=== PATIENT | female | born 1975 | race Caucasian/White ===

== ENCOUNTER → 2019-09-30 08:12 | Outpatient (BNVA) | payer MEDICAID, SELFPAY | PROVIDERS: Visit Provider Nurse Practitioner Psychiatric/Mental Health | DX: F33.2 Major depressive disorder, recurrent severe without psychotic features (principal); F40.01 Agoraphobia with panic disorder; F17.210 Nicotine dependence, cigarettes, uncomplicated | CPT/HCPCS: 99213 ==

== ENCOUNTER → 2019-10-07 14:17 | Outpatient (BNVA) | payer MEDICAID, SELFPAY | PROVIDERS: PCP Family Medicine; Visit Provider Specialist | DX: G43.711 Chronic migraine without aura, intractable, with status migrainosus (principal); M79.7 Fibromyalgia; F17.210 Nicotine dependence, cigarettes, uncomplicated | CPT/HCPCS: 64615; 99213; J0585 ==

== ENCOUNTER → 2019-12-23 09:07 | Outpatient (BNVA) | payer MEDICAID, SELFPAY | PROVIDERS: PCP Family Medicine; Visit Provider Nurse Practitioner Psychiatric/Mental Health | DX: F33.2 Major depressive disorder, recurrent severe without psychotic features (principal); F40.01 Agoraphobia with panic disorder; F17.210 Nicotine dependence, cigarettes, uncomplicated | CPT/HCPCS: 99213 ==

== ENCOUNTER → 2020-01-01 11:09 | Outpatient (BNVA) | payer MEDICAID, SELFPAY | PROVIDERS: PCP Family Medicine; Visit Provider Specialist | DX: G43.711 Chronic migraine without aura, intractable, with status migrainosus (principal); F33.2 Major depressive disorder, recurrent severe without psychotic features; F17.210 Nicotine dependence, cigarettes, uncomplicated | CPT/HCPCS: 64615; J0585 ==

== ENCOUNTER → 2020-03-24 07:30 | Outpatient (BNVA) | payer MEDICAID, SELFPAY | PROVIDERS: PCP Family Medicine; Visit Provider Nurse Practitioner Psychiatric/Mental Health | DX: F33.2 Major depressive disorder, recurrent severe without psychotic features (principal); F40.01 Agoraphobia with panic disorder | CPT/HCPCS: 99213 ==

== ENCOUNTER → 2020-04-01 14:27 | Outpatient (BNVA) | payer MEDICAID, SELFPAY | PROVIDERS: PCP Family Medicine; Visit Provider Specialist | DX: G43.711 Chronic migraine without aura, intractable, with status migrainosus (principal); F17.210 Nicotine dependence, cigarettes, uncomplicated | CPT/HCPCS: 64615; J0585 ==

== ENCOUNTER → 2020-04-14 12:25 | Outpatient (BNVA) | payer MEDICAID, SELFPAY | PROVIDERS: PCP Family Medicine; Visit Provider Specialist | DX: R20.0 Anesthesia of skin (principal); R20.2 Paresthesia of skin; M79.661 Pain in right lower leg; M79.662 Pain in left lower leg; F17.210 Nicotine dependence, cigarettes, uncomplicated | CPT/HCPCS: 95909 ==

== ENCOUNTER → 2020-06-22 07:25 | Outpatient (BNVA) | payer MEDICAID, SELFPAY | PROVIDERS: PCP Family Medicine; Visit Provider Nurse Practitioner Psychiatric/Mental Health | DX: F33.2 Major depressive disorder, recurrent severe without psychotic features (principal); F40.01 Agoraphobia with panic disorder; F17.210 Nicotine dependence, cigarettes, uncomplicated; Z03.89 Encounter for observation for other suspected diseases and conditions ruled out | CPT/HCPCS: 99214 ==

== ENCOUNTER → 2020-06-24 14:23 | Outpatient (BNVA) | payer MEDICAID, SELFPAY | PROVIDERS: PCP Family Medicine; Visit Provider Specialist | DX: G43.711 Chronic migraine without aura, intractable, with status migrainosus (principal); G62.9 Polyneuropathy, unspecified; M79.7 Fibromyalgia; F17.210 Nicotine dependence, cigarettes, uncomplicated | CPT/HCPCS: 64615; 99213; J0585 ==

== ENCOUNTER → 2020-07-28 08:11 | Outpatient (BNVA) | payer MEDICAID, SELFPAY | PROVIDERS: PCP Family Medicine; Visit Provider Nurse Practitioner Psychiatric/Mental Health | DX: F33.2 Major depressive disorder, recurrent severe without psychotic features (principal); F40.01 Agoraphobia with panic disorder; Z03.89 Encounter for observation for other suspected diseases and conditions ruled out; F17.210 Nicotine dependence, cigarettes, uncomplicated | CPT/HCPCS: 99214 ==

== ENCOUNTER → 2020-08-23 08:33 | Outpatient (BNVA) | payer MEDICAID, SELFPAY | PROVIDERS: PCP Family Medicine; Visit Provider Nurse Practitioner Psychiatric/Mental Health | DX: F33.2 Major depressive disorder, recurrent severe without psychotic features (principal); F40.01 Agoraphobia with panic disorder; Z03.89 Encounter for observation for other suspected diseases and conditions ruled out; F17.210 Nicotine dependence, cigarettes, uncomplicated | CPT/HCPCS: 99214 ==

== ENCOUNTER → 2020-09-16 11:50 | Outpatient (BNVA) | payer MEDICAID, SELFPAY | PROVIDERS: PCP Family Medicine; Visit Provider Specialist | DX: G43.711 Chronic migraine without aura, intractable, with status migrainosus (principal); G62.9 Polyneuropathy, unspecified; M79.7 Fibromyalgia; F17.210 Nicotine dependence, cigarettes, uncomplicated | CPT/HCPCS: 64615; J0585 ==

== ENCOUNTER → 2020-09-20 08:55 | Outpatient (BNVA) | payer MEDICAID, SELFPAY | PROVIDERS: PCP Family Medicine; Visit Provider Nurse Practitioner Psychiatric/Mental Health | DX: F33.2 Major depressive disorder, recurrent severe without psychotic features (principal); F40.01 Agoraphobia with panic disorder; Z03.89 Encounter for observation for other suspected diseases and conditions ruled out; F17.210 Nicotine dependence, cigarettes, uncomplicated | CPT/HCPCS: 99214 ==

== ENCOUNTER → 2020-10-25 08:13 | Outpatient (BNVA) | payer MEDICAID, SELFPAY | PROVIDERS: PCP Family Medicine; Visit Provider Nurse Practitioner Psychiatric/Mental Health | DX: F33.2 Major depressive disorder, recurrent severe without psychotic features (principal); F40.01 Agoraphobia with panic disorder; F17.210 Nicotine dependence, cigarettes, uncomplicated; Z03.89 Encounter for observation for other suspected diseases and conditions ruled out | CPT/HCPCS: 99214 ==

== ENCOUNTER → 2021-02-03 14:07 | Outpatient (BNVA) | payer MEDICAID, SELFPAY | PROVIDERS: PCP Family Medicine; Visit Provider Specialist | DX: G43.711 Chronic migraine without aura, intractable, with status migrainosus (principal); G62.9 Polyneuropathy, unspecified; M79.7 Fibromyalgia; F17.210 Nicotine dependence, cigarettes, uncomplicated | CPT/HCPCS: 64615; 99213; 99214; J0585 ==

== ENCOUNTER 2021-03-19 00:40 | Emergency (ER) | payer MEDICAID, SELFPAY ==
--- NOTE | 2021-03-19 00:43 | XRR_ITS ---
PROCEDURE INFORMATION: Exam: XR Chest Exam date and time: 03/19/2021 12:43 AM Age: 46 years old Clinical indication: Chest pressure; Prior surgery; Surgery type: Cervical fusion; Patient HX: Chest pain; Additional info: Cp TECHNIQUE: Imaging protocol: XR of the chest. Views: 1 view. COMPARISON: CT Chest/Abdomen/Pelvis w IV* 07/22/2017 8:11 PM FINDINGS: Lungs: Nodular opacity in the right upper lobe which may be secondary to neoplasm or infection. Pleural spaces: Unremarkable. No pleural effusion. No pneumothorax. Heart/Mediastinum: Unremarkable. No cardiomegaly. Bones/joints: Anterior cervical fixation hardware is in place. XR/XR chest 1V portable [id number] IMPRESSION: Nodular opacity in the right upper lobe which may be secondary to neoplasm or infection. Radiation Dose CTDIVOL = (mGy): DLP = (mGy-cm)
--- NOTE | 2021-03-19 00:43 | ECG_ITS ---
[facility] Test Date: 2021-03-19 Pat Name: Kristine Kramer Department: Room: Gender: Female Ecologist: : 1975 Requested By: Ewelina Mims Order Number: [id number] Jeffery MD: Ivan Alvarado M.D. Measurements Intervals [place] Rate: 86 P: 66 AK: 154 QRS: 67 QRSD: 83 T: 73 QT: 347 QTc: 417 Interpretive Statements SINUS RHYTHM NONSPECIFIC T-WAVE ABNORMALITY Compared to ECG 07/22/2017 17:12:08 No significant changes Electronically Signed On 03-19-2021 22:00:40 CREDIT CONTROL ADMINISTRATOR by Ivan Alvarado M.D. [id number] f
[2021-03-19 00:51] VITALS: BP 118/69; PULSE 90; RESP 16; TEMP 36.9; O2SAT 98; BMI 23.3
--- NOTE | 2021-03-19 01:05 | ED_ITS ---
HPI - Chest Pain General: Chief Complaint: Chest Pain Stated Complaint: Chest Pain Time Seen by Provider: 03/19/21 00:44 Source: patient Mode of arrival: ambulatory Limitations: no limitations History of Present Illness: HPI narrative: 46-year-old female states she has been having chest pain since 10 PM. States she has been under a lot of stress and has a lot of anxiety started feeling fluttering in her heart start him some sharp pain in her left chest. States that has been constant denies any shortness of breath states she also had some pain in her right lower back. [place] pain is sharp chest pain is much worse with palpation improved with rest. Denies any abdominal pain denies any vomiting or diarrhea Associated symptoms: Deny abdominal pain, dyspnea, fever(s), nausea or vomiting Review of Systems Const: Denies: fever(s), chills, body aches or change in appetite Eyes: Denies: blurry vision or eye discomfort ENMT: Denies: throat pain or dental pain Card: Reports: chest pain Resp: Denies: dyspnea GI: Denies: abdominal pain, nausea, vomiting or diarrhea : Denies: dysuria Musc: Denies: neck pain or back pain Skin/Breast: Denies: rash Neuro: Denies: headache(s) Psych: Denies: depression [place]/Lymph: Denies: easy bruising All/Imm: Denies: urticaria PFSH ED PFSH: Medical History (Updated 03/19/21 @ 02:33 by Ewelina Mims MD) Agoraphobia with panic attacks Fibromyalgia Major depressive disorder, recurrent 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 Nicotine dependence, cigarettes, uncomplicated Family History Other CAD (coronary artery disease) Cancer Diabetes Hypertension Denies family history of Stroke Social History Smoking and tobacco status: current every day smoker cigarettes Packs smoked per day: 0.5 Alcohol intake: never History of recent travel: No Physical Exam Const: COMMON NORMALS: no acute distress, patient oriented x3 and healthy appearing HENMT: COMMON NORMALS: normocephalic and atraumatic HEAD & SCALP: normocephalic and atraumatic Eye: COMMON NORMALS: Equal, round and reactive pupils present and EOMs intact bilaterally PUPIL: Yes Equal, round and reactive pupils present Neck/C-Spine: COMMON NORMALS: full ROM and supple Chest: COMMONS NORMALS: normal inspection of the chest OTHER: Point tender over left chest reproduces her pain Resp: COMMON NORMALS: normal respiratory effort, No retractions, No use of accessory muscles and clear to auscultation bilaterally AUSCULTATION: clear to auscultation bilaterally Cardio: COMMON NORMALS: regular rate, regular rhythm and No murmurs present (Cardio) RATE: regular rate RHYTHM: regular rhythm GI: COMMON NORMALS: Normal to inspection, nondistended, normoactive bowel sounds present, Soft to palpation, non-tender and no masses PALPATION: Yes Soft to palpation Extremity: COMMON NORMALS: normal to inspection and full ROM Neuro: COMMON NORMALS: patient oriented x3, moves all extremities and no focal motor deficits Psych: COMMON NORMALS: mental status grossly normal, Normal thought process present and cooperative THOUGHT PROCESS: Normal thought process present Skin: COMMON NORMALS: no rashes or lesions noted and no wounds GENERAL SKIN EXAM: no rashes or lesions noted Course Vital Signs: Vital signs: Vital Signs Temperature 98.4 F 03/19/21 00:51 Pulse Rate 71 03/19/21 03:31 Respiratory Rate 18 03/19/21 03:31 Blood Pressure 102/75 03/19/21 03:31 Pulse Oximetry 98 03/19/21 03:31 MDM - Chest Pain MDM Narrative: Medical decision making narrative: Patient presents here with chest pain she has no signs of acute coronary syndrome or pulmonary embolism did find a lung mass on CT and informed patient of these findings we will get her follow-up with pulmonology she is stable for discharge and is to return if worsening she understands agrees to plan. Lab Data: Labs: Lab Results 03/19/21 03/19/21 03/19/21 01:12 01:12 01:12 WBC 17.5 10^3/uL H 10 ^3/uL (4.0-10.0) RBC 5.18 10^6/uL 10^6 /uL (4.1-5.3) Hgb 13.9 g/dL g/dL (11.5-15.3) Hct 43.2 % % (37.0-47.0) MCV 83.4 fl fl (81-99) MCH 26.8 pg L pg (28.0-34.0) MCHC 32.2 g/dL g/dL (30.0-36.0) RDW 15.7 % H % (12.1-15.1) Plt Count 253 10^3/cmm 10^3 /cmm (130-400) MPV 12.2 fL H fL (7.4-10.4) Neut % (Auto) 70.8 % % Lymph % (Auto) 21.4 % % [place] % (Auto) 6.0 % % Eos % (Auto) 0.8 % % Baso % (Auto) 0.5 % % Neut # (Auto) 12.39 10^3/uL H 1 0^3/uL (1.8-7.7) Lymph # (Auto) 3.7 10^3/uL 10^3/ uL (0.8-4.8) [place] # (Auto) 1.1 10^3/uL H 10^ 3/uL (0.2-0.9) Eos # (Auto) 0.1 10^3/uL 10^3/ uL (0.0-0.8) Baso # (Auto) 0.1 10^3/uL 10^3/ uL (0.0-0.1) Nucleated RBC % (a uto) 0 % % Nucleated RBCs # 0.0 /100WBC /100W BC Sodium 138 mmol/L mmol/L (136-145) Potassium 3.7 mmol/L mmol/L (3.5-5.1) Chloride 109 mmol/L H mmol /L (98-107) Carbon Dioxide 15 mmol/L L mmol/ L (22-29) Anion Gap 17.7 (5-19) BUN 12 mg/dL mg/dL (6-20) Creatinine 0.6 mg/dL mg/dL (0.5-0.9) GFR Calculation 106.7 mL/min mL/m in (90-130) Glucose 103 mg/dL mg/dL (65-115) Calculated Osmolal ity 286 mOsm/kg mOsm/ kg (285-295) Calcium 8.4 mg/dL L mg/dL (8.5-10.5) Total Bilirubin 0.2 mg/dL mg/dL (0.15-1.2) AST 13 U/L U/L (0-32) ALT 15 U/L U/L (0-33) Alkaline Phosphata se 91 IU/L IU/L (35-105) Troponin T Baselin e 6 ng/L ng/L (0-10) Troponin T 120 Min [place] Delta Troponin T Total Protein 6.8 g/dL g/dL (6.6-8.7) Albumin 4.2 g/dL g/dL (3.5-5.2) Globulin 2.6 g/dL g/dL (1.3-4.6) Urine Color Urine Appearance Urine pH Ur Specific Gravit y Urine Protein Urine Glucose (UA) Urine Ketones Urine Blood Urine Nitrate Urine Bilirubin Urine Urobilinogen Ur Leukocyte Evita ase 03/19/21 03/19/21 03:15 03:36 WBC RBC Hgb Hct MCV MCH MCHC RDW Plt Count MPV Neut % (Auto) Lymph % (Auto) [place] % (Auto) Eos % (Auto) Baso % (Auto) Neut # (Auto) Lymph # (Auto) [place] # (Auto) Eos # (Auto) Baso # (Auto) Nucleated RBC % (a uto) Nucleated RBCs # Sodium Potassium Chloride Carbon Dioxide Anion Gap BUN Creatinine GFR Calculation Glucose Calculated Osmolal ity Calcium Total Bilirubin AST ALT Alkaline Phosphata se Troponin T Baselin e Troponin T 120 Min [place] 6.00 ng/L ng/L (0-10) Delta Troponin T 0 ABS# ABS# (0-10) Total Protein Albumin Globulin Urine Color Yellow (Yellow) Urine Appearance Clear (CLEAR) Urine pH 5 (5-7) Ur Specific Gravit y 1.010 (1.005-1.030) Urine Protein Neg (Negative) Urine Glucose (UA) Norm (Normal) Urine Ketones Negative (Negative) Urine Blood Neg (Negative) Urine Nitrate Negative (Negative) Urine Bilirubin Neg (Negative) Urine Urobilinogen Norm mg/dL mg/dL (Negative) Ur Leukocyte Evita ase Negative (Negative) Imaging Data^: CXR: Attestation: I personally reviewed and interpreted this imaging study as follows: My impression: [address] [address] XRay Report Signed Patient: Kristnie Kramer Unit #: [id number] : 1975 Age/Sex: 46 / F ADM Date: 1 05/19/20 Loc: ER Room/Bed: Attending Dr: Ordering Provider/Ordering MD: Ewelina Mims MD Date of Service: 03/19/21 Procedure(s): XR chest 1V portable [id number] Accession Number(s): [id number] Report Number: [id number] PROCEDURE INFORMATION: Exam: XR Chest Exam date and time: 03/19/2021 12:43 AM Age: 46 years old Clinical indication: Chest pressure; Prior surgery; Surgery type: Cervical fusion; Patient HX: Chest pain; Additional info: Cp TECHNIQUE: Imaging protocol: XR of the chest. Views: 1 view. COMPARISON: CT Chest/Abdomen/Pelvis w IV* 07/22/2017 8:11 PM FINDINGS: Lungs: Nodular opacity in the right upper lobe which may be secondary to neoplasm or infection. Pleural spaces: Unremarkable. No pleural effusion. No pneumothorax. Heart/Mediastinum: Unremarkable. No cardiomegaly. Bones/joints: Anterior cervical fixation hardware is in place. XR/XR chest 1V portable [id number] IMPRESSION: Nodular opacity in the right upper lobe which may be secondary to neoplasm or infection. Radiation Dose CTDIVOL = (mGy): DLP = (mGy-cm) Dictated By: Ashish Kaur Signed By: Ashish Kaur Signed Date/Time: 03/19/[address] Abd/Pel: Attestation: I personally reviewed and interpreted this imaging study as follows: Radiologist's impression: [address] [address] [address] Scan Report Signed Patient: Kristine Kramer Unit #: [id number] : 1975 Age/Sex: 46 / F ADM Date: 03/19/21 Loc: ER Room/Bed: Attending Dr: Ordering Provider/Ordering MD: Ewelina Mims MD Date of Service: 03/19/21 Procedure(s): CT angio chest PE protcl [id number] Accession Number(s): [id number] Report Number: [id number] PROCEDURE INFORMATION: Exam: CTA Chest With Contrast Exam date and time: 03/19/2021 1:53 AM Age: 46 years old Clinical indication: Shortness of breath; Chest pressure and radiating; Prior surgery; Surgery type: Cervical fusion. ; Patient HX: Chest pain with RT posterior radiation. SOB. Rul opacity seen on cxr. ; Additional info: Mass rul TECHNIQUE: Imaging protocol: Computed tomographic angiography of the chest with contrast. 3D rendering (Not supervised by radiologist): MIP and/or 3D reconstructed images were created by the technologist. Radiation optimization: All CT scans at this facility use at least one of these dose optimization techniques: automated exposure control; mA and/or kV adjustment per patient size (includes targeted exams where dose is matched to clinical indication); or iterative reconstruction. Contrast material: OMNI 350; Contrast volume: 57 ml; Contrast route: INTRAVENOUS (IV); COMPARISON: CT Chest/Abdomen/Pelvis w IV* 07/22/2017 8:11 PM RADIATION DOSE METRICS: Total DLP (mGy-cm): 517.38 FINDINGS: Pulmonary arteries: No pulmonary embolism. Aorta: Unremarkable. No aortic aneurysm. No aortic dissection. Lungs: Dependent atelectasis present in both lungs. Mildly spiculated 2.2 by 1.6 cm pulmonary nodule. Pleural spaces: Unremarkable. No pneumothorax. No pleural effusion. Heart: Unremarkable. No cardiomegaly. No pericardial effusion. Lymph nodes: Unremarkable. No enlarged lymph nodes. Diaphragm: Small hiatal hernia. Gallbladder and bile ducts: There is cholelithiasis without wall thickening or pericholecystic fluid. Bones/joints: Unremarkable. No acute fracture. Soft tissues: Unremarkable. Other findings: Mild emphysema. CT/CT angio chest PE protcl [id number] IMPRESSION: 1. No pulmonary embolism. 2. Mildly spiculated 2.2 by 1.6 cm pulmonary nodule. Highly suspicious nodule. Consider non-emergent PET/CT, or tissue sampling.(Reference: Bisi) 3. Small hiatal hernia. 4. Mild emphysema. 5. Cholelithiasis without cholecystitis. REFERENCES: Bisi Ferguson et al. Guidelines for Management of Incidental Pulmonary Nodules Detected on CT Images: From the Fleischner Society 2017. Radiology. 2017;284(1):228-243. Radiation Dose CTDIVOL = (mGy): DLP = 517.38 (mGy-cm) Dictated By: Ashish Kaur Signed By: Ashish Kaur Signed Date/Time: 03/19/21224 DD/ 0153 EKG Data^: EKG 1: Attestation: I personally reviewed and interpreted this EKG as follows: EKG interpretation date: 03/19/21 EKG interpretation time: 00:49 Interpretation: nsr hr [address] or t wave abnormalities qrs 83 qtc 391 Discharge Plan Discharge Patient Disposition: Home Clinical Impression: Lung mass Chest pain Qualifiers: Chest pain type: unspecified Qualified Code(s): R07.9 - Chest pain, unspecified Condition: Stable Prescriptions: New hydrocodone-acetaminophen 5-325 mg tablet 1 tab PO Q6H PRN (Reason: pain) Qty: 14 RF: 0 No Action ferrous sulfate [FeroSul] 325 mg (65 mg iron) tablet 325 mg PO BID RF: 0 topiramate 100 mg tablet See Rx Instructions .ROUTE .COMPLEX Qty: 30 RF: 0 alprazolam [Xanax] 1 mg tablet 1 mg PO TID PRN (Reason: anxiety) Qty: 90 RF: 3 amitriptyline 50 mg tablet 50 mg PO .morning Qty: 30 RF: 3 amitriptyline 75 mg tablet 75 mg PO .bedtime Qty: 30 RF: 3 modafinil [Provigil] 200 mg tablet 200 mg PO QAM Qty: 30 RF: 3 Discharge Orders: Discharge ED (Routine); Ordered 03/19/21 Ordered By: Ewelina Mims Referrals: HarishrAlexander MD [Physician] - 1-3 days Mango Yuen MD [Primary Care Provider] - Discharge Diet: Advance as tolerated Discharge Activity: Resume usual activity Patient Instructions: Chest Pain (ED), Opioid Safety Coding Level of Care Code ED Reclamation Engineer for Chg Fwd Exam Comprehensive
[2021-03-19 01:38] LABS: Basophils # 0.1 10^3/uL (0.0-0.1); Basophils % 0.5 %; Eosinophils # 0.1 10^3/uL (0.0-0.8); Eosinophils % 0.8 %; Hematocrit 43.2 % (37.0-47.0); Hemoglobin 13.9 g/dL (11.5-15.3); Lymphocytes # 3.7 10^3/uL (0.8-4.8); Lymphocytes % 21.4 %; Mean Corpuscular HGB Conc 32.2 g/dL (30.0-36.0); Mean Corpuscular Hemoglobin 26.8 pg (28.0-34.0); Mean Corpuscular Volume 83.4 fl (81-99); Mean Platelet Volume 12.2 fL (7.4-10.4); Monocytes # 1.1 10^3/uL (0.2-0.9); Neutrophils # 12.39 10^3/uL (1.8-7.7); Neutrophils % 70.8 %; Nucleated Red Blood Cells % 0 %; Platelet Count 253 10^3/cmm (130-400); Red Blood Count 5.18 10^6/uL (4.1-5.3); Red Cell Distribution Width 15.7 % (12.1-15.1); White Blood Count 17.5 10^3/uL (4.0-10.0)
[2021-03-19] MEDS: morphine 4 mg/mL SDV 1 mL IVP (01:51)
[2021-03-19] MEDS: ondansetron 2 mg/ML SDV 2 mL 4 MG IVP (01:51)
--- NOTE | 2021-03-19 01:53 | CTR_ITS ---
PROCEDURE INFORMATION: Exam: CTA Chest With Contrast Exam date and time: 03/19/2021 1:53 AM Age: 46 years old Clinical indication: Shortness of breath; Chest pressure and radiating; Prior surgery; Surgery type: Cervical fusion. ; Patient HX: Chest pain with RT posterior radiation. SOB. Rul opacity seen on cxr. ; Additional info: Mass rul TECHNIQUE: Imaging protocol: Computed tomographic angiography of the chest with contrast. 3D rendering (Not supervised by radiologist): MIP and/or 3D reconstructed images were created by the technologist. Radiation optimization: All CT scans at this facility use at least one of these dose optimization techniques: automated exposure control; mA and/or kV adjustment per patient size (includes targeted exams where dose is matched to clinical indication); or iterative reconstruction. Contrast material: OMNI 350; Contrast volume: 57 ml; Contrast route: INTRAVENOUS (IV); COMPARISON: CT Chest/Abdomen/Pelvis w IV* 07/22/2017 8:11 PM RADIATION DOSE METRICS: Total DLP (mGy-cm): 517.38 FINDINGS: Pulmonary arteries: No pulmonary embolism. Aorta: Unremarkable. No aortic aneurysm. No aortic dissection. Lungs: Dependent atelectasis present in both lungs. Mildly spiculated 2.2 by 1.6 cm pulmonary nodule. Pleural spaces: Unremarkable. No pneumothorax. No pleural effusion. Heart: Unremarkable. No cardiomegaly. No pericardial effusion. Lymph nodes: Unremarkable. No enlarged lymph nodes. Diaphragm: Small hiatal hernia. Gallbladder and bile ducts: There is cholelithiasis without wall thickening or pericholecystic fluid. Bones/joints: Unremarkable. No acute fracture. Soft tissues: Unremarkable. Other findings: Mild emphysema. CT/CT angio chest PE protcl [id number] IMPRESSION: 1. No pulmonary embolism. 2. Mildly spiculated 2.2 by 1.6 cm pulmonary nodule. Highly suspicious nodule. Consider non-emergent PET/CT, or tissue sampling.(Reference: Bisi) 3. Small hiatal hernia. 4. Mild emphysema. 5. Cholelithiasis without cholecystitis. REFERENCES: Bisi Ferguson et al. Guidelines for Management of Incidental Pulmonary Nodules Detected on CT Images: From the Fleischner Society 2017. Radiology. 2017;284(1):228-243. Radiation Dose CTDIVOL = (mGy): DLP = 517.38 (mGy-cm)
[2021-03-19 01:54] LABS: Troponin(5th) Baseline 6 ng/L (0-10)
[2021-03-19 01:56] LABS: Alanine Aminotransferase 15 U/L (0-33); Albumin Level 4.2 g/dL (3.5-5.2); Alkaline Phosphatase 91 IU/L (35-105); Anion Gap 17.7 (5-19); Aspartate Amino Transferase 13 U/L (0-32); Blood Urea Nitrogen 12 mg/dL (6-20); Calcium 8.4 mg/dL (8.5-10.5); Carbon Dioxide 15 mmol/L (22-29); Chloride 109 mmol/L (98-107); Globulin 2.6 g/dL (1.3-4.6); Glomerular Filtration Rate 106.7 mL/min (90-130); Glucose 103 mg/dL (65-115); Osmolality Calculated 286 mOsm/kg (285-295); Potassium 3.7 mmol/L (3.5-5.1); Sodium 138 mmol/L (136-145); Total Bilirubin 0.2 mg/dL (0.15-1.2); Total Protein 6.8 g/dL (6.6-8.7)
[2021-03-19] MEDS: iohexol 350 mg/mL 100 mL Btl IV (02:17)
[2021-03-19 03:26] LABS: Add Urine Microscopic? NO; Charge for UA Resulting for Rev
[2021-03-19] MEDS: sodium chloride 0.9% 1,000 ML 999 ML IV (03:27)
[2021-03-19 03:30] LABS: Bilirubin Urine Neg (Negative); Blood Urine Neg (Negative); Glucose Urine UA Norm (Normal); Ketones Urine Negative (Negative); Leukocyte Esterase Urine Negative (Negative); Nitrate Urine Negative (Negative); Protein Urine Neg (Negative); Urine Appearance Clear (CLEAR); Urine Color Yellow (Yellow); Urobilinogen Urine Norm (Negative); pH Urine 5 (5-7)
[2021-03-19 03:31] VITALS: BP 102/75; PULSE 71; RESP 18; O2SAT 98
[2021-03-19 04:12] LABS: Troponin 5 2HR Delta 0 ABS# (0-10)
[2021-03-19 04:34] VITALS: BP 127/78; PULSE 72; RESP 18; O2SAT 98
--- NOTE | 2021-03-21 13:34 | DCPLANNER ---
Addendum entered by Luci Riggins 05/21/21 11:16: Patient had a follow up appointment scheduled with [facility] - patient did attend appointment. Original Note: manager food had message to schedule a follow up appointment for patient with Pulmonology. manager food called [facility], spoke with Gretel, gave clinic patients information. manager food was told that patient has a follow up appointment scheduled for Monday, March 22, 2021 at 2:[address] Cha. manager food was told that clinic has given patient the appointment information.
== END 2021-03-19 04:36 | disposition home or self-care (01) ==
PROVIDERS: Emergency Provider Emergency Medicine; PCP Family Medicine
DX: R07.9 Chest pain, unspecified (principal); R91.8 Other nonspecific abnormal finding of lung field; F17.210 Nicotine dependence, cigarettes, uncomplicated
CPT/HCPCS: 71045; 71275; 80053; 81003; 84484; 85025; 93005; 96361; 96374; 96375; 99284; J2270; J2405; J7030; Q9967

== ENCOUNTER → 2021-05-04 12:51 | Outpatient (BNVA) | payer MEDICAID, SELFPAY | PROVIDERS: PCP Family Medicine; Visit Provider Internal Medicine Pulmonary Disease | DX: Z01.812 Encounter for preprocedural laboratory examination (principal) | CPT/HCPCS: 87635 ==

== ENCOUNTER 2021-05-10 09:30 | Outpatient (CLI) | payer MEDICAID, SELFPAY ==
--- NOTE | 2021-05-10 12:46 | PFTS_ITS ---
Date of Study:05/10/21 Date of Dictation: MECHANICS: Forced vital capacity (FVC) is normal. Forced expiratory volume in one second (FEV1) is normal. FEV1/FVC is normal. FLOW VOLUME LOOP: Normal. LUNG VOLUMES: Not measured DIFFUSING CAPACITY FOR CARBON MONOXIDE: Moderately reduced. INTERPRETATION: The postbronchodilator spirometry is normal. There is no significant postbronchodilator response. Gas exchange (DLCO) is disproportionately reduced. Correlate clinically. MTDD
== END 2021-05-10 09:31 | disposition home or self-care (01) ==
LOC: RT 09:31
PROVIDERS: PCP Family Medicine; Visit Provider Internal Medicine Pulmonary Disease
DX: R91.8 Other nonspecific abnormal finding of lung field (principal)
CPT/HCPCS: 94060; 94729; J7611

== ENCOUNTER → 2021-05-12 14:58 | Outpatient (BNVA) | payer MEDICAID, SELFPAY | PROVIDERS: PCP Family Medicine; Visit Provider Specialist | DX: G43.711 Chronic migraine without aura, intractable, with status migrainosus (principal) | CPT/HCPCS: 64615; 99214; J0585 ==

== ENCOUNTER → 2021-05-20 13:39 | Outpatient (BNVA) | payer MEDICAID, SELFPAY | PROVIDERS: PCP Family Medicine; Visit Provider Internal Medicine Pulmonary Disease | DX: Z01.812 Encounter for preprocedural laboratory examination (principal); Z20.822 Contact with and (suspected) exposure to COVID-19 | CPT/HCPCS: 87635 ==

== ENCOUNTER 2021-05-24 06:17 | Day surgery (SDC) | payer MEDICAID, SELFPAY ==
[2021-05-20 11:47] VITALS: BMI 25.8
[2021-05-24] VITALS (13 sets, daily range): BP systolic 97–142; BP diastolic 59–78; PULSE 76–90; RESP 16–20; TEMP 36.1; O2SAT 91–100
[2021-05-24 06:42] LABS: OR HCG Qualitative Urine Negative (Negative)
[2021-05-24] MEDS: sodium chloride 0.9% 1,000 ML 30 ML IV (06:46)
--- NOTE | 2021-05-24 06:54 | ANES.PREANE2 ---
Pre-Anesthetic Assessment Height/Weight: Height 1.68 m Weight 72.575 kg Temp Pulse Resp BP Pulse Ox 97 F L 77 18 102/74 100 05/24/21 06:38 05/24/21 06:38 05/24/21 06:38 05/24/21 06:38 05/24/21 06:38 Preop Diagnosis: lung mass Operation Date: 05/24/21 07:00 Proposed Procedures p Ebus [id number]/r91.8(Not Applicable) - Alexander Morales MD Was Beta Carin taken within 24 hours: N/A Was Clonidine taken within 24 hours: N/A Last intake: Intake Last Liquid Date 05/23/21 Last Liquid Time 19:30 Last Solid Date 05/23/21 Last Solid Time 19:00 Social Tobacco and No alcohol 0.5 pack(s) per day since age 14 Exam alert and oriented x 3 Airway Submandibular: within normal limits Cervical ROM: within normal limits Mallampati: Class IV Dentition: false History/ROS No significant history except as noted Pulmonary Chronic Obstructive Pulmonary Disease and Shortness of Breath CV/HEM None reported None reported Hepatic None reported GI None reported Metabolic None reported Musc/skel Fibromyalgia, Lower Back Pain and Weakness (legs) neuropathy Neuropsych Anxiety Anesthetic Plan ASA status: 3 Anesthesia: Anesthesia Evaluation and General Risk of > 500 ml blood loss (7ml/kg in children): No Medications/Allergies Home Medications Medication Instructions Recorded Confirmed Last Taken Type alprazolam 1 mg tablet (Xanax) 1 mg PO TID PRN #90 tab 03/15/21 05/24/21 05/23/21 Rx tiotropium bromide 18 mcg capsule 1 cap INHALATION DAILY #30 inh 03/29/21 05/24/21 05/24/21 05:30 Rx with inhalation device (Spiriva with HandiHaler) amitriptyline 50 mg tablet 50 mg PO BEDTIME 05/20/21 05/24/21 05/23/21 History topiramate 100 mg tablet 100 mg PO DAILY 05/20/21 05/24/21 05/23/21 History Allergies Allergy/AdvReac Type Severity Reaction Status Date / Time No Known Allergies Allergy Verified 05/12/21 15:56 Current Medications Generic Name Dose Route Start Last Admin Trade Name Freq PRN Reason Stop Dose Admin Sodium Chloride 1,000 mls @ 30 mls/hr 05/24/21 06:30 05/24/21 06:46 Sodium Chloride 0.9% IV 05/25/21 06:29 30 mls/hr .Q24H DEYANIRA Administration PFSH Anesthesia Medical History Agoraphobia with panic attacks Fibromyalgia Major depressive disorder, recurrent 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 Nicotine dependence, cigarettes, uncomplicated Family History Other CAD (coronary artery disease) Cancer Diabetes Hypertension Denies family history of Stroke Social History Alcohol intake: never Adopted: No Lives independently: Yes Household members: children Housing: House Marital status: Number of children: 5 Pets and animals: Yes Pets & animals: dog(s) History of recent travel: No Data Anesthesia Cardiac Studies: No Data to Display
--- NOTE | 2021-05-24 07:00 | W.PM.OPSUD ---
Surgery/Procedure H&P Update DATE OF PROCEDURE: May 24, 2021 Ms. Kristine Kramer is a 46-year-old female with past medical history of fibromyalgia, major depressive disorder, chronic smoker, referred from emergency room for mildly spiculated 2.2 x1.6 cm pulmonary nodule located in the posterior limb right upper lobe.She was seen initially in pulmonary clinic 03/22/2021. During that visit she told her at the age of 45 with [place]'s disease and her 25-year-old son Also has [place]'s And that she needs to take care of him.She was worried about limited help she has been taking care of her son but says that she will try to manage.She lost her son recently. Later she underwent PET CT scan on05/18/2021 which reported 2.4 x 2.2 cm posterior right upper lobe solid nodule with SUV 7.1 and 2.1 cm right paratracheal node has SUV 11.8 consistent with local metastatic disease. An adjacent subcarinal node is FDG positive as well.A 5 mm lateral left upper lobe subpleural anteromedial right lower lobe 6 mm nodule is too small to characterize. she complained of nonproductive cough but denied any hemoptysis or weight loss.? She reported feeling fatigue for last several days but attributed it to taking care of her son with [place]il[place]'s disease who requires personal attention and she being the only caregiver.? Reported starting smoking at the age of 14 and still continues to smoke at least half pack a day.? At some point she was given smoking 1 pack a day for several years.? Recent postbronchodilator spirometry is normal with no significant postbronchodilator response. TLC is disproportionately reduced..? She takes Xanax for anxiety as needed.Currently using Spiriva and says it helps to some extent. Today she is scheduled for EBUS guided fine-needle aspiration of 4R and station 7 PET positive lymph nodes DATE H&P PERFORMED: 03/22/21 CHANGES TO PREVIOUS DOCUMENTATION: Today's physical examination: General: alert, NAD HEENT: conj clear, EOMI, PERRL, mmm, Neck: supple, no meningismus Heme: no cervical LAP Pulmonary: CTAB, no wheezing, rhonchi, crackles Cardiovascular: rrr, nl s1s2, no mrg Abdomen: soft, nt, nd, no r/g, bs+ Extremities: pulses +, no edema, no c/c : no CVA tenderness Skin: intact, no rash MSK: no back or neck pain Neurologic: grossly intact PRIMARY INDICATION FOR PROCEDURE: Suspect Lung cancer in chronic smoker with PET positive lesions in right upper lobe and right paratracheal station 4R and subcarinal area PLANNED PROCEDURE: Operation Date: 05/24/21 07:00 Proposed Procedures p Ebus [id number]/r91.8(Not Applicable) - Alexander Barr DatarMD ADDITIONAL INFORMATION: PER ANESTHESIA - REFER TO ANESTHESIA NOTES Related Problem List Diagnoses (1) COPD (chronic obstructive pulmonary disease): Qualifiers: COPD type: emphysema Emphysema type: centrilobular Qualified Code(s): J43.2 - Centrilobular emphysema (2) Lung nodule, solitary: (3) Adenopathy, hilar:
[2021-05-24] MEDS: lidocaine 1% INJ 20 mL XX (07:30)
--- NOTE | 2021-05-24 08:40 | P.OP_ITS ---
Operative Report Date of procedure: May 24, 2021 Pre-op diagnosis: Preop Diagnosis lung mass Post-op diagnosis: Right lung upper lobe opacity and hilar lymphadenopathy suspicious for malignancy Procedure done: Procedure: Name of the procedure: Bronchoscopic inspection of airways followed by endobronchial ultrasound-guided fine-needle aspiration of right Parasternal 4R station Mass and control of bleeding Specimens removed/disposition: 1.? Bronchoalveolar lavage specimen from right upper lobe was sent for cytology, fungal cultures, Gram stain and microbiology culture. 2.? The transbronchial needle aspiration of the aforementioned lymph node station 4R were sent for histopathology. Surgeon: PUJA DEL TORO MD Brief History: Date of procedure: May 10, 2021 Ms. Kristine Kramer is a 46-year-old female with past medical history of fibromyalgia, major depressive disorder, chronic smoker, referred from emergency room for mildly spiculated 2.2 x1.6 cm pulmonary nodule located in the posterior limb right upper lobe.She was seen initially in pulmonary clinic 03/22/2021. During that visit she told her at the age of 45 with Maunabo's disease and her 25-year-old son Also has Ma[place]'s And that she needs to take care of him.She was worried about limited help she has been taking care of her son but says that she will try to manage.She lost her son recently. Later she underwent PET CT scan on05/18/2021 which reported 2.4 x 2.2 cm posterior right upper lobe solid nodule with SUV 7.1 and 2.1 cm right paratracheal node has SUV 11.8 consistent with local metastatic disease.? An adjacent subcarinal node is FDG positive as well.A 5 mm lateral left upper lobe subpleural anteromedial right lower lobe 6 mm nodule is too small to characterize. she complained of nonproductive cough but denied any hemoptysis or weight loss.? She reported feeling fatigue for last several days but attributed it to taking care of her son with Maunabo's disease who requires personal attention and she being the only caregiver.? Reported starting smoking at the age of 14 and s till continues to smoke at least half pack a day.? At some point she was given smoking 1 pack a day for several years.? Recent postbronchodilator spirometry is normal with no significant postbronchodilator response.? TLC is disproportionately reduced..? She takes Xanax for anxiety as needed.Currently using Spiriva and says it helps to some extent. Today she is scheduled for EBUS guided fine-needle aspiration of 4R and station 7 PET positive lymph nodes ? Procedure: Procedure: Name of the procedure: Bronchoscopic inspection of airways followed by endobronchial ultrasound-guided fine-needle aspiration of right Parasternal 4R station Mass and control of bleeding Indication: Suspected lung cancer Anesthesia: General anesthesia. Local anesthesia: The main eryn, right and left mainstem bronchi were anesthetized with 1% lidocaine, 2 mL each. Description of the procedure: The procedure was explained to the patient and the consent was obtained.? The patient was brought to the OR.? The patient underwent Endotracheal intubation placement for general anesthesia.? Following induction of general anesthesia, the bronchoscope was advanced through the Endotracheal tube.? The lower trachea appeared to be normal. the eryn was sharp.? The eryn, the right and left mainstem bronchi are anesthetized with 1% lidocaine. In a systematic manner bilateral bronchial tree was then examined.? The bronchoscope was advanced into the Right mainstem bronchus.? The bronchoscope was then introduced into the Right mainstem bronchus.? The Right upper lobe, Bronchus intermedius, right middle lobe and right lower lobe bronchi were examined up to the third subsegmental level and no abnormalities were identified. Then the bronchoscope was introduced into the left mainstem bronchus. The left upper lobe, left lower lobe were examined up to third subsegmental level and no abnormalities identified Bronchoalveolar lavage was performed from the right upper lobe.? 60 mL of saline was instilled, fluid return was 15 mL.? The fluid was clear.. The Bronchoscope was removed and endobronchial ultrasound was introduced through the ET tube.? Mediastinal and hilar lymphadenopathy At stations 4R and station 7 were identified with the ultrasound. TB NA was performed from station 4R . Samples: 1.? Bronchoalveolar lavage specimen from right upper lobe was sent for cytology, fungal cultures, Gram stain and microbiology culture. 2.? The transbronchial needle aspiration of the aforementioned lymph node station 4R were sent for histopathology. Complications: There was no immediate complications. Pre-op Diagnosis: lung mass Related Problem List Diagnoses (1) COPD (chronic obstructive pulmonary disease): (2) Adenopathy, hilar: (3) Lung nodule, solitary:
--- NOTE | 2021-05-24 12:59 | ANE.PACU2 ---
Inpatient post-anesthesia follow up: Airway intact: Yes Vital signs: Temperature 97 F Pulse Rate 80 Respiratory Rate 16 Blood Pressure 97/71 Pulse Oximetry 94 Oxygen Delivery Me thod Room Air Oxygen Flow Rate Fraction of Inspir ed Oxygen Hydration adequate: Yes Nausea and vomiting: Yes Pain level: 1 Mental status: Baseline
[2021-05-30 11:04] LABS: PD-L1 (Clone 22C3) by IHC BBPL See Report
== END 2021-05-24 10:36 | disposition home or self-care (01) ==
PROVIDERS: Anesthesiology; PCP Family Medicine; Visit Provider Internal Medicine Pulmonary Disease
PROC: BB4BZZZ Ultrasonography of Pleura (ICD-10-PCS; principal; 2021-05-24 07:00)
DX: C77.9 Secondary and unspecified malignant neoplasm of lymph node, unspecified (principal); R91.1 Solitary pulmonary nodule; M79.7 Fibromyalgia; F32.9 Major depressive disorder, single episode, unspecified; F17.210 Nicotine dependence, cigarettes, uncomplicated; J43.2 Centrilobular emphysema; Z82.49 Family history of ischemic heart disease and other diseases of the circulatory system; Z83.3 Family history of diabetes mellitus
CPT/HCPCS: 31624; 31652; 80500; 81025; 84703; 87070; 87102; 87205; 87206; 88112; 88305; 88342; J1100; J1200; J2250; J2405; J2704; J2710; J3010; J3490; J7030

== ENCOUNTER 2021-05-30 14:18 | Outpatient (CLI) | payer MEDICAID, SELFPAY ==
--- NOTE | 2021-05-31 16:22 | ONC CON_ITS ---
Dr. Schafer New Patient Note Patient: Kristine Kramer Unit #: [id number]: [id number] Dicatated By: Jaimee Schafer M.D.Date of Visit: May 30, 2021 Onc MED New Patient/Consult Referring Physician: Alexander Morales History of Present Illness: Ms. Kristine Kramer, is a 46-year-old female who presented to ER on March 19, 2021 with chest pain in the left chest, underwent CTA chest on March 19, 2021 which showed no embolism, but mildly spiculated 2.2 x 1.6 cm pulmonary nodule in the right upper lobe, CT PET was recommended which was done on May 14, 2021 and it showed 2.4 x 2.2 cm posterior right upper lobe solid nodule with SUV of 7.1 and a 2.1 cm right paratracheal 4R, lymph node with SUV of 11.8. And adjacent subcarinal lymph node is FDG positive as well. A 5 mm lateral left upper lobe subpleural anteromedial right lower lobe 6 mm nodule are too small to characterize. 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 Patient denies any hemoptysis or hematemesis, denies any bony pains, denies any jaundice, denies any dysphagia, but complaining of off and on headaches. Patient has longstanding history of smoking, still active. Denies alcohol use Past Medical History: Ms. Kramer's medical history consists of depression and fibromyalgia. Past Surgical History: Ms. Kramer's surgical/procedural history consists of neck surgery. Medications: ALPRAZolam 1 Tablet (of 1 mg) Oral at bedtime, Amitriptyline HCl 1 Tablet (of 50 mg) Oral at bedtime, Tiotropium [place]-Olodaterol 2 Inhalation (of 2.5-2.5 mcg/act) Aerosol, solution Inhalation daily, Topiramate 1 Tablet (of 100 mg) Oral daily Allergies: No Known Allergies. Social History: Ms. Kramer is . She is a daily smoker who has smoked 0.5 packs/day for 33 years. She has no history of drinking. Patient states working on quitting smoking, is down to 5 cigarettes per day now. 05/30/21. Family History: There is no documented family history. Review Of Symptoms: Review of Systems is not available for this patient. Vital Signs: Performed on May 30, 2021 15:47: 10, 2, 25.66, 1.81 sq.m, 66 in, 97 %, 80 /min, 16 /min, 109/74 mm(hg), 97.5 F (LOW), and 159.0 lbs (HIGH). Performance Status: 0 - Fully active, able to carry on all predisease activities without restrictions. (ECOG) Physical Examination: ENMT - No mouth sores, no thrush, no jaundice, Respiratory - Lungs are clear to auscultation, Cardiovascular - Regular rate and rhythm of heart, Abdomen - Soft, bowel sounds present, Extremities - No visible edema. Lab/Imaging: Most recent lab results are not available for this patient. Impression: Adenosquamous carcinoma with neuroendocrine differentiation per endobronchial ultrasound-guided biopsy from station 4R done on May 24, 2021, immunohistochemistry confirmed CK 5/6 and CK Loki with weak p63 differentiation indicating of squamous cell carcinoma component, CK7 and TTF-1 positivity, indicating adenocarcinoma component and synaptophysin and high Ki-67, consistent with neuroendocrine differentiation. CT PET scan done on April 13, 2022 showed 2.4 x 2.2 cm right upper lobe nodule with SUV of 7.1 and a 2.1 cm right paratracheal 4R lymph node with SUV of 11.8 and an adjacent subcarinal lymph node FDG positive. 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 She will return to clinic after MRI scan of the head for further discussion Signed By: Jaimee Schafer M.D. <<Signature on File>>
== END 2021-05-30 14:19 | disposition home or self-care (01) ==
LOC: ONCMED 14:26
PROVIDERS: PCP Family Medicine; Visit Provider Internal Medicine Hematology & Oncology
DX: C7A.1 Malignant poorly differentiated neuroendocrine tumors (principal); C34.11 Malignant neoplasm of upper lobe, right bronchus or lung; F17.210 Nicotine dependence, cigarettes, uncomplicated; R91.1 Solitary pulmonary nodule; F41.0 Panic disorder [episodic paroxysmal anxiety]; M79.7 Fibromyalgia; Z79.899 Other long term (current) drug therapy
CPT/HCPCS: 99205

== ENCOUNTER → 2021-06-07 14:58 | Outpatient (BNVA) | payer MEDICAID, SELFPAY | PROVIDERS: PCP Family Medicine; Referring Provider Internal Medicine Hematology & Oncology; Visit Provider Surgery | DX: Z20.822 Contact with and (suspected) exposure to COVID-19 (principal) | CPT/HCPCS: 87635 ==

== ENCOUNTER 2021-06-08 08:27 | Day surgery (SDC) | payer MEDICAID, SELFPAY ==
[2021-06-07 17:48] VITALS: BMI 23.8
[2021-06-08] VITALS (15 sets, daily range): BP systolic 98–118; BP diastolic 66–79; PULSE 70–81; RESP 16–18; TEMP 36.1–36.4; O2SAT 95–100
--- NOTE | 2021-06-08 | SCC_ITS ---
Procedure done: 1. Placement of PowerPort in the left subclavian vein 2. Fluoroscopic guidance and interpretation for placement of catheter 49.6 seconds of fluoroscopic guidance, for a cumulative dose of 9.10 mGy, was provided to Dr. Hinojosa by the radiology department. C-arm images of the chest were saved for the patient's permanent record. [facility]
[2021-06-08 08:52] LABS: OR HCG Qualitative Urine Negative (Negative)
--- NOTE | 2021-06-08 08:57 | W.PM.OPSUD ---
Surgery/Procedure H&P Update DATE OF PROCEDURE: June 08, 2021 DATE H&P PERFORMED: 03/22/21 H&P UPDATE INFORMATION: I have reviewed H&P completed within last 30 days, I have examined patient prior to procedure and No changes to prior documentation PREOP DIAGNOSIS: Right lung CA PLANNED PROCEDURE: Operation Date: 06/08/21 10:00 Proposed Procedures p portacath placement 45959/c34.90(Not Applicable) - Tashi Hinojosa MD
[2021-06-08] MEDS: sodium chloride 0.9% 1,000 ML 30 ML IV (09:26)
--- NOTE | 2021-06-08 10:21 | ANES.PREANE2 ---
Pre-Anesthetic Assessment Height/Weight: Height 1.68 m Weight 67.132 kg Temp Pulse Resp BP Pulse Ox 97.0 F L 81 16 104/77 99 06/08/21 08:46 06/08/21 08:46 06/08/21 08:46 06/08/21 08:46 06/08/21 08:46 Preop Diagnosis: Right lung CA Operation Date: 06/08/21 10:00 Proposed Procedures p portacath placement 10727/c34.90(Not Applicable) - Tashi Hinojosa MD Familial anesthetic complications: None Last intake: Intake Last Liquid Date 06/07/21 Last Liquid Time 23:30 Last Solid Date 06/07/21 Last Solid Time 14:30 Social Tobacco and No alcohol Exam alert, oriented x 3, clear to auscultation bilaterally and regular rate & rhythm Airway Submandibular: within normal limits Cervical ROM: within normal limits Mallampati: Class II Dentition: false Pulmonary Chronic Obstructive Pulmonary Disease Lung CA Neuropsych Anxiety and Depression Anesthetic Plan ASA status: 3 Anesthesia: MAC Medications/Allergies Home Medications Medication Instructions Recorded Confirmed Last Taken Type alprazolam 1 mg tablet (Xanax) 1 mg PO TID PRN #90 tab 03/15/21 06/08/21 06/07/21 20:00 Rx amitriptyline 50 mg tablet 50 mg PO BEDTIME 05/20/21 06/08/21 06/06/21 20:00 History topiramate 100 mg tablet See Rx Instructions .ROUTE 05/30/21 06/08/21 06/07/21 08:00 Rx .COMPLEX #30 tablet umeclidinium 62.5 mcg-vilanterol 1 inh INHALATION DAILY #60 ea 06/06/21 06/08/21 06/08/21 07:30 Rx 25 mcg/actuation powdr for inhalation (Anoro Ellipta) hydrocodone 5 mg-acetaminophen 325 1 tab PO Q6H PRN #20 tab 06/08/21 Unknown Rx mg tablet Allergies Allergy/AdvReac Type Severity Reaction Status Date / Time No Known Allergies Allergy Verified 06/07/21 17:46 Current Medications Generic Name Dose Route Start Last Admin Trade Name Freq PRN Reason Stop Dose Admin Sodium Chloride 1,000 mls @ 30 mls/hr 06/08/21 08:45 06/08/21 09:26 Sodium Chloride 0.9% IV 06/09/21 08:44 30 mls/hr .Q24H DEYANIRA Administration PFSH Anesthesia Medical History Agoraphobia with panic attacks COPD (chronic obstructive pulmonary disease) Fibromyalgia Major depressive disorder, 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
[2021-06-08] MEDS: lidocaine 1% INJ 20 mL INJECTION (10:41)
[2021-06-08] MEDS: heparin, porcine 1,000 unit/mL INJ 10 mL 10000 UNIT INJECTION (10:42)
--- NOTE | 2021-06-08 10:49 | SC_ITS ---
WS: [id number] INTRAOPERATIVE TECHNIQUE: 3 Spot fluoroscopic images for intraoperative purposes. FLUOROSCOPY TIME: 49.6 seconds CLINICAL INFORMATION: OR PICS COMPARISON: None. FINDINGS: LEFT central venous Port-A-Cath with tip in distal SVC. No visualized pneumothorax. Postoperative edwin nges lower cervical spine. SC/C-arm FL for CVA [id number] IMPRESSION: Images obtained for intraoperative purposes.
--- NOTE | 2021-06-08 10:56 | PM.OP ---
Operative Report Date of procedure: June 08, 2021 Pre-op diagnosis: Right lung CA Post-op diagnosis: same Procedure done: 1. Placement of PowerPort in the left subclavian vein 2. Fluoroscopic guidance and interpretation for placement of catheter Pathology: none sent Surgeon: Tashi Hinojosa Anesthesia: MAC Condition: stable Disposition: PACU Procedure: The patient was taken to the Operating Room and the chest and neck bilaterally were prepped and draped in a sterile manner after the antibiotic had been administered and shoulder rolls had been placed. A total of 10 mL of 1% lidocaine with 0.5% Marcaine was infiltrated under the clavicle on the left side at the site of the planned entry into the subclavian vein. An introducer needle was then used to access the subclavian vein under the clavicle and after withdrawing blood syringe was removed and a guidewire passed under fluoroscopy into the superior vena cava. The site of the planned port was then marked on the chest and a 15 blade was used to make a 3 cm skin incision this was extended into the subcutaneous tissue using electrocautery and a subcutaneous pocket over the pectoralis fascia was created 2-0 Vicryl suture was used to suture the port to the pectoral fascia in the pocket on 3 sides. The catheter, after having been flushed with hep saline, was attached to the tunneler and a tunnel created between the port site and the subclavian vein entry site. Under fluoroscopy the dilator sheath was passed over the guidewire into the proximal superior vena cava. The inner dilator was removed and the sheath left behind and~ the catheter was introduced through the peel-away sheath with the tip in the superior vena cava. The peel-away sheath was removed. The proximal end of the catheter was cut to the right size and was attached to the port. Using a Fitzgerald needle the port was accessed, it withdrew blood easily and flushed easily. A final 5cc of heparin was used to flush the PowerPort. The subcutaneous tissue was approximated using interrupted 3-0 Vicryl sutures and the skin at the introducer site and the port site was closed using subcuticular running 4-0 Monocryl sutures. Surgical glue was applied and the patient was stable throughout the procedure. Fluoroscopic guidance and interpretation was performed for introduction of the guidewire in the left subclavian vein, passage of dilator and placement of catheter tip in the distal superior vena cava.
[2021-06-08] MEDS: HYDROmorphone 1 mg/mL INJ 1 mL 0.5 MG IVP (11:19)
--- NOTE | 2021-06-08 12:29 | ANE.PACU2 ---
Inpatient post-anesthesia follow up: Airway intact: Yes Vital signs: Temperature 97.5 F Pulse Rate 76 Respiratory Rate 16 Blood Pressure 105/66 Pulse Oximetry 100 Oxygen Delivery Me thod Room Air Oxygen Flow Rate Fraction of Inspir ed Oxygen Hydration adequate: Yes Nausea and vomiting: No Pain level: 3 Mental status: Baseline
== END 2021-06-08 12:47 | disposition home or self-care (01) ==
PROVIDERS: Anesthesiology; PCP Family Medicine; Visit Provider Surgery
PROC: (CPT 36561; principal; 2021-06-08 10:00)
DX: C34.91 Malignant neoplasm of unspecified part of right bronchus or lung (principal); J44.9 Chronic obstructive pulmonary disease, unspecified; M79.7 Fibromyalgia; Z98.1 Arthrodesis status; Z82.49 Family history of ischemic heart disease and other diseases of the circulatory system; Z83.3 Family history of diabetes mellitus; Z80.9 Family history of malignant neoplasm, unspecified; F17.210 Nicotine dependence, cigarettes, uncomplicated
CPT/HCPCS: 36561; 76000; 77001; 84703; C1788; J0690; J1170; J1644; J2704; J3010; J3490; J7030

== ENCOUNTER 2021-06-27 12:43 | Outpatient (CLI) | payer MEDICAID, SELFPAY ==
--- NOTE | 2021-06-27 12:51 | MR_ITS ---
WS: [id number] MRI BRAIN WITH AND WITHOUT CONTRAST HISTORY: LUNG CANCER COMPARISON: None available. TECHNIQUE: Multiplanar imaging performed through the brain with MultiHance 15 ml's IV. No acute infarcts are seen. Amezcua-white matter differentiation is well preserved. Minimal atrophy and minimal chronic microvascular ischemic changes. No susceptibility artifacts or prior lacunar infarcts. Ventricles and extra-axial spaces are normal. Clivus and pituitary gland are normal. Visualized posterior fossa and brainstem are also normal. Postcontrast images are negative for masses or vascular malformations. Dural venous sinuses are normal. Paranasal sinuses: Well aerated with no significant disease. Mastoid air cells: Normal. Calvarium and scalp: Normal. MR/MR head wo/w con [id number] IMPRESSION: 1. No metastatic disease to the brain. 2. Minimal atrophy and minimal chronic microvascular ischemic disease.
[2021-06-27] MEDS: gadobenate dimeglumine 20 mL vial IV (13:59)
== END 2021-06-27 12:44 | disposition home or self-care (01) ==
LOC: RAD 12:49
PROVIDERS: PCP Family Medicine; Visit Provider Internal Medicine Hematology & Oncology
DX: C34.90 Malignant neoplasm of unspecified part of unspecified bronchus or lung (principal); I67.82 Cerebral ischemia; G31.9 Degenerative disease of nervous system, unspecified
CPT/HCPCS: 70553; 80053; 81000; 85025; 87086; 87400; 87635; 87880

== ENCOUNTER 2021-06-29 12:35 | Outpatient (CLI) | payer MEDICAID, SELFPAY ==
[2021-06-29 13:34] LABS: Basophils # 0.1 10^3/uL (0.0-0.1); Basophils % 0.6 %; Eosinophils # 0.1 10^3/uL (0.0-0.8); Eosinophils % 0.6 %; Hematocrit 43.1 % (37.0-47.0); Hemoglobin 13.8 g/dL (11.5-15.3); Lymphocytes # 2.5 10^3/uL (0.8-4.8); Lymphocytes % 28.3 %; Mean Corpuscular Hemoglobin 26.3 pg (28.0-34.0); Mean Corpuscular Volume 82.3 fl (81-99); Mean Platelet Volume 11.8 fL (7.4-10.4); Monocytes # 0.4 10^3/uL (0.2-0.9); Monocytes % 4.6 %; Neutrophils # 5.84 10^3/uL (1.8-7.7); Neutrophils % 65.5 %; Nucleated Red Blood Cells % 0 %; Platelet Count 296 10^3/cmm (130-400); Red Blood Count 5.24 10^6/uL (4.1-5.3); Red Cell Distribution Width 15.9 % (12.1-15.1); White Blood Count 8.9 10^3/uL (4.0-10.0)
[2021-06-29 14:15] LABS: Alanine Aminotransferase 14 U/L (0-33); Albumin Level 4.5 g/dL (3.5-5.2); Alkaline Phosphatase 122 IU/L (35-105); Anion Gap 16.7 (5-19); Aspartate Amino Transferase 12 U/L (0-32); Blood Urea Nitrogen 5 mg/dL (6-20); Calcium 9.5 mg/dL (8.5-10.5); Carbon Dioxide 22 mmol/L (22-29); Chloride 105 mmol/L (98-107); Glomerular Filtration Rate 89.3 mL/min (90-130); Glucose 126 mg/dL (65-115); Osmolality Calculated 289 mOsm/kg (285-295); Potassium 3.7 mmol/L (3.5-5.1); Sodium 140 mmol/L (136-145); Total Bilirubin 0.3 mg/dL (0.15-1.2); Total Protein 7.5 g/dL (6.6-8.7)
--- NOTE | 2021-06-29 16:47 | ONC FU_ITS ---
Dr. Schafer follow up note Patient: Kristine Kramer Unit #: [id number]: [id number] Dicatated By: Jaimee Schafer M.D.Date of Visit:Jun 29, 2021 Onc Med Follow-up/Prog Note History of Present Illness: Ms. Kristine Kramer, is a 46-year-old female who presented to ER on March 19, 2021 with chest pain in the left chest, underwent CTA chest on March 19, 2021 which showed no embolism, but mildly spiculated 2.2 x 1.6 cm pulmonary nodule in the right upper lobe, CT PET was recommended which was done on May 14, 2021 and it showed 2.4 x 2.2 cm posterior right upper lobe solid nodule with SUV of 7.1 and a 2.1 cm right paratracheal 4R, lymph node with SUV of 11.8. And adjacent subcarinal lymph node is FDG positive as well. A 5 mm lateral left upper lobe subpleural anteromedial right lower lobe 6 mm nodule are too small to characterize. 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 Staging MRI scan of the brain done on June 27, 2021 showed no metastatic disease to the brain. Minimally atrophy and minimal chronic microvascular ischemic disease Patient denies any hemoptysis or hematemesis, denies any bony pains, denies any jaundice, denies any dysphagia, but complaining of off and on headaches. Patient has longstanding history of smoking, still active. Denies alcohol use Came for follow-up, denies any specific complaint except generalized weakness and fatigue but no nausea or vomiting no diarrhea constipation, no melena hematochezia no hemoptysis metaphysis, no headaches no blurred vision no double vision, no chest pain, no new bony pains, no jaundice. Patient takes Xanax 1 mg at night. Medications: ALPRAZolam 1 Tablet (of 1 mg) Oral at bedtime, Amitriptyline HCl 1 Tablet (of 50 mg) Oral at bedtime, Tiotropium [place]-Olodaterol 2 Inhalation (of 2.5-2.5 mcg/act) Aerosol, solution Inhalation daily, Topiramate 1 Tablet (of 100 mg) Oral daily Allergies: No Known Allergies. Review of Systems: Review of Systems is not available for this patient. Vital Signs: Performed on Jun 29, 2021 15:27 Height - 66.00 in Weight - 159.6 lbs (HIGH) BSA - 1.82 sq.m BMI - 25.76 Temperature - 97.3 F (LOW) Pulse - 92 /min Respiration - 20 /min BP - 98/64 mm(hg) O2 Sat - 98 % Pain - 0 Fatigue - 8 Performance Status: 0 - Fully active, able to carry on all predisease activities without restrictions. (ECOG) Physical Examination: ENMT - No mouth sores, no thrush, no jaundice, Respiratory - Lungs are clear to auscultation, Cardiovascular - Regular rate and rhythm of heart, Abdomen - Soft, bowel sounds present, Extremities - No visible edema. Lab/Imaging: Most recent lab results are not available for this patient. Impression: Adenosquamous carcinoma with neuroendocrine differentiation per endobronchial ultrasound-guided biopsy from station 4R done on May 24, 2021, immunohistochemistry confirmed CK 5/6 and CK Loki with weak p63 differentiation indicating of squamous cell carcinoma component, CK7 and TTF-1 positivity, indicating adenocarcinoma component and synaptophysin and high Ki-67, consistent with neuroendocrine differentiation. CT PET scan done on April 13, 2022 showed 2.4 x 2.2 cm right upper lobe nodule with SUV of 7.1 and a 2.1 cm right paratracheal 4R lymph node with SUV of 11.8 and an adjacent subcarinal lymph node FDG positive. MRI head done on June 27, 2021 showed no metastatic disease to the brain Clinical stage IIIa Chronic smoking Panic attacks Depression Fibromyalgia Plan: Discussed with patient regarding her labs white blood count 8.9 hemoglobin 13.8 hematocrit 43.1 platelets 296,000 CMP within normal limits except alk phos 122 MRI scan of the brain done for staging purposes shows no evidence of metastatic disease Clinically, patient doing well with no new signs symptom suggestive of disease progression, now being considered for combined chemoradiation with weekly carboplatin/Taxol, patient already has Port-A-Cath placement and she will see Dr. Ohara, radiation oncology in the morning for the planning and simulation. And, once ready for radiation therapy, will start weekly carboplatin AUC 2 and Taxol 50 mg per metered squared concurrent with radiation therapy. We will see her back 1 week after chemoradiation is initiated with CBC CMP Signed By: Jaimee Shcafer M.D. <<Signature on File>>
== END 2021-06-29 12:36 | disposition home or self-care (01) ==
LOC: ONCMED 12:36
PROVIDERS: PCP Family Medicine; Visit Provider Internal Medicine Hematology & Oncology
DX: C34.11 Malignant neoplasm of upper lobe, right bronchus or lung (principal); F17.210 Nicotine dependence, cigarettes, uncomplicated; F41.0 Panic disorder [episodic paroxysmal anxiety]; F32.A Depression, unspecified; M79.7 Fibromyalgia; Z79.899 Other long term (current) drug therapy
CPT/HCPCS: 36415; 80053; 85025; 99214

== ENCOUNTER 2021-06-30 13:14 | Outpatient (CLI) | payer MEDICAID, SELFPAY ==
--- NOTE | 2021-06-30 13:21 | N.ONRAD NP_ITS ---
Radiation Oncology Consultation Patient Name: Kristine Kramer Date of : 1975 Date of Service: 06/30/2021 Attending Physician: Sunday Ohara M.D. Kristine Kramer was seen in consultation this afternoon at the request of Khushi Schafer M.D. for consideration of thoracic radiotherapy in the management of a recently diagnosed non-small cell lung cancer. She was evaluated at the [facility]'s Emergency Department in February 2021 for chest pain. A CT angiogram reported a 2.2 cm x 1.6 cm right upper-lobe pulmonary nodule. A PET scan ordered on May 14, 2021 confirmed a 2.4 cm x 2.2 cm posterior right upper lobe nodule (SUV 7.1). Also described were a right paratracheal lymph node measuring 2.1 cm (SUV 11.8), and an FDG avid subcarinal lymph node. A 5 millimeter left lateral upper-lobe subpleural nodule and a 6 mm medial right lower-lobe nodule were too small to characterize. A bronchoscopy with EBUS performed on May 24, 2021 diagnosed a poorly differentiated, non-small cell carcinoma that demonstrated staining for CK5/6, CK Loki, and TTF-1 consistent with an adenosquamous component and synaptophysin positivity suggesting neuroendocrine differentiation. Pulmonary function testing demonstrated an FEV1 2.4L (79% of predicted) and a DLCO of 11.2 mL/min/mmHg (41% of predicted). An MRI of the head obtained on 2021 did not identify cerebral metastases. The patient was evaluated for definitive thoracic radiotherapy. I discussed with Ms. Kramer the AJCC clinical stage IIIA (T1cN2) lung cancer corresponding to her disease. I also reviewed the National Comprehensive Cancer Network Guidelines recommending concurrent chemoradiotherapy for the management of locally advanced lung cancer and the classic study, RTOG 9410, comparing sequential versus concurrent chemoradiotherapy that demonstrated an overall survival advantage for the concurrent chemoradiotherapy regimen and established the standard of care. I would endorse a six week course of thoracic radiotherapy. A computed tomographic radiotherapy planning scan with contrast in the treatment position will be acquired and co-registered to the patient's staging PET CT scan to identify the gross tumor volume. The potential toxicities of thoracic radiotherapy were reviewed. The patient has verbalized understanding would like to proceed as recommended. The patient???s treatment plan was discussed with Khushi Schafer M.D. Signed by: Dr. Sunday Ohara 06/30/2021 1:21:07 PM
== END 2021-06-30 13:15 | disposition home or self-care (01) ==
LOC: ONCMED 13:15
PROVIDERS: PCP Family Medicine; Visit Provider Radiology Radiation Oncology
DX: C34.11 Malignant neoplasm of upper lobe, right bronchus or lung (principal)
CPT/HCPCS: 99205

== ENCOUNTER 2021-07-28 06:48 | Outpatient (RCR) | payer MEDICAID, SELFPAY ==
--- NOTE | 2021-07-06 | CT_ITS ---
Radiation Therapy Planning CT images; total exam DLP: 488.96 mGy-cm MTDD
[2021-07-11 08:29] LABS: Basophils # 0.1 10^3/uL (0.0-0.1); Basophils % 0.5 %; Eosinophils # 0.1 10^3/uL (0.0-0.8); Eosinophils % 0.8 %; Hematocrit 44.3 % (37.0-47.0); Lymphocytes # 2.1 10^3/uL (0.8-4.8); Lymphocytes % 15.6 %; Mean Corpuscular HGB Conc 31.6 g/dL (30.0-36.0); Mean Corpuscular Hemoglobin 25.9 pg (28.0-34.0); Mean Platelet Volume 11.2 fL (7.4-10.4); Monocytes # 0.8 10^3/uL (0.2-0.9); Monocytes % 5.9 %; Neutrophils # 10.46 10^3/uL (1.8-7.7); Neutrophils % 76.8 %; Nucleated Red Blood Cells % 0 %; Platelet Count 340 10^3/cmm (130-400); Red Cell Distribution Width 15.8 % (12.1-15.1); White Blood Count 13.6 10^3/uL (4.0-10.0)
[2021-07-11 08:57] LABS: Alanine Aminotransferase 13 U/L (0-33); Albumin Level 4.1 g/dL (3.5-5.2); Alkaline Phosphatase 123 IU/L (35-105); Blood Urea Nitrogen 3 mg/dL (6-20); Calcium 8.7 mg/dL (8.5-10.5); Carbon Dioxide 13 mmol/L (22-29); Chloride 103 mmol/L (98-107); Globulin 3.2 g/dL (1.3-4.6); Glomerular Filtration Rate 106.7 mL/min (90-130); Glucose 107 mg/dL (65-115); Osmolality Calculated 281 mOsm/kg (285-295); Sodium 137 mmol/L (136-145); Total Bilirubin 0.2 mg/dL (0.15-1.2); Total Protein 7.3 g/dL (6.6-8.7)
[2021-07-11 08:59] LABS: Aspartate Amino Transferase 14 U/L (0-32)
[2021-07-11] MEDS: palonosetron 0.25 mg/5 mL SDV IV (09:40)
[2021-07-11] MEDS: sodium chloride 0.9% 250 ML 75 ML IV (09:40)
[2021-07-11] MEDS: famotidine 20 mg/2 mL INJ IVP (09:41)
[2021-07-11] MEDS: diphenhydrAMINE 50 mg/mL SDV 1mL 25 MG IV (09:43)
[2021-07-11] MEDS: dexamethasone 20 MG in sodium chloride 0.9% 50 ML 187 MG IV (09:45)
--- NOTE | 2021-07-11 09:50 | ONC FU_ITS ---
Vera Mishra Progress Note Patient: Kristine Kramer Unit #: [id number]: 1975 Dicatated By: Vera Mishra N.P.Date of Visit:Jul 11, 2021 Onc MED Follow-up/Prog Note Chief Complaint: lung cancer History of Present Illness: Ms. Kristine Kramer, is a 46-year-old female who presented to ER on March 19, 2021 with chest pain in the left chest, underwent CTA chest on March 19, 2021 which showed no embolism, but mildly spiculated 2.2 x 1.6 cm pulmonary nodule in the right upper lobe, CT PET was recommended which was done on May 14, 2021 and it showed 2.4 x 2.2 cm posterior right upper lobe solid nodule with SUV of 7.1 and a 2.1 cm right paratracheal 4R, lymph node with SUV of 11.8. And adjacent subcarinal lymph node is FDG positive as well. A 5 mm lateral left upper lobe subpleural anteromedial right lower lobe 6 mm nodule are too small to characterize. 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 Staging MRI scan of the brain done on June 27, 2021 showed no metastatic disease to the brain. Minimally atrophy and minimal chronic microvascular ischemic disease Patient denies any hemoptysis or hematemesis, denies any bony pains, denies any jaundice, denies any dysphagia, but complaining of off and on headaches. Patient has longstanding history of smoking, still active. Denies alcohol use Patient presents today for follow-up and education for carboplatin and paclitaxel treatment that is scheduled to start today concurrent with radiation therapy. She states that she has fatigue that is worse some days than others. Her appetite has been good. She denies fever, chills, night sweats. She is complaining of sinus drainage and congestion with clear nasal drainage. She has shortness of breath and wheezing at times related to her COPD. She has a cough that is chronic in nature but is been worse since she has had her upper respiratory symptoms. She denies chest pain. She denies any GI problems or problems. She has a history of neuropathy and fibromyalgia. The the neuropathy is in the bilateral feet. She presently has a headache today that like is sinus related no dizziness. She currently takes Xanax and amitriptyline for anxiety and depression which controls her symptoms well. Review Of Symptoms: See above Past Medical History: Depression Fibromyalgia Past Surgical History: Neck surgery Allergies: No Known Allergies. Medications: ALPRAZolam 1 Tablet (of 1 mg) Oral at bedtime Amitriptyline HCl 1 Tablet (of 50 mg) Oral at bedtime Tiotropium [place]-Olodaterol 2 Inhalation (of 2.5-2.5 mcg/act) Aerosol, solution Inhalation daily Topiramate 1 Tablet (of 100 mg) Oral daily Family History: There is no documented family history. Social History: Ms. Kramer is . She is a daily smoker who has smoked 0.5 packs/day for 33 years. She has no history of drinking. Patient states working on quitting smoking, is down to 5 cigarettes per day now. 05/30/21. Physical Examination: Performed on Jul 11, 2021 08:32: Height - 66.00 in, Weight - 161.2 lbs (HIGH), BSA - 1.82 sq.m, BMI - 26.02, Temperature - 97.7 F (LOW), Pulse - 92 /min, Respiration - 18 /min, BP - 116/74 mm(hg), O2 Sat - 96 %, Pain - 6, and Fatigue - 9. Performance Status: 0 - Fully active, able to carry on all predisease activities without restrictions. (ECOG) Constitutional Alert, cooperative, oriented. Mood and affect appropriate. Appears close to chronological age. Well nourished. Well developed. Head Normocephalic; no scars. ENMT bilateral sinus tenderness; nasal congestion; clear nasal drainage Respiratory Lungs are clear to auscultation without rhonchi or wheezing. Cardiovascular Regular rate and rhythm of heart without murmurs, gallops or rubs. Abdomen Non-tender, non-distended, no masses, ascites or hepatosplenomegaly. Good bowel sounds. No guarding or rebound tenderness. Extremities No visible deformities, no cyanosis, clubbing or edema. Pulses 3+ and equal bilaterally. Musculoskeletal No tenderness or swelling, normal range of motion without obvious weakness. Psychiatric Alert and oriented times three. Coherent speech. Verbalizes understanding of our discussions today. Laboratory: Test performed on Jul 11, 2021 08:15 Sodium 137 mmol/L Potassium 4.0 mmol/L Chloride 103 mmol/L CO2 13 mmol/L Anion Gap 25.0 BUN 3 mg/dL Creatinine 0.6 mg/dL Cr Clearance (Est) 132.36 mL/min eGFR 106.7 mL/min Glucose 107 mg/dL Osmolality - Calculated 281 mOsm/kg Calcium 8.7 mg/dL Protein, Total 7.3 g/dL Albumin 4.1 g/dL Globulin 3.2 g/dL Bilirubin, Total 0.2 mg/dL ALT (SGPT) 13 U/L AST (SGOT) 14 U/L Alkaline Phosphatase 123 IU/L WBC 13.6 10 3/uL RBC 5.40 10 6/uL HGB 14.0 g/dL HCT 44.3 % MCV 82.0 fl MCH 25.9 pg MCHC 31.6 g/dL RDW 15.8 % Platelet Count 340 10 3/cmm MPV 11.2 fL Neutrophils 10.46 10 3/uL Lymphocytes 2.1 10 3/uL Monocytes 0.8 10 3/uL Eosinophils 0.1 10 3/uL Basophils 0.1 10 3/uL Neutrophil % 76.8 % Lymphocyte % 15.6 % Monocyte % 5.9 % Eosinophil % 0.8 % Basophils % 0.5 % NRBC % 0 % Impression: Adenosquamous carcinoma with neuroendocrine differentiation per endobronchial ultrasound-guided biopsy from station 4R done on May 24, 2021, immunohistochemistry confirmed CK 5/6 and CK Loki with weak p63 differentiation indicating of squamous cell carcinoma component, CK7 and TTF-1 positivity, indicating adenocarcinoma component and synaptophysin and high Ki-67, consistent with neuroendocrine differentiation. CT PET scan done on April 13, 2022 showed 2.4 x 2.2 cm right upper lobe nodule with SUV of 7.1 and a 2.1 cm right paratracheal 4R lymph node with SUV of 11.8 and an adjacent subcarinal lymph node FDG positive. MRI head done on June 27, 2021 showed no metastatic disease to the brain Clinical stage IIIa Chronic smoking Panic attacks Depression Fibromyalgia Plan: Labs were reviewed with patient with WBC 13.6 hemoglobin 14.0, hematocrit 44.3, platelets 340,000, neutrophil count 10.16. Her CMP is stable with elevated alk phos at 123. MRI scan of the brain done for staging purposes shows no evidence of metastatic disease. Education provided for carboplatin and paclitaxel along with handouts. Side effects were discussed including nausea vomiting, diarrhea, and cytopenias. Because patient has symptoms of a sinus infection we will start her on Levaquin 500 mg p.o. daily x7 days. She will start treatment today with carboplatin and paclitaxel radiation therapy will also begin today. She will return to the clinic in 1 week with a CBC and CMP. Signed By: Vera Mishra N.P. <<Signature on File>>
--- NOTE | 2021-07-12 15:04 | ONCRAD TMN_ITS ---
Radiation Oncology Weekly Treatment Management Patient: Williams Jenkins MR#: [id number] : 1975> Attending Physician: Dr. Delfino Cotter Date of Service: 07/12/2021 Referring Physician(s) : Jaimee Schafer Diagnosis: C34.11 - Malignant neoplasm of upper lobe, right bronchus or lung, Diagnosed 05/24/2021 (Active) Stage IIIA, T1c, N2, M0 Radiotherapy to date: Course: Lung 2021, Treatment Site: Lung Ca ??? RUL, Ref. ID: [id number], Energy: 6X, Dose/Fx (cGy): 200, #Fx: 30, Dose Correction (cGy): 0, Total Dose (cGy): 400, Start Date: 07/11/2021, Elapsed Days: 1 Reason for visit: The patient is being seen today as part of their regularly scheduled weekly on treatment visits to assess for acute toxicities from radiotherapy. Review of Systems: She had her first session of chemotherapy yesterday and has just received her second radiation treatment. She is experiencing moderate fatigue. Appetite is decreased. No nausea. She has a mild sore throat. Her main complaint is a cough productive of whitish phlegm. She feels that there is more to clear from her airway then comes up. She is afebrile. She has been prescribed an antibiotic which she will potato picker later this afternoon. Vital Signs: Performed on 07/12/2021 1:52 PM BMI - 26.277 kg/m2 (high), Height - 66 in, Weight - 162.8 lbs, Temperature - 96.9 f, Pulse - 87 /min, Respiration - 20 /min, O2 Sat - 98 %, Pain - 5, Fatigue - 0 and BP - 118/ 78 mm(hg). Physical Exam: Alert, oriented, no acute distress. Lungs are clear. Imaging: Radiation therapy imaging related to accurate target localization (i.e. KV, MV and CBCT) was reviewed. Appropriate changes, if any, were made to ensure treatment accuracy. Plan: Continue radiation per plan. She was told to get plain Mucinex or plain Robitussin when she goes to the drugstore today. She was in encouraged to have a good fluid intake. Signed by: Dr. Delfino Cotter 07/12/2021 3:03:19 PM
[2021-07-15 12:33] LABS: Basophils % 0.2 %; Eosinophils % 0.1 %; Hematocrit 45.2 % (37.0-47.0); Hemoglobin 14.6 g/dL (11.5-15.3); Lymphocytes # 1.2 10^3/uL (0.8-4.8); Lymphocytes % 7.1 %; Mean Corpuscular HGB Conc 32.3 g/dL (30.0-36.0); Mean Corpuscular Hemoglobin 26.3 pg (28.0-34.0); Mean Corpuscular Volume 81.4 fl (81-99); Mean Platelet Volume 10.9 fL (7.4-10.4); Monocytes # 0.6 10^3/uL (0.2-0.9); Monocytes % 3.8 %; Neutrophils # 14.48 10^3/uL (1.8-7.7); Neutrophils % 88.1 %; Nucleated Red Blood Cells % 0 %; Platelet Count 344 10^3/cmm (130-400); Red Blood Count 5.55 10^6/uL (4.1-5.3); Red Cell Distribution Width 15.7 % (12.1-15.1); White Blood Count 16.4 10^3/uL (4.0-10.0)
[2021-07-15 12:49] LABS: Alanine Aminotransferase 8 U/L (0-33); Albumin Level 4.4 g/dL (3.5-5.2); Alkaline Phosphatase 111 IU/L (35-105); Aspartate Amino Transferase 7 U/L (0-32); Blood Urea Nitrogen 8 mg/dL (6-20); Carbon Dioxide 18 mmol/L (22-29); Chloride 100 mmol/L (98-107); Globulin 3.5 g/dL (1.3-4.6); Glomerular Filtration Rate 89.3 mL/min (90-130); Glucose 106 mg/dL (65-115); Osmolality Calculated 273 mOsm/kg (285-295); Sodium 132 mmol/L (136-145); Total Bilirubin 0.9 mg/dL (0.15-1.2); Total Protein 7.9 g/dL (6.6-8.7)
[2021-07-18] MEDS: palonosetron 0.25 mg/5 mL SDV IV (09:30)
[2021-07-18] MEDS: sodium chloride 0.9% 250 ML 75 ML IV (09:30)
[2021-07-18] MEDS: famotidine 20 mg/2 mL INJ IVP (09:31)
[2021-07-18] MEDS: diphenhydrAMINE 50 mg/mL SDV 1mL 25 MG IV (09:33)
[2021-07-18] MEDS: dexamethasone 20 MG in sodium chloride 0.9% 50 ML 187 MG IV (09:35)
--- NOTE | 2021-07-19 13:56 | ONCRAD TMN_ITS ---
Radiation Oncology Treatment Management Note Patient Name: Kristine Kramer Date of : 1975 Date of Service: 07/19/2021 Attending Physician: Sunday Ohara M.D. Kristine Kramer is a 46 year-old white female diagnosed with a recently diagnosed clinical stage IIIA (T1cN2) non-small cell lung cancer. She was evaluated at the [facility]'s Emergency Department in February 2021 for chest pain. A CT angiogram reported a 2.2 cm x 1.6 cm right upper-lobe pulmonary nodule. A PET scan ordered on May 14, 2021 confirmed a 2.4 cm x 2.2 cm posterior right upper lobe nodule (SUV 7.1). Also described were a right paratracheal lymph node measuring 2.1 cm (SUV 11.8), and an FDG avid subcarinal lymph node. A 5 millimeter left lateral upper-lobe subpleural nodule and a 6 mm medial right lower-lobe nodule were too small to characterize. A bronchoscopy with EBUS performed on May 24, 2021 diagnosed a poorly differentiated, non-small cell carcinoma that demonstrated staining for CK5/6, CK Loki, and TTF-1 consistent with an adenosquamous component and synaptophysin positivity suggesting neuroendocrine differentiation. Pulmonary function testing demonstrated an FEV1 2.4L (79% of predicted) and a DLCO of 1.2 mL/min/mmHg (41% of predicted). An MRI of the head obtained on July 17, 2021 did not identify cerebral metastases. The patient has received 14 Gy of a prescribed 60 Amezcua delivered with an intensity modulated radiotherapy plan utilizing a step and shoot treatment technique. She has been prescribed carboplatin (AUC 2) and paclitaxel (50 mg/m???) weekly during therapy. Upon review of systems, she denied pulmonary symptoms. On physical examination, the patient weighed 158 lbs. Her temperature was 96.8 ???F and the blood pressure was 99/66 mmHg. The pulse was 84 bpm and her respiratory rate was 18. The oxygen saturation while breathing room air was 98%. There was no erythema within the treatment hardy. Auscultation of the posterior lung hardy identified clear breath sounds. Continue thoracic radiotherapy as prescribed. Signed by: Dr. Sunday Ohara 07/19/2021 1:55:23 PM
--- NOTE | 2021-07-22 07:55 | ONC FU_ITS ---
Vera Mishra Progress Note Patient: Kristine Kramer Unit #: [id number]: 1975 Dicatated By: Vera Mishra N.P.Date of Visit:Jul 18, 2021 Onc MED Follow-up/Prog Note Chief Complaint: lung cancer History of Present Illness: Ms. Kristine Kramer, is a 46-year-old female who presented to ER on March 19, 2021 with chest pain in the left chest, underwent CTA chest on March 19, 2021 which showed no embolism, but mildly spiculated 2.2 x 1.6 cm pulmonary nodule in the right upper lobe, CT PET was recommended which was done on May 14, 2021 and it showed 2.4 x 2.2 cm posterior right upper lobe solid nodule with SUV of 7.1 and a 2.1 cm right paratracheal 4R, lymph node with SUV of 11.8. And adjacent subcarinal lymph node is FDG positive as well. A 5 mm lateral left upper lobe subpleural anteromedial right lower lobe 6 mm nodule are too small to characterize. 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 Staging MRI scan of the brain done on June 27, 2021 showed no metastatic disease to the brain. Minimally atrophy and minimal chronic microvascular ischemic disease Patient denies any hemoptysis or hematemesis, denies any bony pains, denies any jaundice, denies any dysphagia, but complaining of off and on headaches. Patient has longstanding history of smoking, still active. Denies alcohol use Patient presents today for follow-up since starting carboplatin and paclitaxel. She denies weakness or fatigue. No fever, chills, night sweats. She does have an earache on the left side with drainage. She has a cough that is chronic. No chest pain. No nausea or vomiting. No diarrhea or constipation. No urinary symptoms. She has neuropathic pain that is chronic in nature in her bilateral lower extremities. No dizziness. She has chronic migraines which she takes medication for. She has problems with anxiety and depression which is controlled with amitriptyline and Xanax. She also has a history of insomnia that she takes Xanax 1 mg in the evening for. Review Of Symptoms: See above. Past Medical History: Depression Fibromyalgia Past Surgical History: Neck surgery Allergies: No Known Allergies. Medications: ALPRAZolam 1 Tablet (of 1 mg) Oral at bedtime Amitriptyline HCl 1 Tablet (of 50 mg) Oral at bedtime levoFLOXacin 1 Tablet (of 500 mg) Oral daily for 7 days Tiotropium [place]-Olodaterol 2 Inhalation (of 2.5-2.5 mcg/act) Aerosol, solution Inhalation daily Topiramate 1 Tablet (of 100 mg) Oral daily Family History: There is no documented family history. Social History: Ms. Kramer is . Ms. Kramer no longer smokes but had smoked 0.5 packs/day for 33 years. She has no history of drinking. Patient states working on quitting smoking, is down to 5 cigarettes per day now. 05/30/21. Physical Examination: Performed on Jul 18, 2021 08:43: Height - 66.00 in, Weight - 155.4 lbs (LOW), BSA - 1.80 sq.m, BMI - 25.08, Temperature - 97.1 F (LOW), Pulse - 88 /min, Respiration - 18 /min, BP - 104/68 mm(hg), O2 Sat - 97 %, Pain - 0, and Fatigue - 0. Performance Status: 0 - Fully active, able to carry on all predisease activities without restrictions. (ECOG) Constitutional Alert, cooperative, oriented. Mood and affect appropriate. Appears close to chronological age. Well nourished. Well developed. Head Normocephalic; no scars. ENMT Left ear with drainage. Unable to visualize TM due to debris and drainage Respiratory Lungs are clear to auscultation without rhonchi or wheezing. Cardiovascular Regular rate and rhythm of heart without murmurs, gallops or rubs. Abdomen Non-tender, non-distended, no masses, ascites or hepatosplenomegaly. Good bowel sounds. No guarding or rebound tenderness. Extremities No edema Musculoskeletal No tenderness or swelling, normal range of motion without obvious weakness. Psychiatric Alert and oriented times three. Coherent speech. Verbalizes understanding of our discussions today. Laboratory: Test performed on Jul 18, 2021 09:08 Creatinine 0.7 mg/dL Cr Clearance (Est) 113.45 mL/min Test performed on Jul 11, 2021 08:15 Sodium 137 mmol/L Potassium 4.0 mmol/L Chloride 103 mmol/L CO2 13 mmol/L Anion Gap 25.0 BUN 3 mg/dL eGFR 106.7 mL/min Glucose 107 mg/dL Osmolality - Calculated 281 mOsm/kg Calcium 8.7 mg/dL Protein, Total 7.3 g/dL Albumin 4.1 g/dL Globulin 3.2 g/dL Bilirubin, Total 0.2 mg/dL ALT (SGPT) 13 U/L AST (SGOT) 14 U/L Alkaline Phosphatase 123 IU/L WBC 13.6 10 3/uL RBC 5.40 10 6/uL HGB 14.0 g/dL HCT 44.3 % MCV 82.0 fl MCH 25.9 pg MCHC 31.6 g/dL RDW 15.8 % Platelet Count 340 10 3/cmm MPV 11.2 fL Neutrophils 10.46 10 3/uL Lymphocytes 2.1 10 3/uL Monocytes 0.8 10 3/uL Eosinophils 0.1 10 3/uL Basophils 0.1 10 3/uL Neutrophil % 76.8 % Lymphocyte % 15.6 % Monocyte % 5.9 % Eosinophil % 0.8 % Basophils % 0.5 % NRBC % 0 % Impression: Adenosquamous carcinoma with neuroendocrine differentiation per endobronchial ultrasound-guided biopsy from station 4R done on May 24, 2021, immunohistochemistry confirmed CK 5/6 and CK Loki with weak p63 differentiation indicating of squamous cell carcinoma component, CK7 and TTF-1 positivity, indicating adenocarcinoma component and synaptophysin and high Ki-67, consistent with neuroendocrine differentiation. CT PET scan done on April 13, 2022 showed 2.4 x 2.2 cm right upper lobe nodule with SUV of 7.1 and a 2.1 cm right paratracheal 4R lymph node with SUV of 11.8 and an adjacent subcarinal lymph node FDG positive. MRI head done on June 27, 2021 showed no metastatic disease to the brain Clinical stage IIIa Chronic smoking Panic attacks Depression Fibromyalgia Plan: MRI scan of the brain done for staging purposes shows no evidence of metastatic disease. Labs were reviewed with patient WBC 16.4 hemoglobin 14.6 hematocrit 45.2 and platelets 344,000. Her neutrophil count is 14.4 at. Her sodium is slightly low at 132 and her alkaline phosphatase is mildly elevated at 111. Patient seems to be tolerating carboplatin and paclitaxel concurrently with radiation therapy. She will receive her next treatment of carboplatin and paclitaxel today. She is having some anxiety about treatment attempted to renew her Xanax which she normally takes 0.5 mg in the a.m. and noon and 1 mg p.o. at at bedtime for anxiety and insomnia but her insurance will not allow this medication without her being on an SSRI. Patient declined SSRI at this time. Augmentin prescribed for left inner ear infection. If there is not improvement after this antibiotic will consider referring her to ENT. Patient to follow-up in 1 week with CBC and CMP. Signed By: Vera Mishra NDiane. <<Signature on File>>
[2021-07-25 08:36] LABS: Basophils % 0.5 %; Eosinophils % 0.5 %; Hematocrit 40.3 % (37.0-47.0); Hemoglobin 12.7 g/dL (11.5-15.3); Lymphocytes # 0.7 10^3/uL (0.8-4.8); Lymphocytes % 8.5 %; Mean Corpuscular HGB Conc 31.5 g/dL (30.0-36.0); Mean Corpuscular Hemoglobin 25.5 pg (28.0-34.0); Mean Corpuscular Volume 80.9 fl (81-99); Mean Platelet Volume 10.6 fL (7.4-10.4); Monocytes # 0.6 10^3/uL (0.2-0.9); Monocytes % 7.2 %; Neutrophils # 6.41 10^3/uL (1.8-7.7); Neutrophils % 82.8 %; Nucleated Red Blood Cells % 0 %; Platelet Count 285 10^3/cmm (130-400); Red Blood Count 4.98 10^6/uL (4.1-5.3); Red Cell Distribution Width 15.8 % (12.1-15.1); White Blood Count 7.8 10^3/uL (4.0-10.0)
[2021-07-25 08:45] LABS: Alanine Aminotransferase 9 U/L (0-33); Alkaline Phosphatase 91 IU/L (35-105); Anion Gap 15.3 (5-19); Aspartate Amino Transferase 10 U/L (0-32); Blood Urea Nitrogen 7 mg/dL (6-20); Calcium 9.5 mg/dL (8.5-10.5); Carbon Dioxide 22 mmol/L (22-29); Chloride 103 mmol/L (98-107); Globulin 2.9 g/dL (1.3-4.6); Glomerular Filtration Rate 131.7 mL/min (90-130); Glucose 93 mg/dL (65-115); Osmolality Calculated 280 mOsm/kg (285-295); Potassium 4.3 mmol/L (3.5-5.1); Sodium 136 mmol/L (136-145); Total Bilirubin 0.2 mg/dL (0.15-1.2); Total Protein 6.9 g/dL (6.6-8.7)
[2021-07-25] MEDS: sodium chloride 0.9% 250 ML 75 ML IV (09:53)
[2021-07-25] MEDS: palonosetron 0.25 mg/5 mL SDV IV (09:53)
[2021-07-25] MEDS: famotidine 20 mg/2 mL INJ IVP (09:56)
[2021-07-25] MEDS: diphenhydrAMINE 50 mg/mL SDV 1mL 25 MG IV (10:01)
[2021-07-25] MEDS: dexamethasone 20 MG in sodium chloride 0.9% 50 ML 187 MG IV (10:06)
--- NOTE | 2021-07-26 13:55 | ONCRAD TMN_ITS ---
Radiation Oncology Treatment Management Note Patient Name: Kristine Kramer Date of : 1975 Date of Service: 07/26/2021 Attending Physician: Sunday Ohara M.D. Kristine Kramer is a 46 year-old white female diagnosed with a recently diagnosed clinical stage IIIA (T1cN2) non-small cell lung cancer. She was evaluated at the [facility]'s Emergency Department in February [address] for chest [address] A CT angiogram reported a 2.2 cm x 1.6 cm right upper-lobe pulmonary nodule. A PET scan ordered on May 14, 2021 confirmed a 2.4 cm x 2.2 cm posterior right upper lobe nodule (SUV 7.1). Also described were a right paratracheal lymph node measuring 2.1 cm (SUV 11.8), and an FDG avid subcarinal lymph node. A 5 millimeter left lateral upper-lobe subpleural nodule and a 6 mm medial right lower-lobe nodule were too small to characterize. A bronchoscopy with EBUS performed on May 24, 2021 diagnosed a poorly differentiated, non-small cell carcinoma that demonstrated staining for CK5/6, CK Loki, and TTF-1 consistent with an adenosquamous component and synaptophysin positivity suggesting neuroendocrine differentiation. Pulmonary function testing demonstrated an FEV1 2.4L (79% of predicted) and a DLCO of 1.2 mL/min/mmHg (41% of predicted). An MRI of the head obtained on July 17, 2021 did not identify cerebral metastases. The patient has received 24 Gy of a prescribed 60 Amezcua delivered with an intensity modulated radiotherapy plan utilizing a step and shoot treatment technique. She has been prescribed carboplatin (AUC 2) and paclitaxel (50 mg/m???) weekly during therapy. Upon review of systems, she denied pulmonary symptoms. She has been prescribed Diflucan for esophagitis, but still has odynophagia. On physical examination, the patient weighed 161 lbs. Her temperature was 96.6 ???F and the blood pressure was 109/74 mmHg. The pulse was 76 bpm and her respiratory rate was 16. The oxygen saturation while breathing room air was 100%. There was no erythema within the treatment hardy. Auscultation of the posterior lung hardy were clear. Continue thoracic radiotherapy as planned. I will prescribe oxycodone elixir for odynophagia and recommended generic MiraLAX for constipation. Signed by: Dr. uSnday Ohara 07/26/2021 1:54:17 PM
--- NOTE | 2021-08-02 18:19 | ONC FU_ITS ---
Vera Mishra Progress Note Patient: Kristine Kramer Unit #: [id number]: 1975 Dicatated By: Vera Mishra N.P.Date of Visit:Jul 25, 2021 Onc MED Follow-up/Prog Note Chief Complaint: lung cancer History of Present Illness: Ms. Kristine Kramer, is a 46-year-old female who presented to ER on March 19, 2021 with chest pain in the left chest, underwent CTA chest on March 19, 2021 which showed no embolism, but mildly spiculated 2.2 x 1.6 cm pulmonary nodule in the right upper lobe, CT PET was recommended which was done on May 14, 2021 and it showed 2.4 x 2.2 cm posterior right upper lobe solid nodule with SUV of 7.1 and a 2.1 cm right paratracheal 4R, lymph node with SUV of 11.8. And adjacent subcarinal lymph node is FDG positive as well. A 5 mm lateral left upper lobe subpleural anteromedial right lower lobe 6 mm nodule are too small to characterize. 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 Staging MRI scan of the brain done on June 27, 2021 showed no metastatic disease to the brain. Minimally atrophy and minimal chronic microvascular ischemic disease Patient denies any hemoptysis or hematemesis, denies any bony pains, denies any jaundice, denies any dysphagia, but complaining of off and on headaches. Patient has longstanding history of smoking, still active. Denies alcohol use Patient presents today for follow-up. She is complaining of constant fatigue but is still able to perform activities of daily living. Her appetite has been fair although she has had mouth sores located in the back of her throat. She denies fever, chills, night sweats. She denies shortness of breath or cough. She has pain to her chest wall where she is receiving radiation therapy. She denies any GI or problems. No joint or muscle pain. No headaches or dizziness. Review Of Symptoms: see above. Past Medical History: Depression Fibromyalgia Past Surgical History: Neck surgery Allergies: No Known Allergies. Medications: ALPRAZolam 1 Tablet (of 1 mg) Oral at bedtime Amitriptyline HCl 1 Tablet (of 50 mg) Oral at bedtime Tiotropium [place]-Olodaterol 2 Inhalation (of 2.5-2.5 mcg/act) Aerosol, solution Inhalation daily Topiramate 1 Tablet (of 100 mg) Oral daily Family History: There is no documented family history. Social History: Ms. Kramer is . She is a daily smoker who has smoked 0.5 packs/day for 33 years. She has no history of drinking. Patient states working on quitting smoking, is down to 5 cigarettes per day now. 05/30/21. Physical Examination: Performed on Jul 25, 2021 09:16: Height - 66.00 in, Weight - 159.6 lbs (HIGH), BSA - 1.82 sq.m, BMI - 25.76, Temperature - 97.4 F (LOW), Pulse - 93 /min, Respiration - 18 /min, BP - 94/67 mm(hg), O2 Sat - 97 %, Pain - 5, and Fatigue - 9. Performance Status: 0 - Fully active, able to carry on all predisease activities without restrictions. (ECOG) ENMT Sinuses are nontender. Ulceration to back of throat. Tongue normal. Constitutional Alert, cooperative, oriented. Mood and affect appropriate. Appears close to chronological age. Well nourished. Well developed. Respiratory Lungs are clear to auscultation without rhonchi or wheezing. Cardiovascular Regular rate and rhythm of heart without murmurs, gallops or rubs. Chest Chest is symmetric without chest wall deformities. Tenderness without erythema Abdomen Non-tender, non-distended, no masses, ascites or hepatosplenomegaly. Good bowel sounds. No guarding or rebound tenderness. Extremities No visible deformities, no cyanosis, clubbing or edema. Pulses 3+ and equal bilaterally. Musculoskeletal No tenderness or swelling, normal range of motion without obvious weakness. Psychiatric Alert and oriented times three. Coherent speech. Verbalizes understanding of our discussions today. Laboratory: Test performed on Aug 01, 2021 11:15 Creatinine 0.5 mg/dL Cr Clearance (Est) 158.83 mL/min Test performed on Jul 25, 2021 08:20 Sodium 136 mmol/L Potassium 4.3 mmol/L Chloride 103 mmol/L CO2 22 mmol/L Anion Gap 15.3 BUN 7 mg/dL eGFR 131.7 mL/min Glucose 93 mg/dL Osmolality - Calculated 280 mOsm/kg Calcium 9.5 mg/dL Protein, Total 6.9 g/dL Albumin 4.0 g/dL Globulin 2.9 g/dL Bilirubin, Total 0.2 mg/dL ALT (SGPT) 9 U/L AST (SGOT) 10 U/L Alkaline Phosphatase 91 IU/L WBC 7.8 10 3/uL RBC 4.98 10 6/uL HGB 12.7 g/dL HCT 40.3 % MCV 80.9 fl MCH 25.5 pg MCHC 31.5 g/dL RDW 15.8 % Platelet Count 285 10 3/cmm MPV 10.6 fL Neutrophils 6.41 10 3/uL Lymphocytes 0.7 10 3/uL Monocytes 0.6 10 3/uL Eosinophils 0.0 10 3/uL Basophils 0.0 10 3/uL Neutrophil % 82.8 % Lymphocyte % 8.5 % Monocyte % 7.2 % Eosinophil % 0.5 % Basophils % 0.5 % NRBC % 0 % Impression: Adenosquamous carcinoma with neuroendocrine differentiation per endobronchial ultrasound-guided biopsy from station 4R done on May 24, 2021, immunohistochemistry confirmed CK 5/6 and CK Loki with weak p63 differentiation indicating of squamous cell carcinoma component, CK7 and TTF-1 positivity, indicating adenocarcinoma component and synaptophysin and high Ki-67, consistent with neuroendocrine differentiation. CT PET scan done on April 13, 2022 showed 2.4 x 2.2 cm right upper lobe nodule with SUV of 7.1 and a 2.1 cm right paratracheal 4R lymph node with SUV of 11.8 and an adjacent subcarinal lymph node FDG positive. MRI head done on June 27, 2021 showed no metastatic disease to the brain Clinical stage IIIa Chronic smoking Panic attacks Depression Fibromyalgia Plan: MRI scan of the brain done for staging purposes shows no evidence of metastatic disease. Labs were reviewed with patient with WBC 7.8, hemoglobin 12.7, hematocrit 40.3, and platelet count 285,000. Her CMP is within normal limits. Patient seems to be tolerating carboplatin and paclitaxel concurrently with radiation therapy. She is experiencing some esophagitis and a mouth ulcer noted in the back of the throat. Diflucan 100 mg p.o. daily x7 days has been ordered radiation oncologist also notified. She will receive her next treatment of carboplatin and paclitaxel today. Patient to follow-up in 1 week with CBC and CMP. Signed By: Vera Mishra N.P. <<Signature on File>>
== END 2021-07-28 23:59 | disposition home or self-care (01) ==
LOC: ONCMED 06:48
PROVIDERS: Nurse Practitioner Family; Absent Provider Radiology Radiation Oncology; PCP Family Medicine; Visit Provider Radiology Radiation Oncology
DX: Z51.0 Encounter for antineoplastic radiation therapy (principal); Z51.11 Encounter for antineoplastic chemotherapy; C34.11 Malignant neoplasm of upper lobe, right bronchus or lung; F17.210 Nicotine dependence, cigarettes, uncomplicated; F41.0 Panic disorder [episodic paroxysmal anxiety]; F32.A Depression, unspecified; M79.7 Fibromyalgia; Z79.899 Other long term (current) drug therapy
CPT/HCPCS: 36591; 77300; 77301; 77334; 77336; 77338; 77386; 77470; 80053; 85025; 96367; 96375; 96413; 96417; 99215; J1100; J1200; J2469; J3490; J7030; J7040; J7050; J9045; J9267; Q9967

== ENCOUNTER 2021-08-26 06:38 | Outpatient (RCR) | payer MEDICAID, SELFPAY ==
[2021-08-01 08:27] LABS: Basophils % 0.6 %; Eosinophils % 0.6 %; Hematocrit 39.2 % (37.0-47.0); Hemoglobin 12.8 g/dL (11.5-15.3); Lymphocytes # 0.5 10^3/uL (0.8-4.8); Lymphocytes % 6.9 %; Mean Corpuscular HGB Conc 32.7 g/dL (30.0-36.0); Mean Corpuscular Hemoglobin 26.6 pg (28.0-34.0); Mean Corpuscular Volume 81.3 fl (81-99); Mean Platelet Volume 10.5 fL (7.4-10.4); Monocytes # 0.5 10^3/uL (0.2-0.9); Monocytes % 6.6 %; Neutrophils # 5.86 10^3/uL (1.8-7.7); Neutrophils % 84.6 %; Nucleated Red Blood Cells % 0 %; Platelet Count 247 10^3/cmm (130-400); Red Blood Count 4.82 10^6/uL (4.1-5.3); Red Cell Distribution Width 16.3 % (12.1-15.1); White Blood Count 6.9 10^3/uL (4.0-10.0)
[2021-08-01 08:41] LABS: Alanine Aminotransferase 11 U/L (0-33); Albumin Level 4.1 g/dL (3.5-5.2); Alkaline Phosphatase 93 IU/L (35-105); Anion Gap 17.1 (5-19); Aspartate Amino Transferase 13 U/L (0-32); Blood Urea Nitrogen 8 mg/dL (6-20); Calcium 9.8 mg/dL (8.5-10.5); Carbon Dioxide 20 mmol/L (22-29); Chloride 101 mmol/L (98-107); Globulin 3.1 g/dL (1.3-4.6); Glomerular Filtration Rate 131.7 mL/min (90-130); Glucose 98 mg/dL (65-115); Osmolality Calculated 276 mOsm/kg (285-295); Potassium 4.1 mmol/L (3.5-5.1); Sodium 134 mmol/L (136-145); Total Bilirubin 0.2 mg/dL (0.15-1.2); Total Protein 7.2 g/dL (6.6-8.7)
[2021-08-01] MEDS: famotidine 20 mg/2 mL INJ IVP (11:52)
[2021-08-01] MEDS: diphenhydrAMINE 50 mg/mL SDV 1mL 25 MG IV (11:55)
[2021-08-01] MEDS: dexamethasone 20 MG in sodium chloride 0.9% 50 ML 187 MG IV (12:05)
[2021-08-01] MEDS: sodium chloride 0.9% 250 ML 75 ML IV (12:05)
[2021-08-01] MEDS: palonosetron 0.25 mg/5 mL SDV IV (12:05)
--- NOTE | 2021-08-02 13:59 | ONCRAD TMN_ITS ---
Radiation Oncology Treatment Management Note Patient Name: Kristine Kramer Date of : 1975 Date of Service: 08/02/2021 Attending Physician: Sunday Ohara M.D. Kristine Kramer is a 46 year-old white female diagnosed with a recently diagnosed clinical stage IIIA (T1cN2) non-small cell lung cancer. She was evaluated at the [facility]'s Emergency Department in February 2021 for chest pain. A CT angiogram reported a 2.2 cm x 1.6 cm right upper-lobe pulmonary nodule. A PET scan ordered on May 14, 2021 confirmed a 2.4 cm x 2.2 cm posterior right upper lobe nodule (SUV 7.1). Also described were a right paratracheal lymph node measuring 2.1 cm (SUV 11.8), and an FDG avid subcarinal lymph node. A 5 millimeter left lateral upper-lobe subpleural nodule and a 6 mm medial right lower-lobe nodule were too small to characterize. A bronchoscopy with EBUS performed on May 24, 2021 diagnosed a poorly differentiated, non-small cell carcinoma that demonstrated staining for CK5/6, CK Loki, and TTF-1 consistent with an adenosquamous component and synaptophysin positivity suggesting neuroendocrine differentiation. Pulmonary function testing demonstrated an FEV1 2.4L (79% of predicted) and a DLCO of 1.2 mL/min/mmHg (41% of predicted). An MRI of the head obtained on July 17, 2021 did not identify cerebral metastases. The patient has received 34 Gy of a prescribed 60 Amezcua delivered with an intensity modulated radiotherapy plan utilizing a step and shoot treatment technique. She has been prescribed carboplatin (AUC 2) and paclitaxel (50 mg/m???) weekly during therapy. Upon review of systems, she denied pulmonary symptoms, but described mouth sores. On physical examination, the patient weighed 161 lbs. Her temperature was 97.1 ???F and the blood pressure was 120/77 mmHg. The pulse was 90 bpm and her respiratory rate was 20. The oxygen saturation while breathing room air was 96%. Isolated vesicles were present on the maxillary and mandibular ridges. There was no erythema within the treatment hardy. Bronchovesicular breath sounds were auscultated. Continue thoracic radiotherapy as prescribed. I will prescribe viscous lidocaine 4% for mucositis. Signed by: Dr. Sunday Ohara 08/02/2021 1:58:43 PM
--- NOTE | 2021-08-05 09:09 | ONC FU_ITS ---
Dr. Schafer follow up note Patient: Kristine Kramer Unit #: [id number]: 1975 Dicatated By: Jaimee Schafer M.D.Date of Visit:Aug 01, 2021 Onc Med Follow-up/Prog Note History of Present Illness: Ms. Kristine Kramer, is a 46-year-old female who presented to ER on March 19, 2021 with chest pain in the left chest, underwent CTA chest on March 19, 2021 which showed no embolism, but mildly spiculated 2.2 x 1.6 cm pulmonary nodule in the right upper lobe, CT PET was recommended which was done on May 14, 2021 and it showed 2.4 x 2.2 cm posterior right upper lobe solid nodule with SUV of 7.1 and a 2.1 cm right paratracheal 4R, lymph node with SUV of 11.8. And adjacent subcarinal lymph node is FDG positive as well. A 5 mm lateral left upper lobe subpleural anteromedial right lower lobe 6 mm nodule are too small to characterize. 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 Staging MRI scan of the brain done on June 27, 2021 showed no metastatic disease to the brain. Minimally atrophy and minimal chronic microvascular ischemic disease Patient denies any hemoptysis or hematemesis, denies any bony pains, denies any jaundice, denies any dysphagia, but complaining of off and on headaches. Patient has longstanding history of smoking, still active. Denies alcohol use Started on combined chemoradiation with weekly carboplatin/Taxol on July 11, 2021 Came for follow-up, denies any specific complaint except mild discomfort in the substernal area especially when she swallows food, as per patient Dr. Ohara, radiation oncology give her pain medication which is helping her somewhat otherwise no fever chills, no nausea or vomiting, no diarrhea or constipation, tolerating combined chemoradiation with weekly carboplatin/Taxol well Medications: ALPRAZolam 1 Tablet (of 1 mg) Oral at bedtime, Amitriptyline HCl 1 Tablet (of 50 mg) Oral at bedtime, Tiotropium [place]-Olodaterol 2 Inhalation (of 2.5-2.5 mcg/act) Aerosol, solution Inhalation daily, Topiramate 1 Tablet (of 100 mg) Oral daily Allergies: No Known Allergies. Review of Systems: Review of Systems is not available for this patient. Vital Signs: Performed on Aug 01, 2021 10:52 Height - 66.00 in Weight - 157.4 lbs (LOW) BSA - 1.81 sq.m BMI - 25.41 Temperature - 97.7 F (LOW) Pulse - 91 /min Respiration - 17 /min BP - 94/67 mm(hg) O2 Sat - 97 % Pain - 0 Fatigue - 3 Performance Status: 0 - Fully active, able to carry on all predisease activities without restrictions. (ECOG) Physical Examination: ENMT - No mouth sores, no thrush, no jaundice, Respiratory - Lungs are clear to auscultation, Cardiovascular - Regular rate and rhythm of heart, Abdomen - Soft, bowel sounds present, Extremities - No visible edema. Lab/Imaging: Test performed on Aug 01, 2021 11:15 Creatinine 0.5 mg/dL Cr Clearance (Est) 158.83 mL/min Test performed on Jul 25, 2021 08:20 Sodium 136 mmol/L Potassium 4.3 mmol/L Chloride 103 mmol/L CO2 22 mmol/L Anion Gap 15.3 BUN 7 mg/dL eGFR 131.7 mL/min Glucose 93 mg/dL Osmolality - Calculated 280 mOsm/kg Calcium 9.5 mg/dL Protein, Total 6.9 g/dL Albumin 4.0 g/dL Globulin 2.9 g/dL Bilirubin, Total 0.2 mg/dL ALT (SGPT) 9 U/L AST (SGOT) 10 U/L Alkaline Phosphatase 91 IU/L WBC 7.8 10 3/uL RBC 4.98 10 6/uL HGB 12.7 g/dL HCT 40.3 % MCV 80.9 fl MCH 25.5 pg MCHC 31.5 g/dL RDW 15.8 % Platelet Count 285 10 3/cmm MPV 10.6 fL Neutrophils 6.41 10 3/uL Lymphocytes 0.7 10 3/uL Monocytes 0.6 10 3/uL Eosinophils 0.0 10 3/uL Basophils 0.0 10 3/uL Neutrophil % 82.8 % Lymphocyte % 8.5 % Monocyte % 7.2 % Eosinophil % 0.5 % Basophils % 0.5 % NRBC % 0 % Impression: Adenosquamous carcinoma with neuroendocrine differentiation per endobronchial ultrasound-guided biopsy from station 4R done on May 24, 2021, immunohistochemistry confirmed CK 5/6 and CK Loki with weak p63 differentiation indicating of squamous cell carcinoma component, CK7 and TTF-1 positivity, indicating adenocarcinoma component and synaptophysin and high Ki-67, consistent with neuroendocrine differentiation. CT PET scan done on April 13, 2022 showed 2.4 x 2.2 cm right upper lobe nodule with SUV of 7.1 and a 2.1 cm right paratracheal 4R lymph node with SUV of 11.8 and an adjacent subcarinal lymph node FDG positive. MRI head done on June 27, 2021 showed no metastatic disease to the brain Clinical stage IIIa Started on combined chemoradiation with weekly carboplatin/Taxol on July 11, 2021 Chronic smoking Panic attacks Depression Fibromyalgia Plan: Discussed with patient regarding her labs white blood count 6.9 hemoglobin 12.8 hematocrit 39.2 platelets 247,000 CMP within normal limits except sodium 134 Clinically, patient doing well with no new signs symptom except painful swallowing probably due to radiation-induced esophagitis, patient is taking narcotics, which is helping her otherwise tolerating combined chemoradiation with weekly carboplatin/Taxol reasonably well, will proceed with next weekly dose of carboplatin/Taxol today and then she will return to clinic in 1 week with CBC CMP, if reasonable, will consider weekly carboplatin/Taxol. Patient was advised to maintain hydration Signed By: Jaimee Schafer M.D. <<Signature on File>>
[2021-08-08 08:48] LABS: Basophils % 0.7 %; Eosinophils % 0.7 %; Lymphocytes # 0.1 10^3/uL (0.8-4.8); Lymphocytes % 2.5 %; Mean Corpuscular HGB Conc 32.5 g/dL (30.0-36.0); Mean Corpuscular Hemoglobin 26.2 pg (28.0-34.0); Mean Corpuscular Volume 80.6 fl (81-99); Monocytes # 0.4 10^3/uL (0.2-0.9); Monocytes % 8.5 %; Neutrophils # 3.77 10^3/uL (1.8-7.7); Neutrophils % 86.9 %; Nucleated Red Blood Cells % 0 %; Platelet Count 130 10^3/cmm (130-400); Red Blood Count 4.96 10^6/uL (4.1-5.3); White Blood Count 4.3 10^3/uL (4.0-10.0)
[2021-08-08 09:03] LABS: Alanine Aminotransferase 18 U/L (0-33); Albumin Level 4.1 g/dL (3.5-5.2); Alkaline Phosphatase 98 IU/L (35-105); Anion Gap 16.8 (5-19); Aspartate Amino Transferase 18 U/L (0-32); Blood Urea Nitrogen 10 mg/dL (6-20); Calcium 9.3 mg/dL (8.5-10.5); Carbon Dioxide 17 mmol/L (22-29); Chloride 105 mmol/L (98-107); Globulin 2.6 g/dL (1.3-4.6); Glomerular Filtration Rate 106.7 mL/min (90-130); Glucose 98 mg/dL (65-115); Osmolality Calculated 279 mOsm/kg (285-295); Potassium 3.8 mmol/L (3.5-5.1); Sodium 135 mmol/L (136-145); Total Bilirubin 0.3 mg/dL (0.15-1.2); Total Protein 6.7 g/dL (6.6-8.7)
--- NOTE | 2021-08-08 10:15 | XRR_ITS ---
PROCEDURE INFORMATION: Exam: XR Chest Exam date and time: 08/08/2021 10:29 AM Age: 46 years old Clinical indication: Cough and fever; Prior surgery; Surgery type: Port; Patient HX: C/O cough, fever, and general not feeling well. HX of lung cancer TECHNIQUE: Imaging protocol: XR of the chest. Views: 2 views. COMPARISON: 1. CR XR chest 1V portable [id number] 03/19/2021 1:00 AM 2. Chest CTA examination 03/19/2021 FINDINGS: Tubes, catheters and devices: Left central line extending into the SVC Lungs: Circumscribed parenchymal nodule is seen in the right lung apex. This finding measures 23 mm x 21 mm (prior 22 mm x 16 mm). This finding correlates with a primary or secondary lung tumor histologic sampling or PET-CT examination should be performed.The lungs are otherwise clear. No consolidation. Pleural spaces: Unremarkable. No pleural effusion. No pneumothorax. Heart/Mediastinum: Unremarkable. No cardiomegaly. Bones/joints: Postsurgical hardware is seen in the cervical spine. XR/XR chest 2V* [id number] IMPRESSION: 1. Right apical mass, increased size, primary or secondary tumor. 2. Left side central line in the SVC. 3. Metallic surgical hardware cervical spine
[2021-08-08 11:53] LABS: Adenovirus Not Detected (NOT DETECT); Chlamydia Pneumoniae Not Detected (NOT DETECT); Coronavirus 229E,HKU1,NL63,OC4 Not Detected (NOT DETECT); Human Metapneumovirus Not Detected (NOT DETECT); Human Rhinovirus/Enterovirus Not Detected (NOT DETECT); Influenza A Detected (NOT DETECT); Influenza A H1 Not Detected (NOT DETECT); Influenza A H1-2009 Not Detected (NOT DETECT); Influenza A H3 Detected (NOT DETECT); Influenza B Not Detected (NOT DETECT); Mycoplasma Pneumoniae Not Detected (NOT DETECT); Parainfluenza Virus Type 1 Not Detected (NOT DETECT); Parainfluenza Virus Type 2 Not Detected (NOT DETECT); Parainfluenza Virus Type 3 Not Detected (NOT DETECT); Parainfluenza Virus Type 4 Not Detected (NOT DETECT); Respiratory Syncytial Virus A Not Detected (NOT DETECT); Respiratory Syncytial Virus B Not Detected (NOT DETECT); SARS-COV-2 Not Detected (NOT DETECT)
[2021-08-08 13:19] LABS: Influenza A Detected (NOT DETECT); Influenza A H1 Not Detected (NOT DETECT); Influenza A H1-2009 Not Detected (NOT DETECT); Influenza A H3 Detected (NOT DETECT); Influenza B Not Detected (NOT DETECT); Results from Genmark
--- NOTE | 2021-08-08 16:01 | ONC FU_ITS ---
Vera Mishra Progress Note Patient: Kristine Kramer Unit #: [id number]: 1975 Dicatated By: Vera Mishra N.P.Date of Visit:Aug 08, 2021 Onc MED Follow-up/Prog Note Chief Complaint: lung cancer History of Present Illness: Ms. Kristine Kramer, is a 46-year-old female who presented to ER on March 19, 2021 with chest pain in the left chest, underwent CTA chest on March 19, 2021 which showed no embolism, but mildly spiculated 2.2 x 1.6 cm pulmonary nodule in the right upper lobe, CT PET was recommended which was done on May 14, 2021 and it showed 2.4 x 2.2 cm posterior right upper lobe solid nodule with SUV of 7.1 and a 2.1 cm right paratracheal 4R, lymph node with SUV of 11.8. And adjacent subcarinal lymph node is FDG positive as well. A 5 mm lateral left upper lobe subpleural anteromedial right lower lobe 6 mm nodule are too small to characterize. 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 Staging MRI scan of the brain done on June 27, 2021 showed no metastatic disease to the brain. Minimally atrophy and minimal chronic microvascular ischemic disease Patient denies any hemoptysis or hematemesis, denies any bony pains, denies any jaundice, denies any dysphagia, but complaining of off and on headaches. Patient has longstanding history of smoking, still active. Denies alcohol use Started on combined chemoradiation with weekly carboplatin/Taxol on July 11, 2021 Patient presents today for follow-up. She is he feels terrible today and that she has had fever for 3 days. Her appetite is fair. She is experiencing fever and chills. No night sweats. She states she had a nosebleed over the weekend. She feels short of breath and has had a cough for the past couple of days. She states it hurts to take a deep breath. She denies any GI problems or problems. No joint or bone pain. Chest is very sore from radiation therapy and also from the coughing from being sick. She denies a headache or dizziness. Review Of Symptoms: See above. Past Medical History: Depression Fibromyalgia Past Surgical History: Neck surgery Allergies: No Known Allergies. Medications: ALPRAZolam 1 Tablet (of 1 mg) Oral at bedtime Amitriptyline HCl 1 Tablet (of 50 mg) Oral at bedtime Tiotropium [place]-Olodaterol 2 Inhalation (of 2.5-2.5 mcg/act) Aerosol, solution Inhalation daily Topiramate 1 Tablet (of 100 mg) Oral daily Family History: There is no documented family history. Social History: Ms. Kramer is . She is a daily smoker who has smoked 0.5 packs/day for 33 years. She has no history of drinking. Patient states working on quitting smoking, is down to 5 cigarettes per day now. 05/30/21. Physical Examination: Performed on Aug 08, 2021 09:42: Height - 66.00 in, Weight - 160.2 lbs (LOW), BSA - 1.82 sq.m, BMI - 25.86, Temperature - 99.2 F (HIGH), Pulse - 104 /min (HIGH), Respiration - 16 /min, BP - 92/56 mm(hg), O2 Sat - 98 %, Pain - 8, and Fatigue - 10. Performance Status: 1 - No physically strenuous activity, but ambulatory and able to carry out light or sedentary work (e.g. office work, light house work). (ECOG) Constitutional Alert, cooperative, oriented. Mood and affect appropriate. Appears close to chronological age. Ill appearance Head Normocephalic; no scars. Respiratory Lungs are clear to auscultation without rhonchi or wheezing. Cardiovascular Regular rate and rhythm of heart without murmurs, gallops or rubs. Abdomen Non-tender, non-distended, no masses, ascites or hepatosplenomegaly. Good bowel sounds. No guarding or rebound tenderness. Extremities No visible deformities, no cyanosis, clubbing or edema. Pulses 3+ and equal bilaterally. Musculoskeletal No tenderness or swelling, normal range of motion without obvious weakness. Psychiatric Alert and oriented times three. Coherent speech. Verbalizes understanding of our discussions today. Laboratory: Test performed on Aug 08, 2021 08:29 Sodium 135 mmol/L Potassium 3.8 mmol/L Chloride 105 mmol/L CO2 17 mmol/L Anion Gap 16.8 BUN 10 mg/dL Creatinine 0.6 mg/dL Cr Clearance (Est) 132.3600 mL/min eGFR 106.7 mL/min Glucose 98 mg/dL Osmolality - Calculated 279 mOsm/kg Calcium 9.3 mg/dL Protein, Total 6.7 g/dL Albumin 4.1 g/dL Globulin 2.6 g/dL Bilirubin, Total 0.3 mg/dL ALT (SGPT) 18 U/L AST (SGOT) 18 U/L Alkaline Phosphatase 98 IU/L WBC 4.3 10 3/uL RBC 4.96 10 6/uL HGB 13.0 g/dL HCT 40.0 % MCV 80.6 fl MCH 26.2 pg MCHC 32.5 g/dL RDW 17.0 % Platelet Count 130 10 3/cmm MPV 11.0 fL Neutrophils 3.77 10 3/uL Lymphocytes 0.1 10 3/uL Monocytes 0.4 10 3/uL Eosinophils 0.0 10 3/uL Basophils 0.0 10 3/uL Neutrophil % 86.9 % Lymphocyte % 2.5 % Monocyte % 8.5 % Eosinophil % 0.7 % Basophils % 0.7 % NRBC % 0 % Impression: Adenosquamous carcinoma with neuroendocrine differentiation per endobronchial ultrasound-guided biopsy from station 4R done on May 24, 2021, immunohistochemistry confirmed CK 5/6 and CK Loki with weak p63 differentiation indicating of squamous cell carcinoma component, CK7 and TTF-1 positivity, indicating adenocarcinoma component and synaptophysin and high Ki-67, consistent with neuroendocrine differentiation. CT PET scan done on April 13, 2022 showed 2.4 x 2.2 cm right upper lobe nodule with SUV of 7.1 and a 2.1 cm right paratracheal 4R lymph node with SUV of 11.8 and an adjacent subcarinal lymph node FDG positive. MRI head done on June 27, 2021 showed no metastatic disease to the brain Clinical stage IIIa Started on combined chemoradiation with weekly carboplatin/Taxol on July 11, 2021 Chronic smoking Panic attacks Depression Fibromyalgia Plan: Labs were reviewed with patient with WBC at 4.3, hemoglobin 13.0, hematocrit 40.0, and platelet count 130,000. Her sodium is low at 135 but otherwise her CMP is within normal limits. Due to patient having fever and cough and congestion her treatment with carboplatin and paclitaxel will be held. We will obtain a chest x-ray and swab for Covid and influenza. She will be started on Levaquin 500 mg p.o. daily x7 days and prednisone 10 mg p.o. daily x5 days. She will return to the clinic in 1 week with CBC and CMP. Addendum: Results from Covid swab are negative. Influenza A was positive. Patient was notified. Signed By: Vera Mishra N.P. <<Signature on File>>
--- NOTE | 2021-08-10 14:22 | ONCRAD TMN_ITS ---
Radiation Oncology Treatment Management Note Patient Name: Kristine Kramer Date of : 1975 Date of Service: 08/10/2021 Attending Physician: Sunday Ohara M.D. Kristine Kramer is a 46 year-old white female diagnosed with a recently diagnosed clinical stage IIIA (T1cN2) non-small cell lung cancer. She was evaluated at the [facility]'s Emergency Department in February [address] for chest [address] A CT angiogram reported a 2.2 cm x 1.6 cm right upper-lobe pulmonary nodule. A PET scan ordered on May 14, 2021 confirmed a 2.4 cm x 2.2 cm posterior right upper lobe nodule (SUV 7.1). Also described were a right paratracheal lymph node measuring 2.1 cm (SUV 11.8), and an FDG avid subcarinal lymph node. A 5 millimeter left lateral upper-lobe subpleural nodule and a 6 mm medial right lower-lobe nodule were too small to characterize. A bronchoscopy with EBUS performed on May 24, 2021 diagnosed a poorly differentiated, non-small cell carcinoma that demonstrated staining for CK5/6, CK Loki, and TTF-1 consistent with an adenosquamous component and synaptophysin positivity suggesting neuroendocrine differentiation. Pulmonary function testing demonstrated an FEV1 2.4L (79% of predicted) and a DLCO of 1.2 mL/min/mmHg (41% of predicted). An MRI of the head obtained on July 17, 2021 did not identify cerebral metastases. The patient has received 40 Gy of a prescribed 60 Amezcua delivered with an intensity modulated radiotherapy plan utilizing a step and shoot treatment technique. She has been prescribed carboplatin (AUC 2) and paclitaxel (50 mg/m???) weekly during therapy. Upon review of systems, she denied pulmonary symptoms. On physical examination, the patient weighed 155 lbs. Her temperature was 97 ???F and the blood pressure was 110/76 mmHg. The pulse was 97 bpm and her respiratory rate was 18. The oxygen saturation while breathing room air was 98%. There was no erythema within the treatment hardy. Continue thoracic radiotherapy as planned. Signed by: Sunday Ohara 08/10/2021 2:21:49 PM
[2021-08-15 08:44] LABS: Basophils % 0.2 %; Eosinophils % 0.5 %; Hematocrit 38.3 % (37.0-47.0); Hemoglobin 12.3 g/dL (11.5-15.3); Lymphocytes # 0.6 10^3/uL (0.8-4.8); Lymphocytes % 9.3 %; Mean Corpuscular HGB Conc 32.1 g/dL (30.0-36.0); Mean Corpuscular Hemoglobin 26.8 pg (28.0-34.0); Mean Corpuscular Volume 83.4 fl (81-99); Mean Platelet Volume 10.9 fL (7.4-10.4); Monocytes # 0.5 10^3/uL (0.2-0.9); Neutrophils # 4.76 10^3/uL (1.8-7.7); Neutrophils % 80.5 %; Nucleated Red Blood Cells % 0 %; Platelet Count 144 10^3/cmm (130-400); Red Blood Count 4.59 10^6/uL (4.1-5.3); Red Cell Distribution Width 17.7 % (12.1-15.1); White Blood Count 5.9 10^3/uL (4.0-10.0)
[2021-08-15 09:04] LABS: Alanine Aminotransferase 9 U/L (0-33); Albumin Level 3.8 g/dL (3.5-5.2); Alkaline Phosphatase 89 IU/L (35-105); Anion Gap 13.7 (5-19); Aspartate Amino Transferase 9 U/L (0-32); Blood Urea Nitrogen 8 mg/dL (6-20); Calcium 9.3 mg/dL (8.5-10.5); Carbon Dioxide 22 mmol/L (22-29); Chloride 106 mmol/L (98-107); Globulin 3.2 g/dL (1.3-4.6); Glomerular Filtration Rate 131.7 mL/min (90-130); Glucose 95 mg/dL (65-115); Osmolality Calculated 284 mOsm/kg (285-295); Potassium 3.7 mmol/L (3.5-5.1); Sodium 138 mmol/L (136-145); Total Bilirubin 0.3 mg/dL (0.15-1.2)
[2021-08-15] MEDS: sodium chloride 0.9% 250 ML 75 ML IV (10:18)
[2021-08-15] MEDS: famotidine 20 mg/2 mL INJ IVP (10:20)
[2021-08-15] MEDS: diphenhydrAMINE 50 mg/mL SDV 1mL 25 MG IV (10:24)
[2021-08-15] MEDS: palonosetron 0.25 mg/5 mL SDV IV (10:27)
[2021-08-15] MEDS: dexamethasone 20 MG in sodium chloride 0.9% 50 ML 187 MG IV (10:27)
--- NOTE | 2021-08-15 18:26 | ONC FU_ITS ---
Dr. Schafer follow up note Patient: Kristine Kramer Unit #: [id number]: 1975 Dicatated By: Jaimee Schafer M.D.Date of Visit:Aug 15, 2021 Onc Med Follow-up/Prog Note History of Present Illness: Ms. Kristine Kramer, is a 46-year-old female who presented to ER on March 19, 2021 with chest pain in the left chest, underwent CTA chest on March 19, 2021 which showed no embolism, but mildly spiculated 2.2 x 1.6 cm pulmonary nodule in the right upper lobe, CT PET was recommended which was done on May 14, 2021 and it showed 2.4 x 2.2 cm posterior right upper lobe solid nodule with SUV of 7.1 and a 2.1 cm right paratracheal 4R, lymph node with SUV of 11.8. And adjacent subcarinal lymph node is FDG positive as well. A 5 mm lateral left upper lobe subpleural anteromedial right lower lobe 6 mm nodule are too small to characterize. 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 Staging MRI scan of the brain done on June 27, 2021 showed no metastatic disease to the brain. Minimally atrophy and minimal chronic microvascular ischemic disease Patient denies any hemoptysis or hematemesis, denies any bony pains, denies any jaundice, denies any dysphagia, but complaining of off and on headaches. Patient has longstanding history of smoking, still active. Denies alcohol use Started on combined chemoradiation with weekly carboplatin/Taxol on July 11, 2021 Came for follow-up, denies any specific complaints except cough which is a chronic as patient continues to smoke, no fever chills, no nausea or vomiting, no diarrhea constipation, no hemoptysis or hematemesis, no jaundice, no new bony pains, patient skipped her weekly carboplatin/Taxol due to bronchitis due to viral infection/probably superimposed bacterial infection moreover she got concerned with chest x-ray report which showed possibility of disease progression but when patient discussed with Dr. Ohara, radiation oncology, who in showed her that there is improvement in her disease status while on combined chemoradiation, patient decided to resume treatment. She is here to take her next scheduled dose of weekly carboplatin/Taxol concurrent with radiation therapy. Medications: ALPRAZolam 1 Tablet (of 1 mg) Oral at bedtime, Amitriptyline HCl 1 Tablet (of 50 mg) Oral at bedtime, Tiotropium [place]-Olodaterol 2 Inhalation (of 2.5-2.5 mcg/act) Aerosol, solution Inhalation daily, Topiramate 1 Tablet (of 100 mg) Oral daily Allergies: No Known Allergies. Review of Systems: Review of Systems is not available for this patient. Vital Signs: Performed on Aug 15, 2021 09:44 Height - 66.00 in Weight - 157.0 lbs (HIGH) BSA - 1.80 sq.m BMI - 25.34 Temperature - 97.0 F (LOW) Pulse - 88 /min Respiration - 18 /min BP - 95/65 mm(hg) O2 Sat - 97 % Pain - 0 Fatigue - 5 Performance Status: 0 - Fully active, able to carry on all predisease activities without restrictions. (ECOG) Physical Examination: ENMT - No mouth sores, no thrush, no jaundice, Respiratory - Lungs are clear to auscultation, Cardiovascular - Regular rate and rhythm of heart, Abdomen - Soft, bowel sounds present, Extremities - No visible edema. Lab/Imaging: Test performed on Aug 15, 2021 09:37 Creatinine 0.5 mg/dL Cr Clearance (Est) 158.83 mL/min Test performed on Aug 08, 2021 08:29 Sodium 135 mmol/L Potassium 3.8 mmol/L Chloride 105 mmol/L CO2 17 mmol/L Anion Gap 16.8 BUN 10 mg/dL eGFR 106.7 mL/min Glucose 98 mg/dL Osmolality - Calculated 279 mOsm/kg Calcium 9.3 mg/dL Protein, Total 6.7 g/dL Albumin 4.1 g/dL Globulin 2.6 g/dL Bilirubin, Total 0.3 mg/dL ALT (SGPT) 18 U/L AST (SGOT) 18 U/L Alkaline Phosphatase 98 IU/L WBC 4.3 10 3/uL RBC 4.96 10 6/uL HGB 13.0 g/dL HCT 40.0 % MCV 80.6 fl MCH 26.2 pg MCHC 32.5 g/dL RDW 17.0 % Platelet Count 130 10 3/cmm MPV 11.0 fL Neutrophils 3.77 10 3/uL Lymphocytes 0.1 10 3/uL Monocytes 0.4 10 3/uL Eosinophils 0.0 10 3/uL Basophils 0.0 10 3/uL Neutrophil % 86.9 % Lymphocyte % 2.5 % Monocyte % 8.5 % Eosinophil % 0.7 % Basophils % 0.7 % NRBC % 0 % Impression: Adenosquamous carcinoma with neuroendocrine differentiation per endobronchial ultrasound-guided biopsy from station 4R done on May 24, 2021, immunohistochemistry confirmed CK 5/6 and CK Loki with weak p63 differentiation indicating of squamous cell carcinoma component, CK7 and TTF-1 positivity, indicating adenocarcinoma component and synaptophysin and high Ki-67, consistent with neuroendocrine differentiation. CT PET scan done on April 13, 2022 showed 2.4 x 2.2 cm right upper lobe nodule with SUV of 7.1 and a 2.1 cm right paratracheal 4R lymph node with SUV of 11.8 and an adjacent subcarinal lymph node FDG positive. MRI head done on June 27, 2021 showed no metastatic disease to the brain Clinical stage IIIa Started on combined chemoradiation with weekly carboplatin/Taxol on July 11, 2021 Chronic smoking Panic attacks Depression Fibromyalgia Plan: Discussed with patient regarding her labs white blood count 5.9 hemoglobin 12.3 hematocrit 38.3 platelets 144,000 CMP within normal limits Clinically, patient doing well with no new signs symptom suggestive of disease progression, will proceed with her next weekly dose of carboplatin/Taxol today and then she will return to clinic in a week with CBC CMP, if reasonable for next weekly dose of chemo with carboplatin/Taxol concurrent with radiation therapy. Patient was advised to quit smoking and was offered any assistance she may need, she was also advised to consider saline gargles and steam inhalation. Signed By: Jaimee Schafer M.D. <<Signature on File>>
--- NOTE | 2021-08-16 14:09 | ONCRAD TMN_ITS ---
Radiation Oncology Treatment Management Note Patient Name: Kristine Kramer Date of : 1975 Date of Service: 08/16/2021 Attending Physician: Sunday Ohara M.D. Kristine Kramer is a 46 year-old white female diagnosed with a recently diagnosed clinical stage IIIA (T1cN2) non-small cell lung cancer. She was evaluated at the [facility]'s Emergency Department in February [address] for chest [address]. A CT angiogram reported a 2.2 cm x 1.6 cm right upper-lobe pulmonary nodule. A PET scan ordered on May 14, 2021 confirmed a 2.4 cm x 2.2 cm posterior right upper lobe nodule (SUV 7.1). Also described were a right paratracheal lymph node measuring 2.1 cm (SUV 11.8), and an FDG avid subcarinal lymph node. A 5 millimeter left lateral upper-lobe subpleural nodule and a 6 mm medial right lower-lobe nodule were too small to characterize. A bronchoscopy with EBUS performed on May 24, 2021 diagnosed a poorly differentiated, non-small cell carcinoma that demonstrated staining for CK5/6, CK Loki, and TTF-1 consistent with an adenosquamous component and synaptophysin positivity suggesting neuroendocrine differentiation. Pulmonary function testing demonstrated an FEV1 2.4L (79% of predicted) and a DLCO of 1.2 mL/min/mmHg (41% of predicted). An MRI of the head obtained on July 17, 2021 did not identify cerebral metastases. The patient has received 44 Gy of a prescribed 60 Ame[place]ua delivered with an intensity modulated radiotherapy plan utilizing a step and shoot treatment technique. She has been prescribed carboplatin (AUC 2) and paclitaxel (50 mg/m???) weekly during therapy. Upon review of systems, she denied pulmonary symptoms. On physical examination, the patient weighed 157 lbs. Her temperature was 97.5 ???F and the blood pressure was 98/64 mmHg. The pulse was 80 bpm and her respiratory rate was 16. The oxygen saturation while breathing room air was 100%. There was no erythema within the treatment hardy. Continue thoracic radiotherapy as prescribed. Signed by: Sunday Ohara 08/16/2021 2:06:58 PM
[2021-08-22 08:28] LABS: Basophils % 0.5 %; Eosinophils # 0.1 10^3/uL (0.0-0.8); Eosinophils % 1.4 %; Hemoglobin 12.1 g/dL (11.5-15.3); Lymphocytes # 0.3 10^3/uL (0.8-4.8); Lymphocytes % 4.2 %; Mean Corpuscular HGB Conc 32.7 g/dL (30.0-36.0); Mean Corpuscular Hemoglobin 27.1 pg (28.0-34.0); Mean Platelet Volume 11.1 fL (7.4-10.4); Monocytes # 0.3 10^3/uL (0.2-0.9); Monocytes % 4.5 %; Neutrophils # 5.87 10^3/uL (1.8-7.7); Neutrophils % 88.6 %; Nucleated Red Blood Cells % 0 %; Platelet Count 207 10^3/cmm (130-400); Red Blood Count 4.46 10^6/uL (4.1-5.3); Red Cell Distribution Width 17.4 % (12.1-15.1); White Blood Count 6.6 10^3/uL (4.0-10.0)
[2021-08-22 08:54] LABS: Alanine Aminotransferase 10 U/L (0-33); Albumin Level 3.9 g/dL (3.5-5.2); Alkaline Phosphatase 85 IU/L (35-105); Aspartate Amino Transferase 12 U/L (0-32); Blood Urea Nitrogen 8 mg/dL (6-20); Calcium 8.8 mg/dL (8.5-10.5); Carbon Dioxide 18 mmol/L (22-29); Chloride 104 mmol/L (98-107); Globulin 3.1 g/dL (1.3-4.6); Glomerular Filtration Rate 106.7 mL/min (90-130); Glucose 84 mg/dL (65-115); Osmolality Calculated 284 mOsm/kg (285-295); Sodium 138 mmol/L (136-145); Total Bilirubin 0.2 mg/dL (0.15-1.2)
[2021-08-22 08:58] LABS: Anion Gap 20.1 (5-19); Potassium 4.1 mmol/L (3.5-5.1)
[2021-08-22] MEDS: sodium chloride 0.9% 250 ML 75 ML IV (11:10)
[2021-08-22] MEDS: famotidine 20 mg/2 mL INJ IVP (11:10)
[2021-08-22] MEDS: diphenhydrAMINE 50 mg/mL SDV 1mL 25 MG IV (11:12)
[2021-08-22] MEDS: dexamethasone 20 MG in sodium chloride 0.9% 50 ML 187 MG IV (11:16)
[2021-08-22] MEDS: palonosetron 0.25 mg/5 mL SDV IV (11:16)
--- NOTE | 2021-08-23 14:00 | ONCRAD TMN_ITS ---
Radiation Oncology Treatment Management Note Patient Name: Kristine Kramer Date of : 1975 Date of Service: 08/23/2021 Attending Physician: Sunday Ohara M.D. Kristine Kramer is a 46 year-old white female diagnosed with a recently diagnosed clinical stage IIIA (T1cN2) non-small cell lung cancer. She was evaluated at the [facility]'s Emergency Department in February 2021 for chest [address]. A CT angiogram reported a 2.2 cm x 1.6 cm right upper-lobe pulmonary nodule. A PET scan ordered on May 14, 2021 confirmed a 2.4 cm x 2.2 cm posterior right upper lobe nodule (SUV 7.1). Also described were a right paratracheal lymph node measuring 2.1 cm (SUV 11.8), and an FDG avid subcarinal lymph node. A 5 millimeter left lateral upper-lobe subpleural nodule and a 6 mm medial right lower-lobe nodule were too small to characterize. A bronchoscopy with EBUS performed on May 24, 2021 diagnosed a poorly differentiated, non-small cell carcinoma that demonstrated staining for CK5/6, CK Loki, and TTF-1 consistent with an adenosquamous component and synaptophysin positivity suggesting neuroendocrine differentiation. Pulmonary function testing demonstrated an FEV1 2.4L (79% of predicted) and a DLCO of 1.2 mL/min/mmHg (41% of predicted). An MRI of the head obtained on July 17, 2021 did not identify cerebral metastases. The patient has received 54 Gy of a prescribed 60 Amezcua delivered with an intensity modulated radiotherapy plan utilizing a step and shoot treatment technique. She has been prescribed carboplatin (AUC 2) and paclitaxel (50 mg/m???) weekly during therapy. Upon review of systems, she denied pulmonary symptoms. On physical examination, the patient weighed 158 lbs. Her temperature was 97.7 ???F and the blood pressure was 108/68 mmHg. The pulse was 82 bpm and her respiratory rate was 18. The oxygen saturation while breathing room air was 100%. There was no erythema within the treatment hardy. Continue thoracic radiotherapy as planned. Signed by: Sunday Ohara 08/23/2021 1:58:42 PM
--- NOTE | 2021-08-24 10:39 | ONC FU_ITS ---
Dr. Schafer follow up note Patient: Kristine Kramer Unit #: [id number]: 1975 Dicatated By: Jaimee Schafer M.D.Date of Visit:Aug 22, 2021 Onc Med Follow-up/Prog Note History of Present Illness: Ms. Kristine Kramer, is a 46-year-old female who presented to ER on March 19, 2021 with chest pain in the left chest, underwent CTA chest on March 19, 2021 which showed no embolism, but mildly spiculated 2.2 x 1.6 cm pulmonary nodule in the right upper lobe, CT PET was recommended which was done on May 14, 2021 and it showed 2.4 x 2.2 cm posterior right upper lobe solid nodule with SUV of 7.1 and a 2.1 cm right paratracheal 4R, lymph node with SUV of 11.8. And adjacent subcarinal lymph node is FDG positive as well. A 5 mm lateral left upper lobe subpleural anteromedial right lower lobe 6 mm nodule are too small to characterize. 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 Staging MRI scan of the brain done on June 27, 2021 showed no metastatic disease to the brain. Minimally atrophy and minimal chronic microvascular ischemic disease Patient denies any hemoptysis or hematemesis, denies any bony pains, denies any jaundice, denies any dysphagia, but complaining of off and on headaches. Patient has longstanding history of smoking, still active. Denies alcohol use Started on combined chemoradiation with weekly carboplatin/Taxol on July 11, 2021 Came for follow-up, denies any specific complaints, no fever chills, no nausea or vomiting, no diarrhea or constipation, no melena or hematochezia, no hemoptysis hematemesis, no peripheral numbness, tolerating combined chemoradiation with carboplatin/Taxol well Medications: ALPRAZolam 1 Tablet (of 1 mg) Oral at bedtime, Amitriptyline HCl 1 Tablet (of 50 mg) Oral at bedtime, Tiotropium [place]-Olodaterol 2 Inhalation (of 2.5-2.5 mcg/act) Aerosol, solution Inhalation daily, Topiramate 1 Tablet (of 100 mg) Oral daily Allergies: No Known Allergies. Review of Systems: Review of Systems is not available for this patient. Vital Signs: Performed on Aug 22, 2021 11:05 Height - 66 in Weight - 157.6 lbs (HIGH) BSA - 1.81 sq.m BMI - 25.44 Temperature - 96.6 F (LOW) Pulse - 92 /min Respiration - 18 /min BP - 95/65 mm(hg) O2 Sat - 99 % Pain - 0 Fatigue - 6 Performance Status: 0 - Fully active, able to carry on all predisease activities without restrictions. (ECOG) Physical Examination: ENMT - No mouth sores, no thrush, no jaundice, Respiratory - Lungs are clear to auscultation, Cardiovascular - Regular rate and rhythm of heart, Abdomen - Soft, bowel sounds present, Extremities - No visible edema or rash. Lab/Imaging: Test performed on Aug 22, 2021 09:32 Creatinine 0.6 mg/dL Cr Clearance (Est) 132.36 mL/min Test performed on Aug 08, 2021 08:29 Sodium 135 mmol/L Potassium 3.8 mmol/L Chloride 105 mmol/L CO2 17 mmol/L Anion Gap 16.8 BUN 10 mg/dL eGFR 106.7 mL/min Glucose 98 mg/dL Osmolality - Calculated 279 mOsm/kg Calcium 9.3 mg/dL Protein, Total 6.7 g/dL Albumin 4.1 g/dL Globulin 2.6 g/dL Bilirubin, Total 0.3 mg/dL ALT (SGPT) 18 U/L AST (SGOT) 18 U/L Alkaline Phosphatase 98 IU/L WBC 4.3 10 3/uL RBC 4.96 10 6/uL HGB 13.0 g/dL HCT 40.0 % MCV 80.6 fl MCH 26.2 pg MCHC 32.5 g/dL RDW 17.0 % Platelet Count 130 10 3/cmm MPV 11.0 fL Neutrophils 3.77 10 3/uL Lymphocytes 0.1 10 3/uL Monocytes 0.4 10 3/uL Eosinophils 0.0 10 3/uL Basophils 0.0 10 3/uL Neutrophil % 86.9 % Lymphocyte % 2.5 % Monocyte % 8.5 % Eosinophil % 0.7 % Basophils % 0.7 % NRBC % 0 % Impression: Adenosquamous carcinoma with neuroendocrine differentiation per endobronchial ultrasound-guided biopsy from station 4R done on May 24, 2021, immunohistochemistry confirmed CK 5/6 and CK Loki with weak p63 differentiation indicating of squamous cell carcinoma component, CK7 and TTF-1 positivity, indicating adenocarcinoma component and synaptophysin and high Ki-67, consistent with neuroendocrine differentiation. CT PET scan done on April 13, 2022 showed 2.4 x 2.2 cm right upper lobe nodule with SUV of 7.1 and a 2.1 cm right paratracheal 4R lymph node with SUV of 11.8 and an adjacent subcarinal lymph node FDG positive. MRI head done on June 27, 2021 showed no metastatic disease to the brain Clinical stage IIIa Started on combined chemoradiation with weekly carboplatin/Taxol on July 11, 2021 Chronic smoking Panic attacks Depression Fibromyalgia Plan: Discussed with patient regarding her labs white blood count 6.6 hemoglobin 12.1 hematocrit 37 platelets 207,000 CMP within normal limits Clinically, patient doing well with no new signs symptom suggestive of disease progression, tolerating combined chemoradiation with weekly carboplatin/Taxol well, will proceed with next and final dose of weekly carboplatin/Taxol today as patient will complete her recommended radiation therapy this week and then she will return to clinic in 3 weeks with CBC CMP, at that time we will order CT scan of chest, and also discussed about consolidation full dose chemotherapy with carboplatin/Taxol followed by year-long immunotherapy with durvalumab or role of Maintenance durvalumab alone. Signed By: Jaimee Schafer M.D. <<Signature on File>>
--- NOTE | 2021-08-26 11:25 | N.ONRD TS_ITS ---
Radiation OncologyTreatment Summary Patient Name: Kristine Kramer Date of : 1975 Date of Service: 08/26/2021 Attending Physician: Sunday Ohara M.D. Kristine Kramer has completed definitive thoracic radiotherapy for the management of a clinical stage IIIA (T1cN2) non-small cell lung cancer. She was evaluated at the [facility]'s Emergency Department in February 2021 for chest pain. A CT angiogram reported a 2.2 cm x 1.6 cm right upper-lobe pulmonary nodule. A PET scan ordered on May 14, 2021 confirmed a 2.4 cm x 2.2 cm posterior right upper lobe nodule (SUV 7.1). Also described were a right paratracheal lymph node measuring 2.1 cm (SUV 11.8), and an FDG avid subcarinal lymph node. A 5 millimeter left lateral upper-lobe subpleural nodule and a 6 mm medial right lower-lobe nodule were too small to characterize. A bronchoscopy with EBUS performed on May 24, 2021 diagnosed a poorly differentiated, non-small cell carcinoma that demonstrated staining for CK5/6, CK Loki, and TTF-1 consistent with an adenosquamous component and synaptophysin positivity suggesting neuroendocrine differentiation. Pulmonary function testing demonstrated an FEV1 2.4L (79% of predicted) and a DLCO of 1.2 mL/min/mmHg (41% of predicted). An MRI of the head obtained on July 17, 2021 did not identify cerebral metastases. Thoracic radiation therapy was delivered between the dates of July 11, 2021 through August 26, 2021. A prescribed dose of 60 Gy was delivered in 30 fractions encompassing 47 elapsed days. The right upper-lobe mass and mediastinal lymphadenopathy were treated utilizing an intensity modulated radiotherapy plan with a step and shoot treatment technique. The plan required seven gantry angles (15???, 50???, 200???, 235???, 270???, 305???, and 340???) replicating an arc. The collimator rotation was 0???. The field sizes spanned between 9.8 cm x 13.8 cm to 15.1 cm x 13.5 cm. The SSDs measured a minimum of 81.9 cm to a maximum of 89.3 cm. The ports delivered 128 MU, 123 MU, 139 MU, 98 MU, 147 MU, 167 MU, and 139 MU corresponding to the gantry angles described. All treatments were performed with the [employer] linear accelerator and an isocentric technique. The dose was calculated by Anisotropic Analytic Algorithm. A photon energy of 6 MV was prescribed with the plan normalized to deliver 100% of the prescription dose to 95% of the planning target volume. She was prescribed Carboplatin (AUC 2) and Paclitaxel (50 mg/m???) weekly during radiotherapy under the supervision of Jaimee Schafer M.D (July 11, 2021 through August 22, 2021). Signed by: Sunday Ohara 08/26/2021 11:24:21 AM
== END 2021-08-27 23:59 | disposition home or self-care (01) ==
LOC: ONCMED 06:38
PROVIDERS: Nurse Practitioner Family; Absent Provider Internal Medicine Hematology & Oncology; PCP Family Medicine; Visit Provider Radiology Radiation Oncology
DX: Z51.0 Encounter for antineoplastic radiation therapy (principal); Z51.11 Encounter for antineoplastic chemotherapy; C7A.090 Malignant carcinoid tumor of the bronchus and lung; C7B.01 Secondary carcinoid tumors of distant lymph nodes; F17.210 Nicotine dependence, cigarettes, uncomplicated; Z79.899 Other long term (current) drug therapy
CPT/HCPCS: 36591; 71046; 77014; 77336; 77386; 77427; 80053; 85025; 87631; 87635; 96367; 96368; 96375; 96413; 96417; 99214; 99215; J1100; J1200; J2469; J3490; J7030; J7040; J7050; J9045; J9267

== ENCOUNTER 2021-09-02 18:04 | Emergency (ER) | payer MEDICAID, SELFPAY ==
[2021-09-02 18:34] VITALS: BP 145/80; PULSE 110; RESP 20; TEMP 37.2; O2SAT 98; BMI 24.8
--- NOTE | 2021-09-02 19:12 | XRR_ITS ---
PROCEDURE INFORMATION: Exam: XR Chest Exam date and time: 09/02/2021 7:39 PM Age: 46 years old Clinical indication: Dyspnea; Additional info: SOB, hemoptysis TECHNIQUE: Imaging protocol: XR of the chest. Views: 1 view. COMPARISON: CR XR chest 2V* [id number] 08/08/2021 10:29 AM FINDINGS: Tubes, catheters and devices: A left subclavian venous access port ends in the mid superior vena cava. Lungs: The lungs are clear. Pleural spaces: Unremarkable. No pleural effusion. No pneumothorax. Heart/Mediastinum: Unremarkable. No cardiomegaly. Bones/joints: Chronic cervical metallic fusion. Other findings: Persisting 2 cm right apical noncalcified mass. This was confirmed on a prior chest CT. XR/XR chest 1V portable [id number] IMPRESSION: 1. No acute findings. 2. Chronic right upper lobe soft tissue mass
--- NOTE | 2021-09-02 19:14 | ECG_ITS ---
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 Measurements Intervals [place] Rate: 103 P: 44 MO: 137 QRS: 53 QRSD: 76 T: 62 QT: 331 QTc: 435 Interpretive Statements SINUS TACHYCARDIA POSSIBLE LEFT ATRIAL ENLARGEMENT [-0.1mV P-WAVE IN V1/V2] LOW QRS VOLTAGE IN PRECORDIAL LEADS [QRS DEFLECTION < 1.0 mV IN CHEST LEADS] ABNORMAL RHYTHM ECG Compared to ECG 03/19/2021 00:49:00 Low QRS voltage now present Sinus rhythm no longer present T-wave abnormality no longer present Electronically Signed On 09-02-2021 20:22:46 CDT by Ivan Alvarado M.D. [id number]
[2021-09-02 19:53] VITALS: BP 94/63; PULSE 105; RESP 19; O2SAT 99
[2021-09-02 20:10] LABS: Basophils % 0.3 %; Eosinophils % 0.5 %; Hematocrit 37.5 % (37.0-47.0); Hemoglobin 12.1 g/dL (11.5-15.3); Lymphocytes # 0.4 10^3/uL (0.8-4.8); Lymphocytes % 7.5 %; Mean Corpuscular HGB Conc 32.3 g/dL (30.0-36.0); Mean Corpuscular Hemoglobin 27.6 pg (28.0-34.0); Mean Corpuscular Volume 85.6 fl (81-99); Mean Platelet Volume 10.3 fL (7.4-10.4); Monocytes # 0.7 10^3/uL (0.2-0.9); Monocytes % 12.9 %; Neutrophils # 4.48 10^3/uL (1.8-7.7); Neutrophils % 78.3 %; Nucleated Red Blood Cells % 0 %; Platelet Count 297 10^3/cmm (130-400); Red Blood Count 4.38 10^6/uL (4.1-5.3); Red Cell Distribution Width 19.7 % (12.1-15.1); White Blood Count 5.7 10^3/uL (4.0-10.0)
[2021-09-02 20:12] VITALS: BP 97/66; PULSE 100; RESP 18; O2SAT 97
[2021-09-02] MEDS: sodium chloride 0.9% 1,000 ML 999 ML IV (20:18)
[2021-09-02 20:36] LABS: INR 0.84 (0.8-1.2)
[2021-09-02 20:37] LABS: Partial Thromboplastin Time 27.9 SECONDS (23.9-36.7)
[2021-09-02 20:48] LABS: Add Urine Microscopic? YES; Bilirubin Urine Neg (Negative); Blood Urine Neg (Negative); Glucose Urine UA Norm (Normal); Ketones Urine Negative (Negative); Leukocyte Esterase Urine Negative (Negative); Nitrate Urine Negative (Negative); Protein Urine Neg (Negative); Specific Gravity, Urine 1.015 (1.005-1.030); Sulfosalicylic Acid Urine Negative (Negative); Urine Color Yellow (Yellow); Urobilinogen Urine Norm (Negative); pH Urine 8 (5-7)
[2021-09-02 20:49] LABS: Amorphous Sediment Urine 4+ /hpf; Bacteria Urine TRACE /hpf
[2021-09-02 20:50] LABS: Add Urine Culture? No
[2021-09-02 20:51] LABS: NT Pro B Type Natriuretic Pept 74 pg/mL (0-125)
[2021-09-02 21:02] LABS: Alanine Aminotransferase 16 U/L (0-33); Albumin Level 3.8 g/dL (3.5-5.2); Alkaline Phosphatase 84 IU/L (35-105); Anion Gap 20.4 (5-19); Aspartate Amino Transferase 11 U/L (0-32); Blood Urea Nitrogen 8 mg/dL (6-20); C Reactive Protein 6.6 mg/L (0.0-4.9); Calcium 9.9 mg/dL (8.5-10.5); Carbon Dioxide 18 mmol/L (22-29); Chloride 103 mmol/L (98-107); Globulin 3.1 g/dL (1.3-4.6); Glomerular Filtration Rate 106.7 mL/min (90-130); Glucose 93 mg/dL (65-115); Osmolality Calculated 284 mOsm/kg (285-295); Potassium 3.4 mmol/L (3.5-5.1); Sodium 138 mmol/L (136-145); Total Bilirubin 0.2 mg/dL (0.15-1.2); Total Protein 6.9 g/dL (6.6-8.7)
[2021-09-02 21:03] VITALS: BP 105/72; PULSE 100; RESP 17; O2SAT 99
--- NOTE | 2021-09-02 21:52 | CTR_ITS ---
PROCEDURE INFORMATION: Exam: CTA Chest With Contrast Exam date and time: 09/02/2021 10:11 PM Age: 46 years old Clinical indication: Cough and shortness of breath; Cough with hemorrhage; Prior surgery; Surgery date: 1-6 months; Surgery type: Port; Patient HX: Stage iii lung CA C/O coughing up blood, SOB and tachy; Additional info: Lung cancer, hemoptysis, tachycardia, dyspnea TECHNIQUE: Imaging protocol: Computed tomographic angiography of the chest with contrast. 3D rendering (Not supervised by radiologist): MIP and/or 3D reconstructed images were created by the technologist. Radiation optimization: All CT scans at this facility use at least one of these dose optimization techniques: automated exposure control; mA and/or kV adjustment per patient size (includes targeted exams where dose is matched to clinical indication); or iterative reconstruction. Contrast material: OMNI 350; Contrast volume: 51 ml; Contrast route: INTRAVENOUS (IV); COMPARISON: CT angio chest PE protcl [id number] 03/19/2021 2:07 AM RADIATION DOSE METRICS: Total DLP (mGy-cm): 475.29 FINDINGS: Pulmonary arteries: No filling defects in the pulmonary arteries to suggest pulmonary embolism. Aorta: No evidence for aortic aneurysm or aortic dissection. Trachea: Tracheobronchial structures are patent. Lungs: Dependent atelectasis in the lungs bilaterally. Mild paraseptal emphysematous changes in the left upper lobe. Stable irregular nodule in the left upper lobe with an average measurement of 5 mm (series 3, image 15). No focal consolidation. No pulmonary edema. Pleural spaces: Noncalcified, spiculated nodule in the posterior right upper lobe abutting the pleural surface has decreased in size and now measures 1.8 x 1.7 x 2.1 cm, previously measured 2.2 x 1.7 x 2.2 cm (series 602, image 50 and series 3, image 11). Heart: Interval development of a small pericardial effusion. Esophagus: The esophagus is unremarkable. Mediastinal space: No mediastinal hematoma. No pneumomediastinum. Lymph nodes: Precarinal lymph node now measures 1.9 cm in short axis, previously measured 1.4 cm in short axis (series 2, image 150). Liver: The visualized liver is unremarkable. Spleen: The visualized spleen is unremarkable. Adrenal glands: The visualized right and left adrenal glands are unremarkable. Bones/joints: Mild degenerative changes in the visualized spine. Patient has had a previous fusion in the visualized lower cervical spine. No lytic or sclerotic bony lesions. Soft tissues: No acute abnormality in the extrathoracic soft tissues. CT/CT angio chest PE protcl [id number] IMPRESSION: 1. Interval development of a small pericardial effusion. 2. No evidence for pulmonary embolism. 3. Noncalcified, spiculated nodule in the posterior right upper lobe abutting the pleural surface has decreased in size. 4. Dependent atelectasis in the lungs bilaterally. 5. Stable irregular nodule in the left upper lobe with an average measurement of 5 mm. Fleischner Society follow up recommendations for incidental nodules are not indicated. Follow up per the patient's medical condition. 6. Enlarging precarinal lymph node concerning for a worsening metastatic focus. 7. Incidental/nonacute findings are listed in the report.
[2021-09-02] MEDS: iohexol 350 mg/mL 100 mL Btl IV (22:13)
[2021-09-02 22:40] VITALS: BP 109/60; PULSE 97; RESP 19; O2SAT 98
[2021-09-02 23:20] VITALS: PULSE 89; RESP 18; O2SAT 97
[2021-09-02] MEDS: ipratropium-albuterol 3 mL Neb INHALATION (23:20)
[2021-09-03 00:16] VITALS: BP 100/55; PULSE 93; RESP 17; O2SAT 99
[2021-09-03 00:48] VITALS: BP 107/65; PULSE 97; RESP 17; O2SAT 98
--- NOTE | 2021-09-03 15:26 | ED_ITS ---
HPI - General Adult General: Chief complaint: General Medical Stated complaint: coughing up blood from chemo Time Seen by Provider: 09/02/21 18:49 Source: patient History of Present Illness: 46 year old lady with a history of adenosquamous cell carcinoma of the lung. She presents with several weeks of cough. She has had worsening shortness of breath, particularly with laying on her right side. She denies any fever. Today, she started to produce some frothy blood tinged sputum. No clots. This concerned her and her family, so she came to the emergency room. She denies fever. She has been on amoxicillin for several days now. She has had steroids for several weeks on and off. She just finished chemo radiation therapy for her cancer. Onset (ago): week(s) Radiation: non-radiation Relieving factors: none Exacerbating factors: none Associated symptoms: Reports cough, decreased appetite, dyspnea, nausea and s hort of breath; Deny chest pain, confusion, diaphoresis, fevers/chills, headache(s), rash, syncope, vomiting or weakness Review of Systems Const: Denies: fever(s), chills or diaphoresis Eyes: Denies: change in vision ENMT: Denies: throat pain Card: Denies: chest pain or syncope Resp: Reports: dyspnea, productive cough, change in phlegm color and chest congestion GI: Reports: nausea; Denies: vomiting, hematemesis or melena Musc: Denies: back pain Skin/Breast: Denies: rash Neuro: Denies: headache(s) or confusion PFS ED PFSH: Medical History Agoraphobia with panic attacks COPD (chronic obstructive pulmonary disease) Fibromyalgia Major depressive disorder, recurrent 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 Surgical History H/O spinal fusion H/O tubal ligation S/P bronchoscopy Family History Other CAD (coronary artery disease) Cancer Diabetes Hypertension Denies family history of Stroke Social History Smoking and tobacco status: current every day smoker cigarettes Packs smoked per day: 0.5 Alcohol intake: never Adopted: No Lives independently: Yes Household members: children Housing: House Marital status: Number of children: 5 Pets and animals: Yes Pets & animals: dog(s) History of recent travel: No Physical Exam Const: GENERAL APPEARANCE: cooperative and frail appearing (mildly) KELBY ENTATION/CONSCIOUSNESS: Yes awake, Yes oriented to person, Yes oriented to place and Yes oriented to time HENMT: COMMON NORMALS: normocephalic, atraumatic and Normal external nose present HEAD & SCALP: normocephalic and atraumatic FACE & SINUS: normal facial exam NOSE: Normal external nose present Eye: COMMON NORMALS: Equal, round and reactive pupils present and EOMs intact bilaterally PUPIL: Yes Equal, round and reactive pupils present Chest: CHEST: Yes Symmetrical chest wall rise Resp: EFFORT & INSPECTION: Yes able to speak in complete sentences and Yes ta chypneic AUSCULTATION: wheezes Cardio: COMMON NORMALS: regular rhythm and Peripheral pulses 2+ throughout RATE: tachycardic RHYTHM: regular rhythm PERIPHERAL PULSES: Peripheral pulses 2+ throughout GI: COMMON NORMALS: Normal to inspection, nondistended, normoactive bowel sounds present, Soft to palpation and non-tender PALPATION: Yes Soft to palpation Extremity: COMMON NORMALS: no pedal edema Neuro: SENSORIUM/ORIENTATION: Yes oriented to person, Yes oriented to place and Yes oriented to time Course Vital Signs: Vital signs: Vital Signs Temperature 98.9 F 09/02/21 18:34 Pulse Rate 97 09/03/21 00:48 Respiratory Rate 17 09/03/21 00:48 Blood Pressure 107/65 09/03/21 00:48 Pulse Oximetry 98 09/03/21 00:48 [facility] - General Adult Medical Decision Making No fever, no Leukocytosis. Sputum is blood tinged, but no clots. She is not in distress. Chest X ray shows a stable appearing mass. She is [place], and mildly hypoxic with some tachypnoea. She has a history of cancer. Because of this, CTA is performed, and is negative for PE, infiltrate, etc. She declined treatment with steroid or changing her antibiotic today. We will place her on an albuterol inhaler for the wheezing, which she does not have currently. She has follow up established with her central aisle cashier. Lab Data : 09/02/21 19:58 09/02/21 19:58 Radiology Impressions Chest X-Ray 09/02/21 19:12 IMPRESSION: 1. No acute findings. 2. Chronic right upper lobe soft tissue mass Chest CTA 09/02/21 21:52 IMPRESSION: 1. Interval development of a small pericardial effusion. 2. No evidence for pulmonary embolism. 3. Noncalcified, spiculated nodule in the posterior right upper lobe abutting the pleural surface has decreased in size. 4. Dependent atelectasis in the lungs bilaterally. 5. Stable irregular nodule in the left upper lobe with an average measurement of 5 mm. Fleischner Society follow up recommendations for incidental nodules are not indicated. Follow up per the patient's medical condition. 6. Enlarging precarinal lymph node concerning for a worsening metastatic focus. 7. Incidental/nonacute findings are listed in the report. Laboratory Results WBC 5.7 10^3/uL (4.0-10.0) 09/02/21 19:58 RBC 4.38 10^6/uL (4.1-5.3) 09/02/21 19:58 Hgb 12.1 g/dL (11.5-15.3) 09/02/21 19:58 Hct 37.5 % (37.0-47.0) 09/02/21 19:58 MCV 85.6 fl (81-99) 09/02/21 19:58 MCH 27.6 pg (28.0-34.0) L 09/02/21 19:58 MCHC 32.3 g/dL (30.0-36.0) 09/02/21 19:58 RDW 19.7 % (12.1-15.1) H 09/02/21 19:58 Plt Count 297 10^3/cmm (130-400) 09/02/21 19:58 MPV 10.3 fL (7.4-10.4) 09/02/21 19:58 Neut % (Auto) 78.3 % 09/02/21 19:58 Lymph % (Auto) 7.5 % 09/02/21 19:58 [place] % (Auto) 12.9 % 09/02/21 19:58 Eos % (Auto) 0.5 % 09/02/21 19:58 Baso % (Auto) 0.3 % 09/02/21 19:58 Neut # (Auto) 4.48 10^3/uL (1.8-7.7) 09/02/21 19:58 Lymph # (Auto) 0.4 10^3/uL (0.8-4.8) L 09/02/21 19:58 [place] # (Auto) 0.7 10^3/uL (0.2-0.9) 09/02/21 19:58 Eos # (Auto) 0.0 10^3/uL (0.0-0.8) 09/02/21 19:58 Baso # (Auto) 0.0 10^3/uL (0.0-0.1) 09/02/21 19:58 Nucleated RBC % (auto) 0 % 09/02/21 19:58 Nucleated RBCs # 0.0 /100WBC 09/02/21 19:58 PT 11.80 SECONDS (12.1-14.9) L 09/02/21 19:58 INR 0.84 (0.8-1.2) 09/02/21 19:58 APTT 27.9 SECONDS (23.9-36.7) 09/02/21 19:58 Sodium 138 mmol/L (136-145) 09/02/21 19:58 Potassium 3.4 mmol/L (3.5-5.1) L 09/02/21 19:58 Chloride 103 mmol/L (98-107) 09/02/21 19:58 Carbon Dioxide 18 mmol/L (22-29) L 09/02/21 19:58 Anion Gap 20.4 (5-19) H 09/02/21 19:58 BUN 8 mg/dL (6-20) 09/02/21 19:58 Creatinine 0.6 mg/dL (0.5-0.9) 09/02/21 19:58 GFR Calculation 106.7 mL/min (90-130) 09/02/21 19:58 Glucose 93 mg/dL (65-115) 09/02/21 19:58 Calculated Osmolality 284 mOsm/kg (285-295) L 09/02/21 19:58 Calcium 9.9 mg/dL (8.5-10.5) 09/02/21 19:58 Total Bilirubin 0.2 mg/dL (0.15-1.2) 09/02/21 19:58 AST 11 U/L (0-32) 09/02/21 19:58 ALT 16 U/L (0-33) 09/02/21 19:58 Alkaline Phosphatase 84 IU/L (35-105) 09/02/21 19:58 C-Reactive Protein 6.6 mg/L (0.0-4.9) H 09/02/21 19:58 NT-Pro-B Natriuret Pep 74 pg/mL (0-125) 09/02/21 19:58 Total Protein 6.9 g/dL (6.6-8.7) 09/02/21 19:58 Albumin 3.8 g/dL (3.5-5.2) 09/02/21 19:58 Globulin 3.1 g/dL (1.3-4.6) 09/02/21 19:58 Procalcitonin 0.40 ng/mL (0-0.5) 09/02/21 19:58 Urine Color Yellow (Yellow) 09/02/21 20:09 Urine Appearance Sl cloudy (CLEAR) A 09/02/21 20:09 Urine pH 8 (5-7) H 09/02/21 20:09 Ur Specific [place] 1.015 (1.005-1.030) 09/02/21 20:09 Urine Protein Neg (Negative) 09/02/21 20:09 Urine Glucose (UA) Norm (Normal) 09/02/21 20:09 Urine Ketones Negative (Negative) 09/02/21 20:09 Urine Blood Neg (Negative) 09/02/21 20:09 Urine Nitrate Negative (Negative) 09/02/21 20:09 Urine Bilirubin Neg (Negative) 09/02/21 20:09 Prot Sulfosalicylic Acd Negative (Negative) 09/02/21 20:09 Urine Urobilinogen Norm mg/dL (Negative) 09/02/21 20:09 Ur Leukocyte Esterase Negative (Negative) 09/02/21 20:09 Urine RBC None /hpf (0-2) 09/02/21 20:09 Urine WBC None /hpf (0-5) 09/02/21 20:09 Ur Squamous Epith Cells 5-10 /hpf (0-5) H 09/02/21 20:09 Amorphous Sediment 4+ /hpf 09/02/21 20:09 Urine Bacteria Trace /hpf (NONE) 09/02/21 20:09 Discharge Plan Discharge Patient Disposition: Home Clinical Impression: COPD (chronic obstructive pulmonary disease) Condition: Stable Prescriptions: New albuterol sulfate 90 mcg/actuation HFA aerosol inhaler 2 inh INHALATION Q4H PRN (Reason: shortness of breath or wheezing) Qty: 6.7 1RF No Action Anoro Ellipta 62.5-25 mcg/actuation blister with device 1 inh inhalation DAILY Qty: 60 5RF topiramate 100 mg tablet See Rx Instructions .ROUTE .COMPLEX Qty: 30 0RF Dose Instruction: TAKE 1 TABLET BY MOUTH DAILY Rx Instructions: TAKE 1 TABLET BY MOUTH DAILY alprazolam [Xanax] 1 mg tablet 1 mg PO TID PRN (Reason: anxiety) Qty: 90 3RF Rx Instructions: Take one tablet three times per day as needed for anxiety amitriptyline 50 mg tablet 50 mg PO BEDTIME 0RF Zofran 4 mg tablet 4 mg PO Q6H PRN (Reason: nausea and vomiting) Qty: 20 0RF Colace 100 mg capsule 100 mg PO BID Qty: 30 0RF Discharge Orders: Discharge ED (Routine); Ordered 09/03/21 Ordered By: Deonte Parkinson Referrals: Mango Yuen MD [Primary Care Provider] - 1-3 days Patient Instructions: COPD (Chronic Obstructive Pulmonary Disease) (ED) Activity Restrictions/Additional Instructions: Return for fever greater than 100, return for worsening shortness of breath despite treatment, coughing up blood clots, mental status changes, syncope or passing out, chest pain, any other concerning symptoms. Use your inhaler every 4 hours while awake for the next 48 hours, then as needed Coding Level of Care Code ED Fire Fighters Dispatcher for James Bruno
== END 2021-09-03 00:52 | disposition home or self-care (01) ==
PROVIDERS: Emergency Provider Emergency Medicine; PCP Family Medicine
DX: J44.9 Chronic obstructive pulmonary disease, unspecified (principal); R91.8 Other nonspecific abnormal finding of lung field; F17.210 Nicotine dependence, cigarettes, uncomplicated; C34.11 Malignant neoplasm of upper lobe, right bronchus or lung
CPT/HCPCS: 71045; 71275; 80053; 81001; 83880; 84145; 85025; 85610; 85730; 86140; 87040; 93005; 94640; 96361; 96374; 99285; J2930; J7030; Q9967

== ENCOUNTER → 2021-09-08 09:59 | Outpatient (BNVA) | payer MEDICAID, SELFPAY | PROVIDERS: PCP Family Medicine; Visit Provider Internal Medicine Pulmonary Disease | DX: C34.11 Malignant neoplasm of upper lobe, right bronchus or lung (principal); R91.1 Solitary pulmonary nodule; C34.91 Malignant neoplasm of unspecified part of right bronchus or lung; F17.210 Nicotine dependence, cigarettes, uncomplicated; J22 Unspecified acute lower respiratory infection; J44.9 Chronic obstructive pulmonary disease, unspecified | CPT/HCPCS: 99214 ==

== ENCOUNTER 2021-09-23 07:54 | Oncology outpatient (recurring) (ONCR) | payer MEDICAID, SELFPAY ==
--- NOTE | 2021-09-23 09:45 | ONCRAD EPV_ITS ---
Radiation Oncology Established Patient Visit Patient: Kristine Kramer [id number] : 1975> Age: 46> Sex: Female> Dictated by: Dr. Delfino Cotter Date of Service: 09/23/2021 Referring Physician(s) : Jaimee Schafer Diagnosis: C34.11 - Malignant neoplasm of upper lobe, right bronchus or lung, Diagnosed 05/24/2021 (Active) Stage IIIA, T1c, N2, M0 lung cancer Ms. Kristine Kramer, is a 46-year-old female who presented to ER on March 19, 2021 with chest pain in the left chest, underwent CTA chest on March 19, 2021 which showed no embolism, but mildly spiculated 2.2 x 1.6 cm pulmonary nodule in the right upper lobe, CT PET was recommended which was done on May 14, 2021 and it showed 2.4 x 2.2 cm posterior right upper lobe solid nodule with SUV of 7.1 and a 2.1 cm right paratracheal 4R, lymph node with SUV of 11.8. And adjacent subcarinal lymph node is FDG positive as well. A 5 mm lateral left upper lobe subpleural anteromedial right lower lobe 6 mm nodule are too small to characterize. 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 Staging MRI scan of the brain done on June 27, 2021 showed no metastatic disease to the brain. Minimally atrophy and minimal chronic microvascular ischemic disease Patient denies any hemoptysis or hematemesis, denies any bony pains, denies any jaundice, denies any dysphagia, but complaining of off and on headaches. Patient has longstanding history of smoking, still active. Denies alcohol use Started on combined chemoradiation with weekly carboplatin/Taxol on July 11, 2021 Came for follow-up, denies any specific complaints, no fever chills, no nausea or vomiting, no diarrhea or constipation, no melena or hematochezia, no hemoptysis hematemesis, no peripheral numbness, tolerating combined chemoradiation with carboplatin/Taxol well Radiotherapy to Date: Course: Lung 2021, Treatment Site: Lung Ca ??? RUL, Ref. ID: [id number], Energy: 6X, Dose/Fx (cGy): 200, #Fx: , Dose Correction (cGy): 0, Total Dose (cGy): 6,000, Start Date: 07/11/2021, End Date: 08/26/2021, Elapsed Days: 46 Current History: Ms Kramer returns for follow-up. She completed concomitant chemotherapy and radiation on 08/26/2021. She received 6000 cGy in 30 fractions to the thorax between 07/11 and 08/26/2021. She received weekly carboplatin and Taxol from 07/11/2021 through 08/22/2021. She tolerated the treatment well. Since completing treatment, she has had 1 evaluation at the [facility] emergency department. She went in on 09/02/2021 at the urging of her family because of an episode of hemoptysis. She was evaluated and no specific etiology of the hemoptysis was found. Her evaluation included a CT angiogram of the chest. That study showed that the right upper lobe primary cancer had reduced in size from 2.2 x 1.7 x 2.2 cm to 1.8 x 1.7 x 2.1 cm. However, a precarinal node had enlarged slightly from 1.4 cm to 1.9 cm. She was placed on a nebulizer and a breakthrough inhaler. She was noted to have a pericardial effusion that was small, but I do believe she is now scheduled for an echocardiogram. She comes in today for routine follow-up. She is not having any hemoptysis currently. She has no problems with breathing. She is using the nebulizer about every 4 hours. She actually has not picked up the breakthrough inhaler yet, but does plan to get it today. The patient enumerated multiple social issues related to living with her oldest daughter, bickering between this daughter and another daughter (both are ), difficulties with transportation, and a son who lives in [place], who is also having various life difficulties. Current Medications: ALPRAZolam, aLPRAZolam, aLPRAZolam ER, amitriptyline HCl, amoxicillin-Pot Clavulanate, cARBOplatin, dexamethasone Sodium Phosphate, diphenhydrAMINE HCl, esomeprazole Magnesium, famotidine in NaCl, levoFLOXacin, lidocaine HCl, ondansetron HCl, oxyCODONE HCl, pACLitaxel, palonosetron HCl, predniSONE, prochlorperazine Maleate, tiotropium Butler-Olodaterol, topiramate. Allergies: No Known Allergies Current Complaints / Review of Systems: . Vital Signs: Performed on 09/23/2021 8:10 AM BMI - 25.47 kg/m2 (high), Height - 66 in, Weight - 157.8 lbs, Temperature - 96.7 f, Pulse - 88 /min, Respiration - 18 /min, O2 Sat - 100 %, Pain - 5, Fatigue - 7 and BP - 95/ 72 mm(hg). Physical Exam: General: Alert and oriented x 3. No acute distress. Mild emotional distress. HEENT: Normocephalic, atraumatic. NECK: Supple without supraclavicular or jugular lymphadenopathy. LUNGS: Clear to auscultation bilaterally without rales, rhonchi or wheeze. HEART: Regular rate and rhythm, normal S1 and S2 without murmur, gallop or rub. MUSCULOSKELETAL: No localized severe tenderness or percussion pain over the axial skeleton, scapulae or pelvis. She has mild generalized musculoskeletal tenderness that is consistent with fibromyalgia. ABDOMEN: Soft, nontender, nondistended without masses or organomegaly. Bowell sounds are present. EXTREMITIES: No peripheral edema is identified. Limited motor and sensory examination are grossly intact and symmetric bilaterally. NEUROLOGIC: Cranial nerves II ???XII are grossly intact. Numbness fingers/toes from chemo,, strength 5/5 in all extremities, normal gait, no ataxia. Performance Status: ECOG 2 Lab: None pending. Test performed on 08/08/2021 8:29 AM MCV - 80.6 fl (low), MCH - 26.2 pg (low), RDW - 17.0 % (high), MPV - 11.0 fl (high), Lymphocytes - 0.1 10 3/ul (low), Sodium - 135 mmol/l (low), CO2 - 17 mmol/l (low) and Osmolality - Calculated - 279 mosm/kg (low). Pathology: Primary, c34.11 - malignant neoplasm of upper lobe, right bronchus or lung, Diagnosed 05/24/2021 (active) stage iiia, t1c, n2, m0. Imaging: See HPI Impression: Non-small cell lung cancer treated with concomitant chemotherapy and radiation, completing treatment about 1 month ago. Physical side effects from treatment have cleared. We discussed the episode of hemoptysis that led to the emergency room visit. She is aware that that could have occurred from bronchial irritation produced by treatment. She has not had any recent hemoptysis. Her breathing is improved on the nebulizer. I did encourage her to go ahead and get the breakthrough inhaler that was recently prescribed. Due to her social situation, she may need assistance from social problems specialist and the psychiatry/psychology department. I reviewed with her that her imaging showed improvement of the primary cancer, stability of the nodule in the left upper lobe, and mixed results in the mediastinum with a precarinal node slightly enlarged. She is seeing Dr. Schafer on 09/26/2021. According to his last note during treatment he plans a CBC, CMP, CT chest, consolidation full dose chemo with carboplatin and Taxol and then 1 year of immunotherapy. She is aware that in view of her recent CT in the emergency room that the date of the CT of the chest may be altered. I will leave that to Dr. Schafer's judgment. Return to Dr. Ohara on an as-needed basis. Signed by: 09/23/2021 9:43:41 AM <<Signature on File>> Time spent with patient: CPT Code: CPT Code:
== END 2021-09-27 23:59 | disposition home or self-care (01) ==
PROVIDERS: PCP Family Medicine; Visit Provider Specialist
DX: C34.11 Malignant neoplasm of upper lobe, right bronchus or lung (principal); C77.8 Secondary and unspecified malignant neoplasm of lymph nodes of multiple regions; C78.02 Secondary malignant neoplasm of left lung; R04.2 Hemoptysis; I31.3 Pericardial effusion (noninflammatory); Z79.899 Other long term (current) drug therapy; Z92.21 Personal history of antineoplastic chemotherapy; Z92.3 Personal history of irradiation
CPT/HCPCS: 99215

== ENCOUNTER → 2021-10-13 10:39 | Outpatient (BNVA) | payer MEDICAID, SELFPAY | PROVIDERS: Visit Provider Internal Medicine Pulmonary Disease | DX: R91.1 Solitary pulmonary nodule (principal); J44.9 Chronic obstructive pulmonary disease, unspecified; C34.11 Malignant neoplasm of upper lobe, right bronchus or lung; C34.91 Malignant neoplasm of unspecified part of right bronchus or lung; J22 Unspecified acute lower respiratory infection; F17.200 Nicotine dependence, unspecified, uncomplicated | CPT/HCPCS: 99214 ==

== ENCOUNTER 2021-10-18 15:06 | Emergency (ER) | payer MEDICAID, SELFPAY ==
[2021-10-18 16:43] VITALS: BP 129/71; PULSE 109; RESP 16; TEMP 36.3; O2SAT 96; BMI 24.5
--- NOTE | 2021-10-18 17:37 | XRR_ITS ---
PROCEDURE INFORMATION: Exam: XR Cervical Spine Exam date and time: 10/18/2021 5:46 PM Age: 46 years old Clinical indication: Neck pain; Prior surgery; Surgery date: 6+ months; Surgery type: Cervical TECHNIQUE: Imaging protocol: Radiologic exam of the cervical spine. Views: 2 or 3 views. COMPARISON: CR (CHEST, ) 09/02/2021 7:39 PM FINDINGS: Bones/joints:Lower cervical spine surgical hardware in place. Soft tissues: Unremarkable. XR/XR cervical spine 3V* [id number] IMPRESSION: Lower cervical spine surgical hardware in place.
--- NOTE | 2021-10-18 19:18 | W.ED.NECK ---
HPI - Neck Pain/Injury General: Chief Complaint: Neck Pain/Injury Stated Complaint: Back pain, Neck pain Time Seen by Provider: 10/18/21 19:16 History of Present Illness: 46-year-old female comes in today with left side neck pain radiating into her left shoulder. Patient has difficulty with range of motion of the neck due to exacerbation of pain. Patient has a history of fusion of the cervical spine. Patient also has medical history for malignant lung cancer. Patient appears nontoxic. Patient appears in moderate pain. 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 Surgical History H/O spinal fusion H/O tubal ligation S/P bronchoscopy Family History Father Parkinsonism Cancer Skin cancer and stomach cancer Brother Parkinsonism Mother Hyperlipidemia CAD (coronary artery disease) Psychiatric illness Other Diabetes Hypertension Denies family history of Clotting disorder Dementia Chronic kidney disease (CKD) Suicide Anesthesia complication Bleeding disorder Lung disease Stroke Social History Smoking and tobacco status: current some day smoker (1/2 pack x 33 yr) cigars Alcohol intake: never Adopted: No Lives independently: Yes Household members: children Housing: House Marital status: Number of children: 5 Pets and animals: Yes Pets & animals: dog(s) History of recent travel: No Female Reproductive History: Date of last menstrual period: 10/18/20 Physical Exam Const: COMMON NORMALS: alert HENMT: COMMON NORMALS: normocephalic HEAD & SCALP: normocephalic Neck/C-Spine: CERVICAL SPINE: Yes pain with cervical ROM, No Cervical spine tenderness, Yes Paracervical muscle tenderness left, Yes Paracervical spasm left and Yes Trapezius muscle tenderness left Resp: COMMON NORMALS: normal respiratory effort and clear to auscultation bilaterally AUSCULTATION: clear to auscultation bilaterally Cardio: COMMON NORMALS: regular rate RATE: regular rate Extremity: COMMON NORMALS: full ROM Neuro: SENSORIUM/ORIENTATION: Yes alert Skin: COMMON NORMALS: no rashes or lesions noted GENERAL SKIN EXAM: no rashes or lesions noted Course Vital Signs: Vital signs: Vital Signs Temperature 97.3 F L 10/18/21 16:43 Pulse Rate 109 H 10/18/21 16:43 Respiratory Rate 16 10/18/21 16:43 Blood Pressure 129/71 10/18/21 16:43 Pulse Oximetry 96 10/18/21 16:43 MDM - Neck Pain/Injury Medical Decision Making Patient comes in with complaints of left-sided neck pain and discomfort. On exam patient has muscle tenderness and tightness to the left paracervical muscles and trapezius. Patient has decreased range of motion due to muscle tightness and pain. Respirations are even lungs are clear to auscultation. Vital signs are normal except for some mild increase in pulse at 109. Differential diagnosis includes but not limited to cervical neck strain, intervertebral disc disease, facet arthropathy, and metastatic disease. X-ray of the cervical spine did not note any abnormalities to suggest metastasis, fracture, or infection. Hardware for cervical fusion where it is intact. Patient was given a injection of ketorolac and dexamethasone with 1 hydrocodone tablet. Patient will be continued on diclofenac and hydrocodone. Patient was recommended to follow-up with primary care for further instruction return to the ER for new concerns or worsening symptoms. Lab Data Radiology Impressions Cervical Spine X-Ray 10/18/21 17:37 IMPRESSION: Lower cervical spine surgical hardware in place. Discharge Plan Discharge Patient Disposition: Home Clinical Impression: Strain of neck muscle Qualifiers: Encounter type: initial encounter Qualified Code(s): S16.1XXA - Strain of muscle, fascia and tendon at neck level, initial encounter Condition: Stable Prescriptions: New hydrocodone-acetaminophen 5-325 mg tablet 1 tab PO Q6H PRN (Reason: pain (scale score 7-10)) Qty: 14 0RF diclofenac sodium 75 mg tablet,delayed release (DR/EC) 75 mg PO BID Qty: 20 0RF No Action ipratropium-albuterol 0.5 mg-3 mg(2.5 mg base)/3 mL solution for nebulization 3 ml inhalation Q4H PRN (Reason: wheezing) Qty: 90 3RF albuterol sulfate 90 mcg/actuation HFA aerosol inhaler 2 inh INHALATION Q4H PRN (Reason: shortness of breath or wheezing) Qty: 6.7 3RF Breztri Aerosphere 160-9-4.8 mcg/actuation HFA aerosol inhaler 2 inh inhalation BID Qty: 10.7 3RF azithromycin [Zithromax TRI-ROSSANA] 500 mg tablet 500 mg PO DAILY 3 Days Qty: 3 0RF alprazolam [Xanax] 1 mg tablet 1 mg PO TID PRN (Reason: anxiety) Qty: 90 3RF Rx Instructions: Take one tablet three times per day as needed for anxiety topiramate 100 mg tablet See Rx Instructions .ROUTE .COMPLEX Qty: 30 0RF Dose Instruction: TAKE 1 TABLET BY MOUTH DAILY Rx Instructions: TAKE 1 TABLET BY MOUTH DAILY Spiriva with HandiHaler 18 mcg capsule, w/inhalation device 1 cap inhalation DAILY Qty: 30 3RF Rx Instructions: puncture 1 cap using device; one dose = 2 inhalations amitriptyline 50 mg tablet 50 mg PO BEDTIME 0RF Discharge Orders: Discharge ED (Routine); Ordered 10/18/21 Ordered By: Marcial Hassan Discharge Diet: Usual diet Discharge Activity: Increase activity as tolerated Patient Instructions: Neck Pain (ED), Opioid Safety Activity Restrictions/Additional Instructions: Home and rest. Use ice or heat to the area for pain relief. Drink plenty of water with medication. Follow-up with primary care for further instructions. Return to ER for new concerns. Coding Level of Care Code ED Quality Assurance Supervisor Final for James Bruno
[2021-10-18] MEDS: dexamethasone 10 mg/mL INJ IM (19:53)
[2021-10-18] MEDS: HYDROcodone-acetaminophen 10-325 mg Tablet 1 TAB PO (19:53)
[2021-10-18] MEDS: ketorolac 30 mg/mL INJ IM (19:53)
[2021-10-18 19:54] VITALS: BP 119/70; PULSE 94; RESP 16; TEMP 36.4; O2SAT 96
== END 2021-10-18 19:55 | disposition home or self-care (01) ==
PROVIDERS: Emergency Provider Nurse Practitioner Family
DX: S16.1XXA Strain of muscle, fascia and tendon at neck level, initial encounter (principal); J44.9 Chronic obstructive pulmonary disease, unspecified; F17.210 Nicotine dependence, cigarettes, uncomplicated; X58.XXXA Exposure to other specified factors, initial encounter
CPT/HCPCS: 72040; 96372; 99284; J1100; J1885

== ENCOUNTER 2021-10-20 12:00 | Oncology outpatient (recurring) (ONCR) | payer MEDICAID, SELFPAY ==
[2021-09-30] MEDS: alteplase 1 mg/mL SDV 2 mL 2 MG INTRACATH (08:47)
[2021-09-30 09:09] LABS: Basophils % 0.5 %; Eosinophils # 0.1 10^3/uL (0.0-0.8); Eosinophils % 1.1 %; Hematocrit 40.1 % (37.0-47.0); Hemoglobin 13.2 g/dL (11.5-15.3); Lymphocytes # 0.3 10^3/uL (0.8-4.8); Lymphocytes % 3.9 %; Mean Corpuscular HGB Conc 32.9 g/dL (30.0-36.0); Mean Corpuscular Hemoglobin 28.4 pg (28.0-34.0); Mean Corpuscular Volume 86.4 fl (81-99); Mean Platelet Volume 10.7 fL (7.4-10.4); Monocytes # 0.5 10^3/uL (0.2-0.9); Monocytes % 5.8 %; Neutrophils % 88.2 %; Nucleated Red Blood Cells % 0 %; Platelet Count 311 10^3/cmm (130-400); Red Blood Count 4.64 10^6/uL (4.1-5.3); Red Cell Distribution Width 19.5 % (12.1-15.1); White Blood Count 8.2 10^3/uL (4.0-10.0)
[2021-09-30 09:21] LABS: Alanine Aminotransferase 9 U/L (0-33); Albumin Level 4.3 g/dL (3.5-5.2); Alkaline Phosphatase 100 IU/L (35-105); Aspartate Amino Transferase 12 U/L (0-32); Blood Urea Nitrogen 6 mg/dL (6-20); Calcium 9.6 mg/dL (8.5-10.5); Carbon Dioxide 21 mmol/L (22-29); Chloride 104 mmol/L (98-107); Globulin 3.3 g/dL (1.3-4.6); Glomerular Filtration Rate 106.7 mL/min (90-130); Glucose 93 mg/dL (65-115); Osmolality Calculated 287 mOsm/kg (285-295); Sodium 140 mmol/L (136-145); Total Bilirubin 0.4 mg/dL (0.15-1.2); Total Protein 7.6 g/dL (6.6-8.7)
[2021-10-13] MEDS: alteplase 1 mg/mL SDV 2 mL 2 MG INTRACATH (08:28)
[2021-10-13 08:30] VITALS: BMI 24.5
[2021-10-13 08:45] LABS: Basophils % 0.3 %; Eosinophils # 0.1 10^3/uL (0.0-0.8); Eosinophils % 1.2 %; Hematocrit 39.6 % (37.0-47.0); Hemoglobin 13.3 g/dL (11.5-15.3); Lymphocytes # 0.4 10^3/uL (0.8-4.8); Lymphocytes % 5.2 %; Mean Corpuscular HGB Conc 33.6 g/dL (30.0-36.0); Mean Corpuscular Hemoglobin 28.9 pg (28.0-34.0); Mean Corpuscular Volume 85.9 fl (81-99); Mean Platelet Volume 10.6 fL (7.4-10.4); Monocytes # 0.5 10^3/uL (0.2-0.9); Neutrophils % 85.9 %; Nucleated Red Blood Cells % 0 %; Platelet Count 304 10^3/cmm (130-400); Red Blood Count 4.61 10^6/uL (4.1-5.3); Red Cell Distribution Width 17.7 % (12.1-15.1); White Blood Count 7.3 10^3/uL (4.0-10.0)
[2021-10-13 09:02] LABS: Alanine Aminotransferase 9 U/L (0-33); Albumin Level 4.2 g/dL (3.5-5.2); Alkaline Phosphatase 95 IU/L (35-105); Anion Gap 15.8 (5-19); Aspartate Amino Transferase 10 U/L (0-32); Blood Urea Nitrogen 10 mg/dL (6-20); Calcium 9.7 mg/dL (8.5-10.5); Carbon Dioxide 22 mmol/L (22-29); Chloride 104 mmol/L (98-107); Glomerular Filtration Rate 131.7 mL/min (90-130); Glucose 127 mg/dL (65-115); Osmolality Calculated 287 mOsm/kg (285-295); Potassium 3.8 mmol/L (3.5-5.1); Sodium 138 mmol/L (136-145); Total Bilirubin 0.3 mg/dL (0.15-1.2); Total Protein 7.2 g/dL (6.6-8.7)
[2021-10-20 12:46] VITALS: BMI 24.7
[2021-10-20] MEDS: sodium chloride 0.9% 250 ML 75 ML IV (12:57)
[2021-10-20 14:52] VITALS: BP 97/66; PULSE 80; RESP 18; TEMP 36.4; O2SAT 97
== END 2021-10-27 23:59 | disposition home or self-care (01) ==
PROVIDERS: Nurse Practitioner Family; PCP Family Medicine; Visit Provider Internal Medicine Hematology & Oncology
DX: Z51.12 Encounter for antineoplastic immunotherapy (principal); C34.91 Malignant neoplasm of unspecified part of right bronchus or lung
CPT/HCPCS: 36591; 36593; 80053; 85025; 96413; 99214; 99215; J2997; J7050; J9173

== ENCOUNTER 2021-11-17 08:00 | Oncology outpatient (recurring) (ONCR) | payer MEDICAID, SELFPAY ==
[2021-11-03 08:37] LABS: Basophils % 0.4 %; Eosinophils # 0.2 10^3/uL (0.0-0.8); Eosinophils % 2.1 %; Hematocrit 37.8 % (37.0-47.0); Hemoglobin 12.3 g/dL (11.5-15.3); Lymphocytes # 0.7 10^3/uL (0.8-4.8); Lymphocytes % 7.9 %; Mean Corpuscular HGB Conc 32.5 g/dL (30.0-36.0); Mean Corpuscular Hemoglobin 28.9 pg (28.0-34.0); Mean Corpuscular Volume 88.7 fl (81-99); Monocytes # 0.7 10^3/uL (0.2-0.9); Neutrophils # 7.46 10^3/uL (1.8-7.7); Neutrophils % 81.3 %; Nucleated Red Blood Cells % 0 %; Platelet Count 299 10^3/cmm (130-400); Red Blood Count 4.26 10^6/uL (4.1-5.3); Red Cell Distribution Width 15.3 % (12.1-15.1); White Blood Count 9.2 10^3/uL (4.0-10.0)
[2021-11-03 09:04] LABS: Alanine Aminotransferase < 5 U/L (0-33); Albumin Level 3.8 g/dL (3.5-5.2); Alkaline Phosphatase 100 IU/L (35-105); Anion Gap 18.1 (5-19); Aspartate Amino Transferase 15 U/L (0-32); Blood Urea Nitrogen 7 mg/dL (6-20); Calcium 9.1 mg/dL (8.5-10.5); Carbon Dioxide 20 mmol/L (22-29); Chloride 107 mmol/L (98-107); Glomerular Filtration Rate 131.7 mL/min (90-130); Glucose 117 mg/dL (65-115); Osmolality Calculated 291 mOsm/kg (285-295); Potassium 4.1 mmol/L (3.5-5.1); Sodium 141 mmol/L (136-145); Thyroid Stimulating Hormone 2.04 uIU/mL (0.27-4.20); Total Bilirubin 0.2 mg/dL (0.15-1.2); Total Protein 6.8 g/dL (6.6-8.7)
[2021-11-03] MEDS: sodium chloride 0.9% 250 ML 75 ML IV (09:43)
[2021-11-03 11:02] VITALS: BP 72/62; PULSE 78; TEMP 36.2; O2SAT 98
[2021-11-17 08:15] VITALS: BMI 24.8
[2021-11-17 08:38] LABS: Basophils % 0.5 %; Eosinophils # 0.2 10^3/uL (0.0-0.8); Eosinophils % 1.8 %; Hemoglobin 12.3 g/dL (11.5-15.3); Lymphocytes # 0.5 10^3/uL (0.8-4.8); Lymphocytes % 6.5 %; Mean Corpuscular HGB Conc 31.5 g/dL (30.0-36.0); Mean Corpuscular Hemoglobin 28.7 pg (28.0-34.0); Mean Corpuscular Volume 91.1 fl (81-99); Mean Platelet Volume 10.9 fL (7.4-10.4); Monocytes # 0.6 10^3/uL (0.2-0.9); Monocytes % 7.5 %; Neutrophils # 6.76 10^3/uL (1.8-7.7); Neutrophils % 83.1 %; Nucleated Red Blood Cells % 0 %; Platelet Count 301 10^3/cmm (130-400); Red Blood Count 4.28 10^6/uL (4.1-5.3); Red Cell Distribution Width 14.4 % (12.1-15.1); White Blood Count 8.1 10^3/uL (4.0-10.0)
[2021-11-17 09:19] LABS: Alanine Aminotransferase 9 U/L (0-33); Albumin Level 4.1 g/dL (3.5-5.2); Alkaline Phosphatase 100 IU/L (35-105); Anion Gap 17.1 (5-19); Aspartate Amino Transferase 12 U/L (0-32); Blood Urea Nitrogen 6 mg/dL (6-20); Calcium 9.5 mg/dL (8.5-10.5); Carbon Dioxide 22 mmol/L (22-29); Chloride 105 mmol/L (98-107); Globulin 2.6 g/dL (1.3-4.6); Glomerular Filtration Rate 106.7 mL/min (90-130); Glucose 90 mg/dL (65-115); Osmolality Calculated 287 mOsm/kg (285-295); Potassium 4.1 mmol/L (3.5-5.1); Sodium 140 mmol/L (136-145); Thyroid Stimulating Hormone 2.42 uIU/mL (0.27-4.20); Total Bilirubin 0.2 mg/dL (0.15-1.2); Total Protein 6.7 g/dL (6.6-8.7)
[2021-11-17] MEDS: sodium chloride 0.9% 250 ML 75 ML IV (10:11)
[2021-11-17 12:05] VITALS: BP 98/68; PULSE 81; RESP 18; TEMP 36.6; O2SAT 97
== END 2021-11-27 23:59 | disposition home or self-care (01) ==
PROVIDERS: Nurse Practitioner; Nurse Practitioner Family; PCP Family Medicine; Visit Provider Internal Medicine Hematology & Oncology
DX: Z51.12 Encounter for antineoplastic immunotherapy (principal); C34.91 Malignant neoplasm of unspecified part of right bronchus or lung; R05.9 Cough, unspecified; F17.290 Nicotine dependence, other tobacco product, uncomplicated; Z92.3 Personal history of irradiation
CPT/HCPCS: 80053; 84443; 85025; 96413; 99214; 99215; J7050; J9173

== ENCOUNTER 2021-11-25 08:39 | Outpatient (CLI) | payer MEDICAID, SELFPAY ==
--- NOTE | 2021-11-25 08:45 | USCV_ITS ---
Kristine Kramer Age: 46 Gender: F : 1975 Exam Date: 11/25/2021 08:57 Ordering Phys: Alexander Morales MD Technologist: Barbara Varghese [place] [facility] [place]: SOB, COPD, luis CA stage 3 BP: 100 / 70 HR: 86 Rhythm: Sinus Technical Quality: Adequate MEASUREMENTS (Male / Female) Normal Values 2D ECHO LV Diastolic Diameter PLAX 2.7 cm 4.2 - 5.9 / 3.9 - 5.3 cm LV Systolic Diameter PLAX 1.2 cm IVS Diastolic Thickness 1.3 cm 0.6 - 1.0 / 0.6 - 0.9 cm IVS Systolic Thickness 1.6 cm LVPW Diastolic Thickness 1.1 cm 0.6 - 1.0 / 0.6 - 0.9 cm LVPW Systolic Thickness 2.8 cm LVOT Diameter 2.0 cm LV Ejection Fraction 2D Teich 87.4 % LV Ejection Fraction MOD 2C 64.1 % LV Ejection Fraction 2C AL 67.2 % LA Diameter 2.2 cm LA Width 2.3 cm LA Height 2.9 cm RA Width 3.3 cm RA Height 3.3 cm Aorta at Sinotubular Diameter 2.9 cm IVC Diameter 1.6 cm M-MODE MV E Point Septal Separation 0.4 cm DOPPLER AV Peak Velocity 87.0 cm/s LVOT Peak Velocity 87.0 cm/s AV Area Cont Eq vti 3.3 cm squared AV Area Cont Eq pk 3.1 cm squared MV Peak Velocity 89.0 cm/s MV Area PHT 3.7 cm squared Mitral E to A Ratio 0.7 MV E' Velocity 34.5 cm/s Mitral E to MV E' Ratio 10.9 Mitral E to LV E' Lateral Ratio 10.4 Mitral E to LV E' Septal Ratio 11.5 TR Peak Velocity 62.8 cm/s TR Peak Gradient 1.6 mmHg Right Atrial Pressure 3.0 mmHg Pulmonary Artery Systolic Pressu 4.6 mmHg PV Peak Velocity 67.0 cm/s RV Acceleration Time 0.1 s FINDINGS Left Ventricle Normal left ventricular size, systolic function and wall thickness, with no regional wall motion abnormalities. Normal left ventricular wall thickness. Grade 1 diastolic dysfunction. Left ventricular ejection fraction is estimated at 65 %. Right Ventricle The right ventricle is normal in size and function. Right Atrium The right atrium is normal in size. Left Atrium The left atrium is normal in size. Mitral Valve Structurally normal mitral valve without significant stenosis or prolapse. There is no mitral regurgitation. Aortic Valve Structurally normal aortic valve without significant sclerosis or stenosis. There is no aortic regurgitation. Tricuspid Valve Structurally normal tricuspid valve without significant stenosis or regurgitation. Pulmonary artery systolic pressure is normal. Pulmonic Valve Structurally normal pulmonic valve without significant stenosis. There is no pulmonic regurgitation. Pericardium There is a small pericardial effusion. No evidence of hemodynamic compromise. No right atrial or right ventricular diastolic collapse. Aorta Normal ascending aorta dimension. IVC The inferior vena cava pulmonary and hepatic veins appear normal. CONCLUSIONS Normal left ventricular size, systolic function and wall thickness, with no regional wall motion abnormalities. Normal left ventricular wall thickness. Grade 1 diastolic dysfunction. Left ventricular ejection fraction is estimated at 65 %. There is a small pericardial effusion. No evidence of hemodynamic compromise. No right atrial or right ventricular diastolic collapse. According to the history, the patient has metastatic lung cancer and a previous history of pericardial effusion. I find no prior studies for comparison. Dr. Luis M Urbina MD (Electronically Signed) Final Date: 25 November 2021 14:22 S
== END 2021-11-25 08:40 | disposition home or self-care (01) ==
LOC: RAD 08:40
PROVIDERS: Visit Provider Internal Medicine Pulmonary Disease
DX: J44.9 Chronic obstructive pulmonary disease, unspecified (principal); R06.00 Dyspnea, unspecified; C34.11 Malignant neoplasm of upper lobe, right bronchus or lung
CPT/HCPCS: 93306

== ENCOUNTER 2021-12-02 12:05 | Emergency (ER) | payer MEDICAID, SELFPAY ==
--- NOTE | 2021-12-02 12:14 | CTR_ITS ---
PROCEDURE INFORMATION: Exam: CT Head Without Contrast Exam date and time: 12/02/2021 12:21 PM Age: 46 years old Clinical indication: Dizziness and visual disturbance; Additional info: AMS, dizzy, visual disturbance TECHNIQUE: Imaging protocol: Computed tomography of the head without contrast. Radiation optimization: All CT scans at this facility use at least one of these dose optimization techniques: automated exposure control; mA and/or kV adjustment per patient size (includes targeted exams where dose is matched to clinical indication); or iterative reconstruction. COMPARISON: MR head wo/w con [id number] 06/27/2021 1:25 PM RADIATION DOSE METRICS: Total DLP (mGy-cm): 1097.98 FINDINGS: Brain: Normal. No hemorrhage. Unremarkable white matter. No mass effect. Cerebral ventricles: No ventriculomegaly. Paranasal sinuses: Minimal paranasal sinus opacification. Mastoid air cells: Visualized mastoid air cells are well aerated. Bones/joints: Unremarkable. No acute fracture. Soft tissues: Unremarkable. CT/CT head wo con* [id number] IMPRESSION: No acute intracranial abnormality.
[2021-12-02 12:28] VITALS: BP 113/80; PULSE 86; RESP 16; TEMP 35.9; O2SAT 99
--- NOTE | 2021-12-02 12:39 | ED_ITS ---
HPI - Neuro Symptoms/Deficit General: Chief Complaint: Neuro Symptoms/Deficit Stated Complaint: Confusion, Dizziness, Spots in vision Time Seen by Provider: 12/02/21 12:39 History of Present Illness: Ms. Kramer is a 46-year-old lady with history of neuropathy, tobaccoism, COPD, lung cancer currently on durvalumab who presents to the emergency department for strokelike symptoms. Onset of symptoms was at approximately 1130 while walking downstairs. She endorses sudden onset of u nsteady feeling which she characterizes as dizziness associated with generalized weakness. She also exhibited word finding difficulty and trouble with speech. Overall symptoms have persisted. Denies similar episodes in the past. Symptom intensity is moderate. No other specific changes in health, exacerbating, or alleviating factors identified. Onset (ago): hour(s) Last Observed Normal: 11:30 Timing confirmed by: family member History of same: No Quality: weak Context: sudden onset On Anticoagulants: No Review of Systems General: Reports: 10 or more systems reviewed and unremarkable except in HPI and below PFSH ED PFSH: Medical History Agoraphobia with panic attacks COPD (chronic obstructive pulmonary disease) Fibromyalgia Major depressive disorder, recurrent 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 Psychiatric care Surgical History H/O spinal fusion H/O tubal ligation S/P bronchoscopy Family History Father Parkinsonism Cancer Skin cancer and stomach cancer Brother Parkinsonism Mother Hyperlipidemia CAD (coronary artery disease) Psychiatric illness Other Diabetes Hypertension Denies family history of Clotting disorder Dementia Chronic kidney disease (CKD) Suicide Anesthesia complication Bleeding disorder Lung disease Stroke Social History Smoking and tobacco status: current every day smoker cigars Alcohol intake: never Adopted: No Lives independently: Yes Household members: children Housing: House Marital status: Number of children: 5 Pets and animals: Yes Pets & animals: dog(s) History of recent travel: No Female Reproductive History: Date of last menstrual period: 10/18/20 NIH stroke score NIHSS: Level Of Consciousness - 1a: 0 Level Of Consciousness Questions - 1b: Both Correct Level Of Consciousness Commands - 1c: Both Correct Best Gaze - 2: Partial Gaze Palsy Visual Olson - 3: No Visual Loss Facial Palsy - 4: Normal Motor Arm Right - 5: No Drift Motor Arm Left - 5: No Drift Motor Leg Right - 6: No Drift Motor Leg Left - 6: No Drift Limb Ataxia - 7: Absent Sensory - 8: Normal Best Language - 9: Mild/Moderate Aphasia Dysarthia - 10: Mild/Moderate Dysarthia Extinction And Inattention - 11: 0 Score: Total Score: 3 Physical Exam Const: COMMON NORMALS: alert GENERAL APPEARANCE: cooperative and well developed HENMT: COMMON NORMALS: normocephalic and atraumatic HEAD & SCALP: normocephalic and atraumatic THROAT: posterior oropharynx normal Eye: COMMON NORMALS: conjunctivae normal CONJUNCTIVA: Yes conjunctivae normal SCLERA: sclerae normal Neck/C-Spine: COMMON NORMALS: supple GENERAL: Yes trachea midline Resp: COMMON NORMALS: clear to auscultation bilaterally EFFORT & I NSPECTION: Yes able to speak in complete sentences AUSCULTATION: clear to auscultation bilaterally Cardio: COMMON NORMALS: regular rate and regular rhythm RATE: regular rate RHYTHM: regular rhythm GI: COMMON NORMALS: Soft to palpation PALPATION: Yes Soft to palpation and No Tenderness to palpation present (GI) PERCUSSION: normal to percussion Extremity: GENERAL: Yes normal exam except as noted and No edema Neuro: COMMON NORMALS: moves all extremities SENSORIUM/ORIENTATION: Yes alert and No Orientation impaired Psych: COMMON NORMALS: mental status grossly normal and Normal thought process present THOUGHT PROCESS: Normal thought process present Course ED course: - Patient was seen and evaluated by me at bedside - Patient placed on cardiac monitors, IV access obtained - Initial evaluation notable for exam as above. - Labs and xrays personally interpreted by me. EKG shows sinus rhythm with no STEMI -Normal glucose. Head CT without intracranial hemorrhage. -Although low NIHSS initially symptoms somewhat debilitating given degree of aphasia and dysarthria and thus I discussed the case with stroke neurology's who evaluated the patient. Upon their evaluation patient symptoms are significantly more exaggerated and inconsistent with stroke. Speech is now stuttering. Gait is narrow based and exaggerated response to Romberg testing. Patient has some mild ataxia with [id number] however this is bilateral and hands return smo othly to extension. Overall symptoms not consistent with acute stroke. -Headache treatment ordered. - Labs notable for mild leukocytosis, no acute electrolyte arrangement to explain symptoms. No UTI. Benzodiazepines positive Ultra-Screen which is consistent with patient's prescribed medication list. - Imaging notable for small pleural effusion. Based on stroke neurologist recommendation MRI was obtained without evidence of acute infarct. - Upon serial reexamination after treatment the patient was improved - Based on patient history, evaluation, and testing as interpreted the most likely cause of the patient's condition is functional neurologic disorder versus complex migraine - The results of ED evaluation were discussed with the patient including prescriptions and/or symptomatic cares (if applicable) including appropriate and responsible use, followup plan, and return precautions. The patient verbalized understanding and felt safe for discharge. - Patient discharged in satisfactory condition. Note: Click bubbles or prepopulated olson in note writing are used for assistance with data collection and billing and are inherently more limited than narrative and other text portions of this note. Please use narrative for additional clinical history and defer to narrative/free test for any case of contradictory information. If information appears in only free text or click bubble it should be considered present or absent as reported. Please contact note teletypewriter installer for clarifications of clinical information or contradictory information. MDM is a brief summary, contradictory or erroneous seeming information should be clarified and full note should be reviewed. Vital Signs: Vital signs: Vital Signs Temperature 96.7 F L 12/02/21 12:28 Pulse Rate 80 12/02/21 19:02 Respiratory Rate 18 12/02/21 19:02 Blood Pressure 102/75 12/02/21 19:02 Pulse Oximetry 98 12/02/21 19:02 Oxygen Delivery Me thod 12/02/21 16:55 MDM - Neuro Symptoms/Deficit Medical Decision Making 38-year-old lady presenting with strokelike symptoms. Evaluated by stroke neurologist with evolution of symptoms definitely not consistent with acute stroke. Patient treated with migraine cocktail with improvement of symptoms. Satisfactory for outpatient management. Medical Records I reviewed the patient's medical records. Lab Data I reviewed the patient's lab results. : 12/02/21 12:45 12/02/21 12:[address] 12/02/21 12:14 IMPRESSION: No acute intracranial abnormality. Chest X-Ray 12/02/21 12:48 Impression: 1. Small right effusion. 2. Right upper lobe mass not visible on this exam. Head MRI 12/02/21 13:48 IMPRESSION: 1. No evidence for metastatic disease to the brain. 2. No diffusion-weighted abnormality or acute stroke. Laboratory Results WBC 12.5 10^3/uL (4.0-10.0) H 12/02/21 12:45 RBC 4.61 10^6/uL (4.1-5.3) 12/02/21 12:45 Hgb 13.1 g/dL (11.5-15.3) 12/02/21 12:45 Hct 40.3 % (37.0-47.0) 12/02/21 12:45 MCV 87.4 fl (81-99) 12/02/21 12:45 MCH 28.4 pg (28.0-34.0) 12/02/21 12:45 MCHC 32.5 g/dL (30.0-36.0) 12/02/21 12:45 RDW 13.4 % (12.1-15.1) 12/02/21 12:45 Plt Count 331 10^3/cmm (130-400) 12/02/21 12:45 MPV 10.4 fL (7.4-10.4) 12/02/21 12:45 Neut % (Auto) 88.9 % 12/02/21 12:45 Lymph % (Auto) 4.5 % 12/02/21 12:45 Emery % (Auto) 5.5 % 12/02/21 12:45 Eos % (Auto) 0.5 % 12/02/21 12:45 Baso % (Auto) 0.2 % 12/02/21 12:45 Neut # (Auto) 11.08 10^3/uL (1.8-7.7) H 12/02/21 12:45 Lymph # (Auto) 0.6 10^3/uL (0.8-4.8) L 12/02/21 12:45 Emery # (Auto) 0.7 10^3/uL (0.2-0.9) 12/02/21 12:45 Eos # (Auto) 0.1 10^3/uL (0.0-0.8) 12/02/21 12:45 Baso # (Auto) 0.0 10^3/uL (0.0-0.1) 12/02/21 12:45 Nucleated RBC % (auto) 0 % 12/02/21 12:45 Nucleated RBCs # 0.0 /100WBC 12/02/21 12:45 PT 12.80 SECONDS (12.1-14.9) 12/02/21 12:45 INR 0.93 (0.8-1.2) 12/02/21 12:45 APTT 33.4 SECONDS (23.9-36.7) 12/02/21 12:45 Sodium 139 mmol/L (136-145) 12/02/21 12:45 Potassium 4.0 mmol/L (3.5-5.1) 12/02/21 12:45 Chloride 104 mmol/L (98-107) 12/02/21 12:45 Carbon Dioxide 22 mmol/L (22-29) 12/02/21 12:45 Anion Gap 17.0 (5-19) 12/02/21 12:45 BUN 8 mg/dL (6-20) 12/02/21 12:45 Creatinine 0.6 mg/dL (0.5-0.9) 12/02/21 12:45 GFR Calculation 106.7 mL/min (90-130) 12/02/21 12:45 Glucose 101 mg/dL (65-115) 12/02/21 12:45 POC Glucose 99 mg/dL (70-110) 12/02/21 12:45 Calculated Osmolality 286 mOsm/kg (285-295) 12/02/21 12:45 Calcium 9.6 mg/dL (8.5-10.5) 12/02/21 12:45 Total Bilirubin 0.2 mg/dL (0.15-1.2) 12/02/21 12:45 AST 11 U/L (0-32) 12/02/21 12:45 ALT 8 U/L (0-33) 12/02/21 12:45 Alkaline Phosphatase 106 IU/L (35-105) H 12/02/21 12:45 Total Protein 7.0 g/dL (6.6-8.7) 12/02/21 12:45 Albumin 4.0 g/dL (3.5-5.2) 12/02/21 12:45 Globulin 3.0 g/dL (1.3-4.6) 12/02/21 12:45 Urine Color Yellow (Yellow) 12/02/21 12:48 Urine Appearance Clear (CLEAR) 12/02/21 12:48 Urine pH 8 (5-7) H 12/02/21 12:48 Ur Specific [place] 1.005 (1.005-1.030) 12/02/21 12:48 Urine Protein Neg (Negative) 12/02/21 12:48 Urine Glucose (UA) Norm (Normal) 12/02/21 12:48 Urine Ketones Negative (Negative) 12/02/21 12:48 Urine Blood Neg (Negative) 12/02/21 12:48 Urine Nitrate Negative (Negative) 12/02/21 12:48 Urine Bilirubin Neg (Negative) 12/02/21 12:48 Urine Urobilinogen Norm mg/dL (Negative) 12/02/21 12:48 Ur Leukocyte Esterase Negative (Negative) 12/02/21 12:48 Urine Opiates Screen Negative ng/mL (Negative) 12/02/21 12:48 Ur Barbiturates Screen Negative ng/mL (Negative) 12/02/21 12:48 Ur Phencyclidine Scrn Negative ng/mL (Negative) 12/02/21 12:48 Ur Amphetamines Screen Negative ng/mL (Negative) 12/02/21 12:48 U Benzodiazepines Scrn Positive ng/mL (Negative) H 12/02/21 12:48 Urine Cocaine Screen Negative ng/mL (Negative) 12/02/21 12:48 U Marijuana (THC) Screen Negative ng/mL (Negative) 12/02/21 12:48 Critical Care Time Critical Care Time: Critical Care Time: Yes Total Critical Care Time: 50 Attestation: Due to a high probability of clinically significant, possibly life threatening deterioration, the patient required my highest level of attention and preparedness to intervene emergently and I personally spent this critical care time directly and personally managing the patient. This critical care time included obtaining a history; examining the patient; pulse oximetry; ordering and review of laboratory and imaging studies; arranging urgent treatment with development of a management plan; evaluation of patient's response to treatment; frequent reassessment; and, discussions with other providers as applicable. It was exclusive of separately billable procedures. Primary system involved is neuropsych Discharge Plan Discharge Patient Disposition: Home Clinical Impression: Altered mental status, Stroke-like symptoms, Leukocytosis Condition: Stable Prescriptions: No Action oxycodone 5 mg/5 mL solution See Rx Instructions .ROUTE .COMPLEX Rx Instructions: 5 - 10 mg orally q4-6 hours PRN Pain Breztri Aerosphere 160-9-4.8 mcg/actuation HFA aerosol inhaler 2 inh inhalation DAILY ipratropium-albuterol 0.5 mg-3 mg(2.5 mg base)/3 mL solution for nebulization 3 ml inhalation Q4H PRN (Reason: wheezing) alprazolam [Xanax] 1 mg tablet 1 mg PO TID PRN (Reason: anxiety) Rx Instructions: Take one tablet three times per day as needed for anxiety-states take nightly albuterol sulfate 90 mcg/actuation HFA aerosol inhaler 2 inh INHALATION Q4H PRN (Reason: shortness of breath or wheezing) Qty: 6.7 3RF hydrocodone-acetaminophen 5-325 mg tablet 1 tab PO Q6H PRN (Reason: Pain) Discharge Orders: Discharge ED (Routine); Ordered 12/02/21 Ordered By: Geo Vazquez Referrals: Mango Yuen MD [Primary Care Provider] - Discharge Diet: Usual diet Discharge Activity: Increase activity as tolerated Patient Instructions: Altered Mental Status (ED) Activity Restrictions/Additional Instructions: Thank you for visiting the emergency department. You were seen and evaluated f or strokelike symptoms. The exact cause of your symptoms is unclear. Sometimes complex headaches can cause this type of symptoms though I am uncertain of the exact cause. Please follow-up with your primary care provider. Please ensure that you stay hydrated. Return to the emergency department for any new neurologic symptoms or anything else that you are concerned about and feel needs emergency department evaluation. Coding Level of Care Code ED Patient Care Representative for James Bruno Exam Comprehensive
[2021-12-02 12:48] LABS: Glucose Point of Care 99 mg/dL (70-110)
--- NOTE | 2021-12-02 12:48 | ECG_ITS ---
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 Measurements Intervals [place] Rate: 82 P: 52 [place]: 140 QRS: 53 QRSD: 79 T: 65 QT: 377 QTc: 440 Interpretive Statements SINUS RHYTHM LOW QRS VOLTAGE IN PRECORDIAL LEADS [QRS DEFLECTION < 1.0 mV IN CHEST LEADS] Compared to ECG 09/02/2021 19:24:19 Sinus tachycardia no longer present Electronically Signed On 12-02-2021 13:56:15 CDT by Nora Ramos M.D. [id number]
--- NOTE | 2021-12-02 12:48 | XR_ITS ---
WS: [id number] Portable AP upright chest, 12/02/2021 Clinical Data: stroke like symptoms Comparison: Portable chest, 09/02/2021. Findings: No nodules are seen. The previously described right upper lobe mass is not seen on this exa m. There may be a small right pleural effusion The heart is normal. The pulmonary vascularity is not increased. No pneumonia or pneumothorax is seen. The left Port-A-Cath remains in good position. The p atient has had an anterior cervical disc fusion. XR/XR chest 1V portable [id number] Impression: 1. Small right effusion. 2. Right upper lobe mass not visible on this exam.
[2021-12-02 12:54] VITALS: BP 127/82; PULSE 82; RESP 17; O2SAT 99
[2021-12-02 12:56] LABS: Basophils % 0.2 %; Eosinophils # 0.1 10^3/uL (0.0-0.8); Eosinophils % 0.5 %; Hematocrit 40.3 % (37.0-47.0); Hemoglobin 13.1 g/dL (11.5-15.3); Lymphocytes # 0.6 10^3/uL (0.8-4.8); Lymphocytes % 4.5 %; Mean Corpuscular HGB Conc 32.5 g/dL (30.0-36.0); Mean Corpuscular Hemoglobin 28.4 pg (28.0-34.0); Mean Corpuscular Volume 87.4 fl (81-99); Mean Platelet Volume 10.4 fL (7.4-10.4); Monocytes # 0.7 10^3/uL (0.2-0.9); Monocytes % 5.5 %; Neutrophils # 11.08 10^3/uL (1.8-7.7); Neutrophils % 88.9 %; Nucleated Red Blood Cells % 0 %; Platelet Count 331 10^3/cmm (130-400); Red Blood Count 4.61 10^6/uL (4.1-5.3); Red Cell Distribution Width 13.4 % (12.1-15.1); White Blood Count 12.5 10^3/uL (4.0-10.0)
[2021-12-02 13:09] LABS: INR 0.93 (0.8-1.2)
[2021-12-02 13:10] LABS: Partial Thromboplastin Time 33.4 SECONDS (23.9-36.7)
[2021-12-02 13:25] LABS: Alanine Aminotransferase 8 U/L (0-33); Alkaline Phosphatase 106 IU/L (35-105); Aspartate Amino Transferase 11 U/L (0-32); Blood Urea Nitrogen 8 mg/dL (6-20); Calcium 9.6 mg/dL (8.5-10.5); Carbon Dioxide 22 mmol/L (22-29); Chloride 104 mmol/L (98-107); Glomerular Filtration Rate 106.7 mL/min (90-130); Glucose 101 mg/dL (65-115); Osmolality Calculated 286 mOsm/kg (285-295); Sodium 139 mmol/L (136-145); Total Bilirubin 0.2 mg/dL (0.15-1.2)
--- NOTE | 2021-12-02 13:36 | PC.NURSE ---
Pt resting in bed with visitor at bedside. Appears to have stuttering speech. A&Ox4, denies pain. Reconnected to VS monitor. Denies needs at this time. Call light within reach
--- NOTE | 2021-12-02 13:48 | MR_ITS ---
WS: [id number] MRI BRAIN WITH AND WITHOUT CONTRAST HISTORY: stroke like symptoms, hx cancer COMPARISON: 06/27/2021 TECHNIQUE: Multiplanar imaging performed through the brain with MultiHance 10 ml's IV. No acute infarcts are seen. Amezcua-white matter differentiation is well preserved. Minimal atrophy and small vessel ischemic disease. No susceptibility artifacts or prior lacunar infarcts. Ventricles and extra-axial spaces are normal. Clivus and pituitary gland are normal. Visualized posterior fossa and brainstem are also normal. Postcontrast images are negative for masses or vascular malformations. Dural venous sinuses are normal. Paranasal sinuses: Well aerated with no significant disease. Mastoid air cells: Normal. Calvarium and scalp: Normal. MR/MR head wo/w con [id number] IMPRESSION: 1. No evidence for metastatic disease to the brain. 2. No diffusion-weighted abnormality or acute stroke.
[2021-12-02 14:00] LABS: Add Urine Microscopic? NO; Charge for UA Resulting for Rev
[2021-12-02 14:02] LABS: Bilirubin Urine Neg (Negative); Blood Urine Neg (Negative); Glucose Urine UA Norm (Normal); Ketones Urine Negative (Negative); Nitrate Urine Negative (Negative); Protein Urine Neg (Negative); Specific Gravity, Urine 1.005 (1.005-1.030); Urine Appearance Clear (CLEAR); Urine Color Yellow (Yellow); Urobilinogen Urine Norm (Negative); pH Urine 8 (5-7)
[2021-12-02 14:03] LABS: Leukocyte Esterase Urine Negative (Negative)
[2021-12-02] MEDS: sodium chloride 0.9% 1,000 ML 999 ML IV (14:04)
[2021-12-02 14:11] LABS: Amphetamines Screen Urine Negative (Negative); Barbiturates Screen Urine Negative (Negative); Benzodiazepines Screen Urine Positive (Negative); Cocaine Screen Urine Negative (Negative); Opiate Screen Urine Negative (Negative); PCP Screen Urine Negative (Negative); THC Screen Urine Negative (Negative)
[2021-12-02] MEDS: gadobenate dimeglumine 20 mL vial IV (15:32)
[2021-12-02] MEDS: diphenhydrAMINE 50 mg/mL SDV 1mL 25 MG IVP (16:45)
[2021-12-02] MEDS: ketorolac 30 mg/mL INJ 15 MG IVP (16:46)
[2021-12-02] MEDS: metoclopramide 5 mg/mL SDV 2 mL 10 MG IVP (16:46)
[2021-12-02 16:55] VITALS: BP 118/72; PULSE 81; RESP 18; O2SAT 96
--- NOTE | 2021-12-02 18:05 | PC.NURSE ---
Pt resting comfortably in bed. Speech clear, no stuttering noted. Ambulated pt up and down cole, gait appears steady. Reconnected pt back to VS monitor. Pt reports is hungry and feels ready to go home. Denies further needs at this time.
[2021-12-02 19:02] VITALS: BP 102/75; PULSE 80; RESP 18; O2SAT 98
== END 2021-12-02 19:06 | disposition home or self-care (01) ==
PROVIDERS: Emergency Provider Emergency Medicine; PCP Family Medicine
DX: R41.82 Altered mental status, unspecified (principal); D72.829 Elevated white blood cell count, unspecified; R68.89 Other general symptoms and signs; J44.9 Chronic obstructive pulmonary disease, unspecified; F17.210 Nicotine dependence, cigarettes, uncomplicated
CPT/HCPCS: 36416; 70450; 70553; 71045; 80053; 80306; 81003; 82962; 85025; 85610; 85730; 93005; 96374; 96375; 99285; A9577; J1200; J1885; J2765; J7030

== ENCOUNTER 2021-12-15 08:30 | Oncology outpatient (recurring) (ONCR) | payer MEDICAID, SELFPAY ==
[2021-12-01 08:31] LABS: Basophils # 0.1 10^3/uL (0.0-0.1); Basophils % 0.3 %; Eosinophils # 0.1 10^3/uL (0.0-0.8); Eosinophils % 0.3 %; Hematocrit 38.7 % (37.0-47.0); Hemoglobin 12.7 g/dL (11.5-15.3); Lymphocytes # 0.7 10^3/uL (0.8-4.8); Lymphocytes % 4.3 %; Mean Corpuscular HGB Conc 32.8 g/dL (30.0-36.0); Mean Corpuscular Hemoglobin 28.5 pg (28.0-34.0); Mean Platelet Volume 10.5 fL (7.4-10.4); Monocytes # 0.9 10^3/uL (0.2-0.9); Monocytes % 5.5 %; Neutrophils # 14.68 10^3/uL (1.8-7.7); Neutrophils % 89.4 %; Nucleated Red Blood Cells % 0 %; Platelet Count 342 10^3/cmm (130-400); Red Blood Count 4.45 10^6/uL (4.1-5.3); Red Cell Distribution Width 13.5 % (12.1-15.1); White Blood Count 16.4 10^3/uL (4.0-10.0)
[2021-12-01 09:05] LABS: Alanine Aminotransferase 8 U/L (0-33); Alkaline Phosphatase 111 IU/L (35-105); Anion Gap 15.1 (5-19); Aspartate Amino Transferase 12 U/L (0-32); Blood Urea Nitrogen 8 mg/dL (6-20); Calcium 9.7 mg/dL (8.5-10.5); Carbon Dioxide 24 mmol/L (22-29); Chloride 105 mmol/L (98-107); Globulin 2.9 g/dL (1.3-4.6); Glomerular Filtration Rate 106.7 mL/min (90-130); Glucose 82 mg/dL (65-115); Osmolality Calculated 287 mOsm/kg (285-295); Potassium 4.1 mmol/L (3.5-5.1); Sodium 140 mmol/L (136-145); Thyroid Stimulating Hormone 1.95 uIU/mL (0.27-4.20); Total Bilirubin 0.2 mg/dL (0.15-1.2); Total Protein 6.9 g/dL (6.6-8.7)
[2021-12-01] MEDS: sodium chloride 0.9% 250 ML 75 ML IV (10:45)
[2021-12-01] MEDS: ALPRAZolam 0.5 mg Tablet PO (10:54)
[2021-12-01 11:47] LABS: Bilirubin Urine Neg (Negative); Blood Urine Neg (Negative); Glucose Urine UA Norm (Normal); Ketones Urine Negative (Negative); Leukocyte Esterase Urine Negative (Negative); Nitrate Urine Negative (Negative); Protein Urine Neg (Negative); Urine Appearance Clear (CLEAR); Urine Color Yellow (Yellow); Urobilinogen Urine Norm (Negative); pH Urine 7 (5-7)
[2021-12-01 11:48] LABS: Add Urine Culture? No; Amorphous Sediment Urine 1+ /hpf; RBC Urine 0-4 /hpf (0-2); WBC Urine 0-4 /hpf (0-5)
[2021-12-01 12:35] VITALS: BP 96/66; PULSE 82; RESP 18; TEMP 36.7; O2SAT 95
--- NOTE | 2021-12-08 14:16 | CT_ITS ---
WS: [id number] CT CHEST WITH INTRAVENOUS CONTRAST HISTORY: Lung cancer follow-up. Short of breath for 2 months. TECHNIQUE: Contiguous 5 mm axial imaging performed on the thorax. Coronal and sagittal reformats are submitted. All CT scans at [facility] use at least one of these dose optimization techniques: automated exposure control; mA and/or kV adjustment per patient size (includes targeted exams where dose is matched to clinical indication); or iterative reconstruction. CONTRAST: Omnipaque 350 95 mL. DLP: 625.81 mGy.cm COMPARISON: 09/02/2021 and 03/19/2021 Lungs and central airway: Centrilobular emphysema. Posterior RIGHT upper lobe spiculated PET/CT posit vishal nodule measures 14 x 11 mm. Similar measurement at the same location with 18 x 16 mm. 5 mm noncal cified nodule LEFT upper lobe has very slightly decreased in size. Pleura: Normal. No pleural effusion. Heart and pericardium: Normal size heart. Moderate size circumferential pericardial effusion similar to the prior study. Maximum diameter along the dependent surface is 12 mm. Mediastinum and wood: LEFT subclavian Mediport with tip in the distal SVC. No adenopathy. Vessels: Normal size aortic and pulmonary artery. No coronary artery calcifications. Chest wall and lower neck: No soft tissue masses. Upper abdomen: Moderate-sized hiatal hernia. No hepatic lesions. Gallbladder is contracted and the wa ll may be calcified. Debris or stones within the lumen. No adrenal mass. Normal visualized pancreas. Osseous structures: No destructive process. CT/CT chest w con* [id number] IMPRESSION: 1. Slight decrease in size of the RIGHT upper lobe spiculated pulmonary neopla sm. Nodule now measures 14 x 11 mm as compared to 18 x 16 mm. No new nodule or enlarging mass. 2. No adenopathy. 3. Moderate circumferential pericardial effusion is unchanged. 4. No metastatic lesion within the visualized liver or adrenal glands.
[2021-12-08] MEDS: iohexol 350 mg/mL 100 mL Btl IV (15:06)
[2021-12-15 08:44] VITALS: BMI 24.9
[2021-12-15 09:02] LABS: Basophils % 0.5 %; Eosinophils # 0.1 10^3/uL (0.0-0.8); Eosinophils % 1.4 %; Hematocrit 41.9 % (37.0-47.0); Hemoglobin 13.5 g/dL (11.5-15.3); Lymphocytes # 0.8 10^3/uL (0.8-4.8); Lymphocytes % 12.5 %; Mean Corpuscular HGB Conc 32.2 g/dL (30.0-36.0); Mean Corpuscular Hemoglobin 27.8 pg (28.0-34.0); Mean Corpuscular Volume 86.4 fl (81-99); Monocytes # 0.6 10^3/uL (0.2-0.9); Monocytes % 8.5 %; Neutrophils # 5.02 10^3/uL (1.8-7.7); Neutrophils % 76.6 %; Nucleated Red Blood Cells % 0 %; Platelet Count 285 10^3/cmm (130-400); Red Blood Count 4.85 10^6/uL (4.1-5.3); Red Cell Distribution Width 13.8 % (12.1-15.1); White Blood Count 6.6 10^3/uL (4.0-10.0)
[2021-12-15] MEDS: sodium chloride 0.9% 250 ML 75 ML IV (09:37)
[2021-12-15 10:19] LABS: Alkaline Phosphatase 109 U/L (35-105); Anion Gap 17.8 (5-19); Aspartate Amino Transferase 10 U/L (0-32); Blood Urea Nitrogen 13 mg/dL (6-20); Calcium 9.7 mg/dL (8.5-10.5); Carbon Dioxide 23 mmol/L (22-29); Creatinine Clr Calc Pharmacy 115.1495; Globulin 2.8 g/dL (1.3-4.6); Glomerular Filtration Rate 106.7 mL/min (90-130); Glucose 91 mg/dL (65-115); Osmolality Calculated 286 mOsm/kg (285-295); Thyroid Stimulating Hormone 5.34 uIU/mL (0.27-4.20); Total Bilirubin 0.2 mg/dL (0.15-1.2); Total Protein 7.1 g/dL (6.6-8.7)
[2021-12-15 10:26] LABS: Alanine Aminotransferase 7 U/L (0-33); Albumin Level 4.3 g/dL (3.5-5.2); Chloride 101 mmol/L (98-107); Potassium 3.8 mmol/L (3.5-5.1); Sodium 138 mmol/L (136-145)
[2021-12-15 11:24] VITALS: BP 106/67; PULSE 77; RESP 18; TEMP 35.9; O2SAT 96
== END 2021-12-28 23:59 | disposition home or self-care (01) ==
PROVIDERS: Nurse Practitioner Family; PCP Family Medicine; Visit Provider Internal Medicine Hematology & Oncology
DX: Z51.12 Encounter for antineoplastic immunotherapy (principal); C34.81 Malignant neoplasm of overlapping sites of right bronchus and lung; C77.8 Secondary and unspecified malignant neoplasm of lymph nodes of multiple regions; F17.290 Nicotine dependence, other tobacco product, uncomplicated; R05.3 Chronic cough; R04.2 Hemoptysis; F41.9 Anxiety disorder, unspecified; Z79.2 Long term (current) use of antibiotics; Z79.899 Other long term (current) drug therapy
CPT/HCPCS: 36593; 71260; 80053; 81001; 84443; 85025; 96413; 99214; 99215; J7050; J9173

== ENCOUNTER 2022-01-26 08:30 | Oncology outpatient (recurring) (ONCR) | payer MEDICAID, SELFPAY ==
[2022-01-05 09:09] VITALS: BMI 25.2
[2022-01-05 09:18] LABS: Basophils # 0.1 10^3/uL (0.0-0.1); Basophils % 0.5 %; Eosinophils # 0.2 10^3/uL (0.0-0.8); Eosinophils % 1.6 %; Hematocrit 41.2 % (37.0-47.0); Hemoglobin 13.3 g/dL (11.5-15.3); Lymphocytes # 1.3 10^3/uL (0.8-4.8); Lymphocytes % 13.6 %; Mean Corpuscular HGB Conc 32.3 g/dL (30.0-36.0); Mean Corpuscular Hemoglobin 27.6 pg (28.0-34.0); Mean Corpuscular Volume 85.5 fl (81-99); Mean Platelet Volume 11.2 fL (7.4-10.4); Monocytes # 0.8 10^3/uL (0.2-0.9); Monocytes % 8.6 %; Neutrophils # 7.04 10^3/uL (1.8-7.7); Neutrophils % 75.2 %; Nucleated Red Blood Cells % 0 %; Platelet Count 269 10^3/cmm (130-400); Red Blood Count 4.82 10^6/uL (4.1-5.3); Red Cell Distribution Width 14.3 % (12.1-15.1); White Blood Count 9.4 10^3/uL (4.0-10.0)
[2022-01-05 09:47] LABS: Alanine Aminotransferase 9 U/L (0-33); Alkaline Phosphatase 108 U/L (35-105); Aspartate Amino Transferase 11 U/L (0-32); Blood Urea Nitrogen 8 mg/dL (6-20); Calcium 9.4 mg/dL (8.5-10.5); Carbon Dioxide 24 mmol/L (22-29); Chloride 103 mmol/L (98-107); Glomerular Filtration Rate 89.3 mL/min (90-130); Glucose 78 mg/dL (65-115); Osmolality Calculated 279 mOsm/kg (285-295); Sodium 136 mmol/L (136-145); Total Bilirubin 0.3 mg/dL (0.15-1.2)
[2022-01-05 09:57] LABS: Thyroid Stimulating Hormone 3.67 uIU/mL (0.27-4.20)
[2022-01-12] MEDS: sodium chloride 0.9% 250 ML 100 ML IV (09:56)
[2022-01-12 11:30] VITALS: BP 96/64; PULSE 73; RESP 18; TEMP 35.8; O2SAT 97
[2022-01-26 08:44] VITALS: BMI 25.2
[2022-01-26 08:44] LABS: Basophils % 0.5 %; Eosinophils # 0.1 10^3/uL (0.0-0.8); Eosinophils % 1.1 %; Hematocrit 40.3 % (37.0-47.0); Hemoglobin 13.3 g/dL (11.5-15.3); Lymphocytes % 13.4 %; Mean Corpuscular Hemoglobin 27.4 pg (28.0-34.0); Mean Corpuscular Volume 83.1 fl (81-99); Mean Platelet Volume 10.6 fL (7.4-10.4); Monocytes # 0.6 10^3/uL (0.2-0.9); Monocytes % 7.8 %; Neutrophils # 5.59 10^3/uL (1.8-7.7); Neutrophils % 76.8 %; Nucleated Red Blood Cells % 0 %; Platelet Count 290 10^3/cmm (130-400); Red Blood Count 4.85 10^6/uL (4.1-5.3); Red Cell Distribution Width 14.8 % (12.1-15.1); White Blood Count 7.3 10^3/uL (4.0-10.0)
[2022-01-26 09:17] LABS: Alanine Aminotransferase 11 U/L (0-33); Albumin Level 4.1 g/dL (3.5-5.2); Alkaline Phosphatase 117 U/L (35-105); Blood Urea Nitrogen 10 mg/dL (6-20); Calcium 9.7 mg/dL (8.5-10.5); Carbon Dioxide 23 mmol/L (22-29); Chloride 103 mmol/L (98-107); Globulin 2.7 g/dL (1.3-4.6); Glomerular Filtration Rate 89.3 mL/min (90-130); Glucose 101 mg/dL (65-115); Osmolality Calculated 285 mOsm/kg (285-295); Sodium 138 mmol/L (136-145); Thyroid Stimulating Hormone 3.46 uIU/mL (0.27-4.20); Total Bilirubin 0.3 mg/dL (0.15-1.2); Total Protein 6.8 g/dL (6.6-8.7)
[2022-01-26 09:19] LABS: Aspartate Amino Transferase 13 U/L (0-32)
[2022-01-26] MEDS: sodium chloride 0.9% 250 ML 75 ML IV (10:46)
[2022-01-26 12:26] VITALS: BP 95/68; PULSE 87; RESP 18; TEMP 35.9; O2SAT 97
== END 2022-01-27 23:59 | disposition home or self-care (01) ==
PROVIDERS: Nurse Practitioner Family; PCP Family Medicine; Visit Provider Internal Medicine Hematology & Oncology
DX: Z51.12 Encounter for antineoplastic immunotherapy (principal); C34.11 Malignant neoplasm of upper lobe, right bronchus or lung; C78.02 Secondary malignant neoplasm of left lung; C77.0 Secondary and unspecified malignant neoplasm of lymph nodes of head, face and neck; I31.3 Pericardial effusion (noninflammatory); F17.290 Nicotine dependence, other tobacco product, uncomplicated; Z95.828 Presence of other vascular implants and grafts; Z79.899 Other long term (current) drug therapy
CPT/HCPCS: 36415; 36591; 80053; 84443; 85025; 96413; 99214; 99215; J7050; J9173

== ENCOUNTER → 2022-02-07 12:35 | Outpatient (BNVA) | payer OTHER, SELFPAY | PROVIDERS: PCP Family Medicine; Visit Provider Nurse Practitioner Psychiatric/Mental Health | DX: Z79.899 Other long term (current) drug therapy (principal) | CPT/HCPCS: 80061; 83036 ==

== ENCOUNTER → 2022-02-22 15:27 | Outpatient (BNVA) | payer MEDICAID, SELFPAY ==
[2022-02-13 15:03] VITALS: BP 113/76; BMI 24.4
== END ==
PROVIDERS: PCP Family Medicine; Visit Provider Internal Medicine Pulmonary Disease
DX: R07.9 Chest pain, unspecified (principal); C34.11 Malignant neoplasm of upper lobe, right bronchus or lung; J44.9 Chronic obstructive pulmonary disease, unspecified; J22 Unspecified acute lower respiratory infection; F17.210 Nicotine dependence, cigarettes, uncomplicated
CPT/HCPCS: 99214

== ENCOUNTER 2022-02-23 08:30 | Oncology outpatient (recurring) (ONCR) | payer MEDICAID, SELFPAY ==
[2022-02-09 08:05] VITALS: BMI 22.4
[2022-02-09 08:26] LABS: Basophils % 0.5 %; Eosinophils # 0.1 10^3/uL (0.0-0.8); Eosinophils % 0.9 %; Hematocrit 39.1 % (37.0-47.0); Hemoglobin 12.6 g/dL (11.5-15.3); Lymphocytes # 0.9 10^3/uL (0.8-4.8); Lymphocytes % 11.5 %; Mean Corpuscular HGB Conc 32.2 g/dL (30.0-36.0); Mean Corpuscular Hemoglobin 27.1 pg (28.0-34.0); Mean Corpuscular Volume 84.1 fl (81-99); Mean Platelet Volume 10.7 fL (7.4-10.4); Monocytes # 0.7 10^3/uL (0.2-0.9); Monocytes % 8.5 %; Neutrophils # 6.33 10^3/uL (1.8-7.7); Neutrophils % 78.1 %; Nucleated Red Blood Cells % 0 %; Platelet Count 298 10^3/cmm (130-400); Red Blood Count 4.65 10^6/uL (4.1-5.3); Red Cell Distribution Width 15.1 % (12.1-15.1); White Blood Count 8.1 10^3/uL (4.0-10.0)
[2022-02-09 08:45] LABS: Albumin Level 3.9 g/dL (3.5-5.2); Chloride 104 mmol/L (98-107); Potassium 3.7 mmol/L (3.5-5.1); Sodium 138 mmol/L (136-145)
[2022-02-09 09:04] LABS: Alanine Aminotransferase 7 U/L (0-33); Anion Gap 14.7 (5-19); Aspartate Amino Transferase 10 U/L (0-32); Blood Urea Nitrogen 8 mg/dL (6-20); Calcium 9.1 mg/dL (8.5-10.5); Carbon Dioxide 23 mmol/L (22-29); Globulin 2.9 g/dL (1.3-4.6); Glomerular Filtration Rate 106.3 mL/min (90-130); Glucose 96 mg/dL (65-115); Total Bilirubin 0.2 mg/dL (0.15-1.2); Total Protein 6.8 g/dL (6.6-8.7)
[2022-02-09 09:10] LABS: Thyroid Stimulating Hormone 2.47 uIU/mL (0.27-4.20)
[2022-02-09 09:22] LABS: Alkaline Phosphatase 107 U/L (35-105)
[2022-02-09] MEDS: sodium chloride 0.9% 250 ML 75 ML IV (11:06)
[2022-02-09 12:37] VITALS: BP 99/72; PULSE 82; RESP 16; TEMP 35.9; O2SAT 99
[2022-02-13 15:03] VITALS: BP 113/76; BMI 24.4
[2022-02-23 09:03] LABS: Basophils % 0.4 %; Eosinophils # 0.1 10^3/uL (0.0-0.8); Eosinophils % 0.6 %; Hemoglobin 12.5 g/dL (11.5-15.3); Lymphocytes # 0.9 10^3/uL (0.8-4.8); Lymphocytes % 10.9 %; Mean Corpuscular HGB Conc 32.1 g/dL (30.0-36.0); Mean Corpuscular Hemoglobin 27.3 pg (28.0-34.0); Mean Corpuscular Volume 85.2 fl (81-99); Mean Platelet Volume 10.4 fL (7.4-10.4); Monocytes # 0.6 10^3/uL (0.2-0.9); Monocytes % 7.4 %; Neutrophils # 6.25 10^3/uL (1.8-7.7); Neutrophils % 80.2 %; Nucleated Red Blood Cells % 0 %; Platelet Count 281 10^3/cmm (130-400); Red Blood Count 4.58 10^6/uL (4.1-5.3); Red Cell Distribution Width 15.8 % (12.1-15.1); White Blood Count 7.8 10^3/uL (4.0-10.0)
[2022-02-23] MEDS: alteplase 1 mg/mL SDV 2 mL 2 MG INTRACATH (09:12)
[2022-02-23 09:24] VITALS: BMI 25.4
[2022-02-23 09:30] LABS: Alanine Aminotransferase 9 U/L (0-33); Albumin Level 4.1 g/dL (3.5-5.2); Alkaline Phosphatase 105 U/L (35-105); Aspartate Amino Transferase 10 U/L (0-32); Blood Urea Nitrogen 12 mg/dL (6-20); Calcium 9.5 mg/dL (8.5-10.5); Carbon Dioxide 25 mmol/L (22-29); Chloride 101 mmol/L (98-107); Globulin 2.8 g/dL (1.3-4.6); Glomerular Filtration Rate 88.9 mL/min (90-130); Glucose 86 mg/dL (65-115); Osmolality Calculated 283 mOsm/kg (285-295); Sodium 137 mmol/L (136-145); Thyroid Stimulating Hormone 3.25 uIU/mL (0.27-4.20); Total Bilirubin 0.3 mg/dL (0.15-1.2); Total Protein 6.9 g/dL (6.6-8.7)
[2022-02-23] MEDS: sodium chloride 0.9% 250 ML 75 ML IV (11:38)
[2022-02-23 13:10] VITALS: BP 94/66; PULSE 88; RESP 16; TEMP 35.9; O2SAT 95
== END 2022-02-27 23:59 | disposition home or self-care (01) ==
PROVIDERS: PCP Family Medicine; Visit Provider Internal Medicine Hematology & Oncology
DX: Z51.12 Encounter for antineoplastic immunotherapy (principal); C34.11 Malignant neoplasm of upper lobe, right bronchus or lung; I31.39 Other pericardial effusion (noninflammatory); R51.9 Headache, unspecified; R42 Dizziness and giddiness; H53.9 Unspecified visual disturbance; F17.210 Nicotine dependence, cigarettes, uncomplicated; Z95.828 Presence of other vascular implants and grafts; Z79.899 Other long term (current) drug therapy
CPT/HCPCS: 36593; 80053; 84443; 85025; 96413; 99214; J2997; J7050; J9173

== ENCOUNTER 2022-03-03 16:10 | Outpatient (CLI) | payer MEDICAID, SELFPAY ==
[2022-02-13 15:03] VITALS: BP 113/76; BMI 24.4
[2022-03-03] MEDS: iohexol 350 mg/mL 100 mL Btl IV (16:24)
--- NOTE | 2022-03-03 17:00 | CT_ITS ---
WS: [id number] CT HEAD TECHNIQUE: Noncontrast and contrast-enhanced CT of the head. CLINICAL INFORMATION: Lightheadedness, blurred vision, intermittent blurry vision COMPARISON: MRI December 02, [address] 12/02/21 DLP: 2134.[address] scans at [facility] use at least one of these dose optimization techniques: automated e xposure control; mA and/or kV adjustment per patient size (includes targeted exams where dose is matc hed to clinical indication); or iterative reconstruction. FINDINGS: No evidence of intracranial hemorrhage or mass effect. Ventricular system and basal cisterns are hager nt. Basal cisterns are patent. Paranasal sinuses are well aerated. Mastoid air cells are well aerated . Normal posterior nasopharynx. No abnormal intracranial enhancement. No enhancing intracranial metas tatic lesions. No other suspicious findings. CT/CT head wo/w con [id number] IMPRESSION: 1. No evidence of intracranial hemorrhage or mass effect. 2. No abnormal parenchymal enhancement. 3. Paranasal sinuses and mastoid air cells are well aerated.
== END 2022-03-03 16:11 | disposition home or self-care (01) ==
LOC: RAD 16:11
PROVIDERS: PCP Family Medicine; Visit Provider Internal Medicine Hematology & Oncology
DX: R42 Dizziness and giddiness (principal); H53.8 Other visual disturbances
CPT/HCPCS: 70470

== ENCOUNTER 2022-03-29 08:00 | Oncology outpatient (recurring) (ONCR) | payer MEDICAID, SELFPAY ==
[2022-02-13 15:03] VITALS: BP 113/76; BMI 24.4
[2022-03-15 08:20] LABS: Basophils # 0.1 10^3/uL (0.0-0.1); Basophils % 0.7 %; Eosinophils # 0.1 10^3/uL (0.0-0.8); Eosinophils % 1.2 %; Hemoglobin 13.5 g/dL (11.5-15.3); Lymphocytes # 1.1 10^3/uL (0.8-4.8); Mean Corpuscular HGB Conc 31.4 g/dL (30.0-36.0); Mean Corpuscular Hemoglobin 27.1 pg (28.0-34.0); Mean Corpuscular Volume 86.3 fl (81-99); Mean Platelet Volume 10.9 fL (7.4-10.4); Monocytes # 0.7 10^3/uL (0.2-0.9); Monocytes % 8.2 %; Neutrophils # 6.67 10^3/uL (1.8-7.7); Neutrophils % 76.7 %; Nucleated Red Blood Cells % 0 %; Platelet Count 294 10^3/cmm (130-400); Red Blood Count 4.98 10^6/uL (4.1-5.3); Red Cell Distribution Width 16.1 % (12.1-15.1); White Blood Count 8.7 10^3/uL (4.0-10.0)
[2022-03-15 08:50] LABS: Alanine Aminotransferase 9 U/L (0-33); Albumin Level 4.2 g/dL (3.5-5.2); Alkaline Phosphatase 122 U/L (35-105); Aspartate Amino Transferase 12 U/L (0-32); Blood Urea Nitrogen 7 mg/dL (6-20); Calcium 9.9 mg/dL (8.5-10.5); Carbon Dioxide 24 mmol/L (22-29); Chloride 106 mmol/L (98-107); Globulin 3.1 g/dL (1.3-4.6); Glomerular Filtration Rate 88.9 mL/min (90-130); Glucose 82 mg/dL (65-115); Osmolality Calculated 291 mOsm/kg (285-295); Sodium 142 mmol/L (136-145); Thyroid Stimulating Hormone 3.48 uIU/mL (0.27-4.20); Total Bilirubin 0.3 mg/dL (0.15-1.2); Total Protein 7.3 g/dL (6.6-8.7)
[2022-03-15 11:48] VITALS: BP 102/71; PULSE 88; RESP 16; TEMP 35.9; O2SAT 98
[2022-03-29 08:37] LABS: Basophils # 0.1 10^3/uL (0.0-0.1); Basophils % 0.5 %; Eosinophils # 0.1 10^3/uL (0.0-0.8); Eosinophils % 1.1 %; Hematocrit 42.6 % (37.0-47.0); Hemoglobin 13.8 g/dL (11.5-15.3); Lymphocytes # 1.2 10^3/uL (0.8-4.8); Lymphocytes % 12.3 %; Mean Corpuscular HGB Conc 32.4 g/dL (30.0-36.0); Mean Corpuscular Hemoglobin 27.5 pg (28.0-34.0); Mean Platelet Volume 11.1 fL (7.4-10.4); Monocytes # 0.7 10^3/uL (0.2-0.9); Monocytes % 7.6 %; Neutrophils # 7.58 10^3/uL (1.8-7.7); Neutrophils % 78.1 %; Nucleated Red Blood Cells % 0 %; Platelet Count 319 10^3/cmm (130-400); Red Blood Count 5.01 10^6/uL (4.1-5.3); Red Cell Distribution Width 15.8 % (12.1-15.1); White Blood Count 9.7 10^3/uL (4.0-10.0)
[2022-03-29 09:02] LABS: Alanine Aminotransferase 12 U/L (0-33); Albumin Level 4.3 g/dL (3.5-5.2); Alkaline Phosphatase 138 U/L (35-105); Anion Gap 14.1 (5-19); Aspartate Amino Transferase 13 U/L (0-32); Blood Urea Nitrogen 15 mg/dL (6-20); Calcium 9.8 mg/dL (8.5-10.5); Carbon Dioxide 23 mmol/L (22-29); Chloride 105 mmol/L (98-107); Globulin 3.2 g/dL (1.3-4.6); Glomerular Filtration Rate 88.9 mL/min (90-130); Glucose 94 mg/dL (65-115); Osmolality Calculated 287 mOsm/kg (285-295); Potassium 4.1 mmol/L (3.5-5.1); Sodium 138 mmol/L (136-145); Thyroid Stimulating Hormone 2.64 uIU/mL (0.27-4.20); Total Bilirubin 0.2 mg/dL (0.15-1.2); Total Protein 7.5 g/dL (6.6-8.7)
[2022-03-29] MEDS: sodium chloride 0.9% 250 ML 75 ML IV (10:35)
[2022-03-29 11:00] VITALS: BMI 25.8
[2022-03-29 11:50] VITALS: BP 95/65; PULSE 83; RESP 17; TEMP 36.6; O2SAT 98
== END 2022-03-29 23:59 | disposition home or self-care (01) ==
PROVIDERS: PCP Family Medicine; Visit Provider Internal Medicine Hematology & Oncology
DX: Z51.12 Encounter for antineoplastic immunotherapy (principal); C34.11 Malignant neoplasm of upper lobe, right bronchus or lung; F17.210 Nicotine dependence, cigarettes, uncomplicated; Z95.828 Presence of other vascular implants and grafts; Z79.899 Other long term (current) drug therapy
CPT/HCPCS: 80053; 84443; 85025; 96413; 99214; J7050; J9173

== ENCOUNTER 2022-04-01 12:29 | Emergency (ER) | payer MEDICAID, SELFPAY ==
[2022-02-13 15:03] VITALS: BP 113/76; BMI 24.4
[2022-04-01 12:44] VITALS: BP 125/68; PULSE 79; RESP 18; TEMP 36.3; O2SAT 100
--- NOTE | 2022-04-01 14:40 | XRR_ITS ---
PROCEDURE INFORMATION: Exam: XR Chest Exam date and time: 04/01/2022 2:44 PM Age: 47 years old Clinical indication: Cough and dyspnea; Additional info: Dyspnea/cough TECHNIQUE: Imaging protocol: Radiologic exam of the chest. Views: 1 view. COMPARISON: CT chest w con* [id number] 12/08/2021 3:02 PM FINDINGS: Tubes, catheters and devices: Left-sided Port-A-Cath with tip in the superior vena cava. Lungs: Emphysematous changes suspected. Previously visualized right upper lobe pulmonary nodule on comparison chest CT is not visualized on this exam. Pleural spaces: Unremarkable. No pleural effusion. No pneumothorax. Heart/Mediastinum: Unremarkable. No cardiomegaly. Bones/joints: Unremarkable. XR/XR chest 1V portable [id number] IMPRESSION: 1. Negative for infiltrate. 2. Emphysematous changes. 3. Previously visualized right upper lobe pulmonary nodule on comparison chest CT is not visualized on this exam.
--- NOTE | 2022-04-01 14:58 | ED_ITS ---
HPI - Neuro Symptoms/Deficit General: Chief Complaint: Neuro Symptoms/Deficit Stated Complaint: n/SOB/leg tingling Time Seen by Provider: 04/01/22 14:27 Source: patient Mode of arrival: ambulatory History of Present Illness: 47-year-old female presents emergency room complaining of numbness and tingling bilaterally in her legs and in her right arm she was breathing fast. It is all resolved at this point. She never had difficulty speech or swallowing she has been very anxious lately she usually uses Xanax. Another issue is that they are not refilling her albuterol inhaler she has known lung cancer which she is currently being treated for. Onset (ago): minute(s) Location: left face, right face, right arm, left leg and right leg Severity: mild Quality: numb and tingling Context: gradual onset On Anticoagulants: No Associated symptoms: Deny chest pain, cough, diaphoresis, fevers/chills, headache(s), anorexia, malaise, nausea, seizures, short of breath, syncope, tingling, vertigo, vomiting or weakness Treatments Prior to Arrival: none Review of Systems Const: Denies: fever(s), chills, malaise or diaphoresis ENMT: Denies: throat pain, ear or mastoid pain, nasal discharge or nasal congestion Card: Denies: chest pain or syncope Resp: Denies: dyspnea, productive cough or non-productive cough GI: Denies: abdominal pain, nausea or vomiting : Denies: flank pain, difficulty voiding, dysuria, urinary frequency or urinary urgency Skin/Breast: Denies: rash or pruritus Neuro: Denies: headache(s) or vertigo [facility] ED PFSH: Medical History Agoraphobia with panic attacks Cigarette nicotine dependence COPD (chronic obstructive pulmonary disease) Fibromyalgia Major depressive disorder, recurrent 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 Psychiatric care Surgical History H/O spinal fusion H/O tubal ligation S/P bronchoscopy Family History Father Parkinsonism Cancer Skin cancer and stomach cancer Brother Parkinsonism Mother Hyperlipidemia CAD (coronary artery disease) Psychiatric illness Other Diabetes Hypertension Major depressive disorder, recurrent severe without psychotic features Denies family history of Clotting disorder Dementia Chronic kidney disease (CKD) Suicide Anesthesia complication Bleeding disorder Lung disease Stroke Social History Smoking and tobacco status: current every day smoker cigarettes Packs smoked per day: 1 Years cigarettes smoked: 33 Quit status (tobacco): has tried quititng Second hand smoke exposure: Yes Alcohol intake: never Adopted: No Caregiver/support person: No Lives independently: Yes Housing: Apartment Marital status: Marital status details: 14 years ago Number of children: 5 Number of grandchildren: 12 Highest education level completed: 10th Grade service: No Current occupational status: disabled Current occupational exposures/hazards: No Pets and animals: Yes (4 dogs) Pets & animals: dog(s) History of recent travel: No Leisure activites: other Leisure activities details: playing with dogs, outside a lot Sexually active: No Current gender identity: Female Marisabel/Yazidi: Buddhism Special marisabel needs: No Agree to transfusion: Yes Financial difficulty paying for basics: Very Hard Female Reproductive History: Date of last menstrual period: 10/18/20 NIH stroke score NIHSS: Level Of Consciousness - 1a: 0 Level Of Consciousness Questions - 1b: Both Correct Level Of Consciousness Commands - 1c: Both Correct Best Gaze - 2: Normal Visual Olson - 3: No Visual Loss Facial Palsy - 4: Normal Motor Arm Right - 5: No Drift Motor Arm Left - 5: No Drift Motor Leg Right - 6: No Drift Motor Leg Left - 6: No Drift Limb Ataxia - 7: Absent Sensory - 8: Normal Best Language - 9: No Aphasia Dysarthia - 10: Normal Extinction And Inattention - 11: 0 Score: Total Score: 0 Physical Exam Const: COMMON NORMALS: no acute distress GENERAL APPEARANCE: cooperative and comfortable ORIENTATION/CONSCIOUSNESS: Yes awake, Yes oriented to person, Yes oriented to place and Yes oriented to time HENMT: COMMON NORMALS: normocephalic, atraumatic and hearing grossly normal bilaterally HEAD & SCALP: normocephalic and atraumatic Resp: COMMON NORMALS: normal respiratory effort, No retractions, No use of accessory muscles and clear to auscultation bilaterally AUSCULTATION: clear to auscultation bilaterally Cardio: COMMON NORMALS: regular rate, regular rhythm and No murmurs present (Cardio) RATE: regular rate RHYTHM: regular rhythm GI: COMMON NORMALS: Soft to palpation and No hepatosplenomegaly present AUSCULTATION: Yes normoactive bowel sounds PALPATION: Yes Soft to palpation, No Tenderness to palpation present (GI), No Guarding due to palpation present (GI) and Yes No hepatosplenomegaly present Extremity: COMMON NORMALS: normal to inspection, capillary refill normal, no clubbing, cyanosis or edema, no calf tenderness and no pedal edema Neuro: SENSORIUM/ORIENTATION: Yes oriented to person, Yes oriented to place and Yes oriented to time Skin: COMMON NORMALS: no rashes or lesions noted GENERAL SKIN EXAM: no rashes or lesions noted Course Vital Signs: Vital signs: Vital Signs Temperature 97.3 F L 04/01/22 12:44 Pulse Rate 82 04/01/22 16:00 Respiratory Rate 18 04/01/22 15:23 Blood Pressure 105/76 04/01/22 16:00 Pulse Oximetry 98 04/01/22 16:00 MDM - Neuro Symptoms/Deficit Medical Decision Making Labs and imaging reviewed. ABG shows hyperventilation she is resolved of all of her symptoms at this time. We will go ahead and discharge her home use of Xanax she has previously been prescribed as needed. Medical Records I reviewed the patient's medical records. Lab Data I reviewed the patient's lab results. 04/01/22 15:17 04/01/22 15:17 Radiology Impressions Chest X-Ray 04/01/22 14:40 IMPRESSION: 1. Negative for infiltrate. 2. Emphysematous changes. 3. Previously visualized right upper lobe pulmonary nodule on comparison chest CT is not visualized on this exam. Laboratory Results WBC 9.4 10^3/uL (4.0-10.0) 04/01/22 15:17 RBC 5.02 10^6/uL (4.1-5.3) 04/01/22 15:17 Hgb 13.8 g/dL (11.5-15.3) 04/01/22 15:17 Hct 41.9 % (37.0-47.0) 04/01/22 15:17 MCV 83.5 fl (81-99) 04/01/22 15:17 MCH 27.5 pg (28.0-34.0) L 04/01/22 15:17 MCHC 32.9 g/dL (30.0-36.0) 04/01/22 15:17 RDW 15.9 % (12.1-15.1) H 04/01/22 15:17 Plt Count 329 10^3/cmm (130-400) 04/01/22 15:17 MPV 11.4 fL (7.4-10.4) H 04/01/22 15:17 Neut % (Auto) 82.3 % 04/01/22 15:17 Lymph % (Auto) 10.4 % 04/01/22 15:17 Owen % (Auto) 6.2 % 04/01/22 15:17 Eos % (Auto) 0.5 % 04/01/22 15:17 Baso % (Auto) 0.4 % 04/01/22 15:17 Neut # (Auto) 7.71 10^3/uL (1.8-7.7) H 04/01/22 15:17 Lymph # (Auto) 1.0 10^3/uL (0.8-4.8) 04/01/22 15:17 Owen # (Auto) 0.6 10^3/uL (0.2-0.9) 04/01/22 15:17 Eos # (Auto) 0.1 10^3/uL (0.0-0.8) 04/01/22 15:17 Baso # (Auto) 0.0 10^3/uL (0.0-0.1) 04/01/22 15:17 Nucleated RBC % (auto) 0 % 04/01/22 15:17 Nucleated RBCs # 0.0 /100WBC 04/01/22 15:17 Specimen Type Arterial 04/01/22 15:03 Sample Site Radial, right 04/01/22 15:03 ABG pH 7.48 (7.35-7.45) H 04/01/22 15:03 ABG pCO2 29.5 mmHg (35-45) L 04/01/22 15:03 ABG pO2 82.4 mmHg (80.0-100.0) 04/01/22 15:03 ABG HCO3 21.8 mmol/L (22-26) L 04/01/22 15:03 ABG O2 Saturation 98.4 04/01/22 15:03 ABG Base Excess -0.8 mmol/L (-2.0-2.0) 04/01/22 15:03 Werner Test Pos 04/01/22 15:03 A-a O2 Gradient 4.1 mmHg (5-10) L 04/01/22 15:03 Hematocrit 40.6 % (37-47) 04/01/22 15:03 Hgb O2 Saturation 93.8 % (95-100) L 04/01/22 15:03 Carboxyhemoglobin 4.0 %THgb (0.4-20.1) 04/01/22 15:03 Methemoglobin 0.7 % (0.4-1.5) 04/01/22 15:03 Total Hemoglobin 13.2 g/dL (12-16) 04/01/22 15:03 Sodium 141.0 mmol/L (131-143) 04/01/22 15:03 Potassium 3.6 mmol/L (3.5-5.0) 04/01/22 15:03 Glucose 88.0 mg/dL (70-115) 04/01/22 15:03 Ionized Calcium 1.2 mmol/L (1.1-1.4) 04/01/22 15:03 O2 Delivery Device Room air 04/01/22 15:03 FiO2 21.0 % 04/01/22 15:03 Quality Control Director ID Cak 04/01/22 15:03 Sodium 140 mmol/L (136-145) 04/01/22 15:17 Potassium 4.2 mmol/L (3.5-5.1) 04/01/22 15:17 Chloride 108 mmol/L (98-107) H 04/01/22 15:17 Carbon Dioxide 20 mmol/L (22-29) L 04/01/22 15:17 Anion Gap 16.2 (5-19) 04/01/22 15:17 BUN 10 mg/dL (6-20) 04/01/22 15:17 Creatinine 0.5 mg/dL (0.5-0.9) 04/01/22 15:17 GFR Calculation 131.1 mL/min (90-130) H 04/01/22 15:17 Glucose 83 mg/dL (65-115) 04/01/22 15:17 Calculated Osmolality 288 mOsm/kg (285-295) 04/01/22 15:17 Calcium 9.7 mg/dL (8.5-10.5) 04/01/22 15:17 Total Bilirubin 0.3 mg/dL (0.15-1.2) 04/01/22 15:17 AST 20 U/L (0-32) 04/01/22 15:17 ALT 14 U/L (0-33) 04/01/22 15:17 Alkaline Phosphatase 127 U/L (35-105) H 04/01/22 15:17 Total Protein 7.6 g/dL (6.6-8.7) 04/01/22 15:17 Albumin 4.2 g/dL (3.5-5.2) 04/01/22 15:17 Globulin 3.4 g/dL (1.3-4.6) 04/01/22 15:17 TSH 1.62 uIU/mL (0.27-4.20) 04/01/22 15:17 Discharge Plan Discharge Patient Disposition: Home Clinical Impression: Hyperventilation, COPD (chronic obstructive pulmonary disease), Lung cancer, Malignant neoplasm of upper lobe, right bronchus or lung Condition: Stable Prescriptions: No Action azithromycin [Zithromax Z-Sav] 250 mg tablet See Rx Instructions PO .COMPLEX Qty: 6 0RF Rx Instructions: For 250 mg dose pack: take 500 mg today (day 1), then 250 mg for 4 days (days 2-5) PO ipratropium-albuterol 0.5 mg-3 mg(2.5 mg base)/3 mL solution for nebulization 3 ml inhalation Q4H PRN (Reason: wheezing) alprazolam [Xanax] 1 mg tablet 1 mg PO .evening PRN (Reason: anxiety) Qty: 30 3RF Rx Instructions: Take one tablet in evening as needed for anxiety Anoro Ellipta 62.5-25 mcg/actuation blister with device 1 inh inhalation DAILY magnesium 250 mg tablet 250 mg PO DAILY albuterol sulfate 90 mcg/actuation HFA aerosol inhaler 2 inh INHALATION Q4H PRN (Reason: shortness of breath or wheezing) Qty: 6.7 5RF Trelegy Ellipta 100-62.5-25 mcg blister with device 1 inh inhalation DAILY Qty: 60 3RF Rx Instructions: 340 B Discharge Orders: Discharge ED (Routine); Ordered 04/01/22 Ordered By: Devonte White Referrals: Mango Yuen MD [Primary Care Provider] - Discharge Diet: Usual diet Discharge Activity: Resume usual activity Activity Restrictions/Additional Instructions: You were seen today for numbness and tingling in your extremities. Blood gas showed acute been hyperventilating. The rest of your exam is normal there is no evidence of stroke. Continue using medications previously prescribed for anxiety from your doctor and follow-up with your doctor as needed. Coding Level of Care Code ED Audio Video Mechanic for James Bruno
[2022-04-01 15:14] LABS: ABG PCO2 29.5 mmHg (35-45); ABG PH Result 7.48 (7.35-7.45); Alveolar-Arterial Oxygen Gradi 4.1 mmHg (5-10); Arterial Blood Gas Hematocrit 40.6 % (37-47); Base Excess ABG -0.8 mmol/L (-2.0-2.0); Blood Gas Allen Test Pos; Blood Gas Operator Identificat CAK; Blood Gas Sample Site Radial, right; Blood Gas Sample Type Arterial; HCO3 ABG 21.8 mmol/L (22-26); HGB O2 Sat 93.8 % (95-100); Ionized Calcium Level - ABG 1.2 mmol/L (1.1-1.4); Methemoglobin 0.7 % (0.4-1.5); Oxygen Device ROOM AIR; Oxygen Saturation ABG 98.4; PO2 ABG 82.4 mmHg (80.0-100.0); Potassium Level - ABG 3.6 mmol/L (3.5-5.0); Total Hemoglobin 13.2 g/dL (12-16)
[2022-04-01 15:23] VITALS: BP 100/78; PULSE 76; RESP 18; O2SAT 98
[2022-04-01 15:30] VITALS: BP 104/74; PULSE 79; O2SAT 100
[2022-04-01 15:30] LABS: Basophils % 0.4 %; Eosinophils # 0.1 10^3/uL (0.0-0.8); Eosinophils % 0.5 %; Hematocrit 41.9 % (37.0-47.0); Hemoglobin 13.8 g/dL (11.5-15.3); Lymphocytes % 10.4 %; Mean Corpuscular HGB Conc 32.9 g/dL (30.0-36.0); Mean Corpuscular Hemoglobin 27.5 pg (28.0-34.0); Mean Corpuscular Volume 83.5 fl (81-99); Mean Platelet Volume 11.4 fL (7.4-10.4); Monocytes # 0.6 10^3/uL (0.2-0.9); Monocytes % 6.2 %; Neutrophils # 7.71 10^3/uL (1.8-7.7); Neutrophils % 82.3 %; Nucleated Red Blood Cells % 0 %; Platelet Count 329 10^3/cmm (130-400); Red Blood Count 5.02 10^6/uL (4.1-5.3); Red Cell Distribution Width 15.9 % (12.1-15.1); White Blood Count 9.4 10^3/uL (4.0-10.0)
[2022-04-01 15:45] LABS: Albumin Level 4.2 g/dL (3.5-5.2); Alkaline Phosphatase 127 U/L (35-105); Blood Urea Nitrogen 10 mg/dL (6-20); Calcium 9.7 mg/dL (8.5-10.5); Carbon Dioxide 20 mmol/L (22-29); Chloride 108 mmol/L (98-107); Globulin 3.4 g/dL (1.3-4.6); Glomerular Filtration Rate 131.1 mL/min (90-130); Glucose 83 mg/dL (65-115); Osmolality Calculated 288 mOsm/kg (285-295); Sodium 140 mmol/L (136-145); Total Bilirubin 0.3 mg/dL (0.15-1.2); Total Protein 7.6 g/dL (6.6-8.7)
[2022-04-01 15:46] LABS: Alanine Aminotransferase 14 U/L (0-33); Anion Gap 16.2 (5-19); Aspartate Amino Transferase 20 U/L (0-32); Potassium 4.2 mmol/L (3.5-5.1)
[2022-04-01 16:00] VITALS: BP 105/76; PULSE 82; O2SAT 98
[2022-04-01 16:03] LABS: Thyroid Stimulating Hormone 1.62 uIU/mL (0.27-4.20)
[2022-04-01 17:30] VITALS: BP 108/81; PULSE 75; RESP 16; O2SAT 94
== END 2022-04-01 18:08 | disposition home or self-care (01) ==
PROVIDERS: Emergency Medicine; Emergency Provider Family Medicine; PCP Family Medicine
DX: R06.4 Hyperventilation (principal); J44.9 Chronic obstructive pulmonary disease, unspecified; C34.11 Malignant neoplasm of upper lobe, right bronchus or lung; F17.210 Nicotine dependence, cigarettes, uncomplicated
CPT/HCPCS: 36600; 71045; 80051; 80053; 82330; 82805; 84443; 85025; 99284

== ENCOUNTER → 2022-04-02 14:53 | Outpatient (BNVA) | payer MEDICAID, SELFPAY ==
[2022-02-13 15:03] VITALS: BP 113/76; BMI 24.4
== END ==
PROVIDERS: PCP Family Medicine; Visit Provider Nurse Practitioner Family
DX: J11.1 Influenza due to unidentified influenza virus with other respiratory manifestations (principal)
CPT/HCPCS: 87400

== ENCOUNTER 2022-04-25 12:27 | Outpatient (CLI) | payer MEDICAID, SELFPAY ==
[2022-02-13 15:03] VITALS: BP 113/76; BMI 24.4
== END 2022-04-25 12:28 | disposition home or self-care (01) ==
PROVIDERS: PCP Family Medicine; Visit Provider Internal Medicine Pulmonary Disease
DX: C34.11 Malignant neoplasm of upper lobe, right bronchus or lung (principal)
CPT/HCPCS: 94010; 94618; 94726; 94729

== ENCOUNTER 2022-04-26 11:32 | Oncology outpatient (recurring) (ONCR) | payer MEDICAID, SELFPAY ==
[2022-02-13 15:03] VITALS: BP 113/76; BMI 24.4
[2022-04-12 10:40] VITALS: BMI 25.7
[2022-04-12 10:55] LABS: Basophils % 0.6 %; Eosinophils # 0.1 10^3/uL (0.0-0.8); Eosinophils % 1.5 %; Hematocrit 41.8 % (37.0-47.0); Hemoglobin 13.6 g/dL (11.5-15.3); Lymphocytes # 1.1 10^3/uL (0.8-4.8); Mean Corpuscular HGB Conc 32.5 g/dL (30.0-36.0); Mean Corpuscular Hemoglobin 27.3 pg (28.0-34.0); Mean Corpuscular Volume 83.8 fl (81-99); Mean Platelet Volume 10.8 fL (7.4-10.4); Monocytes # 0.5 10^3/uL (0.2-0.9); Monocytes % 7.4 %; Neutrophils # 5.47 10^3/uL (1.8-7.7); Neutrophils % 75.4 %; Nucleated Red Blood Cells % 0 %; Platelet Count 273 10^3/cmm (130-400); Red Blood Count 4.99 10^6/uL (4.1-5.3); Red Cell Distribution Width 15.6 % (12.1-15.1); White Blood Count 7.3 10^3/uL (4.0-10.0)
[2022-04-12 11:32] LABS: Alanine Aminotransferase 8 U/L (0-33); Albumin Level 4.3 g/dL (3.5-5.2); Alkaline Phosphatase 133 U/L (35-105); Aspartate Amino Transferase 13 U/L (0-32); Blood Urea Nitrogen 11 mg/dL (6-20); Calcium 9.8 mg/dL (8.5-10.5); Carbon Dioxide 24 mmol/L (22-29); Chloride 106 mmol/L (98-107); Glomerular Filtration Rate 106.3 mL/min (90-130); Glucose 81 mg/dL (65-115); Osmolality Calculated 288 mOsm/kg (285-295); Sodium 140 mmol/L (136-145); Thyroid Stimulating Hormone 3.02 uIU/mL (0.27-4.20); Total Bilirubin 0.2 mg/dL (0.15-1.2); Total Protein 7.3 g/dL (6.6-8.7)
[2022-04-12] MEDS: sodium chloride 0.9% 250 ML 75 ML IV (13:50)
[2022-04-12] MEDS: ipratropium-albuterol 3 mL Neb INHALATION (13:54)
[2022-04-12 15:11] VITALS: BP 102/68; PULSE 90; RESP 18; TEMP 36.1; O2SAT 96
[2022-04-26 12:36] LABS: Basophils % 0.5 %; Eosinophils # 0.1 10^3/uL (0.0-0.8); Hematocrit 41.5 % (37.0-47.0); Hemoglobin 13.5 g/dL (11.5-15.3); Lymphocytes # 1.3 10^3/uL (0.8-4.8); Lymphocytes % 15.5 %; Mean Corpuscular HGB Conc 32.5 g/dL (30.0-36.0); Mean Corpuscular Hemoglobin 27.1 pg (28.0-34.0); Mean Corpuscular Volume 83.3 fl (81-99); Mean Platelet Volume 10.9 fL (7.4-10.4); Monocytes # 0.6 10^3/uL (0.2-0.9); Monocytes % 7.3 %; Neutrophils # 6.25 10^3/uL (1.8-7.7); Neutrophils % 75.2 %; Nucleated Red Blood Cells % 0 %; Platelet Count 290 10^3/cmm (130-400); Red Blood Count 4.98 10^6/uL (4.1-5.3); Red Cell Distribution Width 15.3 % (12.1-15.1); White Blood Count 8.3 10^3/uL (4.0-10.0)
[2022-04-26 13:06] LABS: Alanine Aminotransferase 12 U/L (0-33); Albumin Level 4.3 g/dL (3.5-5.2); Alkaline Phosphatase 144 U/L (35-105); Anion Gap 11.9 (5-19); Aspartate Amino Transferase 13 U/L (0-32); Blood Urea Nitrogen 11 mg/dL (6-20); Calcium 9.4 mg/dL (8.5-10.5); Carbon Dioxide 25 mmol/L (22-29); Chloride 103 mmol/L (98-107); Glomerular Filtration Rate 106.3 mL/min (90-130); Glucose 78 mg/dL (65-115); Osmolality Calculated 280 mOsm/kg (285-295); Potassium 3.9 mmol/L (3.5-5.1); Sodium 136 mmol/L (136-145); Thyroid Stimulating Hormone 2.04 uIU/mL (0.27-4.20); Total Bilirubin 0.2 mg/dL (0.15-1.2); Total Protein 7.3 g/dL (6.6-8.7)
[2022-04-26 16:14] VITALS: BP 120/70; PULSE 72; RESP 16; TEMP 36.6; O2SAT 99
== END 2022-04-29 23:59 | disposition home or self-care (01) ==
PROVIDERS: Nurse Practitioner; PCP Family Medicine; Visit Provider Internal Medicine Hematology & Oncology
DX: C34.11 Malignant neoplasm of upper lobe, right bronchus or lung; Z51.12 Encounter for antineoplastic immunotherapy; Z79.899 Other long term (current) drug therapy
CPT/HCPCS: 80053; 84443; 85025; 96413; 99214; J7050; J9173

== ENCOUNTER 2022-05-10 08:21 | Oncology outpatient (recurring) (ONCR) | payer MEDICAID, SELFPAY ==
[2022-02-13 15:03] VITALS: BP 113/76; BMI 24.4
[2022-05-10 08:46] LABS: Basophils # 0.1 10^3/uL (0.0-0.1); Basophils % 0.5 %; Eosinophils # 0.1 10^3/uL (0.0-0.8); Eosinophils % 0.9 %; Hematocrit 42.5 % (37.0-47.0); Hemoglobin 13.6 g/dL (11.5-15.3); Lymphocytes # 1.3 10^3/uL (0.8-4.8); Lymphocytes % 14.3 %; Mean Corpuscular Volume 84.3 fl (81-99); Mean Platelet Volume 10.9 fL (7.4-10.4); Monocytes # 0.8 10^3/uL (0.2-0.9); Monocytes % 8.5 %; Neutrophils # 6.96 10^3/uL (1.8-7.7); Neutrophils % 75.5 %; Nucleated Red Blood Cells % 0 %; Platelet Count 299 10^3/cmm (130-400); Red Blood Count 5.04 10^6/uL (4.1-5.3); Red Cell Distribution Width 15.6 % (12.1-15.1); White Blood Count 9.2 10^3/uL (4.0-10.0)
[2022-05-10 09:24] LABS: Alanine Aminotransferase 11 U/L (0-33); Albumin Level 4.2 g/dL (3.5-5.2); Alkaline Phosphatase 142 U/L (35-105); Anion Gap 14.1 (5-19); Aspartate Amino Transferase 12 U/L (0-32); Blood Urea Nitrogen 8 mg/dL (6-20); Carbon Dioxide 24 mmol/L (22-29); Chloride 105 mmol/L (98-107); Glomerular Filtration Rate 88.9 mL/min (90-130); Glucose 87 mg/dL (65-115); Osmolality Calculated 286 mOsm/kg (285-295); Potassium 4.1 mmol/L (3.5-5.1); Sodium 139 mmol/L (136-145); Thyroid Stimulating Hormone 2.84 uIU/mL (0.27-4.20); Total Bilirubin 0.3 mg/dL (0.15-1.2); Total Protein 7.2 g/dL (6.6-8.7)
[2022-05-10 13:18] VITALS: BP 93/63; PULSE 91; RESP 16; TEMP 36.2; O2SAT 96
== END 2022-05-30 23:59 | disposition home or self-care (01) ==
PROVIDERS: PCP Family Medicine; Visit Provider Internal Medicine Hematology & Oncology
DX: Z51.12 Encounter for antineoplastic immunotherapy (principal); C34.11 Malignant neoplasm of upper lobe, right bronchus or lung; J44.1 Chronic obstructive pulmonary disease with (acute) exacerbation; R05.3 Chronic cough; R06.2 Wheezing; F17.210 Nicotine dependence, cigarettes, uncomplicated; Z79.899 Other long term (current) drug therapy; Z95.828 Presence of other vascular implants and grafts
CPT/HCPCS: 80053; 84443; 85025; 96413; 96415; 99214; J7050; J9173

== ENCOUNTER 2022-05-18 07:54 | Outpatient (CLI) | payer MEDICAID, SELFPAY ==
[2022-02-13 15:03] VITALS: BP 113/76; BMI 24.4
[2022-05-18 08:47] VITALS: BMI 22.6
--- NOTE | 2022-05-18 08:47 | ECG_ITS ---
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 Interpretive Statements NAME OF STUDY: LEXISCAN SESTAMIBI STRESS TEST INDICATION: [Chest Pain, ] Procedure: At the baseline, the blood pressure was 166/78 mmHg with a heart rate of 79 bpm. The electrocardiogram showed normal sinus rhythm, normal axis with normal ST and T's. The Lexiscan was infused over a period of 20 seconds. A total of 0.4 mg of Lexiscan was infused. The stress phase was continued for a total of 5 minutes. Heart rate was at the end of stress phase was 92 bpm and a blood pressure of 82/55 mmHg. The EKG at the peak infusion revealed normal sinus rhythm with no significant ST-T wave changes. Sestamibi was injected 20 seconds after the Lexiscan infusion. Blood pressure at the end of recovery phase was 92/62 mmHg with a heart rate of 82 bpm. Conclusion: 1. Normal EKG response to Lexiscan infusion 2. No Lexiscan induced chest pain or cardiac arrhythmia. 3. Normal blood pressure and heart rate response. 4. Sestamibi/sestamibi perfusion scan pending; see separate report. Electronically Signed On 05-28-2022 20:24:37 SUPERINTENDENT CEMETERY by Sebastian Martinez M.D. [id number]
--- NOTE | 2022-05-18 08:48 | NMCV_ITS ---
NM daniele perf SPECT r/s* [id number] Kristine Kramer Age: 47 Gender: F : 1975 Exam Date: 05/18/2022 09:23 Ordering Phys: Alexander Morales MD Technologist: EDUARD Castrejon Exam Location: [facility] Indications: CHEST PAIN STRESS TEST Please see separate stress test report in [facility] for full findings IMAGE PROTOCOL Rest/Stress 1 Lexiscan Day Radiopharmaceutical Dose (mCi) Administration Site Administered by Rest: Tc-99m 10.8 IV EDUARD Nobles Sestamibi Stress:Tc-99m 32.1 IV EDUARD Castrejon Sestamijerzy Rest: 18-May-2022 60 Discovery 630 Stress: 18-May-2022 30 Discovery 630 0.4mg Lexiscan. Images obtained in supine and prone position. SPECT RESULTS Technical Quality: Excellent Raw Data Analysis: Normal Image Corrections: No attenuation or motion correction applied Summed Stress Score: 0 Summed Rest Score: 0 Summed Difference Score: 0 PERFUSION FINDINGS SPECT images demonstrate homogeneous tracer distribution throughout the myocardium. FUNCTIONAL RESULTS (calculated via Gated SPECT) Stress Image LV EF (%): 79 Stress EDV (mL):53 TID: 1.04 Stress ESV (mL):11 FUNCTIONAL FINDINGS: There is normal left ventricular systolic function. IMPRESSIONS 1. Normal myocardial perfusion imaging with no evidence of ischemia 2. LV systolic function is normal Sebastian Martinez MD (Electronically Signed) Final Date: 18 May 2022 12:40 S
[2022-05-18] MEDS: regadenoson 0.4 Mg/5 ml Syringe IVP (10:29)
[2022-05-18] MEDS: ondansetron 2 mg/ML SDV 2 mL 4 MG IVP (10:50)
[2022-05-18 11:45] VITALS: BP 92/62; PULSE 84
== END 2022-05-18 07:55 | disposition home or self-care (01) ==
LOC: CDL 07:56
PROVIDERS: PCP Family Medicine; Visit Provider Internal Medicine Pulmonary Disease
DX: R07.9 Chest pain, unspecified (principal)
CPT/HCPCS: 36415; 78452; 93017; 96374; 96375; A9500; J2405; J2785

== ENCOUNTER 2022-06-15 09:30 | Oncology outpatient (recurring) (ONCR) | payer MEDICAID, SELFPAY ==
[2022-02-13 15:03] VITALS: BP 113/76; BMI 24.4
[2022-06-01 08:46] LABS: Basophils % 0.5 %; Eosinophils # 0.1 10^3/uL (0.0-0.8); Eosinophils % 1.2 %; Hematocrit 41.3 % (37.0-47.0); Hemoglobin 13.1 g/dL (11.5-15.3); Lymphocytes # 1.3 10^3/uL (0.8-4.8); Mean Corpuscular HGB Conc 31.7 g/dL (30.0-36.0); Mean Corpuscular Hemoglobin 26.8 pg (28.0-34.0); Mean Corpuscular Volume 84.5 fl (81-99); Mean Platelet Volume 10.7 fL (7.4-10.4); Monocytes # 0.7 10^3/uL (0.2-0.9); Monocytes % 8.5 %; Neutrophils # 5.51 10^3/uL (1.8-7.7); Neutrophils % 72.4 %; Nucleated Red Blood Cells % 0 %; Platelet Count 270 10^3/cmm (130-400); Red Blood Count 4.89 10^6/uL (4.1-5.3); White Blood Count 7.6 10^3/uL (4.0-10.0)
[2022-06-01 09:07] VITALS: BMI 26.8
[2022-06-01 09:16] LABS: Alanine Aminotransferase 10 U/L (0-33); Alkaline Phosphatase 126 U/L (35-105); Anion Gap 15.6 (5-19); Aspartate Amino Transferase 12 U/L (0-32); Blood Urea Nitrogen 14 mg/dL (6-20); Calcium 9.5 mg/dL (8.5-10.5); Carbon Dioxide 23 mmol/L (22-29); Chloride 104 mmol/L (98-107); Globulin 3.1 g/dL (1.3-4.6); Glomerular Filtration Rate 88.9 mL/min (90-130); Glucose 97 mg/dL (65-115); Osmolality Calculated 288 mOsm/kg (285-295); Potassium 3.6 mmol/L (3.5-5.1); Sodium 139 mmol/L (136-145); Thyroid Stimulating Hormone 2.58 uIU/mL (0.27-4.20); Total Bilirubin 0.2 mg/dL (0.15-1.2); Total Protein 7.1 g/dL (6.6-8.7)
[2022-06-01] MEDS: sodium chloride 0.9% 250 ML 75 ML IV (11:02)
[2022-06-01] MEDS: ipratropium-albuterol 3 mL Neb INHALATION (11:09)
[2022-06-01 12:21] VITALS: BP 93/69; PULSE 76; RESP 16; TEMP 35.9; O2SAT 99
[2022-06-15 08:32] LABS: Basophils % 0.5 %; Eosinophils # 0.1 10^3/uL (0.0-0.8); Eosinophils % 1.3 %; Hematocrit 41.1 % (37.0-47.0); Hemoglobin 13.4 g/dL (11.5-15.3); Lymphocytes # 1.2 10^3/uL (0.8-4.8); Lymphocytes % 16.4 %; Mean Corpuscular HGB Conc 32.6 g/dL (30.0-36.0); Mean Corpuscular Hemoglobin 27.1 pg (28.0-34.0); Monocytes # 0.7 10^3/uL (0.2-0.9); Monocytes % 9.2 %; Neutrophils # 5.35 10^3/uL (1.8-7.7); Neutrophils % 72.2 %; Nucleated Red Blood Cells % 0 %; Platelet Count 272 10^3/cmm (130-400); Red Blood Count 4.95 10^6/uL (4.1-5.3); Red Cell Distribution Width 15.3 % (12.1-15.1); White Blood Count 7.4 10^3/uL (4.0-10.0)
[2022-06-15 08:37] VITALS: BMI 26.6
[2022-06-15 09:07] LABS: Alanine Aminotransferase 10 U/L (0-33); Albumin Level 4.2 g/dL (3.5-5.2); Alkaline Phosphatase 131 U/L (35-105); Aspartate Amino Transferase 11 U/L (0-32); Blood Urea Nitrogen 16 mg/dL (6-20); Calcium 9.6 mg/dL (8.5-10.5); Carbon Dioxide 23 mmol/L (22-29); Chloride 104 mmol/L (98-107); Creatinine Clr Calc Pharmacy 117.3092; Globulin 2.5 g/dL (1.3-4.6); Glomerular Filtration Rate 106.3 mL/min (90-130); Glucose 98 mg/dL (65-115); Osmolality Calculated 287 mOsm/kg (285-295); Sodium 138 mmol/L (136-145); Thyroid Stimulating Hormone 2.93 uIU/mL (0.27-4.20); Total Bilirubin 0.2 mg/dL (0.15-1.2); Total Protein 6.7 g/dL (6.6-8.7)
[2022-06-15] MEDS: sodium chloride 0.9% 250 ML 75 ML IV (09:59)
[2022-06-15 11:45] VITALS: BP 101/71; PULSE 97; RESP 16; TEMP 36.3; O2SAT 97
== END 2022-06-27 23:59 | disposition home or self-care (01) ==
PROVIDERS: PCP Family Medicine; Visit Provider Internal Medicine Hematology & Oncology
DX: Z51.12 Encounter for antineoplastic immunotherapy (principal); C34.11 Malignant neoplasm of upper lobe, right bronchus or lung; Z79.899 Other long term (current) drug therapy
CPT/HCPCS: 80053; 84443; 85025; 96413; 99214; J7050; J9173

== ENCOUNTER 2022-07-07 16:37 | Outpatient (CLI) | payer MEDICAID, SELFPAY ==
[2022-02-13 15:03] VITALS: BP 113/76; BMI 24.4
[2022-07-07] MEDS: iohexol 350 mg/mL 500 mL Btl (per mL) IV (16:59)
--- NOTE | 2022-07-07 17:30 | CT_ITS ---
WS: [id number] CT CHEST WITH INTRAVENOUS CONTRAST HISTORY: Follow-up lung cancer. TECHNIQUE: Contiguous 5 mm axial imaging performed on the thorax. Coronal and sagittal reformats are submitted. All CT scans at [facility] use at least one of these dose optimization techniques: automated exposure control; mA and/or kV adjustment per patient size (includes targeted exams where dose is matched to clinical indication); or iterative reconstruction. CONTRAST: Omnipaque 350; 100 mL IV. DLP: 332.92 mGy.cm COMPARISON: 12/08/2021, 09/02/2021 Lungs and central airway: Pulmonary hyperexpansion. Previously described spiculated mass in the poste rior RIGHT upper lobe is reidentified measuring 10 x 10 mm. Slightly decreased in size as compared to 14 x 11 mm on 12/08/2021. There is mild adjacent pleural thickening. There are new scattered but nume you small areas of groundglass attenuation with irregular borders and mild spiculation. These are pr edominantly in the upper lobes bilaterally. There are numerous spiculated groundglass nodules with th e largest measuring approximately 7 mm. Pleura: Normal. No pleural effusion. Heart and pericardium: Normal size heart with no pericardial effusion. Mediastinum and wood: No mediastinum or hilar adenopathy. Vessels: Mild atherosclerosis aorta. No filling defects in the pulmonary artery. LEFT subclavian Port -A-Cath. Chest wall and lower neck: No soft tissue masses. Upper abdomen: Small hiatal hernia. Mildly contracted gallbladder. There is high density contrast in the gallbladder with filling defects. The etiology of this high density contrast is not certain. No r ecent contrast examinations were performed at [facility]. Osseous structures: No destructive process. CT/CT chest w con* [id number] IMPRESSION: 1. Continued slight decrease in size of the RIGHT upper lobe neoplasm now liz uring 10 x 10 mm. Compared to 14 x 11 on the most recent study. 2. New, numerous spiculated groundglass nodule predominantly in the upper lobe s since the prior study. Differential includes metastatic lesions, septic embol i or focal areas of pneumonitis. 3. No mediastinal or hilar adenopathy. 4. Filling defects within the gallbladder. Gallbladder is slightly contracted. Consider evaluation by ultrasound to exclude gallbladder soft tissue mass.
== END 2022-07-07 16:38 | disposition home or self-care (01) ==
LOC: RAD 16:41
PROVIDERS: PCP Family Medicine; Visit Provider Internal Medicine Hematology & Oncology
DX: C34.91 Malignant neoplasm of unspecified part of right bronchus or lung (principal)
CPT/HCPCS: 71260; Q9967

== ENCOUNTER 2022-07-27 08:00 | Oncology outpatient (recurring) (ONCR) | payer MEDICAID, SELFPAY ==
[2022-02-13 15:03] VITALS: BP 113/76; BMI 24.4
[2022-06-29 09:10] VITALS: BMI 27.4
[2022-06-29 09:15] LABS: Basophils # 0.1 10^3/uL (0.0-0.1); Basophils % 0.7 %; Eosinophils # 0.1 10^3/uL (0.0-0.8); Eosinophils % 1.6 %; Hematocrit 42.9 % (37.0-47.0); Hemoglobin 13.7 g/dL (11.5-15.3); Lymphocytes # 1.2 10^3/uL (0.8-4.8); Lymphocytes % 16.7 %; Mean Corpuscular HGB Conc 31.9 g/dL (30.0-36.0); Mean Corpuscular Hemoglobin 26.8 pg (28.0-34.0); Mean Corpuscular Volume 83.8 fl (81-99); Mean Platelet Volume 10.8 fL (7.4-10.4); Monocytes # 0.6 10^3/uL (0.2-0.9); Monocytes % 8.1 %; Neutrophils # 5.03 10^3/uL (1.8-7.7); Neutrophils % 72.5 %; Nucleated Red Blood Cells % 0 %; Platelet Count 298 10^3/cmm (130-400); Red Blood Count 5.12 10^6/uL (4.1-5.3); Red Cell Distribution Width 15.5 % (12.1-15.1); White Blood Count 6.9 10^3/uL (4.0-10.0)
[2022-06-29 09:51] LABS: Alanine Aminotransferase 10 U/L (0-33); Albumin Level 4.2 g/dL (3.5-5.2); Alkaline Phosphatase 133 U/L (35-105); Aspartate Amino Transferase 14 U/L (0-32); Blood Urea Nitrogen 8 mg/dL (6-20); Calcium 9.6 mg/dL (8.5-10.5); Carbon Dioxide 23 mmol/L (22-29); Chloride 104 mmol/L (98-107); Globulin 2.9 g/dL (1.3-4.6); Glomerular Filtration Rate 106.3 mL/min (90-130); Glucose 88 mg/dL (65-115); Osmolality Calculated 288 mOsm/kg (285-295); Sodium 140 mmol/L (136-145); Thyroid Stimulating Hormone 2.39 uIU/mL (0.27-4.20); Total Bilirubin 0.2 mg/dL (0.15-1.2); Total Protein 7.1 g/dL (6.6-8.7)
[2022-06-29 09:52] LABS: Anion Gap 17.3 (5-19)
[2022-06-29 09:53] LABS: Potassium 4.3 mmol/L (3.5-5.1)
[2022-06-29] MEDS: sodium chloride 0.9% 250 ML 50 ML IV (11:42)
[2022-06-29 13:18] VITALS: BP 114/71; PULSE 87; RESP 18; TEMP 36.2; O2SAT 97
[2022-07-13 08:13] LABS: Basophils # 0.1 10^3/uL (0.0-0.1); Basophils % 0.7 %; Eosinophils # 0.2 10^3/uL (0.0-0.8); Lymphocytes # 1.4 10^3/uL (0.8-4.8); Lymphocytes % 18.8 %; Mean Corpuscular HGB Conc 32.5 g/dL (30.0-36.0); Mean Corpuscular Hemoglobin 26.9 pg (28.0-34.0); Mean Corpuscular Volume 82.6 fl (81-99); Mean Platelet Volume 10.7 fL (7.4-10.4); Monocytes # 0.8 10^3/uL (0.2-0.9); Monocytes % 10.4 %; Neutrophils # 5.14 10^3/uL (1.8-7.7); Neutrophils % 67.6 %; Nucleated Red Blood Cells % 0 %; Platelet Count 297 10^3/cmm (130-400); Red Blood Count 4.84 10^6/uL (4.1-5.3); Red Cell Distribution Width 15.8 % (12.1-15.1); White Blood Count 7.6 10^3/uL (4.0-10.0)
[2022-07-13 08:50] LABS: Alanine Aminotransferase 8 U/L (0-33); Albumin Level 3.9 g/dL (3.5-5.2); Alkaline Phosphatase 115 U/L (35-105); Anion Gap 14.2 (5-19); Aspartate Amino Transferase 18 U/L (0-32); Blood Urea Nitrogen 16 mg/dL (6-20); Calcium 8.4 mg/dL (8.5-10.5); Carbon Dioxide 24 mmol/L (22-29); Chloride 105 mmol/L (98-107); Globulin 2.8 g/dL (1.3-4.6); Glomerular Filtration Rate 88.9 mL/min (90-130); Glucose 127 mg/dL (65-115); Osmolality Calculated 291 mOsm/kg (285-295); Potassium 4.2 mmol/L (3.5-5.1); Sodium 139 mmol/L (136-145); Thyroid Stimulating Hormone 5.62 uIU/mL (0.27-4.20); Total Bilirubin 0.3 mg/dL (0.15-1.2); Total Protein 6.7 g/dL (6.6-8.7)
[2022-07-13 11:40] VITALS: BP 95/63; PULSE 81; RESP 16; TEMP 36.4; O2SAT 97
[2022-07-27 08:16] VITALS: BP 103/71; PULSE 90; RESP 18; TEMP 36.2; O2SAT 99
[2022-07-27 08:22] LABS: Basophils % 0.5 %; Eosinophils # 0.1 10^3/uL (0.0-0.8); Eosinophils % 1.5 %; Hematocrit 39.6 % (37.0-47.0); Hemoglobin 12.6 g/dL (11.5-15.3); Lymphocytes # 1.2 10^3/uL (0.8-4.8); Lymphocytes % 14.3 %; Mean Corpuscular HGB Conc 31.8 g/dL (30.0-36.0); Mean Corpuscular Hemoglobin 26.6 pg (28.0-34.0); Mean Corpuscular Volume 83.5 fl (81-99); Mean Platelet Volume 10.9 fL (7.4-10.4); Monocytes # 0.8 10^3/uL (0.2-0.9); Monocytes % 9.5 %; Neutrophils # 6.06 10^3/uL (1.8-7.7); Neutrophils % 73.7 %; Nucleated Red Blood Cells % 0 %; Platelet Count 244 10^3/cmm (130-400); Red Blood Count 4.74 10^6/uL (4.1-5.3); Red Cell Distribution Width 16.2 % (12.1-15.1); White Blood Count 8.2 10^3/uL (4.0-10.0)
[2022-07-27 08:55] LABS: Alanine Aminotransferase 10 U/L (0-33); Albumin Level 3.6 g/dL (3.5-5.2); Alkaline Phosphatase 106 U/L (35-105); Anion Gap 13.7 (5-19); Aspartate Amino Transferase 11 U/L (0-32); Blood Urea Nitrogen 12 mg/dL (6-20); Calcium 8.8 mg/dL (8.5-10.5); Carbon Dioxide 21 mmol/L (22-29); Chloride 107 mmol/L (98-107); Globulin 2.8 g/dL (1.3-4.6); Glomerular Filtration Rate 106.3 mL/min (90-130); Glucose 57 mg/dL (65-115); Osmolality Calculated 283 mOsm/kg (285-295); Potassium 3.7 mmol/L (3.5-5.1); Sodium 138 mmol/L (136-145); Thyroid Stimulating Hormone 2.22 uIU/mL (0.27-4.20); Total Bilirubin 0.2 mg/dL (0.15-1.2); Total Protein 6.4 g/dL (6.6-8.7)
[2022-07-27] MEDS: sodium chloride 0.9% 250 ML 75 ML IV (09:35)
[2022-07-27 11:18] VITALS: BP 103/73; PULSE 79; RESP 18; TEMP 36.4; O2SAT 95
== END 2022-07-28 23:59 | disposition home or self-care (01) ==
PROVIDERS: Nurse Practitioner Family; PCP Family Medicine; Visit Provider Internal Medicine Hematology & Oncology
DX: Z51.12 Encounter for antineoplastic immunotherapy (principal); C34.11 Malignant neoplasm of upper lobe, right bronchus or lung; Z95.828 Presence of other vascular implants and grafts; F17.210 Nicotine dependence, cigarettes, uncomplicated
CPT/HCPCS: 80053; 84443; 85025; 96413; 99213; 99214; J7050; J9173

== ENCOUNTER 2022-08-21 09:08 | Oncology outpatient (recurring) (ONCR) | payer MEDICAID, SELFPAY ==
[2022-02-13 15:03] VITALS: BP 113/76; BMI 24.4
[2022-08-21 09:46] VITALS: BP 106/75; PULSE 85; TEMP 36.5; O2SAT 97
[2022-08-21 09:51] LABS: Basophils % 0.5 %; Eosinophils # 0.1 10^3/uL (0.0-0.8); Eosinophils % 0.8 %; Hematocrit 43.9 % (37.0-47.0); Lymphocytes # 1.3 10^3/uL (0.8-4.8); Lymphocytes % 14.3 %; Mean Corpuscular HGB Conc 31.9 g/dL (30.0-36.0); Mean Corpuscular Hemoglobin 26.5 pg (28.0-34.0); Mean Platelet Volume 10.6 fL (7.4-10.4); Monocytes # 0.7 10^3/uL (0.2-0.9); Monocytes % 7.3 %; Neutrophils # 6.81 10^3/uL (1.8-7.7); Neutrophils % 76.8 %; Nucleated Red Blood Cells % 0 %; Platelet Count 302 10^3/cmm (130-400); Red Blood Count 5.29 10^6/uL (4.1-5.3); Red Cell Distribution Width 15.9 % (12.1-15.1); White Blood Count 8.9 10^3/uL (4.0-10.0)
[2022-08-21 10:18] LABS: Alanine Aminotransferase 10 U/L (0-33); Albumin Level 4.3 g/dL (3.5-5.2); Alkaline Phosphatase 131 U/L (35-105); Anion Gap 12.4 (5-19); Aspartate Amino Transferase 10 U/L (0-32); Blood Urea Nitrogen 10 mg/dL (6-20); Calcium 9.7 mg/dL (8.5-10.5); Carbon Dioxide 25 mmol/L (22-29); Chloride 102 mmol/L (98-107); Globulin 3.1 g/dL (1.3-4.6); Glomerular Filtration Rate 106.3 mL/min (90-130); Glucose 92 mg/dL (65-115); Osmolality Calculated 279 mOsm/kg (285-295); Potassium 4.4 mmol/L (3.5-5.1); Sodium 135 mmol/L (136-145); Total Bilirubin 0.2 mg/dL (0.15-1.2); Total Protein 7.4 g/dL (6.6-8.7)
[2022-08-21 15:33] VITALS: BP 152/72; PULSE 68; TEMP 36.6; O2SAT 96
== END 2022-08-27 23:59 | disposition home or self-care (01) ==
PROVIDERS: Nurse Practitioner Family; PCP Family Medicine; Visit Provider Internal Medicine Hematology & Oncology
DX: Z79.899 Other long term (current) drug therapy (principal); F17.210 Nicotine dependence, cigarettes, uncomplicated; Z51.12 Encounter for antineoplastic immunotherapy; C34.11 Malignant neoplasm of upper lobe, right bronchus or lung; Z95.828 Presence of other vascular implants and grafts
CPT/HCPCS: 36415; 80053; 84443; 85025; 96413; 99213; J7050; J9173

== ENCOUNTER 2022-09-21 09:00 | Oncology outpatient (recurring) (ONCR) | payer MEDICAID, SELFPAY ==
[2022-02-13 15:03] VITALS: BP 113/76; BMI 24.4
[2022-09-07 09:59] VITALS: BMI 27.2
[2022-09-07 10:00] VITALS: BP 129/65; PULSE 80; RESP 16; TEMP 36.2; O2SAT 96
[2022-09-07 10:01] LABS: Basophils # 0.1 10^3/uL (0.0-0.1); Basophils % 0.5 %; Eosinophils # 0.1 10^3/uL (0.0-0.8); Eosinophils % 0.9 %; Hematocrit 43.5 % (37.0-47.0); Hemoglobin 13.9 g/dL (11.5-15.3); Lymphocytes # 1.3 10^3/uL (0.8-4.8); Lymphocytes % 12.8 %; Mean Corpuscular Hemoglobin 26.8 pg (28.0-34.0); Mean Platelet Volume 10.3 fL (7.4-10.4); Monocytes # 0.7 10^3/uL (0.2-0.9); Monocytes % 6.6 %; Neutrophils # 7.83 10^3/uL (1.8-7.7); Neutrophils % 78.9 %; Nucleated Red Blood Cells % 0 %; Platelet Count 281 10^3/cmm (130-400); Red Blood Count 5.18 10^6/uL (4.1-5.3); Red Cell Distribution Width 15.4 % (12.1-15.1); White Blood Count 9.9 10^3/uL (4.0-10.0)
[2022-09-07 10:26] LABS: Alanine Aminotransferase 9 U/L (0-33); Albumin Level 4.3 g/dL (3.5-5.2); Alkaline Phosphatase 122 U/L (35-105); Anion Gap 14.1 (5-19); Aspartate Amino Transferase 14 U/L (0-32); Blood Urea Nitrogen 10 mg/dL (6-20); Carbon Dioxide 23 mmol/L (22-29); Chloride 105 mmol/L (98-107); Globulin 2.8 g/dL (1.3-4.6); Glomerular Filtration Rate 106.3 mL/min (90-130); Glucose 82 mg/dL (65-115); Osmolality Calculated 284 mOsm/kg (285-295); Potassium 4.1 mmol/L (3.5-5.1); Sodium 138 mmol/L (136-145); Total Bilirubin 0.2 mg/dL (0.15-1.2); Total Protein 7.1 g/dL (6.6-8.7)
[2022-09-07] MEDS: sodium chloride 0.9% (100 ml) 100 ML 25 ML (13:00)
[2022-09-07 14:20] VITALS: BP 106/76; PULSE 88; RESP 16; TEMP 36.1; O2SAT 95
[2022-09-21 09:00] VITALS: BP 104/72; PULSE 81; RESP 18; TEMP 36.4; O2SAT 98
[2022-09-21 09:13] LABS: Basophils # 0.1 10^3/uL (0.0-0.1); Basophils % 0.6 %; Eosinophils # 0.1 10^3/uL (0.0-0.8); Eosinophils % 1.1 %; Hematocrit 45.1 % (37.0-47.0); Hemoglobin 14.2 g/dL (11.5-15.3); Lymphocytes # 1.6 10^3/uL (0.8-4.8); Mean Corpuscular HGB Conc 31.5 g/dL (30.0-36.0); Mean Corpuscular Hemoglobin 26.3 pg (28.0-34.0); Mean Corpuscular Volume 83.5 fl (81-99); Mean Platelet Volume 10.7 fL (7.4-10.4); Monocytes # 0.6 10^3/uL (0.2-0.9); Monocytes % 7.1 %; Neutrophils # 5.89 10^3/uL (1.8-7.7); Neutrophils % 71.8 %; Nucleated Red Blood Cells % 0 %; Platelet Count 302 10^3/cmm (130-400); Red Cell Distribution Width 15.2 % (12.1-15.1); White Blood Count 8.2 10^3/uL (4.0-10.0)
[2022-09-21 09:58] LABS: Alanine Aminotransferase 10 U/L (0-33); Albumin Level 4.1 g/dL (3.5-5.2); Alkaline Phosphatase 126 U/L (35-105); Anion Gap 15.5 (5-19); Aspartate Amino Transferase 11 U/L (0-32); Blood Urea Nitrogen 15 mg/dL (6-20); Carbon Dioxide 20 mmol/L (22-29); Chloride 108 mmol/L (98-107); Globulin 2.9 g/dL (1.3-4.6); Glomerular Filtration Rate 88.9 mL/min (90-130); Glucose 87 mg/dL (65-115); Osmolality Calculated 288 mOsm/kg (285-295); Potassium 4.5 mmol/L (3.5-5.1); Sodium 139 mmol/L (136-145); Thyroid Stimulating Hormone 2.53 uIU/mL (0.27-4.20); Total Bilirubin 0.2 mg/dL (0.15-1.2)
== END 2022-09-27 23:59 | disposition home or self-care (01) ==
PROVIDERS: Nurse Practitioner Family; PCP Family Medicine; Visit Provider Internal Medicine Hematology & Oncology
DX: C34.11 Malignant neoplasm of upper lobe, right bronchus or lung; F17.210 Nicotine dependence, cigarettes, uncomplicated; H66.91 Otitis media, unspecified, right ear; Z79.2 Long term (current) use of antibiotics; Z95.828 Presence of other vascular implants and grafts
CPT/HCPCS: 36591; 80053; 84443; 85025; 96413; 99214; J1642; J7050; J9173

== ENCOUNTER → 2022-10-10 14:01 | Outpatient (BNVA) | payer MEDICAID, SELFPAY ==
[2022-02-13 15:03] VITALS: BP 113/76; BMI 24.4
== END ==
PROVIDERS: PCP Family Medicine; Visit Provider Internal Medicine Pulmonary Disease
DX: J44.9 Chronic obstructive pulmonary disease, unspecified (principal); C34.11 Malignant neoplasm of upper lobe, right bronchus or lung; F17.210 Nicotine dependence, cigarettes, uncomplicated
CPT/HCPCS: 99214

== ENCOUNTER 2022-10-12 13:47 | Outpatient (CLI) | payer MEDICAID, SELFPAY ==
[2022-02-13 15:03] VITALS: BP 113/76; BMI 24.4
--- NOTE | 2022-10-12 14:00 | CT_ITS ---
WS: [id number] CT chest w con* [id number] HISTORY: Follow up lung cancer. TECHNIQUE: Axial imaging performed through the thorax. Coronal and sagittal reformats are submitted. All CT scans at [facility] use at least one of these dose optimization techniques: automated exposure control; mA and/or kV adjustment per patient size (includes targeted exams where dose is mat ched to clinical indication); or iterative reconstruction. CONTRAST: Omnipaque 350; 100 mL IV. DLP: 230.11 mGy.cm COMPARISON: 07/07/2022, 12/08/2021, head CT 05/14/2021 Lungs and central airway: No interval change in size of the RIGHT upper lobe pulmonary nodule since . Nodule measures 10 x 11 mm. There is a small amount of adjacent groundglass attenuation. Th e previously described slightly spiculated nodule scattered throughout the lungs have moderately impr eugenie. Some of these have resolved while others are smaller in size. May have been a response to the t reatment. Pleura: Normal. No pleural effusion. Heart and pericardium: Normal size heart with no pericardial effusion. Mediastinum and wood: Small mediastinal and hilar lymph nodes. Lymph node groups have not increased i n size or number. Vessels: Normal size aortic and pulmonary artery. No coronary artery calcifications. LEFT subclavian Mediport. Chest wall and lower neck: No soft tissue masses. Upper abdomen: Cholelithiasis. There is a additional soft tissue within the gallbladder which was not ed also on the prior examination. This soft tissue be should be further evaluated to exclude gallblad ni mass. This may be sludge or noncalcified stones. Osseous structures: No destructive process. CT/CT chest w con* [id number] IMPRESSION: 1. No change in size RIGHT upper lobe pulmonary nodule which is PET/CT positiv e. 2. Significant improvement in the scattered spiculated pulmonary nodules descr ibed on 07/07/2022. These nodules have either resolved or significantly improved . 3. No mediastinal or hilar adenopathy. 4. Abnormal gallbladder. Stones within the gallbladder but also soft tissue no dularity. Strongly recommend RIGHT upper quadrant ultrasound with attention to the gallbladder. Characterization of the soft tissue component needs to be perf ormed. Gallbladder neoplasm needs to be excluded. Differential includes stones and sludge.
[2022-10-12] MEDS: iohexol 350 mg/mL 500 mL Btl (per mL) IV (14:04)
== END 2022-10-12 13:48 | disposition home or self-care (01) ==
LOC: RAD 13:48
PROVIDERS: PCP Family Medicine; Visit Provider Internal Medicine Hematology & Oncology
DX: C34.11 Malignant neoplasm of upper lobe, right bronchus or lung (principal)
CPT/HCPCS: 71260; Q9967

== ENCOUNTER 2022-10-19 09:00 | Oncology outpatient (recurring) (ONCR) | payer MEDICAID, SELFPAY ==
[2022-02-13 15:03] VITALS: BP 113/76; BMI 24.4
[2022-10-05 08:01] VITALS: BP 102/66; PULSE 77; RESP 16; TEMP 36.1; O2SAT 96; BMI 27.6
[2022-10-05 08:13] LABS: Basophils # 0.1 10^3/uL (0.0-0.1); Basophils % 0.7 %; Eosinophils # 0.1 10^3/uL (0.0-0.8); Eosinophils % 1.7 %; Hematocrit 42.1 % (37.0-47.0); Hemoglobin 13.3 g/dL (11.5-15.3); Lymphocytes # 1.5 10^3/uL (0.8-4.8); Lymphocytes % 18.5 %; Mean Corpuscular HGB Conc 31.6 g/dL (30.0-36.0); Mean Corpuscular Hemoglobin 26.4 pg (28.0-34.0); Mean Corpuscular Volume 83.5 fl (81-99); Mean Platelet Volume 10.7 fL (7.4-10.4); Monocytes # 0.8 10^3/uL (0.2-0.9); Neutrophils # 5.64 10^3/uL (1.8-7.7); Neutrophils % 68.7 %; Nucleated Red Blood Cells % 0 %; Platelet Count 265 10^3/cmm (130-400); Red Blood Count 5.04 10^6/uL (4.1-5.3); Red Cell Distribution Width 15.3 % (12.1-15.1); White Blood Count 8.2 10^3/uL (4.0-10.0)
[2022-10-05 08:44] LABS: Alanine Aminotransferase 7 U/L (0-33); Albumin Level 4.1 g/dL (3.5-5.2); Alkaline Phosphatase 108 U/L (35-105); Anion Gap 14.7 (5-19); Aspartate Amino Transferase 9 U/L (0-32); Blood Urea Nitrogen 14 mg/dL (6-20); Calcium 8.7 mg/dL (8.5-10.5); Carbon Dioxide 23 mmol/L (22-29); Chloride 108 mmol/L (98-107); Globulin 2.9 g/dL (1.3-4.6); Glomerular Filtration Rate 88.9 mL/min (90-130); Glucose 100 mg/dL (65-115); Osmolality Calculated 293 mOsm/kg (285-295); Potassium 4.7 mmol/L (3.5-5.1); Sodium 141 mmol/L (136-145); Thyroid Stimulating Hormone 3.09 uIU/mL (0.27-4.20); Total Bilirubin 0.2 mg/dL (0.15-1.2)
[2022-10-05] MEDS: sodium chloride 0.9% 250 ML 75 ML IV (10:20)
[2022-10-05 12:03] VITALS: BP 101/66; PULSE 80; RESP 18; TEMP 35.7; O2SAT 96
[2022-10-19 08:59] VITALS: BP 108/75; PULSE 80; RESP 18; TEMP 36.1; O2SAT 95
[2022-10-19 09:18] LABS: Basophils % 0.3 %; Eosinophils # 0.1 10^3/uL (0.0-0.8); Eosinophils % 1.1 %; Hematocrit 44.2 % (37.0-47.0); Lymphocytes # 1.6 10^3/uL (0.8-4.8); Lymphocytes % 17.6 %; Mean Corpuscular HGB Conc 31.7 g/dL (30.0-36.0); Mean Corpuscular Hemoglobin 26.2 pg (28.0-34.0); Mean Corpuscular Volume 82.8 fl (81-99); Monocytes # 0.6 10^3/uL (0.2-0.9); Monocytes % 6.7 %; Neutrophils # 6.77 10^3/uL (1.8-7.7); Neutrophils % 73.9 %; Nucleated Red Blood Cells % 0 %; Platelet Count 270 10^3/cmm (130-400); Red Blood Count 5.34 10^6/uL (4.1-5.3); Red Cell Distribution Width 15.1 % (12.1-15.1); White Blood Count 9.2 10^3/uL (4.0-10.0)
[2022-10-19 09:40] LABS: Alanine Aminotransferase 8 U/L (0-33); Albumin Level 4.2 g/dL (3.5-5.2); Alkaline Phosphatase 128 U/L (35-105); Anion Gap 16.4 (5-19); Aspartate Amino Transferase 12 U/L (0-32); Blood Urea Nitrogen 7 mg/dL (6-20); Calcium 9.5 mg/dL (8.5-10.5); Carbon Dioxide 21 mmol/L (22-29); Chloride 106 mmol/L (98-107); Globulin 2.9 g/dL (1.3-4.6); Glomerular Filtration Rate 88.9 mL/min (90-130); Glucose 116 mg/dL (65-115); Osmolality Calculated 287 mOsm/kg (285-295); Potassium 4.4 mmol/L (3.5-5.1); Sodium 139 mmol/L (136-145); Thyroid Stimulating Hormone 3.44 uIU/mL (0.27-4.20); Total Bilirubin 0.4 mg/dL (0.15-1.2); Total Protein 7.1 g/dL (6.6-8.7)
[2022-10-19 11:20] VITALS: BP 93/67; PULSE 75; RESP 16; TEMP 36.2; O2SAT 97
[2022-10-19] MEDS: sodium chloride 0.9% 250 ML 75 ML IV (11:29)
[2022-10-19 13:10] VITALS: BP 104/69; PULSE 85; RESP 16; TEMP 36.3; O2SAT 94
== END 2022-10-19 23:59 | disposition home or self-care (01) ==
PROVIDERS: PCP Family Medicine; Visit Provider Internal Medicine Hematology & Oncology
DX: Z51.12 Encounter for antineoplastic immunotherapy (principal); C34.11 Malignant neoplasm of upper lobe, right bronchus or lung; Z79.899 Other long term (current) drug therapy; F17.210 Nicotine dependence, cigarettes, uncomplicated; Z95.828 Presence of other vascular implants and grafts
CPT/HCPCS: 80053; 84443; 85025; 96361; 96413; 99213; 99214; J1642; J7050; J9173

== ENCOUNTER 2022-10-26 10:14 | Emergency (ER) | payer MEDICAID, SELFPAY ==
[2022-02-13 15:03] VITALS: BP 113/76; BMI 24.4
[2022-10-26 10:23] VITALS: BP 104/66; PULSE 92; RESP 22; TEMP 36.4; O2SAT 97; BMI 23.6
[2022-10-26 13:08] VITALS: BP 121/79; PULSE 80; O2SAT 98
--- NOTE | 2022-10-26 13:15 | CTR_ITS ---
PROCEDURE INFORMATION: Exam: CT Head Without Contrast Exam date and time: 10/26/2022 1:38 PM Age: 47 years old Clinical indication: Dizziness; Additional info: N/v, vertigo, HX lung cancer, TECHNIQUE: Imaging protocol: Computed tomography of the head without contrast. 292image(s) are provided. Radiation optimization: All CT scans at this facility use at least one of these dose optimization techniques: automated exposure control; mA and/or kV adjustment per patient size (includes targeted exams where dose is matched to clinical indication); or iterative reconstruction. Other technique: Axial images are available with sagittal and coronal reconstruction views. Automated dose exposure control is utilized. The DLP is 1163.28. REPORTING DATA: Count of CT and Cardiac NM exams in prior 12 months: This patient has received 6 known CTs and 0 known cardiac nuclear medicine studies in the 12 months prior to the current study. COMPARISON: 1. CT head wo/w con [id number] 03/03/2022 4:17 PM 2. MR head wo/w con [id number] 12/02/2021 3:24 PM RADIATION DOSE METRICS: Total DLP (mGy-cm): 1163.28 FINDINGS: Brain: There are chronic periventricular white matter changes present. There is interval mass-effect demonstrated of the left temporal occipital junction with the adjacent edema. This area demonstrates measurement of approximately 3 x 2.4 cm. No significant rightward shift is currently appreciated centrally although there is some adjacent sulcal gyral effacement with mass-effect of the edema and lesion site. Scattered dural chronic calcifications are appreciated. There also appears to be some subtle edema about the frontoparietal areas on the left. This may represent extension although some additional underlying lesional appearance could also present in the obscured on these noncontrasted views. Cerebral ventricles: No interval layering hemorrhage or hydrocephalus is appreciated. There is some mass-effect about the left occipital horn correspondingly. Pituitary gland and sella: Partially empty sella variant is demonstrated. Paranasal sinuses: The paranasal sinuses appear well-aerated overall. Mastoid air cells: The mastoid air cells appear well-aerated overall. Orbital cavities: Symmetric appearance of the orbital soft tissues is demonstrated. Bones/joints: Osseous alignment is maintained.No interval displaced fracture or dislocation is appreciated. Soft tissues: No radiopaque foreign body or subcutaneous emphysema is appreciated. Other findings: There is some motion artifact present. No other significant interval changes are appreciated. CT/CT head wo con* [id number] IMPRESSION: In the interval there is mass demonstrated about the left occipital horn with significant adjacent lesional edema. MRI of the brain with and without contrast is recommended for overall further parenchymal evaluation.
--- NOTE | 2022-10-26 13:26 | ECG_ITS ---
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 Measurements Intervals [place] Rate: 76 P: 61 DC: 148 QRS: 59 QRSD: 79 T: 69 QT: 383 QTc: 432 Interpretive Statements SINUS RHYTHM Compared to ECG 12/02/2021 12:57:33 No significant changes Electronically Signed On 10-26-2022 19:26:39 CDT by Nora Ramos M.D. [email or web address]
--- NOTE | 2022-10-26 13:30 | ED_ITS ---
HPI - Headache General: Chief Complaint: Headache Stated Complaint: sent by schafer/dizzy/nausea/weak Time Seen by Provider: 10/26/22 13:08 History of Present Illness: Patient presents to the ER with complaints of dizziness headache nauseousness weakness all for the last week. He started when the patient received her last chemo. Patient is received chemo weekly for the last year and is never had the symptoms before. Patient does not reportedly have dizziness or headaches. They seem to be at least constant if not getting worse. Patient does not know anything that makes them better. But make turning her head at least makes them worse. Patient is receiving chemotherapy for diagnosis of lung cancer. Review of Systems General: Reports: 10 or more systems reviewed and unremarkable except in HPI and below PFSH ED PFSH: Medical History Cigarette nicotine dependence COPD (chronic obstructive pulmonary disease) Fibromyalgia Generalized anxiety disorder with panic attacks Psychiatric care Surgical History H/O spinal fusion H/O tubal ligation S/P bronchoscopy Family History Father Parkinsonism Cancer Skin cancer and stomach cancer Brother Parkinsonism Mother Hyperlipidemia CAD (coronary artery disease) Psychiatric illness Other Diabetes Hypertension Major depressive disorder, recurrent severe without psychotic features Denies family history of Clotting disorder Dementia Chronic kidney disease (CKD) Suicide Anesthesia complication Bleeding disorder Lung disease Stroke Social History Smoking and tobacco status: current every day smoker cigarettes Packs smoked per day: 1 Years cigarettes smoked: 33 Quit status (tobacco): has tried quititng Second hand smoke exposure: Yes Alcohol intake: never Substance/Drug Use: never Adopted: No Caregiver/support person: No Lives independently: Yes Housing: Apartment Marital status: Marital status details: 14 years ago Number of children: 5 Number of grandchildren: 12 Highest education level completed: 10th Grade service: No Current occupational status: disabled Current occupational exposures/hazards: No Pets and animals: Yes (4 dogs) Pets & animals: dog(s) Leisure activites: other Leisure activities details: playing with dogs, outside a lot Sexually active: No Do you think of yourself as: Straight/Heterosexual Current gender identity: Female Marisabel/Church: [employer] Special marisabel needs: No Agree to transfusion: Yes Financial difficulty paying for basics: Very Hard Physical Exam Const: COMMON NORMALS: no acute distress, average body habitus, patient oriented x3, no limitations, healthy appearing, alert and well nourished HENMT: COMMON NORMALS: normocephalic, atraumatic, hearing grossly normal bilaterally, external ears normal, Normal external nose present and moist oral mucous membranes HEAD & SCALP: normocephalic and atraumatic NOSE: Normal external nose present EXTERNAL EAR: Yes external ears normal Eye: COMMON NORMALS: Equal, round and reactive pupils present, EOMs intact bilaterally, conjunctivae normal and no scleral icterus CONJUNCTIVA: Yes conjunctivae normal PUPIL: Yes Equal, round and reactive pupils present Neck/C-Spine: COMMON NORMALS: full ROM, no lymphadenopathy, supple, no meningeal signs, no JVD and Thyroid normal THYROID: Thyroid normal Lymph: LYMPHATIC: no lymphadenopathy noted Chest: COMMONS NORMALS: normal inspection of the chest and normal palpation of entire chest wall Resp: COMMON NORMALS: normal respiratory effort, No retractions, No use of accessory muscles and clear to auscultation bilaterally AUSCULTATION: clear to auscultation bilaterally Cardio: COMMON NORMALS: no JVD, regular rate, regular rhythm, S1 normal heart sound present and S2 normal heart sound present RATE: regular rate RHYTHM: regular rhythm HEART SOUNDS: S1 normal heart sound present and S2 normal heart sound present GI: COMMON NORMALS: Normal to inspection, nondistended, normoactive bowel sounds present, Soft to palpation, non-tender, No hepatosplenomegaly present and no masses PALPATION: Yes Soft to palpation and Yes No hepatosplenomegaly present : COMMON NORMALS: Yes no CVA tenderness BLADDER/KIDNEY EXAM: Yes no CVA tenderness Back/Pelvis: COMMON NORMALS: no CVA tenderness Neuro: COMMON NORMALS: patient oriented x3 SENSORIUM/ORIENTATION: Yes alert MENINGEAL SIGNS: Yes no meningeal signs Course Vital Signs: Vital signs: Vital Signs Temperature 97.5 F L 10/26/22 10:23 Pulse Rate 73 10/26/22 14:27 Respiratory Rate 22 H 10/26/22 10:23 Blood Pressure 111/77 10/26/22 14:27 Pulse Oximetry 99 10/26/22 14:27 Oxygen Delivery Me thod Room Air 10/26/22 14:27 MDM - Headache Medical Decision Making Patient presents to the ER complaining of dizziness nausea vomiting and headache. Patient does have a history of being treated for lung cancer. Patient states this is all been going on the last week. Imaging and blood work was obtained which did reveal a mass in the left occipital horn with significant edema. This was discussed with the patient to kind of felt that she knew eventually simple like this what happened. Patient will call Dr. Schafer's office and arrange an appointment to follow-up with him about the future treatment for this. Patient will be discharged home. Differential Diagnosis Likely headache; Unlikely migraine, tension headache, subarachnoid hemorrhage, meningitis, sinusitis or postconcussion syndrome Medical Records I reviewed the patient's medical records. Lab Data I reviewed the patient's lab results. 10/26/22 13:20 10/26/22 13:[address] 10/26/22 13:15 IMPRESSION: In the interval there is mass demonstrated about the left occipital horn with significant adjacent lesional edema. MRI of the brain with and without contrast is recommended for overall further parenchymal evaluation. ADDENDUM: 10/26/22 1436 THIS REPORT CONTAINS FINDINGS THAT MAY BE CRITICAL TO PATIENT CARE. The findings were verbally communicated via telephone conference at 2:35 PM CDT on 10/26/2022 with Mynor Arrington. The findings were acknowledged and understood. Laboratory Results WBC 9.0 10^3/uL (4.0-10.0) 10/26/22 13:20 RBC 6.11 10^6/uL (4.1-5.3) H 10/26/22 13:20 Hgb 16.1 g/dL (11.5-15.3) H 10/26/22 13:20 Hct 50.5 % (37.0-47.0) H 10/26/22 13:20 MCV 82.7 fl (81-99) 10/26/22 13:20 MCH 26.4 pg (28.0-34.0) L 10/26/22 13:20 MCHC 31.9 g/dL (30.0-36.0) 10/26/22 13:20 RDW 15.3 % (12.1-15.1) H 10/26/22 13:20 Plt Count 289 10^3/cmm (130-400) 10/26/22 13:20 MPV 11.0 fL (7.4-10.4) H 10/26/22 13:20 Neut % (Auto) 74.8 % 10/26/22 13:20 Lymph % (Auto) 17.8 % 10/26/22 13:20 Hayes % (Auto) 6.1 % 10/26/22 13:20 Eos % (Auto) 0.4 % 10/26/22 13:20 Baso % (Auto) 0.7 % 10/26/22 13:20 Neut # (Auto) 6.70 10^3/uL (1.8-7.7) 10/26/22 13:20 Lymph # (Auto) 1.6 10^3/uL (0.8-4.8) 10/26/22 13:20 Hayes # (Auto) 0.6 10^3/uL (0.2-0.9) 10/26/22 13:20 Eos # (Auto) 0.0 10^3/uL (0.0-0.8) 10/26/22 13:20 Baso # (Auto) 0.1 10^3/uL (0.0-0.1) 10/26/22 13:20 Nucleated RBC % (auto) 0 % 10/26/22 13:20 Nucleated RBCs # 0.0 /100WBC 10/26/22 13:20 Sodium 141 mmol/L (136-145) 10/26/22 13:20 Potassium 4.2 mmol/L (3.5-5.1) 10/26/22 13:20 Chloride 104 mmol/L (98-107) 10/26/22 13:20 Carbon Dioxide 23 mmol/L (22-29) 10/26/22 13:20 Anion Gap 18.2 (5-19) 10/26/22 13:20 BUN 9 mg/dL (6-20) 10/26/22 13:20 Creatinine 0.6 mg/dL (0.5-0.9) 10/26/22 13:20 GFR Calculation 106.3 mL/min (90-130) 10/26/22 13:20 Glucose 83 mg/dL (65-115) 10/26/22 13:20 Calculated Osmolality 290 mOsm/kg (285-295) 10/26/22 13:20 Calcium 9.9 mg/dL (8.5-10.5) 10/26/22 13:20 Magnesium 2.2 mg/dL (1.7-2.3) 10/26/22 13:20 Total Bilirubin 0.3 mg/dL (0.15-1.2) 10/26/22 13:20 AST 14 U/L (0-32) 10/26/22 13:20 ALT 10 U/L (0-33) 10/26/22 13:20 Alkaline Phosphatase 138 U/L (35-105) H 10/26/22 13:20 Total Protein 8.1 g/dL (6.6-8.7) 10/26/22 13:20 Albumin 4.7 g/dL (3.5-5.2) 10/26/22 13:20 Globulin 3.4 g/dL (1.3-4.6) 10/26/22 13:20 EKG Data EKG 1: I personally reviewed and interpreted this EKG as follows: EKG interpretation date: 10/26/22 EKG interpretation time: 13:26 Prior EKG tracings: not available for review Interpretation: EKG shows ventricular rate 76 beats a minute, IL interval 148, QRS duration 79, QTc of 413, normal sinus rhythm, no ST-T wave changes Discharge Plan Discharge Patient Disposition: Home Clinical Impression: Brain tumor, Vertigo Headache Qualifiers: Headache type: other headache syndrome Qualified Code(s): G44.89 - Other headache syndrome Condition: Stable Prescriptions: No Action alprazolam [Xanax] 1 mg tablet 1 mg PO TID PRN (Reason: anxiety) Qty: 90 3RF Rx Instructions: Take one tablet three times per day as needed for anxiety melatonin 3 mg capsule 3 mg PO DIRECTED PRN (Reason: sleep) Qty: 30 3RF Rx Instructions: May take one capsule 30-60 min prior to bedtime as needed for sleep ipratropium-albuterol 0.5 mg-3 mg(2.5 mg base)/3 mL solution for nebulization 3 ml inhalation Q4H PRN (Reason: wheezing) magnesium 250 mg tablet 250 mg PO DAILY fluticasone propionate [Flonase Allergy Relief] 50 mcg/actuation spra y,suspension 2 spray intranasal DAILY Qty: 16 0RF Rx Instructions: administer into each nostril loratadine [Claritin] 10 mg tablet 10 mg PO DAILY PRN (Reason: allergy symptoms) Qty: 30 0RF albuterol sulfate [Ventolin HFA] 90 mcg/actuation HFA aerosol inhaler 2 inh inhalation QID PRN (Reason: shortness of breath or wheezing) budesonide-formoterol [Symbicort] 160-4.5 mcg/actuation HFA aerosol inhaler 2 puff inhalation BID Qty: 10.2 3RF Trelegy Ellipta 100-62.5-25 mcg blister with device 1 inh inhalation DAILY Qty: 60 3RF Rx Instructions: 340 B cefuroxime axetil 500 mg tablet 500 mg PO BID 10 Days Qty: 20 0RF Discharge Orders: Discharge ED (Routine); Ordered 10/26/22 Ordered By: Mynor Arrington Referrals: Mango Yuen MD [Primary Care Provider] - 1 week Patient Instructions: Acute Headache (DC), Acute Nausea and Vomiting (DC), Brain Tumors (DC) Activity Restrictions/Additional Instructions: Please call Dr. Schafer's office to arrange a follow-up. Please follow-up with your family practice doctor in the next 1 week or sooner as needed. Coding Level of Care Code ED Toolsmith for James Bruno
[2022-10-26 13:32] LABS: Basophils # 0.1 10^3/uL (0.0-0.1); Basophils % 0.7 %; Eosinophils % 0.4 %; Hematocrit 50.5 % (37.0-47.0); Hemoglobin 16.1 g/dL (11.5-15.3); Lymphocytes # 1.6 10^3/uL (0.8-4.8); Lymphocytes % 17.8 %; Mean Corpuscular HGB Conc 31.9 g/dL (30.0-36.0); Mean Corpuscular Hemoglobin 26.4 pg (28.0-34.0); Mean Corpuscular Volume 82.7 fl (81-99); Monocytes # 0.6 10^3/uL (0.2-0.9); Monocytes % 6.1 %; Neutrophils % 74.8 %; Nucleated Red Blood Cells % 0 %; Platelet Count 289 10^3/cmm (130-400); Red Blood Count 6.11 10^6/uL (4.1-5.3); Red Cell Distribution Width 15.3 % (12.1-15.1)
[2022-10-26 13:54] LABS: Alanine Aminotransferase 10 U/L (0-33); Albumin Level 4.7 g/dL (3.5-5.2); Alkaline Phosphatase 138 U/L (35-105); Anion Gap 18.2 (5-19); Aspartate Amino Transferase 14 U/L (0-32); Blood Urea Nitrogen 9 mg/dL (6-20); Calcium 9.9 mg/dL (8.5-10.5); Carbon Dioxide 23 mmol/L (22-29); Chloride 104 mmol/L (98-107); Globulin 3.4 g/dL (1.3-4.6); Glomerular Filtration Rate 106.3 mL/min (90-130); Glucose 83 mg/dL (65-115); Magnesium 2.2 mg/dL (1.7-2.3); Osmolality Calculated 290 mOsm/kg (285-295); Potassium 4.2 mmol/L (3.5-5.1); Sodium 141 mmol/L (136-145); Total Bilirubin 0.3 mg/dL (0.15-1.2); Total Protein 8.1 g/dL (6.6-8.7)
[2022-10-26] MEDS: sodium chloride 0.9% 1,000 ML 999 ML IV (13:55)
[2022-10-26] MEDS: ondansetron 2 mg/ML SDV 2 mL 4 MG IVP (13:55)
[2022-10-26 14:27] VITALS: BP 111/77; PULSE 73; O2SAT 99
[2022-10-26 14:30] VITALS: BP 105/71; PULSE 74; O2SAT 100
[2022-10-26] MEDS: ketorolac 30 mg/mL INJ IVP (14:58)
[2022-10-26 15:00] VITALS: BP 96/72; PULSE 71; O2SAT 100
[2022-10-26 15:35] VITALS: BP 111/78; PULSE 80; O2SAT 100
== END 2022-10-26 15:36 | disposition home or self-care (01) ==
PROVIDERS: Emergency Provider Emergency Medicine; PCP Family Medicine
DX: R42 Dizziness and giddiness (principal); D49.6 Neoplasm of unspecified behavior of brain; F17.210 Nicotine dependence, cigarettes, uncomplicated; J44.9 Chronic obstructive pulmonary disease, unspecified
CPT/HCPCS: 70450; 80053; 83735; 85025; 93005; 96361; 96374; 96375; 99285; J1885; J2405; J7030

== ENCOUNTER 2022-10-27 10:13 | Emergency (ER) | payer MEDICAID, SELFPAY ==
[2022-02-13 15:03] VITALS: BP 113/76; BMI 24.4
[2022-10-27 10:15] VITALS: BP 118/72; PULSE 87; RESP 16; TEMP 36.9; O2SAT 96; BMI 26.6
[2022-10-27 12:17] VITALS: BP 108/79; PULSE 76; RESP 16; O2SAT 97
--- NOTE | 2022-10-27 12:38 | ED_ITS ---
HPI - Recheck/Abnormal Lab/Rx General: Chief Complaint: Recheck/Abnormal Lab/Rx Stated Complaint: Abnormal Labs/ Dr Schafer sent Time Seen by Provider: 10/27/22 11:19 History of Present Illness: Patient presents here from Dr. Schafer's office. She says he told her to come to the ER for possible admission and/or transfer for neurosurgical consult secondary to a newly found brain tumor. Patient presented to the ER yesterday with headaches and nausea vomiting and had a CT scan done and was diagnosed with a newly found brain tumor. Patient does have a history of adenocarcinoma of the lung. She returns today with worsening dizziness headache nausea and vomiting. Review of Systems General: Reports: 10 or more systems reviewed and unremarkable except in HPI and below PFSH ED PFSH: Medical History Cigarette nicotine dependence COPD (chronic obstructive pulmonary disease) Fibromyalgia Generalized anxiety disorder with panic attacks Psychiatric care Surgical History H/O spinal fusion H/O tubal ligation S/P bronchoscopy Family History Father Parkinsonism Cancer Skin cancer and stomach cancer Brother Parkinsonism Mother Hyperlipidemia CAD (coronary artery disease) Psychiatric illness Other Diabetes Hypertension Major depressive disorder, recurrent severe without psychotic features Denies family history of Clotting disorder Dementia Chronic kidney disease (CKD) Suicide Anesthesia complication Bleeding disorder Lung disease Stroke Social History Smoking and tobacco status: current every day smoker cigarettes Packs smoked per day: 1 Years cigarettes smoked: 33 Quit status (tobacco): has tried quititng Second hand smoke exposure: Yes Alcohol intake: never Substance/Drug Use: never Adopted: No Caregiver/support person: No Lives independently: Yes Housing: Apartment Marital status: Marital status details: 14 years ago Number of children: 5 Number of grandchildren: 12 Highest education level completed: 10th Grade service: No Current occupational status: disabled Current occupational exposures/hazards: No Pets and animals: Yes (4 dogs) Pets & animals: dog(s) Leisure activites: other Leisure activities details: playing with dogs, outside a lot Sexually active: No Do you think of yourself as: Straight/Heterosexual Current gender identity: Female Marisabel/Yazdanism: Congregation Special marisabel needs: No Agree to transfusion: Yes Financial difficulty paying for basics: Very Hard Physical Exam Const: COMMON NORMALS: no acute distress, average body habitus, patient oriented x3, no limitations, healthy appearing, alert and well nourished HENMT: COMMON NORMALS: normocephalic, atraumatic, hearing grossly normal bilaterally, external ears normal, Normal external nose present and moist oral mucous membranes HEAD & SCALP: normocephalic and atraumatic NOSE: Normal external nose present EXTERNAL EAR: Yes external ears normal Eye: COMMON NORMALS: Equal, round and reactive pupils present, EOMs intact bilaterally, conjunctivae normal and no scleral icterus CONJUNCTIVA: Yes conjunctivae normal PUPIL: Yes Equal, round and reactive pupils present Neck/C-Spine: COMMON NORMALS: full ROM, no lymphadenopathy, supple, no meningeal signs, no JVD and Thyroid normal THYROID: Thyroid normal Chest: COMMONS NORMALS: normal inspection of the chest and normal palpation of entire chest wall Resp: COMMON NORMALS: normal respiratory effort, No retractions, No use of accessory muscles and clear to auscultation bilaterally AUSCULTATION: clear to auscultation bilaterally Cardio: COMMON NORMALS: no JVD, regular rate, regular rhythm, S1 normal heart sound present, S2 normal heart sound present, No gallops present (Cardio), No clicks present (Cardio), No murmurs present (Cardio) and No rub (Cardio) RATE: regular rate RHYTHM: regular rhythm HEART SOUNDS: S1 normal heart sound present and S2 normal heart sound present GI: COMMON NORMALS: Normal to inspection, nondistended, normoactive bowel sounds present, Soft to palpation, No hepatosplenomegaly present, no masses and no bruits PALPATION: Yes Soft to palpation and Yes No hepatosplenomegaly present Neuro: COMMON NORMALS: patient oriented x3 SENSORIUM/ORIENTATION: Yes alert MENINGEAL SIGNS: Yes no meningeal signs Course Vital Signs: Vital signs: Vital Signs Temperature 98.4 F 10/27/22 10:15 Pulse Rate 76 10/27/22 12:17 Respiratory Rate 16 10/27/22 12:50 Blood Pressure 108/79 10/27/22 12:17 Pulse Oximetry 97 10/27/22 12:17 Oxygen Delivery Me thod Room Air 10/27/22 12:17 MDM - Recheck/Abnormal Lab/Rx Medical Decision Making Patient was sent here by Dr. Schafer's office for further evaluation and treatment and possible transferral of her due to her brain tumor with edema and side effects. [facility] transfer line was consulted they suggested an ED to ED transfer and Dr. Bell excepted in ER Differential Diagnosis Unlikely encounter for medication refill, encounter for wound recheck, encounter for recheck of burn, encounter for removal of sutures or warfarin-induced coagulopathy Medical Records I reviewed the patient's medical records. Lab Data I reviewed the patient's lab results. Discharge Plan Discharge Patient Disposition: Xfer Short-Term Hosp Clinical Impression: Brain tumor, Headache Condition: Stable Referrals: Mango Yuen MD [Primary Care Provider] - Coding Level of Care Code ED Medical Affairs Director for James Bruno
[2022-10-27] MEDS: ketorolac 30 mg/mL INJ IVP ×2 (12:45→16:38)
[2022-10-27 12:50] VITALS: RESP 16
[2022-10-27] MEDS: morphine 4 mg/mL SDV 1 mL IVP (12:50)
[2022-10-27] MEDS: ondansetron 2 mg/ML SDV 2 mL 8 MG IVP (12:53)
[2022-10-27] MEDS: dexamethasone 10 mg/mL INJ IVP (12:54)
[2022-10-27 14:39] VITALS: BP 147/98; PULSE 81; RESP 16; O2SAT 94
[2022-10-27 16:01] VITALS: BP 108/79; PULSE 85; RESP 16; O2SAT 94
== END 2022-10-27 17:21 | disposition short-term general hospital (02) ==
PROVIDERS: Emergency Provider Emergency Medicine; PCP Family Medicine
DX: D49.6 Neoplasm of unspecified behavior of brain (principal); R51.9 Headache, unspecified; F17.210 Nicotine dependence, cigarettes, uncomplicated; J44.9 Chronic obstructive pulmonary disease, unspecified
CPT/HCPCS: 96374; 96375; 96376; 99284; J1100; J1885; J2270; J2405

== ENCOUNTER 2022-10-30 20:02 | Emergency (ER) | payer MEDICAID, SELFPAY ==
[2022-02-13 15:03] VITALS: BP 113/76; BMI 24.4
--- NOTE | 2022-10-30 20:03 | ED_ITS ---
HPI - Altered Mental Status General: Chief Complaint: Altered Mental Status Stated Complaint: AMS Time Seen by Provider: 10/30/22 20:03 Limitations: altered mental status History of Present Illness: Ms. Kramer is a 47-year-old lady with recent diagnosis of some sort of brain tumor presenting due to mental status change. The patient provides no clinical history and patient history is provided by EMS. Apparently she has been like this essentially all day. Supplemental information provided by family and caregiver upon their arrival as the patient has had waxing and waning mental state throughout the day. She probably missed her midday dose of Keppra. They could not find her bottle of dexamethasone however other medications such as benzodiazepines appear to be normal. No reported opiate use. Review of Systems General: Reports: ROS unobtainable due to mental status PFSH ED PFSH: Medical History Cigarette nicotine dependence COPD (chronic obstructive pulmonary disease) Fibromyalgia Generalized anxiety disorder with panic attacks Psychiatric care Surgical History H/O spinal fusion H/O tubal ligation S/P bronchoscopy Family History Father Parkinsonism Cancer Skin cancer and stomach cancer Brother Parkinsonism Mother Hyperlipidemia CAD (coronary artery disease) Psychiatric illness Other Diabetes Hypertension Major depressive disorder, recurrent severe without psychotic features Denies family history of Clotting disorder Dementia Chronic kidney disease (CKD) Suicide Anesthesia complication Bleeding disorder Lung disease Stroke Social History Smoking and tobacco status: current every day smoker cigarettes Packs smoked per day: 1 Years cigarettes smoked: 33 Quit status (tobacco): has tried quititng Second hand smoke exposure: Yes Alcohol intake: never Substance/Drug Use: never Adopted: No Caregiver/support person: No Lives independently: Yes Housing: Apartment Marital status: Marital status details: 14 years ago Number of children: 5 Number of grandchildren: 12 Highest education level completed: 10th Grade service: No Current occupational status: disabled Current occupational exposures/hazards: No Pets and animals: Yes (4 dogs) Pets & animals: dog(s) Leisure activites: other Leisure activities details: playing with dogs, outside a lot Sexually active: No Do you think of yourself as: Straight/Heterosexual Current gender identity: Female Marisabel/Christian: Taoist Special marisabel needs: No Agree to transfusion: Yes Financial difficulty paying for basics: Very Hard Physical Exam Const: GENERAL APPEARANCE: cooperative and well developed HENMT: COMMON NORMALS: normocephalic and atraumatic HEAD & SCALP: normocephalic and atraumatic Eye: COMMON NORMALS: conjunctivae normal CONJUNCTIVA: Yes conjunctivae normal SCLERA: sclerae normal Neck/C-Spine: COMMON NORMALS: supple GENERAL: Yes trachea midline Resp: COMMON NORMALS: clear to auscultation bilaterally EFFORT & INSPECTION: Yes able to speak in complete sentences AUSCULTATION: clear to a uscultation bilaterally Cardio: COMMON NORMALS: regular rate and regular rhythm RATE: regular rate RHYTHM: regular rhythm GI: COMMON NORMALS: Soft to palpation PALPATION: Yes Soft to palpation and No Tenderness to palpation present (GI) Extremity: GENERAL: Yes normal exam except as noted and No edema Neuro: SENSORIUM/ORIENTATION: Yes obtunded and Yes fluctuating sensorium Psych: MEMORY/COGNITION: Yes cognition grossly impaired Procedures Intubation Time out performed: Yes sedative: Etomidate Mg Given: 25 paralytic: Vecuronium Mg Given: 7 Laryngoscope: fiber optic video scope ET Tube Size: 8 ET Tube Uncuffed: No Tube Secured Depth (cm): 22 Tube Secured Location: teeth (Edentulous-gums) Tube Placement Confirmation: visualized tube passing through cords, equal breath sounds bilaterally and confirmation by capnometry Patient Tolerated Procedure: well and no complications Intubation Complications: none Course Vital Signs: Vital signs: Vital Signs Temperature 98.4 F 10/30/22 20:04 Pulse Rate 60 10/31/22 03:06 Respiratory Rate 14 10/31/22 03:06 Blood Pressure 91/57 10/31/22 03:06 Pulse Oximetry 96 10/31/22 03:06 Oxygen Delivery Me thod Mechanical Ventil ation 10/31/22 03:06 Fraction of Inspir ed Oxygen 40 10/31/22 03:06 MDM - Altered Mental Status Medical Decision Making 47-year-old lady with significant past medical history of lung cancer and recent diagnosis of brain cancer presenting to the emergency department for evaluation of altered mental status. Initially very limited history. Patient appears to be vitally satisfactory, nontoxic, no clear active seizure activity or rigidity however otherwise essentially unresponsive. Mental status does wax and wane mildly with intermittent eye-opening. EKG notable for sinus rhythm with normal axis and intervals, no STEMI. Labs notable for mild leukocytosis, normal hemoglobin and platelet count. Normal coags. Metabolic panel without clear derangement to explain symptoms. No UTI. Toxic ingestions are negative. UDS positive for barbiturates and benzodiazepines. Chest x-ray with no lobar consolidation or pneumothorax. CT head appears similar to prior. No evidence of acute intracranial hemorrhage or midline shift. Patient treated with Decadron 10 mg and Keppra bolus of 1000 mg. She did have 1 coughing event however quickly recovered. She returned to previous exam. No abnormal lung sounds or increased respiratory effort/hypoxia. I am concerned that the patient is having nonconvulsive status epilepticus without other clear reason for mental status change and no clearing on serial reexamination. She requires emergent neurology and neurosurgery evaluation. She was accepted by critical care at [facility] in [place]. Subsequently patient had another coughing episode. I am concerned that she is at increasing risk of aspiration and therefore we will proceed with intubation. Patient intubated as noted. She had a somewhat atypical reaction to etomidate and vecuronium. She initially had increased muscle rigidity with possible bilateral upper extremity tonic-clonic movements.. This subsequently resolved and on reexamination I do not appreciate any increased tone or seizure-like activity. Additionally treated with sedation including Versed drip, propofol, fentanyl, Versed bolus, and valproic acid 20 cc/kg. Transferred via air EVAC in guarded condition. Medical Records I reviewed the patient's medical records. Lab Data I reviewed the patient's lab results. 10/30/22 20:21 10/30/22 20:[address] 10/30/22 20:09 IMPRESSION: 1. Left occipital lobe mass as noted above with significant surrounding or adjacent edema. This is without significant change from prior exam October 26, 2022. This will require further evaluation with contrast-enhanced study and preferably MRI. 2. No interval new findings otherwise with prior exam. ASSESSMENT: ASPECTS ([place] Stroke Program Early CT Score) is 9. ADDENDUM: 10/30/222126 THIS REPORT CONTAINS FINDINGS THAT MAY BE CRITICAL TO PATIENT CARE. The findings were verbally communicated via telephone conference with Geo Vazquez at 9:26 PM CDT on 10/30/2022. The findings were acknowledged and understood. Chest X-Ray 10/31/22 00:22 IMPRESSION: Lines and tubes are in place, negative for consolidation or pneumothorax. Laboratory Results WBC 11.8 10^3/uL (4.0-10.0) H 10/30/22 20:21 RBC 5.56 10^6/uL (4.1-5.3) H 10/30/22 20:21 Hgb 14.8 g/dL (11.5-15.3) 10/30/22 20:21 Hct 45.7 % (37.0-47.0) 10/30/22 20: MCV 82.2 fl (81-99) 10/30/22 20: MCH 26.6 pg (28.0-34.0) L 10/30/22 20: MCHC 32.4 g/dL (30.0-36.0) 10/30/22 20: RDW 15.2 % (12.1-15.1) H 10/30/22 20: Plt Count 238 10^3/cmm (130-400) 10/30/22 20:21 MPV 11.1 fL (7.4-10.4) H 10/30/22 20:21 Neut % (Auto) 82.3 % 10/30/22 20:21 Lymph % (Auto) 12.7 % 10/30/22 20:21 [place] % (Auto) 4.0 % 10/30/22 20: Eos % (Auto) 0.0 % 10/30/22 20: Baso % (Auto) 0.1 % 10/30/22 20: Neut # (Auto) 9.68 10^3/uL (1.8-7.7) H 10/30/22 20:21 Lymph # (Auto) 1.5 10^3/uL (0.8-4.8) 10/30/22 20: [place] # (Auto) 0.5 10^3/uL (0.2-0.9) 10/30/22 20:21 Eos # (Auto) 0.0 10^3/uL (0.0-0.8) 10/30/22 20: Baso # (Auto) 0.0 10^3/uL (0.0-0.1) 10/30/22 20:21 Nucleated RBC % (auto) 0 % 10/30/22 20:21 Nucleated RBCs # 0.0 /100WBC 10/30/22 20:21 PT 12.90 SECONDS (12.1-14.9) 10/30/22 20:21 INR 0.94 (0.8-1.2) 10/30/22 20:21 APTT 27.4 SECONDS (23.9-36.7) 10/30/22 20:21 Specimen Type Arterial 10/31/22 01:55 Sample Site Brachial, right 10/31/22 01:55 ABG pH 7.35 (7.35-7.45) 10/31/22 01:55 ABG pCO2 43.6 mmHg (35-45) 10/31/22 01:55 ABG pO2 94.4 mmHg (80.0-100.0) 10/31/22 01:55 ABG HCO3 24.1 mmol/L (22-26) 10/31/22 01:55 ABG Base Excess -1.6 mmol/L (-2.0-2.0) 10/31/22 01:55 Werner Test N/a 10/31/22 01:55 Hematocrit 45.0 % (37-47) 10/31/22 01:55 O2 Delivery Device Vent 10/31/22 01:55 FiO2 30.0 % 10/31/22 01:55 Tidal Volume 0.38 10/31/22 01:55 PEEP 5.0 cmH20 10/31/22 01:55 Director Of Teacher Education ID Amh 10/31/22 01:55 Sodium 133 mmol/L (136-145) L 10/30/22 20:21 Potassium 4.2 mmol/L (3.5-5.1) 10/30/22 20:21 Chloride 100 mmol/L (98-107) 10/30/22 20:21 Carbon Dioxide 22 mmol/L (22-29) 10/30/22 20:21 Anion Gap 15.2 (5-19) 10/30/22 20:21 BUN 14 mg/dL (6-20) 10/30/22 20:21 Creatinine 0.7 mg/dL (0.5-0.9) 10/30/22 20:21 GFR Calculation 88.9 mL/min (90-130) L 10/30/22 20:21 Glucose 105 mg/dL (65-115) 10/30/22 20:21 POC Glucose 114 mg/dL (70-110) H 10/30/22 20:23 Calculated Osmolality 277 mOsm/kg (285-295) L 10/30/22 20:21 Calcium 9.0 mg/dL (8.5-10.5) 10/30/22 20:21 Urine Color Yellow (Yellow) 10/30/22 21:05 Urine Appearance Clear (CLEAR) 10/30/22 21:05 Urine pH 7 (5-7) 10/30/22 21:05 Ur Specific Catherine 1.005 (1.005-1.030) 10/30/22 21:05 Urine Protein Neg (Negative) 10/30/22 21:05 Urine Glucose (UA) Norm (Normal) 10/30/22 21:05 Urine Ketones Negative (Negative) 10/30/22 21:05 Urine Blood Neg (Negative) 10/30/22 21:05 Urine Nitrate Negative (Negative) 10/30/22 21:05 Urine Bilirubin Neg (Negative) 10/30/22 21:05 Urine Urobilinogen Neg mg/dL (Negative) 10/30/22 21:05 Ur Leukocyte Esterase Negative (Negative) 10/30/22 21:05 Salicylates < 0.3 mg/dL (3-10) L 10/30/22 20:21 Urine Opiates Screen Negative ng/mL (Negative) 10/30/22 21:05 Acetaminophen < 5.0 ug/mL (10-30) L 10/30/22 20:21 Ur Barbiturates Screen Positive ng/mL (Negative) H 10/30/22 21:05 Ur Phencyclidine Scrn Negative ng/mL (Negative) 10/30/22 21:05 Ur Amphetamines Screen Negative ng/mL (Negative) 10/30/22 21:05 U Benzodiazepines Scrn Positive ng/mL (Negative) H 10/30/22 21:05 Urine Cocaine Screen Negative ng/mL (Negative) 10/30/22 21:05 U Marijuana (THC) Screen Negative ng/mL (Negative) 10/30/22 21:05 Ethyl Alcohol < 10 mg/dL (0-10) 10/30/22 20:21 Critical Care Time Critical Care Time: Critical Care Time: Yes Total Critical Care Time: 45 Attestation: Due to a high probability of clinically significant, possibly life threatening deterioration, the patient required my highest level of attention and preparedness to intervene emergently and I personally spent this critical care time directly and personally managing the patient. This critical care time included obtaining a history; examining the patient; pulse oximetry; ordering and review of laboratory and imaging studies; arranging urgent treatment with development of a management plan; evaluation of patient's response to treatment; frequent reassessment; and, discussions with other providers as applicable. It was exclusive of separately billable procedures. Primary system involved is neuro. Discharge Plan Discharge Patient Disposition: Xfer Short-Term Hosp Clinical Impression: Altered mental status, Brain tumor Condition: Stable Referrals: Mango Yuen MD [Primary Care Provider] - Patient Instructions: Hyponatremia (ED), Benzodiazepine Use Disorder (ED), Dementia (ED), Non-diabetic Hypoglycemia (ED), Hypoglycemia in a Person with Diabetes (ED), Concussion (ED), Alcohol Intoxication (ED), Subarachnoid Hemorrhage (GEN), Altered Mental Status (ED) Coding Level of Care Code ED Junior Underwriter for James Bruno
[2022-10-30 20:04] VITALS: BP 128/80; PULSE 74; RESP 20; TEMP 36.9; O2SAT 94; BMI 26.4
--- NOTE | 2022-10-30 20:09 | XRR_ITS ---
PROCEDURE INFORMATION: Exam: XR Chest Exam date and time: 10/30/2022 8:14 PM Age: 47 years old Clinical indication: Other: AMS TECHNIQUE: Imaging protocol: Radiologic exam of the chest. Views: 1 view. COMPARISON: CT chest w con* [id number] 10/12/2022 2:12 PM FINDINGS: Tubes, catheters and devices: Left subclavian central venous access catheter or port is seen, as noted with prior exam April 01, 2022. Lungs: Mild increased interstitial markings in the lung bases with today's exam. No consolidation. Pleural spaces: Unremarkable. No pleural effusion. No pneumothorax. Heart/Mediastinum: Unremarkable. No cardiomegaly. Bones/joints: Postsurgical hardware lower cervical spine, as noted with prior exam. XR/XR chest 1V portable [id number] IMPRESSION: 1. Mild increased interstitial markings in the lung bases with today's exam. There may be some component of vascular crowding or developing mild interstitial infiltrate, for follow-up. 2. No consolidation or effusion. 3. No significant change otherwise with prior exam.
--- NOTE | 2022-10-30 20:09 | CTR_ITS ---
PROCEDURE INFORMATION: Exam: CT Head Without Contrast Exam date and time: 10/30/2022 8:38 PM Age: 47 years old Clinical indication: Stroke-like symptoms; Altered mental status/memory loss; Additional info: AMS, recent brain tumor diagnosis TECHNIQUE: Imaging protocol: Computed tomography of the head without contrast. Radiation optimization: All CT scans at this facility use at least one of these dose optimization techniques: automated exposure control; mA and/or kV adjustment per patient size (includes targeted exams where dose is matched to clinical indication); or iterative reconstruction. Other technique: STROKE PROTOCOL was implemented. REPORTING DATA: Count of CT and Cardiac NM exams in prior 12 months: This patient has received 7 known CTs and 0 known cardiac nuclear medicine studies in the 12 months prior to the current study. COMPARISON: CT head wo con* [id number] 10/26/2022 1:38 PM RADIATION DOSE METRICS: Total DLP (mGy-cm): 1148.49 FINDINGS: Brain: Comparison with prior exam October 26, 2022 again demonstrates mild heterogeneous mass with mixed low-density and isodense to hyperdense appearance in the left occipital lobe, measuring approximately 2.3 x 2.3 cm. There is significant surrounding or adjacent edema as noted with prior exam, including the left occipital and adjacent left posterior parietal lobe, without significant midline shift. Findings are without significant change with prior exam. No interval new changes are seen otherwise. No interval new ischemic infarct. No intracranial hemorrhage or hematoma is seen. Cerebral ventricles: No significant ventriculomegaly. Paranasal sinuses: Visualized sinuses are unremarkable. No fluid levels. Mastoid air cells: Visualized mastoid air cells are well aerated. Bones/joints: Bone windows of the skull show no acute findings. Soft tissues: Unremarkable. CT/CT head wo con* [id number] IMPRESSION: 1. Left occipital lobe mass as noted above with significant surrounding or adjacent edema. This is without significant change from prior exam October 26, 2022. This will require further evaluation with contrast-enhanced study and preferably MRI. 2. No interval new findings otherwise with prior exam. ASSESSMENT: ASPECTS ([place] Stroke Program Early CT Score) is 9.
[2022-10-30 20:26] LABS: ABG PCO2 34.1 mmHg (35-45); ABG PH Result 7.46 (7.35-7.45); Arterial Blood Gas Hematocrit 46.6 % (37-47); Base Excess ABG 0.7 mmol/L (-2.0-2.0); Blood Gas Operator Identificat AMH; Blood Gas Sample Site Brachial, right; Blood Gas Sample Type Arterial; Oxygen Device ROOM AIR; PO2 ABG 69.5 mmHg (80.0-100.0)
[2022-10-30 20:26] LABS: Glucose Point of Care 114 mg/dL (70-110)
[2022-10-30 20:27] LABS: Basophils % 0.1 %; Hematocrit 45.7 % (37.0-47.0); Hemoglobin 14.8 g/dL (11.5-15.3); Lymphocytes # 1.5 10^3/uL (0.8-4.8); Lymphocytes % 12.7 %; Mean Corpuscular HGB Conc 32.4 g/dL (30.0-36.0); Mean Corpuscular Hemoglobin 26.6 pg (28.0-34.0); Mean Corpuscular Volume 82.2 fl (81-99); Mean Platelet Volume 11.1 fL (7.4-10.4); Monocytes # 0.5 10^3/uL (0.2-0.9); Neutrophils # 9.68 10^3/uL (1.8-7.7); Neutrophils % 82.3 %; Nucleated Red Blood Cells % 0 %; Platelet Count 238 10^3/cmm (130-400); Red Blood Count 5.56 10^6/uL (4.1-5.3); Red Cell Distribution Width 15.2 % (12.1-15.1); White Blood Count 11.8 10^3/uL (4.0-10.0)
--- NOTE | 2022-10-30 20:33 | ECG_ITS ---
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 Measurements Intervals [place] Rate: 68 P: 66 OR: 136 QRS: 58 QRSD: 89 T: 73 QT: 390 QTc: 417 Interpretive Statements SINUS RHYTHM Compared to ECG 10/26/2022 13:26:08 No significant changes Electronically Signed On 10-31-2022 8:31:04 CDT by Sebastian Martinez M.D. [id number]
[2022-10-30 20:38] LABS: INR 0.94 (0.8-1.2)
[2022-10-30 20:39] LABS: Partial Thromboplastin Time 27.4 SECONDS (23.9-36.7)
--- NOTE | 2022-10-30 20:47 | PC.NURSE ---
Pt family member states that pt was diagnosed with lung cancer previously. Pt went in for a scan when the brain tumor was discovered. Pt recently released from [facility] yesterday and was completely awake. Pt woke up this morning feeling spacey and not herself. Pt was barely waking up but knew where her medications were laid out and verbalized this to family member. Pt missed her seizure medication at noon but took morning and evening medications. Pt has not eaten today per family. Family states that a bottle of 4 mg decadron is missing.
[2022-10-30 20:48] LABS: Anion Gap 15.2 (5-19); Blood Urea Nitrogen 14 mg/dL (6-20); Carbon Dioxide 22 mmol/L (22-29); Chloride 100 mmol/L (98-107); Glomerular Filtration Rate 88.9 mL/min (90-130); Glucose 105 mg/dL (65-115); Osmolality Calculated 277 mOsm/kg (285-295); Potassium 4.2 mmol/L (3.5-5.1); Sodium 133 mmol/L (136-145)
[2022-10-30 20:49] LABS: Acetaminophen < 5.0 ug/mL (10-30); Alcohol Level < 10 mg/dL (0-10); Salicylate < 0.3 mg/dL (3-10)
[2022-10-30] MEDS: ondansetron 2 mg/ML SDV 2 mL 4 MG IVP (21:13)
[2022-10-30 21:30] VITALS: BP 127/83; PULSE 67; RESP 16; O2SAT 94
[2022-10-30 21:35] LABS: Add Urine Microscopic? NO; Charge for UA Resulting for Rev
[2022-10-30 21:41] LABS: Bilirubin Urine Neg (Negative); Blood Urine Neg (Negative); Glucose Urine UA Norm (Normal); Ketones Urine Negative (Negative); Leukocyte Esterase Urine Negative (Negative); Nitrate Urine Negative (Negative); Protein Urine Neg (Negative); Specific Gravity, Urine 1.005 (1.005-1.030); Urine Appearance Clear (CLEAR); Urine Color Yellow (Yellow); Urobilinogen Urine Neg (Negative); pH Urine 7 (5-7)
[2022-10-30 21:48] LABS: Amphetamines Screen Urine Negative (Negative); Barbiturates Screen Urine Positive (Negative); Benzodiazepines Screen Urine Positive (Negative); Cocaine Screen Urine Negative (Negative); Opiate Screen Urine Negative (Negative); PCP Screen Urine Negative (Negative); THC Screen Urine Negative (Negative)
[2022-10-30 21:54] VITALS: BP 118/77; PULSE 71; RESP 16; O2SAT 93
[2022-10-30 23:21] VITALS: BP 106/74; PULSE 67; RESP 16; O2SAT 93
[2022-10-31] VITALS (11 sets, daily range): BP systolic 91–196; BP diastolic 57–115; PULSE 58–90; RESP 13–20; O2SAT 94–99
[2022-10-31] MEDS: etomidate 2 mg/mL INJ SDV 10 mL 25 MG IVP (00:15)
[2022-10-31] MEDS: vecuronium 10 mg SDV 7.5 MG IVP (00:16)
--- NOTE | 2022-10-31 00:22 | XRR_ITS ---
PROCEDURE INFORMATION: Exam: XR Chest Exam date and time: 10/31/2022 12:23 AM Age: 47 years old Clinical indication: Device placement; Ett placement (vent status); Patient HX: Et tube and ng tube placement; Additional info: Post intubation TECHNIQUE: Imaging protocol: Radiologic exam of the chest. Views: 1 view. COMPARISON: CR (CHEST, ) 10/30/2022 8:14 PM FINDINGS: Tubes, catheters and devices: ETT is in place, tip is about 5.4 cm above eryn. NGT in place. Left port in place. Lungs: Minimal left lung base atelectasis possible. No consolidation. Pleural spaces: Unremarkable. No pleural effusion. No pneumothorax. Heart/Mediastinum: Unremarkable. No cardiomegaly. Bones/joints: Unremarkable. XR/XR chest 1V portable [id number] IMPRESSION: Lines and tubes are in place, negative for consolidation or pneumothorax.
[2022-10-31] MEDS: propofol 1,000 MG/100 ML INJ 2.23 MG IV (00:26)
[2022-10-31] MEDS: dexamethasone 10 mg/mL INJ IVP (00:27)
--- NOTE | 2022-10-31 00:34 | PC.NURSE ---
0013- prepped for intubation; patient on bedside monitor with BP, pulse ox, and chimney builder brick 0015- 25 mg etomidate given IVP 0016- 7.5 mg vecuronium given IVP 0018- 7.0 ET tube placed, 22@ gums; color change noted; no abdominal gurgling heard 0021- propofol @5mcg/kg/min IV, fentanyl @50mcg/hr IV 0022- 18 OG tube confirmed and auscultated 0024- 20mg propofol bolus given by Dr Vazquez
[2022-10-31] MEDS: midazolam 1 mg/mL INJ 2 mL 2 MG IVP (00:45)
[2022-10-31 02:06] LABS: ABG PCO2 43.6 mmHg (35-45); ABG PH Result 7.35 (7.35-7.45); Base Excess ABG -1.6 mmol/L (-2.0-2.0); Blood Gas Operator Identificat AMH; Blood Gas Sample Site Brachial, right; Blood Gas Sample Type Arterial; Blood Gas Tidal Volume 0.38; HCO3 ABG 24.1 mmol/L (22-26); Oxygen Device VENT; PO2 ABG 94.4 mmHg (80.0-100.0)
[2022-10-31] MEDS: propofol 1,000 MG/100 ML INJ 13.39 MG IV (03:07)
--- NOTE | 2022-10-31 03:08 | PC.NURSE ---
Versed, fentanyl, and propofol drips continued en route.
== END 2022-10-31 03:07 | disposition short-term general hospital (02) ==
PROVIDERS: Emergency Provider Emergency Medicine; PCP Family Medicine
DX: R41.82 Altered mental status, unspecified (principal); D49.6 Neoplasm of unspecified behavior of brain; D72.829 Elevated white blood cell count, unspecified
CPT/HCPCS: 31500; 36415; 36416; 36600; 51701; 51702; 70450; 71045; 80048; 80306; 80307; 81003; 82803; 82962; 85025; 85610; 85730; 93005; 94002; 94799; 96365; 96366; 96367; 96375; 99291; J1100; J1953; J2250; J2405; J2704; J3010; J3490; J7050

== ENCOUNTER 2022-11-20 08:50 | Emergency (ER) | payer MEDICAID, SELFPAY ==
[2022-02-13 15:03] VITALS: BP 113/76; BMI 24.4
[2022-11-20 08:56] VITALS: BP 119/80; PULSE 78; RESP 18; TEMP 36.4; O2SAT 98; BMI 29.0
--- NOTE | 2022-11-20 09:06 | XRR_ITS ---
PROCEDURE INFORMATION: Exam: XR Chest Exam date and time: 11/20/2022 9:13 AM Age: 47 years old Clinical indication: Shortness of breath; Additional info: Dyspnea/cough.No history of trauma or recent surgery is provided. TECHNIQUE: Imaging protocol: Radiologic exam of the chest. 1image(s) are provided. Views: 1 view. COMPARISON: 1. CR (CHEST, ) 10/31/2022 12:[address] chest w con* [id number] 10/12/2022 2:12 PM FINDINGS: Tubes, catheters and devices: The endotracheal tube is no longer appreciated nor is the gastric tube. The left port catheter remains. Lungs: No lobar consolidation is appreciated. There is some subsegmental atelectasis versus post inflammatory reticulonodular similar scarring demonstrated. There is some apical fibronodular scarring as well as some bleb related change more so on the right similar. Pleural spaces: No interval pneumothorax or pleural effusion is appreciated. Heart/Mediastinum: The cardiomediastinal silhouette is within normal. No cardiac decompensation is appreciated. Diaphragm: The hemidiaphragms are symmetric. Bones/joints: Osseous alignment is maintained.No interval displaced fracture or dislocation is appreciated. There are postsurgical changes of the cervical spine demonstrated. Soft tissues: No radiopaque foreign body or subcutaneous emphysema is appreciated. Other findings: There is some mild chronic air trapping type appearance similar overall. No other significant interval changes are appreciated. XR/XR chest 1V portable [id number] IMPRESSION: The patient has been extubated as compared to the previous study with improved overall central aeration and lung volume appearance.No interval lobar consolidation or cardiac decompensation is appreciated.
[2022-11-20 09:32] LABS: Basophils # 0.1 10^3/uL (0.0-0.1); Eosinophils % 0.3 %; Hematocrit 46.6 % (37.0-47.0); Hemoglobin 13.9 g/dL (11.5-15.3); Lymphocytes # 1.6 10^3/uL (0.8-4.8); Lymphocytes % 13.5 %; Mean Corpuscular HGB Conc 29.8 g/dL (30.0-36.0); Mean Corpuscular Hemoglobin 27.9 pg (28.0-34.0); Mean Corpuscular Volume 93.4 fl (81-99); Monocytes # 0.9 10^3/uL (0.2-0.9); Monocytes % 7.5 %; Neutrophils # 8.84 10^3/uL (1.8-7.7); Neutrophils % 73.8 %; Nucleated Red Blood Cells % 0.3 %; Platelet Count 233 10^3/cmm (130-400); Red Blood Count 4.99 10^6/uL (4.1-5.3); Red Cell Distribution Width 20.2 % (12.1-15.1)
--- NOTE | 2022-11-20 09:35 | ECG_ITS ---
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 Measurements Intervals [place] Rate: 76 P: 50 SC: 133 QRS: 35 QRSD: 86 T: 53 QT: 370 QTc: 418 Interpretive Statements SINUS RHYTHM Compared to ECG 10/30/2022 20:33:59 No significant changes Electronically Signed On 11-20-2022 21:07:46 CDT by Nora Ramos M.D. [id number]
[2022-11-20 09:52] LABS: Alanine Aminotransferase 38 U/L (0-33); Albumin Level 3.8 g/dL (3.5-5.2); Alkaline Phosphatase 59 U/L (35-105); Blood Urea Nitrogen 24 mg/dL (6-20); Calcium 9.1 mg/dL (8.5-10.5); Carbon Dioxide 22 mmol/L (22-29); Chloride 99 mmol/L (98-107); Creatinine Clr Calc Pharmacy 104.7276; Glomerular Filtration Rate 88.9 mL/min (90-130); Glucose 83 mg/dL (65-115); Osmolality Calculated 279 mOsm/kg (285-295); Sodium 133 mmol/L (136-145); Total Bilirubin 0.2 mg/dL (0.15-1.2); Total Protein 5.8 g/dL (6.6-8.7)
--- NOTE | 2022-11-20 10:03 | CT_ITS ---
WS: [id number] CT HEAD TECHNIQUE: Noncontrast CT of the head obtained from the skullbase to the vertex. CLINICAL INFORMATION: bruin mets - new onset leg weakness COMPARISON: CT October 30, 2022. MRI December 02, 2021 DLP: 1103.[address] scans at [facility] use at least one of these dose optimization techniques: automated e xposure control; mA and/or kV adjustment per patient size (includes targeted exams where dose is matc hed to clinical indication); or iterative reconstruction. FINDINGS: Previously described metastasis in the LEFT parietal occipital junction is similar in appearance to p revious. Moderate surrounding edema. Metastatic lesion measures 2.7 x 2.3 CM. Moderate surrounding ed leoncio appears stable. Mild mass effect on the posterior horn LEFT lateral ventricle. No midline shift. No hydrocephalus. Paranasal sinuses and mastoid air cells are well aerated. .Normal visualized soft tissues. CT/CT head wo con* [id number] IMPRESSION: 1. Stable LEFT parietal occipital metastasis measuring 2.3 x 2.7 cm. 2. Moderate surrounding edema is not significantly changed compared to October. Mild mass effect on the LEFT posterior horn lateral ventricle. 3. No hydrocephalus or midline shift. 4. No other new findings.
[2022-11-20 10:04] LABS: Anion Gap 16.9 (5-19); Aspartate Amino Transferase 18 U/L (0-32); Potassium 4.9 mmol/L (3.5-5.1)
--- NOTE | 2022-11-20 10:05 | W.ED.WEAKNES ---
HPI - Weakness General: Chief complaint: Weakness Stated complaint: leg numbness, swelling all over Time Seen by Provider: 11/20/22 08:57 History of Present Illness: 47-year-old female with a known history of lung CA recently found to have mets to the brain has undergone some radiation. She is also been started on dexamethasone. She comes in today complaining of bilateral weakness in her legs which is developed over the last several days. She is able to move them but states she has numbness in her legs bilaterally. Additionally she has noticed swelling when she states is all over her body. MD Complaint: generalized weakness Onset (ago): minute(s) Location: E and RUE Migration: none Severity: moderate Relieving factors: none Exacerbating factors: none Associated symptoms: Denies chest pain, chills, confusion, melena, decreased appetite, diaphoresis, dysuria, easy bruising, fever(s), headache(s), myalgias, nausea, rash, short of breath, syncope or vomiting Review of Systems Const: Reports: fatigue and malaise; Denies: fever(s), chills or diaphoresis ENMT: Denies: throat pain, ear or mastoid pain, nasal discharge or nasal congestion Card: Denies: chest pain or syncope Resp: Denies: dyspnea, productive cough or non-productive cough GI: Denies: abdominal pain, nausea, vomiting or melena : Denies: dysuria Skin/Breast: Denies: rash or pruritus Neuro: Denies: headache(s) or confusion [place]/Lymph: Denies: easy bruising PFSH ED PFSH: Medical History Cigarette nicotine dependence COPD (chronic obstructive pulmonary disease) Fibromyalgia Generalized anxiety disorder with panic attacks Psychiatric care Surgical History H/O spinal fusion H/O tubal ligation S/P bronchoscopy Family History Father Parkinsonism Cancer Skin cancer and stomach cancer Brother Parkinsonism Mother Hyperlipidemia CAD (coronary artery disease) Psychiatric illness Other Diabetes Hypertension Major depressive disorder, recurrent severe without psychotic features Denies family history of Clotting disorder Dementia Chronic kidney disease (CKD) Suicide Anesthesia complication Bleeding disorder Lung disease Stroke Social History Smoking and tobacco status: current every day smoker cigarettes Packs smoked per day: 1 Years cigarettes smoked: 33 Quit status (tobacco): has tried quititng Second hand smoke exposure: Yes Alcohol intake: never Substance/Drug Use: never Adopted: No Caregiver/support person: No Lives independently: Yes Housing: Apartment Marital status: Marital status details: 14 years ago Number of children: 5 Number of grandchildren: 12 Highest education level completed: 10th Grade service: No Current occupational status: disabled Current occupational exposures/hazards: No Pets and animals: Yes (4 dogs) Pets & animals: dog(s) Leisure activites: other Leisure activities details: playing with dogs, outside a lot Sexually active: No Do you think of yourself as: Straight/Heterosexual Current gender identity: Female Marisabel/Scientology: Pentecostalism Special marisabel needs: No Agree to transfusion: Yes Financial difficulty paying for basics: Very Hard Physical Exam Const: COMMON NORMALS: no acute distress GENERAL APPEARANCE: cooperative and comfortable ORIENTATION/CONSCIOUSNESS: Yes awake, Yes oriented to person, Yes oriented to place and Yes oriented to time HENMT: COMMON NORMALS: normocephalic, atraumatic and hearing grossly normal bilaterally HEAD & SCALP: normocephalic and atraumatic Resp: COMMON NORMALS: normal respiratory effort, No retractions, No use of accessory muscles and clear to auscultation bilaterally AUSCULTATION: clear to auscultation bilaterally Cardio: COMMON NORMALS: regular rate, regular rhythm and No murmurs present (Cardio) RATE: regular rate RHYTHM: regular rhythm GI: COMMON NORMALS: Soft to palpation and No hepatosplenomegaly present AUSCULTATION: Yes normoactive bowel sounds PALPATION: Yes Soft to palpation, No Tenderness to palpation present (GI), No Guarding due to palpation present (GI) and Yes No hepatosplenomegaly present Extremity: COMMON NORMALS: normal to inspection, capillary refill normal and no calf tenderness Neuro: SENSORIUM/ORIENTATION: Yes oriented to person, Yes oriented to place and Yes oriented to time OTHER: Bilateral lower extremity weakness but patient still able to lift leg and hold off the exam table. Sensation lower extremities diminished bilaterally moderate swelling. Skin: COMMON NORMALS: no rashes or lesions noted GENERAL SKIN EXAM: no rashes or lesions noted Course Vital Signs: Vital signs: Vital Signs Temperature 97.6 F 11/20/22 08:56 Pulse Rate 90 11/20/22 13:18 Respiratory Rate 20 H 11/20/22 13:18 Blood Pressure 127/78 11/20/22 13:18 Pulse Oximetry 98 11/20/22 13:18 Oxygen Delivery Me thod Room Air 11/20/22 13:18 MDM - Weakness Medical Decision Making Improved with medications given. There is some mild stenosis at L5-S1 but she has a history of small fiber neuropathy. There is no evidence of metastasis to her spine. Discussed Dr. Schafer who recommends continue dexamethasone. Patient is doing well at this time no uncontrolled pain will discharge home and have her return if she has further symptoms. Otherwise follow-up with oncology as planned. Medical Records I reviewed the patient's medical records. Lab Data I reviewed the patient's lab results. 11/20/22 09:28 11/20/22 09:28 Radiology Impressions Chest X-Ray 11/20/22 09:06 IMPRESSION: The patient has been extubated as compared to the previous study with improved overall central aeration and lung volume appearance.No interval lobar consolidation or cardiac decompensation is appreciated. Head CT 11/20/22 10:03 IMPRESSION: 1. Stable LEFT parietal occipital metastasis measuring 2.3 x 2.7 cm. 2. Moderate surrounding edema is not significantly changed compared to October 30, 2022. Mild mass effect on the LEFT posterior horn lateral ventricle. 3. No hydrocephalus or midline shift. 4. No other new findings. Lumbar Spine CT 11/20/22 11:51 IMPRESSION: Spinal canal stenosis appears progressed compared to MRI 2016 1. Mild lumbar curve. No acute compression. No high-grade central canal stenosis. 2. Mild annular bulging L4-L5 with mild to moderate central canal stenosis and slight impingement traversing LEFT greater than RIGHT L5 nerve roots. 3. Mild central canal stenosis L5-S1 with a shallow central disc protrusion. Slight contact of the traversing S1 nerve roots. 4. Moderate facet arthropathy L4-L5 and L5-S1. 5. No bony metastatic lesions. 6. Partially visualized cholelithiasis. Notified Devonte White DO at 11/20/2022 12:54 PM. Laboratory Results WBC 12.0 10^3/uL (4.0-10.0) H 11/20/22 09: RBC 4.99 10^6/uL (4.1-5.3) 11/20/22 09: Hgb 13.9 g/dL (11.5-15.3) 11/20/22 09: Hct 46.6 % (37.0-47.0) 11/20/22 09: MCV 93.4 fl (81-99) 11/20/22 09: MCH 27.9 pg (28.0-34.0) L 11/20/22 09: MCHC 29.8 g/dL (30.0-36.0) L 11/20/22 09: RDW 20.2 % (12.1-15.1) H 11/20/22 09: Plt Count 233 10^3/cmm (130-400) 11/20/22 09: MPV 10.0 fL (7.4-10.4) 11/20/22 09: Neut % (Auto) 73.8 % 11/20/22 09:28 Lymph % (Auto) 13.5 % 11/20/22 09:28 [place] % (Auto) 7.5 % 11/20/22 09:28 Eos % (Auto) 0.3 % 11/20/22 09:28 Baso % (Auto) 1.0 % 11/20/22 09: Neut # (Auto) 8.84 10^3/uL (1.8-7.7) H 11/20/22 09: Lymph # (Auto) 1.6 10^3/uL (0.8-4.8) 11/20/22 09:28 [place] # (Auto) 0.9 10^3/uL (0.2-0.9) 11/20/22 09:28 Eos # (Auto) 0.0 10^3/uL (0.0-0.8) 11/20/22 09: Baso # (Auto) 0.1 10^3/uL (0.0-0.1) 11/20/22 09: Nucleated RBC % (auto) 0.3 % 11/20/22 09: Nucleated RBCs # 0.0 /100WBC 11/20/22 09:28 Sodium 133 mmol/L (136-145) L 11/20/22 09:28 Potassium 4.9 mmol/L (3.5-5.1) 11/20/22 09:28 Chloride 99 mmol/L (98-107) 11/20/22 09:28 Carbon Dioxide 22 mmol/L (22-29) 11/20/22 09:28 Anion Gap 16.9 (5-19) 11/20/22 09:28 BUN 24 mg/dL (6-20) H 11/20/22 09:28 Creatinine 0.7 mg/dL (0.5-0.9) 11/20/22 09:28 GFR Calculation 88.9 mL/min (90-130) L 11/20/22 09:28 Glucose 83 mg/dL (65-115) 11/20/22 09:28 Calculated Osmolality 279 mOsm/kg (285-295) L 11/20/22 09:28 Calcium 9.1 mg/dL (8.5-10.5) 11/20/22 09:28 Total Bilirubin 0.2 mg/dL (0.15-1.2) 11/20/22 09:28 AST 18 U/L (0-32) 11/20/22 09:28 ALT 38 U/L (0-33) H 11/20/22 09:28 Alkaline Phosphatase 59 U/L (35-105) 11/20/22 09:28 Total Protein 5.8 g/dL (6.6-8.7) L 11/20/22 09:28 Albumin 3.8 g/dL (3.5-5.2) 11/20/22 09:28 Globulin 2.0 g/dL (1.3-4.6) 11/20/22 09:28 Discharge Plan Discharge Patient Disposition: Home 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, Bilateral leg numbness, Small fiber neuropathy, Metastatic cancer to brain Condition: Stable Prescriptions: No Action alprazolam [Xanax] 1 mg tablet 1 mg PO TID PRN (Reason: anxiety) Qty: 90 3RF ipratropium-albuterol 0.5 mg-3 mg(2.5 mg base)/3 mL solution for nebulization 3 ml inhalation Q4H PRN (Reason: wheezing) magnesium 250 mg tablet 250 mg PO DAILY albuterol sulfate [Ventolin HFA] 90 mcg/actuation HFA aerosol inhaler 2 inh inhalation QID PRN (Reason: shortness of breath or wheezing) Trelegy Ellipta 100-62.5-25 mcg blister with device 1 inh inhalation DAILY Qty: 60 3RF Rx Instructions: 340 B [id number] 50-325-40 mg tablet 1 tab PO Q6H PRN (Reason: Pain) dexamethasone 4 mg tablet 4 mg PO TID melatonin 3 mg capsule 3 mg PO QPM PRN (Reason: sleep) Discharge Orders: Discharge ED (Routine); Ordered 11/20/22 Ordered By: Devonte White Referrals: Mango Yuen MD [Primary Care Provider] - Discharge Diet: Usual diet Discharge Activity: Increase activity as tolerated Patient Instructions: Opioid Safety, Pain Management Activity Restrictions/Additional Instructions: You are seen today for numbness in your legs. Head CT does not show any change from previous CTs of the head done recently. CT lumbar spine does not show anything that looks like metastatic disease to the lumbar spine there is some narrowing of the spinal canal but no impingement. Continue steroids and follow-up with Dr. Schafer within the next week. Coding Level of Care Code ED Freelance Director for James Bruno
[2022-11-20] MEDS: sodium chloride 0.9% 1,000 ML 999 ML IV (10:35)
--- NOTE | 2022-11-20 11:51 | CT_ITS ---
WS: [id number] CT LUMBAR SPINE TECHNIQUE: Noncontrast CT of the lumbar spine with coronal and sagittal reformatted images. CLINICAL INFORMATION: extremity numbness, hx lung CA COMPARISON: None. DLP: 915.[address] scans at [facility] use at least one of these dose optimization techniques: automated e xposure control; mA and/or kV adjustment per patient size (includes targeted exams where dose is matc hed to clinical indication); or iterative reconstruction. FINDINGS: Mild lumbar curve. No acute compression. Disc bulging worse L4-L5 and L5-S1. Adrenal glands are melania l. L1-L2: Moderate facet arthropathy. Spinal canal and foramen are patent. L2-L3: No significant disc bulging. Spinal canal and foramen are patent. Moderate facet arthropathy. L3-L4: Mild annular bulging. Moderate facet arthropathy. Spinal canal and foramen are patent. L4-L5: Mild annular bulging with mild to moderate central canal stenosis. Impingement traversing LEFT greater than RIGHT L5 nerve roots. Moderate facet arthropathy ligamentum flavum hypertrophy. Mild LE FT foraminal narrowing. L5-S1: Annular bulging with shallow central protrusion. Slight impingement traversing S1 nerve roots bilaterally. Mild central canal stenosis. Moderate facet arthropathy ligamentum flavum hypertrophy. F oramen are patent. Visualized pelvic bony structures: Normal. Paravertebral soft tissues: Normal. CT/CT lumbar spine wo con* [id number] IMPRESSION: Spinal canal stenosis appears progressed compared to MRI 2016 1. Mild lumbar curve. No acute compression. No high-grade central canal stenos is. 2. Mild annular bulging L4-L5 with mild to moderate central canal stenosis and slight impingement traversing LEFT greater than RIGHT L5 nerve roots. 3. Mild central canal stenosis L5-S1 with a shallow central disc protrusion. S light contact of the traversing S1 nerve roots. 4. Moderate facet arthropathy L4-L5 and L5-S1. 5. No bony metastatic lesions. 6. Partially visualized cholelithiasis. Notified Devonte White DO at 11/20/2022 12:54 PM.
[2022-11-20 12:36] VITALS: BP 122/69; PULSE 85; RESP 24; O2SAT 93
[2022-11-20 13:18] VITALS: BP 127/78; PULSE 90; RESP 20; O2SAT 98
== END 2022-11-20 13:46 | disposition home or self-care (01) ==
PROVIDERS: Emergency Provider Family Medicine; PCP Family Medicine
DX: J44.9 Chronic obstructive pulmonary disease, unspecified (principal); C34.91 Malignant neoplasm of unspecified part of right bronchus or lung; C79.31 Secondary malignant neoplasm of brain; F17.210 Nicotine dependence, cigarettes, uncomplicated; Z79.899 Other long term (current) drug therapy
CPT/HCPCS: 70450; 71045; 72131; 80053; 85025; 93005; 99285; J7030

== ENCOUNTER 2022-11-23 06:01 | Emergency (ER) | payer MEDICAID, SELFPAY ==
[2022-02-13 15:03] VITALS: BP 113/76; BMI 24.4
[2022-11-23 06:02] VITALS: BP 107/71; PULSE 86; RESP 18; TEMP 36.6; O2SAT 99
--- NOTE | 2022-11-23 06:20 | USCV_ITS ---
KramerKristine weber Age: 47 Gender: F : 1975 Exam Date: 11/23/2022 06:36 Ordering Phys: Devonte White DO Technologist: JAMES Exam Location: [facility] [place] Indication: Leg pain and swelling HISTORY: Lower extremity swelling. Lower extremity pain. PROCEDURES: Venous duplex imaging was performed in bilateral lower extremities. The following venous structures were evaluated: common femoral vein, profunda vein, proximal portion of the greater saphenous vein, superficial femoral vein, and the popliteal vein. In addition, the posterior tibial and peroneal trunk were evaluated. Serial compression, augmentation maneuvers, and spectral Doppler flow evaluation were performed. FINDINGS: No evidence of DVT seen in any vessel visualized at this time. CONCLUSIONS No evidence of right lower extremity DVT. No evidence of left lower extremity DVT. Vance Schmidt MD (Electronically Signed) Final Date: 23 November 2022 09:49 S
--- NOTE | 2022-11-23 06:20 | XRR_ITS ---
PROCEDURE INFORMATION: Exam: XR Chest Exam date and time: 11/23/2022 6:31 AM Age: 47 years old Clinical indication: Shortness of breath and other: Weakness; Prior surgery; Surgery date: 6+ months; Surgery type: Port; Additional info: Dyspnea/cough TECHNIQUE: Imaging protocol: Radiologic exam of the chest. Views: 1 view. COMPARISON: CR XR chest 1V portable [id number] 11/20/2022 9:13 AM FINDINGS: Tubes, catheters and devices: Left chest port line tip is in the upper SVC. Lungs: Lungs are clear. Pleural spaces: There is no pleural effusion or pneumothorax. Heart/Mediastinum: Cardiomediastinal contours are unremarkable. Bones/joints: Lower cervical fusion noted. No acute fracture. XR/XR chest 1V portable [id number] IMPRESSION: No acute findings.
[2022-11-23] MEDS: ondansetron 2 mg/ML SDV 2 mL 4 MG IVP (06:21)
[2022-11-23] MEDS: HYDROmorphone 1 mg/mL INJ 1 mL IVP (06:22)
--- NOTE | 2022-11-23 06:22 | W.ED.EXTPRO ---
HPI - Extremity Problem General: Chief complaint: Extremity Problem,Nontraumatic Stated complaint: Leg pain/ Swelling Time Seen by Provider: 11/23/22 06:03 Source: patient Mode of arrival: ambulatory History of Present Illness: 47-year-old female presents via EMS with complaints of severe pain and swelling to her lower extremities. She was seen 3 days ago with complaints of pain to her lower legs she has a history of small fiber neuropathy she also has a history of lung CA with metastasis to the brain. At that time the swelling was rather mild and she had negative Homans. She is on dexamethasone for her brain mets. I discussed with Dr. Schafer and he had recommended evaluation of her spine for metastasis. CT was done and there is no sign of metastasis there was some mild stenosis. Pain improved and she was discharged home. She states that the legs have continued to swell. No recent trauma she denies chest pain or shortness of breath. She is a little bit tachypneic on arrival but she relates that to her pain in her legs. She has no history of DVT and is not currently on any narcotic pain medications. MD Complaint: extremity pain and extremity swelling Onset (ago): day(s) Location: left, right and lower extremity Quality: aching Relieving factors: nothing Exacerbating factors: nothing Associated symptoms: Deny arthralgias, chest pain, fever(s), myalgias, rash or short of breath Review of Systems Const: Denies: fever(s) or chills Card: Reports: edema and swelling of feet/ankles; Denies: chest pain, palpitations or irregular heart rhythm Resp: Denies: dyspnea, productive cough or non-productive cough GI: Denies: abdominal pain, nausea, vomiting, hematemesis, coffee ground emesis, diarrhea, constipation, bloating, hematochezia or melena : Denies: flank pain, difficulty voiding, dysuria, urinary frequency or urinary urgency Skin/Breast: Denies: rash or pruritus PFSH ED PFSH: Medical History Cigarette nicotine dependence COPD (chronic obstructive pulmonary disease) Fibromyalgia Generalized anxiety disorder with panic attacks Psychiatric care Surgical History H/O spinal fusion H/O tubal ligation S/P bronchoscopy Family History Father Parkinsonism Cancer Skin cancer and stomach cancer Brother Parkinsonism Mother Hyperlipidemia CAD (coronary artery disease) Psychiatric illness Other Diabetes Hypertension Major depressive disorder, recurrent severe without psychotic features Denies family history of Clotting disorder Dementia Chronic kidney disease (CKD) Suicide Anesthesia complication Bleeding disorder Lung disease Stroke Social History Smoking and tobacco status: current every day smoker cigarettes Packs smoked per day: 1 Years cigarettes smoked: 33 Quit status (tobacco): has tried quititng Second hand smoke exposure: Yes Alcohol intake: never Substance/Drug Use: never Adopted: No Caregiver/support person: No Lives independently: Yes Housing: Apartment Marital status: Marital status details: 14 years ago Number of children: 5 Number of grandchildren: 12 Highest education level completed: 10th Grade service: No Current occupational status: disabled Current occupational exposures/hazards: No Pets and animals: Yes (4 dogs) Pets & animals: dog(s) Leisure activites: other Leisure activities details: playing with dogs, outside a lot Sexually active: No Do you think of yourself as: Straight/Heterosexual Current gender identity: Female Marisabel/Confucianism: Holiness Special marisabel needs: No Agree to transfusion: Yes Financial difficulty paying for basics: Very Hard Physical Exam Const: GENERAL APPEARANCE: cooperative and comfortable ORIENTATION/CONSCIOUSNESS: Yes awake, Yes oriented to person, Yes oriented to place and Yes oriented to time HENMT: COMMON NORMALS: normocephalic, atraumatic and hearing grossly normal bilaterally HEAD & SCALP: normocephalic and atraumatic Resp: COMMON NORMALS: normal respiratory effort, No retractions, No use of accessory muscles and clear to auscultation bilaterally AUSCULTATION: clear to auscultation bilaterally Cardio: COMMON NORMALS: regular rate, regular rhythm and No murmurs present (Cardio) RATE: regular rate RHYTHM: regular rhythm GI: COMMON NORMALS: Soft to palpation and No hepatosplenomegaly present AUSCULTATION: Yes normoactive bowel sounds PALPATION: Yes Soft to palpation, No Tenderness to palpation present (GI), No Guarding due to palpation present (GI) and Yes No hepatosplenomegaly present Extremity: COMMON NORMALS: normal to inspection and capillary refill normal OTHER: 2+ edema lower extremities bilaterally mild calf and medial thigh. No red no skin breakdown or ulcerations. Skin is tense particularly at the feet to the level of the ankles. Neuro: SENSORIUM/ORIENTATION: Yes oriented to person, Yes oriented to place and Yes oriented to time Skin: COMMON NORMALS: no rashes or lesions noted GENERAL SKIN EXAM: no rashes or lesions noted Course Vital Signs: Vital signs: Vital Signs Temperature 97.8 F 11/23/22 06:02 Pulse Rate 86 11/23/22 06:02 Respiratory Rate 17 11/23/22 06:37 Blood Pressure 107/71 11/23/22 06:02 Pulse Oximetry 96 11/23/22 06:37 MDM - Extremity (Nontraumatic) Medical Decision Making Patient was seen earlier this week CT lumbar spine was negative for mets or significant stenosis there is some stenotic areas noted and disc disease with no major impingement noted on the CT. We will set up for an outpatient MRI. She did respond to the pain medications given in the past she has been on Lyrica it was stopped due to weight gain. At this point recommend that she restart at 75 twice daily. I think the swelling in is caused in part by her steroids. They are tapering her off of those at this point. Try to keep legs elevated is much as possible. We will also give her Percocet to use as needed set her up for an outpatient MRI and have her follow-up with oncology later this week. In reviewing the old charts it does not see any comments in the neurology notes about her previous experience of Lyrica which did cease a few years ago she had nerve studies done the lower extremities did not show anything significantly abnormal was thought to be due to small fiber neuropathy. Medical Records I reviewed the patient's medical records. Lab Data I reviewed the patient's lab results. 11/23/22 07:05 11/23/22 07:05 Radiology Impressions Chest X-Ray 11/23/22 06:20 IMPRESSION: No acute findings. Laboratory Results WBC 10.6 10^3/uL (4.0-10.0) H 11/23/22 07:05 RBC 4.85 10^6/uL (4.1-5.3) 11/23/22 07:05 Hgb 13.3 g/dL (11.5-15.3) 11/23/22 07:05 Hct 41.2 % (37.0-47.0) 11/23/22 07:05 MCV 84.9 fl (81-99) 11/23/22 07:05 MCH 27.4 pg (28.0-34.0) L 11/23/22 07:05 MCHC 32.3 g/dL (30.0-36.0) 11/23/22 07:05 RDW 20.4 % (12.1-15.1) H 11/23/22 07:05 Plt Count 236 10^3/cmm (130-400) 11/23/22 07:05 MPV 9.6 fL (7.4-10.4) 11/23/22 07:05 Neut % (Auto) 69.8 % 11/23/22 07:05 Lymph % (Auto) 19.5 % 11/23/22 07:05 [place] % (Auto) 6.6 % 11/23/22 07:05 Eos % (Auto) 0.9 % 11/23/22 07:05 Baso % (Auto) 0.6 % 11/23/22 07:05 Neut # (Auto) 7.37 10^3/uL (1.8-7.7) 11/23/22 07:05 Lymph # (Auto) 2.1 10^3/uL (0.8-4.8) 11/23/22 07:05 [place] # (Auto) 0.7 10^3/uL (0.2-0.9) 11/23/22 07:05 Eos # (Auto) 0.1 10^3/uL (0.0-0.8) 11/23/22 07:05 Baso # (Auto) 0.1 10^3/uL (0.0-0.1) 11/23/22 07:05 Nucleated RBC % (auto) 0.2 % 11/23/22 07:05 Nucleated RBCs # 0.0 /100WBC 11/23/22 07:05 Sodium 136 mmol/L (136-145) 11/23/22 07:05 Potassium 4.5 mmol/L (3.5-5.1) 11/23/22 07:05 Chloride 101 mmol/L (98-107) 11/23/22 07:05 Carbon Dioxide 23 mmol/L (22-29) 11/23/22 07:05 Anion Gap 16.5 (5-19) 11/23/22 07:05 BUN 25 mg/dL (6-20) H 11/23/22 07:05 Creatinine 0.7 mg/dL (0.5-0.9) 11/23/22 07:05 GFR Calculation 88.9 mL/min (90-130) L 11/23/22 07:05 Glucose 91 mg/dL (65-115) 11/23/22 07:05 Calculated Osmolality 286 mOsm/kg (285-295) 11/23/22 07:05 Calcium 8.2 mg/dL (8.5-10.5) L 11/23/22 07:05 Total Bilirubin 0.2 mg/dL (0.15-1.2) 11/23/22 07:05 AST 12 U/L (0-32) 11/23/22 07:05 ALT 31 U/L (0-33) 11/23/22 07:05 Alkaline Phosphatase 60 U/L (35-105) 11/23/22 07:05 Total Protein 5.5 g/dL (6.6-8.7) L 11/23/22 07:05 Albumin 3.7 g/dL (3.5-5.2) 11/23/22 07:05 Globulin 1.8 g/dL (1.3-4.6) 11/23/22 07:05 Discharge Plan Discharge Patient Disposition: Home Clinical Impression: Leg pain, diffuse, Small fiber neuropathy, Metastatic cancer to brain, Malignant neoplasm of upper lobe, right bronchus or lung Condition: Stable Prescriptions: New Lyrica 75 mg capsule 75 mg PO BID Qty: 60 0RF Percocet 5-325 mg tablet 1 tab PO Q4H PRN (Reason: pain) Qty: 30 0RF No Action alprazolam [Xanax] 1 mg tablet 1 mg PO TID PRN (Reason: anxiety) Qty: 90 3RF ipratropium-albuterol 0.5 mg-3 mg(2.5 mg base)/3 mL solution for nebulization 3 ml inhalation Q4H PRN (Reason: wheezing) magnesium 250 mg tablet 250 mg PO DAILY albuterol sulfate [Ventolin HFA] 90 mcg/actuation HFA aerosol inhaler 2 inh inhalation QID PRN (Reason: shortness of breath or wheezing) Treleephraim Ellipta 100-62.5-25 mcg blister with device 1 inh inhalation DAILY Qty: 60 3RF Rx Instructions: 340 B fexkpsjqpj-qmnruwfwhduze-zjtt 50-325-40 mg tablet 1 tab PO Q6H PRN (Reason: Pain) dexamethasone 4 mg tablet 4 mg PO TID melatonin 3 mg capsule 3 mg PO QPM PRN (Reason: sleep) Discharge Orders: Discharge ED (Routine); Ordered 11/23/22 Ordered By: Devonte White Referrals: Mango Yuen MD [Primary Care Provider] - Discharge Diet: Usual diet Discharge Activity: Increase activity as tolerated Patient Instructions: Opioid Safety, Pain Management Activity Restrictions/Additional Instructions: You are seen today for leg pain which respond to the pain medications given. Ultrasound done today did not show any sign of DVT. I believe the leg swelling is secondary to the steroid you have been taking. CT done at your last visit of your spine did not show any significant abnormalities no sign of metastasis to the spine. An MRI would be more sensitive and we will set you up for an outpatient MRI to a case making machine operator. Follow-up with your oncology team within the next week. Use the pain medications given as needed and start the Lyrica 1 pill twice daily regularly. Continue your other medications as previously prescribed Coding Level of Care Code ED Head Rigger for James Bruno
[2022-11-23 06:37] VITALS: RESP 17; O2SAT 96
[2022-11-23] MEDS: HYDROmorphone 1 mg/mL INJ 1 mL 0.5 MG IVP (06:37)
[2022-11-23 07:15] LABS: Basophils # 0.1 10^3/uL (0.0-0.1); Basophils % 0.6 %; Eosinophils # 0.1 10^3/uL (0.0-0.8); Eosinophils % 0.9 %; Hematocrit 41.2 % (37.0-47.0); Hemoglobin 13.3 g/dL (11.5-15.3); Lymphocytes # 2.1 10^3/uL (0.8-4.8); Lymphocytes % 19.5 %; Mean Corpuscular HGB Conc 32.3 g/dL (30.0-36.0); Mean Corpuscular Hemoglobin 27.4 pg (28.0-34.0); Mean Corpuscular Volume 84.9 fl (81-99); Mean Platelet Volume 9.6 fL (7.4-10.4); Monocytes # 0.7 10^3/uL (0.2-0.9); Monocytes % 6.6 %; Neutrophils # 7.37 10^3/uL (1.8-7.7); Neutrophils % 69.8 %; Nucleated Red Blood Cells % 0.2 %; Platelet Count 236 10^3/cmm (130-400); Red Blood Count 4.85 10^6/uL (4.1-5.3); Red Cell Distribution Width 20.4 % (12.1-15.1); White Blood Count 10.6 10^3/uL (4.0-10.0)
[2022-11-23 07:32] LABS: Alanine Aminotransferase 31 U/L (0-33); Albumin Level 3.7 g/dL (3.5-5.2); Alkaline Phosphatase 60 U/L (35-105); Anion Gap 16.5 (5-19); Aspartate Amino Transferase 12 U/L (0-32); Blood Urea Nitrogen 25 mg/dL (6-20); Calcium 8.2 mg/dL (8.5-10.5); Carbon Dioxide 23 mmol/L (22-29); Chloride 101 mmol/L (98-107); Globulin 1.8 g/dL (1.3-4.6); Glomerular Filtration Rate 88.9 mL/min (90-130); Glucose 91 mg/dL (65-115); Osmolality Calculated 286 mOsm/kg (285-295); Potassium 4.5 mmol/L (3.5-5.1); Sodium 136 mmol/L (136-145); Total Bilirubin 0.2 mg/dL (0.15-1.2); Total Protein 5.5 g/dL (6.6-8.7)
== END 2022-11-23 09:17 | disposition home or self-care (01) ==
PROVIDERS: Emergency Provider Family Medicine; PCP Family Medicine
DX: M79.662 Pain in left lower leg (principal); M79.661 Pain in right lower leg; G62.9 Polyneuropathy, unspecified; C34.11 Malignant neoplasm of upper lobe, right bronchus or lung; C79.31 Secondary malignant neoplasm of brain; Z79.899 Other long term (current) drug therapy
CPT/HCPCS: 36415; 71045; 80053; 85025; 93970; 96374; 96375; 96376; 99285; J1170; J2405

== ENCOUNTER 2022-12-10 11:44 | Inpatient (IN) | payer MEDICAID, SELFPAY ==
[2022-02-13 15:03] VITALS: BP 113/76; BMI 24.4
[2022-12-10] VITALS (49 sets, daily range): BP systolic 101–115; BP diastolic 62–76; PULSE 0–109; RESP 13–26; TEMP 36.7–36.9; O2SAT 89–97
--- NOTE | 2022-12-10 12:31 | USR_ITS ---
PROCEDURE INFORMATION: Exam: US Duplex Lower Extremity Veins, Bilateral Exam date and time: 12/10/2022 1:22 PM Age: 47 years old Clinical indication: Pain; Leg, lower; Bilateral; Additional info: Pain swelling TECHNIQUE: Imaging protocol: Real-time duplex ultrasound of the bilateral extremities with 2-D mccormick scale, color Doppler flow and spectral waveform analysis including responses to compression and other maneuvers (when performed) with image documentation. Complete exam focused on the lower extremity veins. COMPARISON: CT chest abdpel w/*[id number] 10/27/2022 8:36 PM FINDINGS: Right deep veins: Unremarkable. The common femoral, femoral, proximal profunda femoral and popliteal veins are patent without thrombus. Normal Doppler waveforms. Normal compressibility and/or augmentation response. Left deep veins: Unremarkable. The common femoral, femoral, proximal profunda femoral and popliteal veins are patent without thrombus. Normal Doppler waveforms. Normal compressibility and/or augmentation response. Superficial veins: Bilateral saphenofemoral junctions are patent without thrombus. Soft tissues: There is subcutaneous edema in the lower legs bilaterally. US/CV venous duplex [facility] [id number] IMPRESSION: No deep vein thrombosis.
--- NOTE | 2022-12-10 12:32 | ECG_ITS ---
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 Measurements Intervals [place] Rate: 85 P: 39 CT: 117 QRS: 31 QRSD: 83 T: 32 QT: 352 QTc: 421 Interpretive Statements SINUS RHYTHM WITH SHORT CT INTERVAL Compared to ECG 11/20/2022 09:35:[address] interval now present Electronically Signed On 12-10-2022 18:24:19 CDT by Luis M Urbina M.D. [email or web address] [id number]
--- NOTE | 2022-12-10 12:35 | ED_ITS ---
HPI - Extremity Problem General: Chief complaint: Extremity Problem,Nontraumatic Stated complaint: swelling both legs with blisters Time Seen by Provider: 12/10/22 11:52 Source: patient Mode of arrival: ambulatory Limitations: no limitations History of Present Illness: 47-year-old female presents emergency room with complaining of bilateral swelling lower extremities. Is gotten significantly worse for last 3 days. 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 She is on dexamethasone 4 mg 3 times daily. She has been increasingly short of breath as well. No chest pain. She has noticed decreased urinary output. MD Complaint: extremity swelling Onset (ago): day(s) (3) Location: left, right and lower extremity Quality: aching Radiation: none Relieving factors: nothing Exacerbating factors: weight bearing, walking and exertion Associated symptoms: Deny arthralgias, chest pain, fever(s), myalgias, rash or short of breath Review of Systems Const: Denies: fever(s) or chills Card: Reports: edema and swelling of feet/ankles; Denies: chest pain, palpitations or irregular heart rhythm Resp: Reports: dyspnea and non-productive cough; Denies: productive cough GI: Denies: abdominal pain, nausea, vomiting, hematemesis, coffee ground emesis, diarrhea, constipation, bloating, hematochezia or melena : Denies: flank pain, difficulty voiding, dysuria, urinary frequency or urinary urgency Skin/Breast: Denies: rash [facility] PFSH: Medical History Cigarette nicotine dependence COPD (chronic obstructive pulmonary disease) Fibromyalgia Generalized anxiety disorder with panic attacks Psychiatric care Surgical History H/O spinal fusion H/O tubal ligation S/P bronchoscopy Family History Father Parkinsonism Cancer Skin cancer and stomach cancer Brother Parkinsonism Mother Hyperlipidemia CAD (coronary artery disease) Psychiatric illness Other Diabetes Hypertension Major depressive disorder, recurrent severe without psychotic features Denies family history of Clotting disorder Dementia Chronic kidney disease (CKD) Suicide Anesthesia complication Bleeding disorder Lung disease Stroke Social History Smoking and tobacco status: current every day smoker cigarettes Packs smoked per day: 1 Years cigarettes smoked: 33 Quit status (tobacco): has tried quititng Second hand smoke exposure: Yes Alcohol intake: never Substance/Drug Use: never Adopted: No Caregiver/support person: No Lives independently: Yes Housing: Apartment Marital status: Marital status details: 14 years ago Number of children: 5 Number of grandchildren: 12 Highest education level completed: 10th Grade service: No Current occupational status: disabled Current occupational exposures/hazards: No Pets and animals: Yes (4 dogs) Pets & animals: dog(s) Leisure activites: other Leisure activities details: playing with dogs, outside a lot Sexually active: No Do you think of yourself as: Straight/Heterosexual Current gender identity: Female Marisabel/Shinto: Judaism Special marisabel needs: No Agree to transfusion: Yes Financial difficulty paying for basics: Very Hard Physical Exam Const: GENERAL APPEARANCE: cooperative ORIENTATION/CONSCIOUSNESS: Yes awake, Yes oriented to person, Yes oriented to place and Yes oriented to time HENMT: COMMON NORMALS: normocephalic, atraumatic and hearing grossly normal bilaterally HEAD & SCALP: normocephalic and atraumatic Resp: AUSCULTATION: rhonchi, wheezes and diminished lung sounds Cardio: COMMON NORMALS: regular rate, regular rhythm and No murmurs present (Cardio) RATE: regular rate RHYTHM: regular rhythm GI: COMMON NORMALS: Soft to palpation and No hepatosplenomegaly present AUSCULTATION: Yes normoactive bowel sounds PALPATION: Yes Soft to palpation, No Tenderness to palpation present (GI), No Guarding due to palpation present (GI) and Yes No hepatosplenomegaly present Extremity: OTHER: 3+ edema with bulla formation on the lower extremities bilaterally some of which are open no signs infection no redness or erythema no purulent drainage. Neuro: SENSORIUM/ORIENTATION: Yes oriented to person, Yes oriented to place and Yes oriented to time Skin: COMMON NORMALS: no rashes or lesions noted GENERAL SKIN EXAM: no rashes or lesions noted Course Vital Signs: Vital signs: Vital Signs Temperature 98.1 F 12/10/22 11:52 Pulse Rate 83 12/10/22 15:40 Respiratory Rate 20 H 12/10/22 15:40 Blood Pressure 108/76 12/10/22 15:40 Pulse Oximetry 97 08/13/23 15:40 Oxygen Delivery Me thod Room Air 12/10/22 14:13 MDM - Extremity (Nontraumatic) Medical Decision Making Significant edema. Venous duplex is negative CT of the chest shows venous congestion but there is no evidence of PE. Incidental notation of some hyperemia around the gallbladder although she does not have a lot of symptoms suggestive of acute cholecystitis. No elevation of T. bili or of her alk phos. We will get a gallbladder ultrasound she has been given Lasix. Discussed with hospitalist orders written for admission. Medical Records I reviewed the patient's medical records. Lab Data I reviewed the patient's lab results. 12/10/22 12:34 12/10/22 12:34 Radiology Impressions Venous Duplex 12/10/22 12:31 IMPRESSION: No deep vein thrombosis. Chest CTA 12/10/22 14:10 IMPRESSION: 1. No pulmonary embolism. 2. Decreased size of a dominant pulmonary nodule in the right upper lobe. Surrounding opacity may be due to radiation pneumonitis or infection. 3. Additional nodules in the upper lungs are stable. 4. Partially imaged gallbladder with cholelithiasis and adjacent hyperemia in the liver parenchyma. Findings could represent acute cholecystitis. Consider ultrasound. 5. Incidental findings above. Laboratory Results WBC 13.6 10^3/uL (4.0-10.0) H 12/10/22 12:34 RBC 5.04 10^6/uL (4.1-5.3) 12/10/22 12:34 Hgb 14.1 g/dL (11.5-15.3) 12/10/22 12:34 Hct 42.6 % (37.0-47.0) 12/10/22 12:34 MCV 84.5 fl (81-99) 12/10/22 12:34 MCH 28.0 pg (28.0-34.0) 12/10/22 12:34 MCHC 33.1 g/dL (30.0-36.0) 12/10/22 12:34 RDW 22.4 % (12.1-15.1) H 12/10/22 12:34 Plt Count 309 10^3/cmm (130-400) 12/10/22 12:34 MPV 10.2 fL (7.4-10.4) 12/10/22 12:34 Neut % (Auto) 75.4 % 12/10/22 12:34 Lymph % (Auto) 14.4 % 12/10/22 12:34 [place] % (Auto) 9.6 % 12/10/22 12:34 Eos % (Auto) 0.2 % 12/10/22 12:34 Baso % (Auto) 0.4 % 12/10/22 12:34 Neut # (Auto) 9.57 10^3/uL (1.8-7.7) H 12/10/22 12:34 Lymph # (Auto) 2.0 10^3/uL (0.8-4.8) 12/10/22 12:34 [place] # (Auto) 1.3 10^3/uL (0.2-0.9) H 12/10/22 12:34 Eos # (Auto) 0.0 10^3/uL (0.0-0.8) 12/10/22 12:34 Baso # (Auto) 0.1 10^3/uL (0.0-0.1) 12/10/22 12:34 Nucleated RBC % (auto) 1.1 % 12/10/22 12:34 Nucleated RBCs # 0.2 /100WBC 12/10/22 12:34 Sodium 138 mmol/L (136-145) 12/10/22 12:34 Potassium 4.3 mmol/L (3.5-5.1) 12/10/22 12:34 Chloride 99 mmol/L (98-107) 12/10/22 12:34 Carbon Dioxide 27 mmol/L (22-29) 12/10/22 12:34 Anion Gap 16.3 (5-19) 12/10/22 12:34 BUN 22 mg/dL (6-20) H 12/10/22 12:34 Creatinine 0.6 mg/dL (0.5-0.9) 12/10/22 12:34 GFR Calculation 106.3 mL/min (90-130) 12/10/22 12:34 Glucose 75 mg/dL (65-115) 12/10/22 12:34 Calculated Osmolality 288 mOsm/kg (285-295) 12/10/22 12:34 Calcium 8.8 mg/dL (8.5-10.5) 12/10/22 12:34 Total Bilirubin 0.2 mg/dL (0.15-1.2) 12/10/22 12:34 AST 17 U/L (0-32) 12/10/22 12:34 ALT 55 U/L (0-33) H 12/10/22 12:34 Alkaline Phosphatase 52 U/L (35-105) 12/10/22 12:34 Troponin T Baseline 11 ng/L (0-10) H 12/10/22 12:34 NT-Pro-B Natriuret Pep 183 pg/mL (0-125) H 12/10/22 12:34 Total Protein 6.1 g/dL (6.6-8.7) L 12/10/22 12:34 Albumin 3.6 g/dL (3.5-5.2) 12/10/22 12:34 Globulin 2.5 g/dL (1.3-4.6) 12/10/22 12:34 Discharge Plan Discharge Patient Disposition: Admitted As Inpatient Clinical Impression: Leg edema, left, Leg edema, right, Adenosquamous carcinoma of right lung, Fibromyalgia, Lung cancer metastatic to brain Condition: Stable Coding Level of Care Code ED Motor Grader Operator for James Bruno
[2022-12-10] MEDS: FUROsemide 10 mg/mL SDV 10mL 60 MG IVP (12:44)
[2022-12-10 12:52] LABS: Basophils # 0.1 10^3/uL (0.0-0.1); Basophils % 0.4 %; Eosinophils % 0.2 %; Hematocrit 42.6 % (37.0-47.0); Hemoglobin 14.1 g/dL (11.5-15.3); Lymphocytes % 14.4 %; Mean Corpuscular HGB Conc 33.1 g/dL (30.0-36.0); Mean Corpuscular Volume 84.5 fl (81-99); Mean Platelet Volume 10.2 fL (7.4-10.4); Monocytes # 1.3 10^3/uL (0.2-0.9); Monocytes % 9.6 %; Neutrophils # 9.57 10^3/uL (1.8-7.7); Nucleated Red Blood Cells # 0.2 /100WBC; Nucleated Red Blood Cells % 1.1 %; Platelet Count 309 10^3/cmm (130-400); Red Blood Count 5.04 10^6/uL (4.1-5.3); Red Cell Distribution Width 22.4 % (12.1-15.1); White Blood Count 13.6 10^3/uL (4.0-10.0)
[2022-12-10 13:07] LABS: Troponin(5th) Baseline 11 ng/L (0-10)
[2022-12-10 13:08] LABS: Neutrophils % 75.4 %
[2022-12-10 13:09] LABS: Slide Review Slide Review Perform
[2022-12-10 13:16] LABS: Alanine Aminotransferase 55 U/L (0-33); Albumin Level 3.6 g/dL (3.5-5.2); Alkaline Phosphatase 52 U/L (35-105); Anion Gap 16.3 (5-19); Aspartate Amino Transferase 17 U/L (0-32); Blood Urea Nitrogen 22 mg/dL (6-20); Calcium 8.8 mg/dL (8.5-10.5); Carbon Dioxide 27 mmol/L (22-29); Chloride 99 mmol/L (98-107); Creatinine Clr Calc Pharmacy 111.4614; Globulin 2.5 g/dL (1.3-4.6); Glomerular Filtration Rate 106.3 mL/min (90-130); Glucose 75 mg/dL (65-115); NT Pro B Type Natriuretic Pept 183 pg/mL (0-125); Osmolality Calculated 288 mOsm/kg (285-295); Potassium 4.3 mmol/L (3.5-5.1); Sodium 138 mmol/L (136-145); Total Bilirubin 0.2 mg/dL (0.15-1.2); Total Protein 6.1 g/dL (6.6-8.7)
--- NOTE | 2022-12-10 14:10 | CTR_ITS ---
PROCEDURE INFORMATION: Exam: CTA Chest With Contrast Exam date and time: 12/10/2022 2:18 PM Age: 47 years old Clinical indication: Dyspnea; Patient HX: Lung and brain CA TECHNIQUE: Imaging protocol: Computed tomographic angiography of the chest with contrast. Exam focused on the arteries. 3D rendering (Not supervised by radiologist): MIP and/or 3D reconstructed images were created by the technologist. Radiation optimization: All CT scans at this facility use at least one of these dose optimization techniques: automated exposure control; mA and/or kV adjustment per patient size (includes targeted exams where dose is matched to clinical indication); or iterative reconstruction. Contrast material: OMNI 350; Contrast volume: 100 ml; Contrast route: INTRAVENOUS (IV); REPORTING DATA: Count of CT and Cardiac NM exams in prior 12 months: This patient has received 9 known CTs and 0 known cardiac nuclear medicine studies in the 12 months prior to the current study. COMPARISON: CT angio chest PE protcl [id number] 09/02/2021 10:11 PM RADIATION DOSE METRICS: Total DLP (mGy-cm): 826.42 FINDINGS: Tubes, catheters and devices: There is a left chest port with the line tip positioned in the upper SVC. Pulmonary arteries: The pulmonary arteries are adequately opacified for evaluation to the subsegmental level. There is no filling defect to suggest embolism. Aorta: There is mild aortic atherosclerotic disease. Lungs: There is mild upper lung predominant centrilobular emphysema. There is dependent atelectasis in the lung bases.There is a 13 x 11 mm nodule in the posterosuperior right upper lobe with adjacent ill-defined opacity and slight thickening of the adjacent major fissure. The nodule is decreased in size since 09/02/2021 when it measured 20 x 15 mm. There is a noncalcified pulmonary nodule in the left upper lobe visible on series 18, image 115 measuring 4 mm. Additional smaller left upper lobe nodules are present. There are additional noncalcified nodules in the right upper lobe measuring up to 5 mm on series 18, image 85. There is a noncalcified pulmonary nodule in the right middle lobe visible on series 18, image 196 measuring 4 mm. Pleural spaces: There is no pleural effusion or pneumothorax. Heart: Heart size is normal. There is no pericardial effusion. Coronary arteries: There is mild coronary artery calcification. Lymph nodes: There are small calcified lymph nodes in the mediastinum. There is no mediastinal or hilar lymphadenopathy. Diaphragm: There is a small sliding-type hiatal hernia. Liver: The left lobe of the liver is enlarged, filling the left upper quadrant of the abdomen. Gallbladder and bile ducts: cholelithiasis is present. The gallbladder is incompletely imaged. There is focal hyperemia in the liver parenchyma adjacent to the gallbladder fossa. Kidneys and ureters: There is a large stone or contrast filling the left upper pole renal collecting system. Bones/joints: Bones are unremarkable. Soft tissues: The extrathoracic soft tissues are unremarkable. CT/CT angio chest PE protcl [id number] IMPRESSION: 1. No pulmonary embolism. 2. Decreased size of a dominant pulmonary nodule in the right upper lobe. Surrounding opacity may be due to radiation pneumonitis or infection. 3. Additional nodules in the upper lungs are stable. 4. Partially imaged gallbladder with cholelithiasis and adjacent hyperemia in the liver parenchyma. Findings could represent acute cholecystitis. Consider ultrasound. 5. Incidental findings above.
[2022-12-10] MEDS: iohexol 350 mg/mL 500 mL Btl (per mL) IV (14:29)
--- NOTE | 2022-12-10 14:32 | ECG_ITS ---
[facility] Test Date: 2022-12-10 Pat Name: Kristine Kramer Department: Room: Gender: Female Director Peoplesoft: : 1975 Requested By: Devonte Palomino Order Number: [id number] Jeffery MD: Luis M Urbina M.D. Measurements Intervals [place] Rate: 80 P: 42 TX: 128 QRS: 36 QRSD: 83 T: 41 QT: 374 QTc: 432 Interpretive Statements SINUS RHYTHM Compared to ECG 12/10/2022 12:49:35 Short [place] interval no longer present Electronically Signed On 12-10-2022 18:26:29 CDT by Luis M Urbina M.D. [email or web address] c. [email or web address] memorial hospitalVeraLightwvumedicine [email or web address]/store/[id number]
--- NOTE | 2022-12-10 15:28 | USR_ITS ---
PROCEDURE INFORMATION: Exam: US Abdomen, Limited; Right Upper Quadrant Exam date and time: 12/10/2022 3:52 PM Age: 47 years old Clinical indication: Abdominal pain; Additional info: Elevated alt, hyperemic gb TECHNIQUE: Imaging protocol: Real time ultrasound of the abdomen with image documentation. Limited exam focused on the right upper quadrant. COMPARISON: US gall bladder [id number] 07/22/2017 6:48 PM FINDINGS: Liver: Liver is mildly enlarged with no obvious cirrhosis. Details are somewhat limited due to echogenic parenchyma and body habitus. No perihepatic ascites. No line main portal vein is patent with normal flow direction. Gallbladder: Gallbladder is mildly distended containing layering echogenic nonshadowing material consistent with sludge. Tiny echogenic foci with probable shadowing are probably present suggesting tiny calculi. No sonographic signs of acute cholecystitis. Biliary ducts: No biliary dilatation. Proximal CBD is poorly visualized measuring about 4-5 mm, within normal limits. Distal CBD is obscured. Pancreas: Poorly visualized pancreas due to regional bowel gas. Right kidney: Normal. No mass. No hydronephrosis. US/US gall bladder [id number] IMPRESSION: 1. Somewhat limited details with poorly visualized pancreas and some hepatic segments. 2. Mild hepatomegaly with probable steatosis. No obvious cirrhosis. Clinical correlation for acute/chronic hepatitis including ZHANG should be obtained. 3. Sludge and probable tiny calculi in the gallbladder. No acute findings otherwise.
--- NOTE | 2022-12-10 15:34 | XRR_ITS ---
PROCEDURE INFORMATION: Exam: XR Chest Exam date and time: 12/10/2022 3:41 PM Age: 47 years old Clinical indication: Cough and shortness of breath; Prior surgery; Surgery date: 6+ months; Surgery type: Port; Additional info: Dyspnea/cough TECHNIQUE: Imaging protocol: Radiologic exam of the chest. Views: 1 view. COMPARISON: CT angio chest PE protcl [id number] 12/10/2022 2:18 PM FINDINGS: Tubes, catheters and devices: Left chest wall infusion port with catheter tip in the SVC/brachiocephalic junction region. Lungs: The lung bases are suboptimally assessed due to technique however the upper lungs are clear of focal consolidation. There is shallow inspiration with new platelike opacity in the lateral left lung base, likely subsegmental atelectasis. However if there is a concern for developing pneumonia, follow-up exam should be obtained. Please note that most recent CT also demonstrated scattered small pulmonary nodules which could not be well visualized by radiographic exam. Pleural spaces: Unremarkable. No pleural effusion. No pneumothorax. Heart/Mediastinum: Cardiac silhouette appears normal in size. No obvious vascular congestion. Bones/joints: No acute osseous findings. Other findings: Single view was submitted. XR/XR chest 1V portable [id number] IMPRESSION: Left basilar platelike opacity. See discussion above for other findings.
--- NOTE | 2022-12-10 15:59 | CTR_ITS ---
PROCEDURE INFORMATION: Exam: CT Head Without Contrast Exam date and time: 12/10/2022 4:32 PM Age: 47 years old Clinical indication: Condition or disease; History of cancer (specify primary cancer site): ; Primary cancer: Lung; Additional info: HX of lung CA with brain mets, S/P radiation TECHNIQUE: Imaging protocol: Computed tomography of the head without contrast. Radiation optimization: All CT scans at this facility use at least one of these dose optimization techniques: automated exposure control; mA and/or kV adjustment per patient size (includes targeted exams where dose is matched to clinical indication); or iterative reconstruction. REPORTING DATA: Count of CT and Cardiac NM exams in prior 12 months: This patient has received 9 known CTs and 0 known cardiac nuclear medicine studies in the 12 months prior to the current study. COMPARISON: CT head wo con* [id number] 11/20/2022 10:30 AM RADIATION DOSE METRICS: Total DLP (mGy-cm): 1122.84 FINDINGS: Brain: Again seen a slightly heterogeneous hyperdense intra-axial lesion in the left parietooccipital lobe, now measuring 21 x 19 mm cross-section and 22 mm craniocaudad, versus 23 by 28 by 22 mm previously, using similar measuring methods. Again seen is mild regional mass effect and vasogenic edema however there is no significant midline shift or other significant mass effect. The mass demonstrates more hyperdense appearance most likely related to recent IV contrast administration. A tiny hyperdense focus is noted at the right cerebral superior paramedian gyrus measuring about 3 mm, series 6, image 41 which may represent a new focus of metastatic disease. No other acute intracranial hemorrhage is otherwise identified. No significant brain atrophy. Otherwise grossly unremarkable white matter. Cerebral ventricles: No ventriculomegaly. Paranasal sinuses: Visualized sinuses are unremarkable. No fluid levels. Mastoid air cells: Visualized mastoid air cells are well aerated. Bones/joints: Unremarkable. No acute fracture. Soft tissues: No acute scalp soft tissue findings. CT/CT head wo con* [id number] IMPRESSION: 1. Limited unenhanced CT in the setting of brain metastatic lesion with comparison unenhanced CT 11/20/2022. 2. Persistent intra-axial lesion in the left parieto-occipital region with measurements as described above. Relatively stable regional vasogenic edema and stable mild regional mass effect with no midline shift. The lesion appears more hyperdense as described above. Another tiny enhancing lesion may also be present in the right paramedian superior cerebral gyrus as described above. No other obvious large new lesions however correlation with contrast-enhanced MRI may be obtained if more definitive assessment is required. 3. No acute intracranial findings otherwise.
--- NOTE | 2022-12-10 15:59 | CTR_ITS ---
PROCEDURE INFORMATION: Exam: CT Abdomen And Pelvis Without Contrast Exam date and time: 12/10/2022 4:35 PM Age: 47 years old Clinical indication: Bloating; Additional info: Abdominal distention TECHNIQUE: Imaging protocol: Computed tomography of the abdomen and pelvis without contrast. Radiation optimization: All CT scans at this facility use at least one of these dose optimization techniques: automated exposure control; mA and/or kV adjustment per patient size (includes targeted exams where dose is matched to clinical indication); or iterative reconstruction. REPORTING DATA: Count of CT and Cardiac NM exams in prior 12 months: This patient has received 9 known CTs and 0 known cardiac nuclear medicine studies in the 12 months prior to the current study. COMPARISON: CT chest abdpel w/*[id number] 10/27/2022 8:36 PM RADIATION DOSE METRICS: Total DLP (mGy-cm): 912.96 FINDINGS: Diaphragm: There is a small hiatal hernia present. Liver: Decreased hepatic density is noted, consistent with hepatic steatosis. Gallbladder and bile ducts: Calcified gallstones in the gallbladder. There are no secondary signs of cholecystitis. No biliary dilatation. Pancreas: The pancreas is normal in appearance. No pancreatic duct dilatation. Spleen: No focal splenic lesion. No splenomegaly. Adrenal glands: The adrenal glands appear within normal limits. Kidneys and ureters: Simple appearing 8 mm cyst lower pole right kidney, unchanged. No solid renal mass. No hydronephrosis. Stomach and bowel: No acute gastric abnormality demonstrated. The small bowel is unremarkable as demonstrated. No acute abnormality/inflammatory change of the colon. Appendix: The appendix is normal in appearance. No evidence of appendicitis. Intraperitoneal space: No free air. No significant fluid collection. Vasculature: The aorta is atherosclerotic. No aortic aneurysm. Lymph nodes: No pathologically enlarged lymph nodes. Urinary bladder: Urinary bladder is opacified with excreted contrast. The bladder appears unremarkable as demonstrated. Reproductive: Uterus and adnexa are unremarkable. Bones/joints: No acute fracture or other acute osseous abnormality. Soft tissues: The abdominal wall demonstrates a small umbilical hernia, containing only fat. CT/CT abdomen pelvis wo con [id number] IMPRESSION: 1. Decreased hepatic density is noted, consistent with hepatic steatosis. 2. There is a small hiatal hernia present. 3. The abdominal wall demonstrates a small umbilical hernia, containing only fat. 4. No acute abnormality demonstrated in the abdomen and pelvis.
--- NOTE | 2022-12-10 16:01 | P.HP_ITS ---
Providers/Chief Complaint Admitting Physician: Ang Lowry MD Primary Care Provider: Bhavin Abrams MD Chief Complaint: swelling both legs with blisters History of Present Illness Kristine Kramer is a 47 year old female with a past medical history of lung cancer, with brain metastasis, status post CyberKnife radiation, current smoker, COPD, who presents to [facility] due to bilateral extremity edema, abdominal wall edema, shortness of breath. Patient tells me that for the last month, she is slowly developed increased lower extremity edema, abdominal wall edema, distention, with shortness of breath with exertion. Currently she has 4+ pitting edema bilateral lower extremities, with large fluid-filled vesicles on bilateral lower extremities, she has abdominal distention, she is wheezing in all lung hardy, and has crackles, she is on room air, normotensive, afebrile, denies any fevers, denies any chills, no cough, her CT angiogram was negative for pulmonary embolism, venous ultrasound negative for DVT, she is on dexamethasone 4 mg 3 times daily for her intracranial metastasis, which she has been on for the last month since her intracranial metastasis was discovered, denies any chest pain, no palpitations, hospitalist team was called for admission Review of Systems Const: Denies: fever(s) or chills Eyes: Denies: change in vision ENMT: Denies: throat pain Card: Denies: chest pain or palpitations Resp: Reports: dyspnea GI: Reports: abdominal pain : Denies: flank pain, difficulty voiding or dysuria Musc: Denies: neck pain or back pain Skin/Breast: Reports: rash Neuro: Denies: headache(s), numbness in extremities or weakness in extremities Psych: Denies: anxiety Endo: Denies: polyuria Medications/Allergies Home Medications Medication Instructions Recorded Confirmed Last Taken Type ipratropium 0.5 mg-albuterol 3 mg 3 ml inhalation Q4H PRN wheezing 12/01/21 Unknown History (2.5 mg base)/3 mL nebulization soln albuterol sulfate 90 mcg/actuation 2 inh inhalation QID PRN shortness 07/27/22 12/10/22 12/09/22 History aerosol inhaler (Ventolin HFA) of breath or wheezing fluticasone fur. 100 mcg-umeclid 1 inh inhalation DAILY #60 ea 08/09/22 12/10/22 12/10/22 Rx 62.5 mcg-vilant 25 mcg inhalat.powder (Trelegy Ellipta) alprazolam 1 mg tablet (Xanax) 1 mg PO TID PRN anxiety #90 tabs 10/20/22 12/10/22 12/09/22 Rx xpwhvomrkr-pdskxdkkctbai-zojwxsbw 1 tab PO Q6H PRN Pain 11/20/22 12/10/22 11/20/22 History 50 mg-325 mg-40 mg tablet melatonin 3 mg capsule 3 mg PO QPM PRN sleep 11/20/22 12/10/22 12/09/22 History fluticasone propionate 50 1 spray intranasal DAILY PRN 12/01/22 12/10/22 12/09/22 History mcg/actuation nasal Allergy Symptoms spray,suspension levetiracetam 500 mg tablet 500 mg PO BID 12/01/22 12/10/22 12/09/22 History (Keppra) magnesium oxide 400 mg (241.3 mg 400 mg PO DAILY 12/01/22 12/10/22 12/09/22 History magnesium) tablet pregabalin 75 mg capsule (Lyrica) 75 mg PO BID #60 caps 12/01/22 12/10/22 12/10/22 Rx dexamethasone 4 mg tablet 4 mg PO TID #30 tabs 12/07/22 12/10/22 12/09/22 Rx oxycodone 20 mg tablet 10 mg PO Q6H PRN Pain 12/10/22 12/10/22 Unknown History Allergies Allergy/AdvReac Type Severity Reaction Status Date / Time mushroom Allergy ALGY-Swell Verified 12/10/22 11:59 Lip/Tongue/Throat trazodone Allergy Unknown Verified 12/10/22 11:59 PFSH Acute PFSH: Medical History Cigarette nicotine dependence COPD (chronic obstructive pulmonary disease) Fibromyalgia Generalized anxiety disorder with panic attacks Psychiatric care Surgical History H/O spinal fusion H/O tubal ligation S/P bronchoscopy Family History Father Parkinsonism Cancer Skin cancer and stomach cancer Brother Parkinsonism Mother Hyperlipidemia CAD (coronary artery disease) Psychiatric illness Other Diabetes Hypertension Major depressive disorder, recurrent severe without psychotic features Denies family history of Clotting disorder Dementia Chronic kidney disease (CKD) Suicide Anesthesia complication Bleeding disorder Lung disease Stroke Social History Smoking and tobacco status: current every day smoker cigarettes Packs smoked per day: 1 Years cigarettes smoked: 33 Quit status (tobacco): has tried quititng Second hand smoke exposure: Yes Alcohol intake: never Substance/Drug Use: never Adopted: No Caregiver/support person: No Lives independently: Yes Housing: Apartment Marital status: Marital status details: 14 years ago Number of children: 5 Number of grandchildren: 12 Highest education level completed: 10th Grade service: No Current occupational status: disabled Current occupational exposures/hazards: No Pets and animals: Yes (4 dogs) Pets & animals: dog(s) Leisure activites: other Leisure activities details: playing with dogs, outside a lot Sexually active: No Do you think of yourself as: Straight/Heterosexual Current gender identity: Female Marisabel/Adventism: Jehovah'S Witness Special marisabel needs: No Agree to transfusion: Yes Financial difficulty paying for basics: Very Hard Vitals/I&O/Wt Last Vital Signs Temp 98.1 F 12/10/22 11:52 Pulse 83 12/10/22 15:40 Resp 20 H 12/10/22 15:40 BP 108/76 12/10/22 15:40 Pulse Ox 97 12/10/22 15:40 O2 Del Method Room Air 12/10/22 14:13 Weight last 48 hrs Weight 66.678 kg Physical Exam Const: COMMON NORMALS: no acute distress and patient oriented x3 GENERAL A PPEARANCE: cooperative, well kempt and well developed HENMT: COMMON NORMALS: normocephalic and Normal external nose present HEAD & SCALP: normocephalic FACE & SINUS: normal facial exam NOSE: Normal external nose present Eye: COMMON NORMALS: Equal, round and reactive pupils present, EOMs intact bilaterally, conjunctivae normal and no scleral icterus CONJUNCTIVA: Yes conj unctivae normal PUPIL: Yes Equal, round and reactive pupils present Neck/C-Spine: COMMON NORMALS: full ROM, no lymphadenopathy, no meningeal signs, no JVD, Thyroid normal and No carotid bruits THYROID: Thyroid normal Lymph: LYMPHATIC: no lymphadenopathy noted Chest: COMMONS NORMALS: normal inspection of the chest Resp: COMMON NORMALS: normal respiratory effort, No retractions and No use of accessory muscles OTHER: Crackles and wheezing in all lung hardy Cardio: COMMON NORMALS: regular rate, regular rhythm, S1 normal heart sound present, S2 normal heart sound present, No murmurs present (Cardio) and Peripheral pulses 2+ throughout RATE: regular rate RHYTHM: regular rhythm HEART SOUNDS: S1 normal heart sound present and S2 normal heart sound present PERIPHERAL PULSES: Peripheral pulses 2+ throughout GI: COMMON NORMALS: Soft to palpation and non-tender PALPATION: Yes Soft to palpation OTHER: Abdominal distention, fluid wave present, abdominal wall edema, anasarca : BLADDER/KIDNEY EXAM: Yes no CVA tenderness Back/Pelvis: COMMON NORMALS: no CVA tenderness Extremity: NARRATIVE EXTREMITY EXAM: 4+ pitting edema bilateral lower extremities extending to mid tibia, with large fluid-filled vesicles, larger measuring 1 x 1 cm bilateral lower extremity with active drainage Neuro: COMMON NORMALS: patient oriented x3, CN's II-XII intact bilaterally, moves all extremities, no focal motor deficits and no sensory deficits noted MENINGEAL SIGNS: Yes no meningeal signs Psych: COMMON NORMALS: mental status grossly normal, Normal thought process present, cooperative and speech normal APPEARANCE: Yes well kempt SPEECH: Yes normal speech THOUGHT PROCESS: Normal thought process present Skin: COMMON NORMALS: turgor normal and no jaundice Data 12/10/22 12:34 12/10/22 12:34 A&P Assessment and plan (1) Bilateral lower extremity edema: (2) Anasarca: (3) Pulmonary edema: (4) Fluid overload: (5) Diastolic CHF, acute on chronic: (6) History of chemotherapy: (7) History of radiation therapy: (8) COPD (chronic obstructive pulmonary disease): (9) Malignant neoplasm of upper lobe, right bronchus or lung: (10) Metastatic cancer to brain: (11) Goals of care, counseling/discussion: (12) Dexamethasone adverse reaction: Plan Diastolic CHF exacerbation, anasarca, pulm edema, fluid overload, bilateral extremity edema ? Monitor creatinine, monitor magnesium, her potassium ? Has received 60 of IV push Lasix in the ER ? Monitor urine output ? Place Johnson catheter ? Has a history of a small pericardial effusion, will order ultrasound cardiac Lung cancer with metastasis to the brain ? Complaints of lightheadedness, will repeat CT of the head -coutinue dexamethasone -continue keppra complaint of abdominal distention - ct abdomen goals of care, full code lovenox fro dvt prophylaxis Attestations Medical Necessity Statement*: Patient requires hospitalization, inpatient, greater than 2 midnights, for fluid overload, diastolic CHF exacerbation, bilateral extremity, pulm edema, anasarca, complication of dexamethasone, Diagnoses Bilateral lower extremity edema R60.0 Anasarca R60.1 Pulmonary edema J81.1 Fluid overload E87.70 Diastolic CHF, acute on chronic I50.33 History of chemotherapy Z92.21 History of radiation therapy Z92.3 COPD (chronic obstructive pulmonary disease) J44.9 Malignant neoplasm of upper lobe, right bronchus or lung C34.11 Metastatic cancer to brain C79.31 Goals of care, counseling/discussion Z71.89 Dexamethasone adverse reaction T38.0X5A
--- NOTE | 2022-12-10 16:50 | PC.NURSE ---
Patient arrived from ED via her personal wheelchair to CSU at 1645.
[2022-12-10 16:52] LABS: Troponin 5 2HR 10.99 ng/L (0-10)
[2022-12-10 16:53] LABS: Troponin 5 2HR Delta -0.01 ABS# (0-10)
--- NOTE | 2022-12-10 17:40 | PC.NURSE ---
Patient is refusing a urinary catheter at this time. She wants to use the bedside commode to let us measure her output.
[2022-12-10] MEDS: pantoprazole 40 mg SDV IVP (18:29)
[2022-12-10] MEDS: enoxaparin 40 mg/0.4 mL Syringe SUBCUT (18:29)
[2022-12-10] MEDS: levETIRAcetam 500 mg Tablet PO (18:30)
[2022-12-10] MEDS: pregabalin 75 mg Capsule PO (18:30)
[2022-12-10] MEDS: oxyCODONE 5 mg IR Tab/Cap 10 MG PO (18:48)
[2022-12-10 19:02] LABS: Thyroid Stimulating Hormone 2.07 uIU/mL (0.27-4.20)
[2022-12-10 19:13] LABS: Chol HDL Ratio 2.85 mg/dL (0.0-4.40); Cholesterol 296 mg/dL (0-200); HDL Cholesterol 104 mg/dL (60-100); LDL Cholesterol Calculated 149 mg/dL (50-129); LDL HDL Ratio 1.43 RATIO (0.00-3.22); Triglycerides 214 mg/dL (0-150)
[2022-12-10] MEDS: ipratropium-albuterol 3 mL Neb INHALATION (19:36)
--- NOTE | 2022-12-10 19:48 | PC.RESP ---
Trelegy and Albuterol inhalers{pt's home medications} sent to pharmacy for scan labels so they can be administered.
[2022-12-10 19:53] LABS: Troponin 5 6HR 13.44 ng/L (0-10)
[2022-12-10 19:55] LABS: Troponin 5 6HR Delta 2.44 ng/L (0-12)
[2022-12-10 21:10] LABS: Estmated Average Glucose 120; Hemoglobin A1C 5.8 % (4.0-6.0)
[2022-12-10 21:36] LABS: Cortisol Random 0.52 ug/dL (2.47-19.5)
[2022-12-10] MEDS: dexamethasone 4 mg Tablet PO (21:58)
[2022-12-11] VITALS (16 sets, daily range): BP systolic 105–128; BP diastolic 58–77; PULSE 80–102; RESP 14–25; TEMP 36.5–37; O2SAT 90–95
[2022-12-11] MEDS: oxyCODONE 5 mg IR Tab/Cap 10 MG PO ×4 (01:56→20:25)
[2022-12-11 02:08] LABS: Add Urine Microscopic? NO; Charge for UA Resulting for Rev
[2022-12-11 02:29] LABS: Bilirubin Urine Neg (Negative); Blood Urine Neg (Negative); Glucose Urine UA Norm (Normal); Ketones Urine Negative (Negative); Leukocyte Esterase Urine Negative (Negative); Nitrate Urine Negative (Negative); Protein Urine Neg (Negative); Specific Gravity, Urine 1.015 (1.005-1.030); Urine Appearance Clear (CLEAR); Urine Color Yellow (Yellow); Urobilinogen Urine Norm (Negative); pH Urine 5 (5-7)
[2022-12-11 05:39] LABS: Basophils % 0.3 %; Eosinophils % 0.2 %; Hematocrit 42.7 % (37.0-47.0); Hemoglobin 13.6 g/dL (11.5-15.3); Mean Corpuscular HGB Conc 31.9 g/dL (30.0-36.0); Mean Corpuscular Hemoglobin 27.7 pg (28.0-34.0); Mean Platelet Volume 10.4 fL (7.4-10.4); Monocytes # 0.7 10^3/uL (0.2-0.9); Monocytes % 6.4 %; Neutrophils # 8.64 10^3/uL (1.8-7.7); Neutrophils % 79.7 %; Nucleated Red Blood Cells # 0.1 /100WBC; Nucleated Red Blood Cells % 0.5 %; Platelet Count 295 10^3/cmm (130-400); Red Blood Count 4.91 10^6/uL (4.1-5.3); Red Cell Distribution Width 22.7 % (12.1-15.1); White Blood Count 10.8 10^3/uL (4.0-10.0)
[2022-12-11 05:59] LABS: Alanine Aminotransferase 53 U/L (0-33); Albumin Level 3.4 g/dL (3.5-5.2); Alkaline Phosphatase 51 U/L (35-105); Anion Gap 16.4 (5-19); Aspartate Amino Transferase 17 U/L (0-32); Blood Urea Nitrogen 29 mg/dL (6-20); Calcium 8.2 mg/dL (8.5-10.5); Carbon Dioxide 26 mmol/L (22-29); Chloride 101 mmol/L (98-107); Globulin 2.2 g/dL (1.3-4.6); Glomerular Filtration Rate 88.9 mL/min (90-130); Glucose 120 mg/dL (65-115); Magnesium 2.2 mg/dL (1.7-2.3); Osmolality Calculated 295 mOsm/kg (285-295); Phosphorus 4.9 mg/dL (2.5-4.5); Potassium 4.4 mmol/L (3.5-5.1); Sodium 139 mmol/L (136-145); Total Bilirubin 0.2 mg/dL (0.15-1.2); Total Protein 5.6 g/dL (6.6-8.7)
[2022-12-11 06:10] LABS: NT Pro B Type Natriuretic Pept 96 pg/mL (0-125)
[2022-12-11] MEDS: levETIRAcetam 500 mg Tablet PO ×2 (08:14→17:18)
[2022-12-11] MEDS: dexamethasone 4 mg Tablet PO ×3 (08:14→20:25)
[2022-12-11] MEDS: magnesium oxide 400 mg tablet PO (08:14)
[2022-12-11] MEDS: pregabalin 75 mg Capsule PO ×2 (08:14→17:18)
[2022-12-11] MEDS: potassium chloride ER 20 mEq Tablet PO ×2 (09:00→20:25)
[2022-12-11] MEDS: FUROsemide 10 mg/mL SDV 4mL 40 MG IVP ×2 (09:01→20:26)
[2022-12-11 11:58] LABS: Add Urine Microscopic? NO; Charge for UA Resulting for Rev
[2022-12-11 12:05] LABS: Bilirubin Urine Neg (Negative); Blood Urine Neg (Negative); Glucose Urine UA Norm (Normal); Ketones Urine Negative (Negative); Leukocyte Esterase Urine Negative (Negative); Nitrate Urine Negative (Negative); Protein Urine Neg (Negative); Specific Gravity, Urine 1.005 (1.005-1.030); Urine Appearance Clear (CLEAR); Urine Color Yellow (Yellow); Urobilinogen Urine Norm (Negative); pH Urine 6 (5-7)
--- NOTE | 2022-12-11 13:32 | P.PN_ITS ---
Subjective Subjective: Patient was seen this morning, her edema persists denies any fevers, denies any chills, she does not really want to have a Johnson catheter placed Vitals/I&O/Wt Last Vital Signs Temp 98.6 F 12/11/22 11:46 Pulse 89 12/11/22 11:46 Resp 15 12/11/22 11:46 BP 108/77 12/11/22 11:46 Pulse Ox 93 12/11/22 11:46 O2 Del Method Nasal Cannula 12/11/22 11:46 12/10/22 12/11/22 12/11/22 22:59 06:59 14:59 Intake Total 480 / 480 960 / 1440 920 / 920 Output Total 550 / 550 730 / 1280 500 / 500 Balance -70 / -70 230 / 160 420 / 420 Weight last 48 hrs Weight 66.678 kg Physical Exam Const: COMMON NORMALS: no acute distress and patient oriented x3 Neck/C-Spine: COMMON NORMALS: no JVD Resp: COMMON NORMALS: normal respiratory effort, No retractions, No use of accessory muscles and clear to auscultation bilaterally AUSCULTATION: clear to auscultation bilaterally Cardio: COMMON NORMALS: no JVD, regular rate, regular rhythm, S1 normal heart sound present and S2 normal heart sound present RATE: regular rate RHYTHM: regular rhythm HEART SOUNDS: S1 normal heart sound present and S2 normal heart sound present GI: COMMON NORMALS: Normal to inspection, nondistended, normoactive bowel sounds present and non-tender Extremity: NARRATIVE EXTREMITY EXAM: Patient has 4+ pitting edema bilateral lower extremity Neuro: COMMON NORMALS: patient oriented x3 Psych: COMMON NORMALS: mental status grossly normal Data 12/11/22 04:41 12/11/22 04:41 A&P Assessment and plan (1) Bilateral lower extremity edema: (2) Anasarca: (3) Pulmonary edema: (4) Fluid overload: (5) Diastolic CHF, acute on chronic: (6) History of chemotherapy: (7) History of radiation therapy: (8) COPD (chronic obstructive pulmonary disease): (9) Malignant neoplasm of upper lobe, right bronchus or lung: (10) Metastatic cancer to brain: (11) Goals of care, counseling/discussion: (12) Dexamethasone adverse reaction: Plan Diastolic CHF exacerbation, anasarca, pulm edema, fluid overload, bilateral extremity edema ? Monitor creatinine, monitor magnesium, her potassium ? Lasix 40 mg IV twice daily with potassium replacement today ? Monitor urine output ?Patient declines Johnson catheter ? Has a history of a small pericardial effusion, will order ultrasound cardiac CONCLUSIONS ?1. Normal left ventricular size, systolic function and wall ?thickness, with no regional wall motion abnormalities. Left ?ventricular ejection fraction is estimated at 70 %. Normal ?diastolic function. ?2.? Compared to previous study 11/25/2021, pericardial effusion ?is not seen. Lung cancer with metastasis to the brain -coutinue dexamethasone -continue keppra complaint of abdominal distention -Likely anasarca goals of care, full code lovenox fro dvt prophylaxis Spoke to patient, plan for today Lasix 40 IV twice daily with potassium replacement therapy Attestations Medical Necessity Statement*: Patient requires hospitalization for fluid overload, diastolic CHF exacerbation, requiring diuresis Coding Level of Care Code 78996 Moderate MDM includes number and complexity of problems actively addressed during encounter, amount and/or complexity of data reviewed/ordered and described risk of complication, morbidity or mortality of management as document ed Diagnoses Bilateral lower extremity edema R60.0 Anasarca R60.1 Pulmonary edema J81.1 Fluid overload E87.70 Diastolic CHF, acute on chronic I50.33 History of chemotherapy Z92.21 History of radiation therapy Z92.3 COPD (chronic obstructive pulmonary disease) J44.9 Malignant neoplasm of upper lobe, right bronchus or lung C34.11 Metastatic cancer to brain C79.31 Goals of care, counseling/discussion Z71.89 Dexamethasone adverse reaction T38.0X5A
--- NOTE | 2022-12-11 15:59 | USCV_ITS ---
Kristine Kramer Age: 47 Gender: F : 1975 Exam Date: 12/11/2022 07:29 Ordering Phys: Ang Lowry MD Technologist: Freddie Bains Exam Location: [facility] [place] Indication: chest pain hx of cancer with mets BP: 111 / 68 HR: 70 Rhythm: Sinus Technical Quality: Adequate MEASUREMENTS (Male / Female) Normal Values 2D ECHO LV Diastolic Diameter PLAX 3.5 cm 4.2 - 5.9 / 3.9 - 5.3 cm LV Systolic Diameter PLAX 1.9 cm IVS Diastolic Thickness 1.5 cm 0.6 - 1.0 / 0.6 - 0.9 cm IVS Systolic Thickness 1.5 cm LVPW Diastolic Thickness 1.1 cm 0.6 - 1.0 / 0.6 - 0.9 cm LVPW Systolic Thickness 1.5 cm LVOT Diameter 2.0 cm LV Ejection Fraction 2D Teich 79.1 % LV Ejection Fraction MOD 2C 68.0 % LV Ejection Fraction 2C AL 70.1 % LA Diameter 3.5 cm Aorta at Sinotubular Diameter 2.1 cm M-MODE Aortic Annulus Diameter 3.1 cm LA Ao Ratio MM 1.2 MV E Point Septal Separation 0.9 cm DOPPLER AV Peak Velocity 142.0 cm/s LVOT Peak Velocity 104.0 cm/s AV Area Cont Eq vti 2.9 cm squared AV Area Cont Eq pk 2.2 cm squared MV Area PHT 5.0 cm squared Mitral E to A Ratio 1.2 MV E' Velocity 55.0 cm/s Mitral E to MV E' Ratio 11.0 Mitral E to LV E' Lateral Ratio 11.5 Mitral E to LV E' Septal Ratio 10.7 TR Peak Velocity 162.0 cm/s TR Peak Gradient 10.5 mmHg TV Peak E Velocity 84.0 cm/s Right Atrial Pressure 3.0 mmHg Pulmonary Artery Systolic Pressu 13.5 mmHg RV Acceleration Time 0.1 s FINDINGS Left Ventricle Normal left ventricular size, systolic function and wall thickness, with no regional wall motion abnormalities. Left ventricular ejection fraction is estimated at 70 %. Normal diastolic function. Right Ventricle Normal right ventricular size and systolic function. RVSP could not be calculated due to incomplete tricuspid regurgitation velocity profile. Right Atrium Right atrium not well visualized. Normal right atrial size. Left Atrium Normal left atrial size. Mitral Valve Structurally normal mitral valve. No mitral valve stenosis. No mitral valve regurgitation. Aortic Valve Aortic valve not well visualized. No aortic valve stenosis. No aortic valve regurgitation. Tricuspid Valve Structurally normal tricuspid valve. Trace tricuspid valve regurgitation. Pulmonic Valve Pulmonic valve not well visualized. Pericardium No pericardial effusion. Aorta Normal size aortic root and proximal ascending aorta. IVC Inferior vena cava not visualized. CONCLUSIONS 1. Normal left ventricular size, systolic function and wall thickness, with no regional wall motion abnormalities. Left ventricular ejection fraction is estimated at 70 %. Normal diastolic function. 2. Compared to previous study 11/25/2021, pericardial effusion is not seen. oNra Ramos MD (Electronically Signed) Final Date: 11 December 2022 13:01 S
[2022-12-11] MEDS: enoxaparin 40 mg/0.4 mL Syringe SUBCUT (17:18)
[2022-12-11] MEDS: pantoprazole 40 mg SDV IVP (17:18)
--- NOTE | 2022-12-11 18:37 | PC.NURSE ---
Patient was continuing to sneak out to smoke after being told at least twice by marketing copywriter that it was not allowed and dangerous. 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 Patient was told if she felt well enough to wheel herself outside and smoke, she was able to go home and that if she wanted to go outside and smoke she could sign AMA paperwork. Patient opted to hand over her headliner installer and return to her room.
[2022-12-11] MEDS: ipratropium-albuterol 3 mL Neb INHALATION (19:56)
--- NOTE | 2022-12-11 23:05 | PC.NURSE ---
Patient calls nurse into room. Patient states I was trying to get the drawer open and skinned the top of my foot. Nurse notes that she has a skin tear 2cm x 2cm on the top of her left foot. The skin is flushed with 10cc of NS and 3x3 optifoam is placed.
[2022-12-12] VITALS (7 sets, daily range): BP systolic 117–121; BP diastolic 70–71; PULSE 89–101; RESP 16–23; TEMP 36.8–36.9; O2SAT 94–96
[2022-12-12] MEDS: ALPRAZolam 0.5 mg Tablet 1 MG PO (00:12)
[2022-12-12] MEDS: oxyCODONE 5 mg IR Tab/Cap 10 MG PO ×2 (03:22→09:36)
[2022-12-12 04:35] LABS: Basophils % 0.2 %; Hematocrit 43.5 % (37.0-47.0); Hemoglobin 13.7 g/dL (11.5-15.3); Lymphocytes # 0.7 10^3/uL (0.8-4.8); Lymphocytes % 6.4 %; Mean Corpuscular HGB Conc 31.5 g/dL (30.0-36.0); Mean Corpuscular Hemoglobin 28.4 pg (28.0-34.0); Mean Corpuscular Volume 90.2 fl (81-99); Monocytes # 0.7 10^3/uL (0.2-0.9); Monocytes % 6.4 %; Neutrophils # 8.93 10^3/uL (1.8-7.7); Nucleated Red Blood Cells % 0.2 %; Platelet Count 272 10^3/cmm (130-400); Red Blood Count 4.82 10^6/uL (4.1-5.3); Red Cell Distribution Width 22.7 % (12.1-15.1); White Blood Count 10.6 10^3/uL (4.0-10.0)
[2022-12-12 04:57] LABS: Alanine Aminotransferase 47 U/L (0-33); Albumin Level 3.6 g/dL (3.5-5.2); Alkaline Phosphatase 57 U/L (35-105); Anion Gap 17.6 (5-19); Aspartate Amino Transferase 13 U/L (0-32); Blood Urea Nitrogen 27 mg/dL (6-20); Calcium 8.8 mg/dL (8.5-10.5); Carbon Dioxide 25 mmol/L (22-29); Chloride 99 mmol/L (98-107); Globulin 2.6 g/dL (1.3-4.6); Glomerular Filtration Rate 88.9 mL/min (90-130); Glucose 208 mg/dL (65-115); Magnesium 2.1 mg/dL (1.7-2.3); Osmolality Calculated 297 mOsm/kg (285-295); Phosphorus 3.2 mg/dL (2.5-4.5); Potassium 3.6 mmol/L (3.5-5.1); Sodium 138 mmol/L (136-145); Total Bilirubin 0.2 mg/dL (0.15-1.2); Total Protein 6.2 g/dL (6.6-8.7)
[2022-12-12 05:06] LABS: NT Pro B Type Natriuretic Pept 178 pg/mL (0-125)
--- NOTE | 2022-12-12 09:25 | PC.CHAP ---
Pastoral Care Encounter/Spiritual Assessment Type of Contact [] Declined traffic supervisor visit [] Patient/Family/Request visit [] Outpatient visit [] Follow-up visit [] Physician referral [] Code/Alert [x] Routine visit [] Staff referral [] Actively dying [] Patient sleeping [] Family support [] [] Out of room [] Palliative care [] [] Receiving care in room [] Pre-surgical visit [] Trauma [] Long length of stay [] ICU visit [] Other: Relational/Emotional Strength [x] Patient feels connected with others/family/visitors/staff [] Distress [] Loneliness/isolation [] Abandonment Spirituality of Patient [x] Person of Marisabel [] Attends [employer] of their Marisabel [x] Believes in Prayer [] Reads Bible or Zoroastrianism materials [] There are Spiritual issues to be addressed Concrete Puddler Interventions [x] Prayer [] Active listening [] Non-anxious presence [x] Spiritual/emotional support [] Crisis/trauma care [] Spiritual counseling [] Bereavement support [] Provided bereavement packet [] Provided Bible/devotional materials [] Provided toy/stuffed animal, coloring book to patient or family member [] Provided Communion [] Anointing/[place] [] Salvation [x] Completed spiritual assessment [] Other: Impact on Illness or Injury [] Angry [] Fearful [] Anxious [] Often cries [] Exhaustion [] Unable to work [] Unable to attend mu-ism [] Unable to walk/stand [] Unable to read [] Unable to drive [] Unable to eat/drink [] Unable to sleep [] Unable to be with family [] Patient intubated [] Other: Summary Time spent with patient 5 min
[2022-12-12] MEDS: magnesium oxide 400 mg tablet PO (09:37)
[2022-12-12] MEDS: metOLazone 5 MG Tablet PO (09:37)
[2022-12-12] MEDS: dexamethasone 4 mg Tablet PO (09:37)
[2022-12-12] MEDS: pregabalin 75 mg Capsule PO (09:38)
[2022-12-12] MEDS: potassium chloride ER 20 mEq Tablet 40 MEQ PO (09:38)
[2022-12-12] MEDS: levETIRAcetam 500 mg Tablet PO (09:38)
[2022-12-12] MEDS: FUROsemide 10 mg/mL SDV 4mL 40 MG IVP (09:38)
--- NOTE | 2022-12-12 10:46 | P.DS_ITS ---
Discharge Providers Date of Admission: 12/10/22 16:49 Date of Discharge: December 12, 2022 Attending Provider at Admission: Ang Lowry MD Attending Provider at Discharge: Ang Lowry MD Primary Care Provider: Bhavin Abrams MD Diagnoses at Discharge Discharge Diagnosis (1) Bilateral lower extremity edema: Status: Acute (2) Anasarca: Status: Acute (3) Pulmonary edema: Status: Acute (4) Fluid overload: Status: Acute (5) Diastolic CHF, acute on chronic: Status: Acute (6) History of chemotherapy: Status: Acute (7) History of radiation therapy: Status: Acute (8) COPD (chronic obstructive pulmonary disease): Status: Acute (9) Malignant neoplasm of upper lobe, right bronchus or lung: Status: Acute Permanent problem details: Stage IIIA - T1c, N2, M0 (10) Metastatic cancer to brain: Status: Inactive (11) Goals of care, counseling/discussion: Status: Acute (12) Dexamethasone adverse reaction: Status: Acute Reason for Visit Reason for Visit: swelling both legs with blisters Hospital Course Hospital Course Kristine Kramer is a 47 year old female with a past medical history of lung cancer, with brain metastasis, status post CyberKnife radiation, current smoker, COPD, who presents to [facility] due to bilateral extremity edema, abdominal wall edema, shortness of breath.? Patient tells me that for the last month, she is slowly developed increased lower extremity edema, abdominal wall edema, distention, with shortness of breath with exertion.? Currently she has 4+ pitting edema bilateral lower extremities, with large fluid-filled vesicles on bilateral lower extremities, she has abdominal distention, she is wheezing in all lung hardy, and has crackles, she is on room air, normotensive, afebrile, denies any fevers, denies any chills, no cough, her CT angiogram was negative for pulmonary embolism, venous ultrasound negative for DVT, she is on dexamethasone 4 mg 3 times daily for her intracranial metastasis, which she has been on for the last month since her intracranial metastasis was discovered, denies any chest pain, no palpitations, hospitalist team was called for admission Patient was admitted for fluid overload, bilateral lower extremity edema, anasarca secondary to dexamethasone, patient received inpatient diuresed over 4L, overall clinically improved, patient will be discharged on 3 days of lasix and potassium, follow up with primary care and oncology in 24 hours, patient should continue dexamethasone. Physical Exam Const: COMMON NORMALS: no acute distress and patient oriented x3 Resp: COMMON NORMALS: normal respiratory effort, No retractions, No use of accessory muscles and clear to auscultation bilaterally AUSCULTATION: clear to auscultation bilaterally Cardio: COMMON NORMALS: regular rate, regular rhythm, S1 normal heart sound present and S2 normal heart sound present RATE: regular rate RHYTHM: regular rhythm HEART SOUNDS: S1 normal heart sound present and S2 normal heart sound present GI: COMMON NORMALS: Normal to inspection, nondistended, normoactive bowel sounds present and non-tender Extremity: COMMON NORMALS: no pedal edema Neuro: COMMON NORMALS: patient oriented x3 Psych: COMMON NORMALS: mental status grossly normal Discharge Data Studies Completed and Pending Completed Studies During Hospitalization Category Date Time Status CT abdomen pelvis wo con [id number] Stat Cat Scan 12/10/22 15:[address] angio chest PE protcl [id number] Stat Cat Scan 12/10/22 14:[address] head wo con* [id number] Stat Cat Scan 12/10/22 15:59 Completed XR chest 1V portable [id number] Stat Exams 12/10/22 15:34 Completed CV. echo complete* [id number] Stat Ultrasound 12/11/22 15:59 Completed US gall bladder [id number] Stat Ultrasound 12/10/22 15:28 Completed US venous duplex lower extremity bilat [CV venous Ultrasound 12/10/22 12:31 [place] [id number]] Stat Pending at discharge Category Date Time Status Complete Blood Count w/Auto AM LABS Lab 12/13/22 04:00 Ordered Comprehensive Metabolic Panel AM LABS Lab 12/13/22 04:00 Ordered Magnesium AM LABS Lab 12/13/22 04:00 Ordered NT Pro B Type Natriuretic Pept AM LABS Lab 12/13/22 04:00 Ordered Phosphorus AM LABS Lab 12/13/22 04:00 Ordered Radiology Impressions Venous Duplex 12/10/22 12:31 IMPRESSION: No deep vein thrombosis. Chest CTA 12/10/22 14:10 IMPRESSION: 1. No pulmonary embolism. 2. Decreased size of a dominant pulmonary nodule in the right upper lobe. Surrounding opacity may be due to radiation pneumonitis or infection. 3. Additional nodules in the upper lungs are stable. 4. Partially imaged gallbladder with cholelithiasis and adjacent hyperemia in the liver parenchyma. Findings could represent acute cholecystitis. Consider ultrasound. 5. Incidental findings above. Gallbladder Ultrasound 12/10/22 15:28 IMPRESSION: 1. Somewhat limited details with poorly visualized pancreas and some hepatic segments. 2. Mild hepatomegaly with probable steatosis. No obvious cirrhosis. Clinical correlation for acute/chronic hepatitis including ZHANG should be obtained. 3. Sludge and probable tiny calculi in the gallbladder. No acute findings otherwise. Chest X-Ray 12/10/22 15:34 IMPRESSION: Left basilar platelike opacity. See discussion above for other findings. Abdomen/Pelvis CT 12/10/22 15:59 IMPRESSION: 1. Decreased hepatic density is noted, consistent with hepatic steatosis. 2. There is a small hiatal hernia present. 3. The abdominal wall demonstrates a small umbilical hernia, containing only fat. 4. No acute abnormality demonstrated in the abdomen and pelvis. Head CT 12/10/22 15:59 IMPRESSION: 1. Limited unenhanced CT in the setting of brain metastatic lesion with comparison unenhanced CT 11/20/2022. 2. Persistent intra-axial lesion in the left parieto-occipital region with measurements as described above. Relatively stable regional vasogenic edema and stable mild regional mass effect with no midline shift. The lesion appears more hyperdense as described above. Another tiny enhancing lesion may also be present in the right paramedian superior cerebral gyrus as described above. No other obvious large new lesions however correlation with contrast-enhanced MRI may be obtained if more definitive assessment is required. 3. No acute intracranial findings otherwise. Laboratory Results WBC 10.6 10^3/uL (4.0-10.0) H 12/12/22 04:15 RBC 4.82 10^6/uL (4.1-5.3) 12/12/22 04:15 Hgb 13.7 g/dL (11.5-15.3) 12/12/22 04:15 Hct 43.5 % (37.0-47.0) 12/12/22 04:15 MCV 90.2 fl (81-99) 12/12/22 04:15 MCH 28.4 pg (28.0-34.0) 12/12/22 04:15 MCHC 31.5 g/dL (30.0-36.0) 12/12/22 04:15 RDW 22.7 % (12.1-15.1) H 12/12/22 04:15 Plt Count 272 10^3/cmm (130-400) 12/12/22 04:15 MPV 10.0 fL (7.4-10.4) 12/12/22 04:15 Neut % (Auto) 84.0 % 12/12/22 04:15 Lymph % (Auto) 6.4 % 12/12/22 04:15 [place] % (Auto) 6.4 % 12/12/22 04:15 Eos % (Auto) 0.0 % 12/12/22 04:15 Baso % (Auto) 0.2 % 12/12/22 04:15 Neut # (Auto) 8.93 10^3/uL (1.8-7.7) H 12/12/22 04:15 Lymph # (Auto) 0.7 10^3/uL (0.8-4.8) L 12/12/22 04:15 [place] # (Auto) 0.7 10^3/uL (0.2-0.9) 12/12/22 04:15 Eos # (Auto) 0.0 10^3/uL (0.0-0.8) 12/12/22 04:15 Baso # (Auto) 0.0 10^3/uL (0.0-0.1) 12/12/22 04:15 Nucleated RBC % (auto) 0.2 % 12/12/22 04:15 Nucleated RBCs # 0.0 /100WBC 12/12/22 04:15 Sodium 138 mmol/L (136-145) 12/12/22 04:15 Potassium 3.6 mmol/L (3.5-5.1) 12/12/22 04:15 Chloride 99 mmol/L (98-107) 12/12/22 04:15 Carbon Dioxide 25 mmol/L (22-29) 12/12/22 04:15 Anion Gap 17.6 (5-19) 12/12/22 04:15 BUN 27 mg/dL (6-20) H 12/12/22 04:15 Creatinine 0.7 mg/dL (0.5-0.9) 12/12/22 04:15 GFR Calculation 88.9 mL/min (90-130) L 12/12/22 04:15 Glucose 208 mg/dL (65-115) H 12/12/22 04:15 Estimat Average Glucose 120 12/10/22 12:34 Hemoglobin A1c 5.8 % (4.0-6.0) 12/10/22 12:34 Calculated Osmolality 297 mOsm/kg (285-295) H 12/12/22 04:15 Calcium 8.8 mg/dL (8.5-10.5) 12/12/22 04:15 Phosphorus 3.2 mg/dL (2.5-4.5) 12/12/22 04:15 Magnesium 2.1 mg/dL (1.7-2.3) 12/12/22 04:15 Total Bilirubin 0.2 mg/dL (0.15-1.2) 12/12/22 04:15 AST 13 U/L (0-32) 12/12/22 04:15 ALT 47 U/L (0-33) H 12/12/22 04:15 Alkaline Phosphatase 57 U/L (35-105) 12/12/22 04:15 Troponin T Baseline 11 ng/L (0-10) H 12/10/22 12:34 Troponin T 120 Minute 10.99 ng/L (0-10) H 12/10/22 15:37 Delta Troponin T -0.01 ABS# (0-10) L 12/10/22 15:37 Troponin T Hi Sens 6Hr 13.44 ng/L (0-10) H 12/10/22 19:19 Troponin T Hi Sens 6Hr Delta 2.44 ng/L (0-12) 12/10/22 19:19 C-Reactive Protein 3.0 mg/L (0.0-4.9) 12/10/22 12:34 NT-Pro-B Natriuret Pep 178 pg/mL (0-125) H 12/12/22 04:15 Total Protein 6.2 g/dL (6.6-8.7) L 12/12/22 04:15 Albumin 3.6 g/dL (3.5-5.2) 12/12/22 04:15 Globulin 2.6 g/dL (1.3-4.6) 12/12/22 04:15 Triglycerides 214 mg/dL (0-150) H 12/10/22 12:34 Cholesterol 296 mg/dL (0-200) H 12/10/22 12:34 LDL Cholesterol, Calc 149 mg/dL (50-129) H 12/10/22 12:34 HDL Cholesterol 104 mg/dL (60-100) H 12/10/22 12:34 LDL/HDL Ratio 1.43 RATIO (0.00-3.22) 12/10/22 12:34 Cholesterol/HDL Ratio 2.85 mg/dL (0.0-4.40) 12/10/22 12:34 Procalcitonin 0.30 ng/mL (0-0.5) 12/10/22 12:34 TSH 2.07 uIU/mL (0.27-4.20) 12/10/22 12:34 Random Cortisol 0.52 ug/dL (2.47-19.5) L 12/10/22 12:34 Urine Color Yellow (Yellow) 12/11/22 10:02 Urine Appearance Clear (CLEAR) 12/11/22 10:02 Urine pH 6 (5-7) 12/11/22 10:02 Ur Specific [place] 1.005 (1.005-1.030) 12/11/22 10:02 Urine Protein Neg (Negative) 12/11/22 10:02 Urine Glucose (UA) Norm (Normal) 12/11/22 10:02 Urine Ketones Negative (Negative) 12/11/22 10:02 Urine Blood Neg (Negative) 12/11/22 10:02 Urine Nitrate Negative (Negative) 12/11/22 10:02 Urine Bilirubin Neg (Negative) 12/11/22 10:02 Urine Urobilinogen Norm mg/dL (Negative) 12/11/22 10:02 Ur Leukocyte Esterase Negative (Negative) 12/11/22 10:02 Vitals Last Vital Signs Temp 98.2 F 12/12/22 08:00 Pulse 89 12/12/22 08:00 Resp 18 12/12/22 09:36 BP 121/70 12/12/22 08:00 Pulse Ox 96 12/12/22 09:36 O2 Del Method Room Air 12/12/22 08:00 Discharge Plan Discharge Patient Disposition: Home Condition: Stable Prescriptions: New furosemide [Lasix] 40 mg tablet 40 mg PO DAILY 3 Days Qty: 3 0RF potassium chloride [Klor-Con 10] 10 mEq tablet extended release 20 meq PO DAILY 3 Days Qty: 6 0RF Continued alprazolam [Xanax] 1 mg tablet 1 mg PO TID PRN (Reason: anxiety) Qty: 90 3RF ipratropium-albuterol 0.5 mg-3 mg(2.5 mg base)/3 mL solution for nebulization 3 ml inhalation Q4H PRN (Reason: wheezing) albuterol sulfate [Ventolin HFA] 90 mcg/actuation HFA aerosol inhaler 2 inh inhalation QID PRN (Reason: shortness of breath or wheezing) levetiracetam [Keppra] 500 mg tablet 500 mg PO BID magnesium oxide 400 mg (241.3 mg magnesium) tablet 400 mg PO DAILY fluticasone propionate 50 mcg/actuation spray,suspension 1 spray intranasal DAILY PRN (Reason: Allergy Symptoms) Rx Instructions: administer into each nostril Lyrica 75 mg capsule 75 mg PO BID Qty: 60 0RF Trelegy Ellipta 100-62.5-25 mcg blister with device 1 inh inhalation DAILY Qty: 60 3RF Rx Instructions: 340 B dexamethasone 4 mg tablet 4 mg PO TID Qty: 30 0RF iobauybpwl-uyhmscbkfwdyz-ytak 50-325-40 mg tablet 1 tab PO Q6H PRN (Reason: Pain) melatonin 3 mg capsule 3 mg PO QPM PRN (Reason: sleep) oxycodone 20 mg tablet 10 mg PO Q6H PRN (Reason: Pain) Discharge Orders: Discharge Order (Routine); Ordered 12/12/22 Ordered By: Ang Lowry Referrals: Bhavin Abrams MD [Primary Care Provider] - 01/05/23 7:45 am (This is a new patient appointment, the clinic will contact you to schedule an appointment sooner if possible. ) Discharge Diet: Cardiac and Diabetic Discharge Activity: Resume usual activity Patient Instructions: Opioid Safety Discharge Attestations Time Spent in Discharge Care*: greater than 30 min Quality Metrics Clinical Quality Measures [ No reported AMI, CVA or VTE this stay] Coding Level of Care Code 75302 Total time (in minutes) for Discharge: 45 Diagnoses Bilateral lower extremity edema R60.0 Anasarca R60.1 Pulmonary edema J81.1 Fluid overload E87.70 Diastolic CHF, acute on chronic I50.33 History of chemotherapy Z92.21 History of radiation therapy Z92.3 COPD (chronic obstructive pulmonary disease) J44.9 Malignant neoplasm of upper lobe, right bronchus or lung C34.11 Metastatic cancer to brain C79.31 Goals of care, counseling/discussion Z71.89 Dexamethasone adverse reaction T38.0X5A
--- NOTE | 2022-12-12 12:56 | PC.NURSE ---
Discharge Note Patient discharged to home via taxi accompanied by boom truck driver. Discharge instructions reviewed with patient and/or it sales representative. Mobile pharmacy medications and/or prescriptions provided. Belongings/home medications returned.
== END 2022-12-12 12:00 | disposition home or self-care (01) | DRG 292 ==
LOC: ER 15:51 → CSU 12-11 06:09
PROVIDERS: Admitting Provider Family Medicine; Emergency Provider Family Medicine; PCP Family Medicine; Visit Provider Family Medicine
DX: I50.33 Acute on chronic diastolic (congestive) heart failure (principal); C34.11 Malignant neoplasm of upper lobe, right bronchus or lung; C79.31 Secondary malignant neoplasm of brain; Z92.3 Personal history of irradiation; F17.210 Nicotine dependence, cigarettes, uncomplicated; J44.9 Chronic obstructive pulmonary disease, unspecified; Z79.51 Long term (current) use of inhaled steroids; Z79.52 Long term (current) use of systemic steroids; Z79.891 Long term (current) use of opiate analgesic; Z92.21 Personal history of antineoplastic chemotherapy; M79.7 Fibromyalgia; F41.1 Generalized anxiety disorder; F41.0 Panic disorder [episodic paroxysmal anxiety]; Z98.1 Arthrodesis status; T38.0X5A Adverse effect of glucocorticoids and synthetic analogues, initial encounter
CPT/HCPCS: 36415; 70450; 71045; 71275; 74176; 76705; 80053; 80061; 81003; 82533; 83036; 83735; 83880; 84100; 84145; 84443; 84484; 85025; 86140; 93005; 93306; 93970; 94640; 94664; 96372; 96374; 96376; 97161; 97165; 97530; 99285; C9113; J1650; J1940; J8540; Q9967

== ENCOUNTER 2022-12-13 09:00 | Oncology outpatient (recurring) (ONCR) | payer MEDICAID, SELFPAY ==
[2022-02-13 15:03] VITALS: BP 113/76; BMI 24.4
--- NOTE | 2022-12-01 12:10 | PC.NURSE ---
Patient did not get infusion per Dr. Estrada
[2022-12-13 08:57] VITALS: BMI 32.4
[2022-12-13 08:59] VITALS: BP 108/74; PULSE 100; RESP 18; TEMP 36.4; O2SAT 95
[2022-12-13 09:11] LABS: Basophils % 0.3 %; Hematocrit 45.4 % (37.0-47.0); Hemoglobin 14.7 g/dL (11.5-15.3); Lymphocytes # 1.3 10^3/uL (0.8-4.8); Lymphocytes % 8.6 %; Mean Corpuscular HGB Conc 32.4 g/dL (30.0-36.0); Mean Corpuscular Volume 86.5 fl (81-99); Mean Platelet Volume 9.9 fL (7.4-10.4); Monocytes # 1.2 10^3/uL (0.2-0.9); Monocytes % 7.9 %; Neutrophils # 11.89 10^3/uL (1.8-7.7); Neutrophils % 80.9 %; Nucleated Red Blood Cells % 0 %; Platelet Count 308 10^3/cmm (130-400); Red Blood Count 5.25 10^6/uL (4.1-5.3); Red Cell Distribution Width 21.9 % (12.1-15.1); White Blood Count 14.7 10^3/uL (4.0-10.0)
[2022-12-13 09:32] LABS: Alanine Aminotransferase 54 U/L (0-33); Albumin Level 3.9 g/dL (3.5-5.2); Alkaline Phosphatase 60 U/L (35-105); Aspartate Amino Transferase 18 U/L (0-32); Blood Urea Nitrogen 30 mg/dL (6-20); Calcium 9.1 mg/dL (8.5-10.5); Carbon Dioxide 29 mmol/L (22-29); Chloride 94 mmol/L (98-107); Globulin 2.6 g/dL (1.3-4.6); Glomerular Filtration Rate 106.3 mL/min (90-130); Glucose 82 mg/dL (65-115); Osmolality Calculated 287 mOsm/kg (285-295); Sodium 136 mmol/L (136-145); Total Bilirubin 0.2 mg/dL (0.15-1.2); Total Protein 6.5 g/dL (6.6-8.7)
[2022-12-13 09:34] LABS: Anion Gap 17.4 (5-19); Potassium 4.4 mmol/L (3.5-5.1)
== END 2022-12-28 23:59 | disposition home or self-care (01) ==
PROVIDERS: Internal Medicine Medical Oncology; PCP Family Medicine; Visit Provider Internal Medicine Hematology & Oncology
DX: C34.11 Malignant neoplasm of upper lobe, right bronchus or lung (principal); C79.31 Secondary malignant neoplasm of brain; C77.1 Secondary and unspecified malignant neoplasm of intrathoracic lymph nodes; G89.3 Neoplasm related pain (acute) (chronic); Z53.9 Procedure and treatment not carried out, unspecified reason
CPT/HCPCS: 80053; 85025; 99214; 99215; J1642

== ENCOUNTER → 2022-12-21 11:44 | Outpatient (BNVA) | payer MEDICAID, SELFPAY ==
[2022-02-13 15:03] VITALS: BP 113/76; BMI 24.4
== END ==
PROVIDERS: PCP Family Medicine; Visit Provider Family Medicine
DX: C34.90 Malignant neoplasm of unspecified part of unspecified bronchus or lung (principal); C79.31 Secondary malignant neoplasm of brain
CPT/HCPCS: 80053; 85007; 85025

== ENCOUNTER 2022-12-27 15:45 | Outpatient (CLI) | payer MEDICAID, SELFPAY ==
[2022-02-13 15:03] VITALS: BP 113/76; BMI 24.4
--- NOTE | 2022-12-27 16:00 | MR_ITS ---
WS: [id number] MRI HEAD WITH CONTRAST TECHNIQUE: Sagittal T1, T2 axial, T2 axial FLAIR, axial susceptibility weighted imaging, axial diffus ion weighted images, and coronal T2 images were obtained. Pre and post-T1 axial and post T1 coronal i mages. ADC and FSPGR images. CLINICAL INFORMATION: Follow up COMPARISON: CT 12/10/2022 and MRI 10/28/2022 FINDINGS: No evidence of restricted diffusion to suggest acute ischemia. Ventricular system basilar cisterns ar e patent. Mild supratentorial white matter changes. No significant parenchymal volume loss. Normal po sterior fossa. Normal vascular flow voids at the skull base. No extra-axial fluid collections. Parana gema sinuses and mastoid air cells well aerated. Again seen is the treated metastatic lesion in the LEFT posterior temporal parietal occipital junctio n adjacent to the LEFT occipital horn. Associated hemosiderin with peripheral enhancement. Lesion tod ay measures approximately 1.7 x 1.9 cm. This is decreased in size slightly since the prior MRI with m ore central necrosis and cavitation. Small amount of associated hemosiderin. Surrounding edema has im proved. No significant mass effect or midline shift. Tiny faint focus of enhancement along the RIGHT parasagittal frontal lobe corresponding to the prior CT findings measuring 4 mm. No significant surrounding edema. This is best appreciated on the coronal imaging. Additional punctate enhancing lesions in the LEFT parasagittal parietal lobe posteriorly measuring 4 mm and LEFT frontal parietal junction along the central sulcus measuring 3 mm suspicious for tiny pun ctate focus of metastatic disease. No significant associated edema. Additional small enhancing focus in the LEFT posterolateral internal capsule measuring 4.6 mm. Normal dural venous sinuses. Normal optic chiasm and pituitary infundibulum. Mild to moderate symmetric atrophy temporal lobes and hippocampal formations. IMPRESSION: 1. Treated LEFT posterior temporal parietal occipital junction lesion with increased cavitation and slight decrease in size compared to previous. Improved surrounding edema. No significant mass effect or midline shift today. 2. Several tiny enhancing punctate lesions measuring 3 to 4 mm described above suspicious for additi onal new punctate foci of metastatic disease. LEFT posterior internal capsule lesion in retrospect wa s present previously on the outside MRI 10/28/2022 and appears slightly larger today. The remainder of the small lesions appear new compared to 10/28/2022. 3. No other significant changes.
[2022-12-27] MEDS: gadobenate dimeglumine 20 mL vial IV (17:27)
== END 2022-12-27 15:46 | disposition home or self-care (01) ==
PROVIDERS: PCP Family Medicine; Visit Provider Internal Medicine Medical Oncology
DX: C34.90 Malignant neoplasm of unspecified part of unspecified bronchus or lung (principal); C79.31 Secondary malignant neoplasm of brain
CPT/HCPCS: 70553; A9577

== ENCOUNTER 2023-01-03 12:48 | Oncology outpatient (recurring) (ONCR) | payer MEDICAID, SELFPAY ==
[2022-02-13 15:03] VITALS: BP 113/76; BMI 24.4
--- NOTE | 2023-01-03 16:43 | ONCRAD EPV_ITS ---
Radiation Oncology Established Patient Visit Patient: Williams Carmona [id number] : 1975> Age: 47> Sex: Female> Dictated by: Adolfo Cotter Date of Service: 01/03/2023 Referring Physician(s) : Dr. Young Diagnosis: C34.11 - Malignant neoplasm of upper lobe, right bronchus or lung, Diagnosed 05/24/2021 (Active) Stage IIIA, T1c, N2, M0, Brain mets: 11/10/2022 CyberKnife, 2000 cGy in 1 fraction to a 2.5 cm metastasis in the left posterior temporal parietal junction at [facility]. 12/27/2022 MR brain at [facility] reveals the treated mass to be 1.7 x 1.9 cm with minimal associated edema. 4 new metastases measuring 3 to 4 mm in size detected. lung cancer Ms. Kristine Kramer, is a 46-year-old female who presented to ER on March 19, 2021 with chest pain in the left chest, underwent CTA chest on March 19, 2021 which showed no embolism, but mildly spiculated 2.2 x 1.6 cm pulmonary nodule in the right upper lobe, CT PET was recommended which was done on May 14, 2021 and it showed 2.4 x 2.2 cm posterior right upper lobe solid nodule with SUV of 7.1 and a 2.1 cm right paratracheal 4R, lymph node with SUV of 11.8. And adjacent subcarinal lymph node is FDG positive as well. A 5 mm lateral left upper lobe subpleural anteromedial right lower lobe 6 mm nodule are too small to characterize. 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 Staging MRI scan of the brain done on June 27, 2021 showed no metastatic disease to the brain. Minimally atrophy and minimal chronic microvascular ischemic disease Patient denies any hemoptysis or hematemesis, denies any bony pains, denies any jaundice, denies any dysphagia, but complaining of off and on headaches. Patient has longstanding history of smoking, still active. Denies alcohol use Started on combined chemoradiation with weekly carboplatin/Taxol on July 11, 2021 Came for follow-up, denies any specific complaints, no fever chills, no nausea or vomiting, no diarrhea or constipation, no melena or hematochezia, no hemoptysis hematemesis, no peripheral numbness, tolerating combined chemoradiation with carboplatin/Taxol well Radiotherapy to Date: Course: Lung 2021,Treatment Site: Lung Ca ??? RUL,Ref. ID: [id number],Energy: 6X, Dose/Fx (cGy): 200, #Fx: 30 30, Dose Correction (cGy): 0, Total Dose (cGy): 6,000, Start Date: 07/11/2021, Elapsed Days: 46 11/10/2022 - 2000 cGy in 1 fraction to a left posterior temporal parietal occipital junction mass Current History: Ms Kramer is a 47-year-old lady who underwent combined chemotherapy and radiation for carcinoma of the lung in the spring 2021. She was found to have a brain metastasis, as noted above, and treated with CyberKnife at [facility] on 11/10/2022. When she was released, she was told she would need to be on steroids for an extended period of time. After CyberKnife treatment she continued taking dexamethasone 4 mg 3 times a day until being hospitalized with anasarca recently. She is now an outpatient but still has a significant amount of peripheral edema. She is on Lasix and is continuing the dexamethasone 4 mg 3 times a day. She had an MRI of the brain 12/27/2022 which shows the metastasis treated with CyberKnife to have diminished significantly in size to 1.9 x 1.7 cm. The scan showed very little edema but 4 new metastases were seen. There is minimal edema around the treated metastasis and the 4 new lesions have no associated edema. I am told that [facility] radiation oncology was notified about the for new metastases and that they offered follow-up evaluation in early February. Because of that, the patient has been referred here for consideration of whole brain radiation. She has some blurred vision but no troublesome headaches, nausea, dizziness, or neurologic deficits. Current Medications: ALPRAZolam, aLPRAZolam, aLPRAZolam ER, amitriptyline HCl, amoxicillin-Pot Clavulanate, cARBOplatin, dexamethasone Sodium Phosphate, diphenhydrAMINE HCl, esomeprazole Magnesium, famotidine in NaCl, levoFLOXacin, lidocaine HCl, ondansetron HCl, oxyCODONE HCl, pACLitaxel, palonosetron HCl, predniSONE, prochlorperazine Maleate, tiotropium Clint-Olodaterol, topiramate. Allergies: No Known Allergies Current Complaints / Review of Systems: . Vital Signs: Performed on 01/03/2023 1:09 PM BMI - 35.38 kg/m2 (high), Height - 66 in, Weight - 219.2 lbs, Temperature - 96.5 f, Pulse - 102 /min (high), Respiration - 18 /min, O2 Sat - 95 % (low), Pain - 0, Fatigue - 0 and BP - 121/ 68 mm(hg). Physical Exam: General: Alert and oriented x 3. No acute distress. She appears chronically ill. HEENT: Her face is symmetrically swollen. No evidence of injury.. Extraocular Movements Intact: Sclerae anicteric. Oral cavity is clear without lesions, masses or ulcers. No yeast. NECK: Supple without supraclavicular or jugular lymphadenopathy. LUNGS: Clear to auscultation bilaterally without rales, rhonchi or wheeze. HEART: Regular rate and rhythm, no murmur, gallop or rub. MUSCULOSKELETAL: No tenderness or percussion pain over the axial skeleton, scapulae or pelvis. ABDOMEN: Soft, nontender, nondistended without masses or organomegaly. Bowell sounds are present. EXTREMITIES: She has at least 2+ pitting edema in both lower extremities below the knee. Her feet are very swollen. NEUROLOGIC: Cranial nerves II ???XII are grossly intact. Normal sensation, strength 5/5 in all extremities. Finger-nose exam slow but intact. Ghfa-gj-mhmg intact. Performance Status: ECOG 3 Lab: None pending. Pathology: Primary, c34.11 - malignant neoplasm of upper lobe, right bronchus or lung, Diagnosed 05/24/2021 (active) stage iiia, t1c, n2, m0. Imaging: See HPI Impression: Ms Kramer has metastatic carcinoma of the lung involving the brain. The 1 lesion in the brain that has been treated with CyberKnife has responded very well. She has 4 new small lesions detected on MR that are likely metastases. They should respond equally well to stereotactic radiation. I discussed that with her. I told her that even if she has to wait a couple of months for an appointment, that would probably be worth the wait for additional SRS to be considered. Obviously, if multiple new metastases developed during the interim, whole brain radiation would be indicated. I do not recommend doing whole brain radiation at this time. If that is done, she may need to be back on dexamethasone ,and it appears to be a drug she does not tolerate particularly well. I told Ms Kramer and her son that we need to taper her off the dexamethasone. I gave her a written tapering schedule. She will immediately go down to 4 mg twice daily for 4 days, then 4 mg daily for 4 days, then 4 mg every other day for 3 doses and stop. I told her if she has recurrent neurologic symptoms while on the taper, that we will go back up on the dose, and after few days try tapering again. She will continue to see her primary care physician to monitor the Lasix and her electrolytes. Disposition: Follow-up in 6 weeks, sooner if she has problems. Contact [facility] for appointment. Signed by: 01/03/2023 4:42:48 PM <<Signature on File>> Time spent with patient: CPT Code: CPT Code:
== END 2023-01-27 23:59 | disposition home or self-care (01) ==
PROVIDERS: PCP Family Medicine; Visit Provider Specialist
DX: C34.11 Malignant neoplasm of upper lobe, right bronchus or lung (principal); C79.31 Secondary malignant neoplasm of brain; Z92.3 Personal history of irradiation; Z79.52 Long term (current) use of systemic steroids
CPT/HCPCS: 99214

== ENCOUNTER 2023-01-21 15:36 | Inpatient (IN) | payer MEDICAID, SELFPAY ==
[2022-02-13 15:03] VITALS: BP 113/76; BMI 24.4
[2023-01-21] VITALS (7 sets, daily range): BP systolic 96–124; BP diastolic 61–82; PULSE 98–104; RESP 19–34; TEMP 36.6–36.8; O2SAT 93–98
--- NOTE | 2023-01-21 15:38 | CTR_ITS ---
PROCEDURE INFORMATION: Exam: CT Head Without Contrast Exam date and time: 01/21/2023 4:05 PM Age: 47 years old Clinical indication: Injury or trauma; Fall; Blunt trauma (contusions or hematomas); With loss of consciousness; Not specified; Patient HX: Lung cancer w mets; Additional info: Trauma/loc TECHNIQUE: Imaging protocol: Computed tomography of the head without contrast. Radiation optimization: All CT scans at this facility use at least one of these dose optimization techniques: automated exposure control; mA and/or kV adjustment per patient size (includes target Other technique: REPeceived 13 known CTs and 0 known car COMPARISON: No relevant prior studies available. FINDINGS: Brain: No midline shift. Mild parenchymal volume loss. Rounded partly calcified nodule left posterior temporal cortex with surrounding edema is again noted. This was seen on MRI from 12/27/2022 and represents previously treated lesion. There is no new mass lesion. No hemorrhage. No extra-axial fluid collection. Punctate calcification right frontal lobe (series 14, image 45) is unchanged. Cerebral ventricles: No ventriculomegaly. Paranasal sinuses: Visualized sinuses are unremarkable. No fluid levels. Mastoid air cells: Visualized mastoid air cells are well aerated. Bones/joints: Unremarkable. No acute fracture. Soft tissues: Unremarkable. CT/CT head wo con* [id number] IMPRESSION: No acute intracranial abnormality.
--- NOTE | 2023-01-21 15:38 | XRR_ITS ---
PROCEDURE INFORMATION: Exam: XR Chest Exam date and time: 01/21/2023 4:01 PM Age: 47 years old Clinical indication: Other: AMS; Additional info: Dyspnea/cough TECHNIQUE: Imaging protocol: Radiologic exam of the chest. Views: 1 view. COMPARISON: CR (CHEST, ) 12/10/2022 3:41 PM FINDINGS: Tubes, catheters and devices: Central line in place with its tip in the mid SVC. Previous anterior cervical fusion. Lungs: Small area of infiltrate in the left base. Pleural spaces: Unremarkable. No pleural effusion. No pneumothorax. Heart/Mediastinum: Unremarkable. No cardiomegaly. Bones/joints: See Tubes, catheters and devices finding. XR/XR chest 1V portable [id number] IMPRESSION: Small area of infiltrate in the left base.
[2023-01-21 16:00] LABS: Basophils # 0.1 10^3/uL (0.0-0.1); Basophils % 0.5 %; Eosinophils % 0.2 %; Hematocrit 41.4 % (36-47); Lymphocytes # 0.8 10^3/uL (0.8-4.8); Lymphocytes % 6.5 %; Mean Corpuscular HGB Conc 32.1 g/dL (30-55); Mean Corpuscular Hemoglobin 29.2 pg (27-33); Mean Corpuscular Volume 90.8 fl (85-98); Mean Platelet Volume 10.5 fL (7.4-10.4); Monocytes # 0.9 10^3/uL (0.2-0.9); Monocytes % 7.9 %; Neutrophils # 9.65 10^3/uL (1.8-7.7); Neutrophils % 82.6 %; Nucleated Red Blood Cells # 0.1 /100WBC; Nucleated Red Blood Cells % 1.2 %; Platelet Count 252 10^3/cmm (157-399); Red Blood Count 4.56 10^6/uL (3.85-5.65); Red Cell Distribution Width 21.4 % (12.1-15.1); White Blood Count 11.68 10^3/uL (3.29-11.43)
--- NOTE | 2023-01-21 16:05 | ED_ITS ---
HPI - Head Injury General: Chief complaint: Head Injury Stated complaint: FALL; LOC+ Time Seen by Provider: 01/21/23 15:38 Source: patient Mode of arrival: ambulatory History of Present Illness: 47-year-old female with a known history of lung cancer with mets to the brain she had some episodes of falling yesterday states she fell out of her chair at home hit her head was poorly responsive family and friends came to her assista nce. We will get her back in her chair which she has not really been able to say much. She has known brain mets that have been being treated by radiation. When I came to see patient in the room she is poorly responsive. She awakes to painful stimuli but does not respond to any verbal stimuli. History from family members and friends at the bedside and old records. Family reports the redness noted in her legs began a couple of days ago she has not seen anyone for and is not currently on any antibiotics. Complaint: head injury Onset (ago): minute(s) Mechanism of Injury: fall Place: home Associated symptoms: Reports confusion Review of Systems General: Reports: ROS unobtainable due to medical condition Neuro: Reports: confusion PFSH ED PFSH: Medical History Cigarette nicotine dependence COPD (chronic obstructive pulmonary disease) Fibromyalgia Generalized anxiety disorder with panic attacks Psychiatric care Surgical History H/O spinal fusion H/O tubal ligation S/P bronchoscopy Family History Father Parkinsonism Cancer Skin cancer and stomach cancer Brother Parkinsonism Mother Hyperlipidemia CAD (coronary artery disease) Psychiatric illness Other Diabetes Hypertension Major depressive disorder, recurrent severe without psychotic features Denies family history of Clotting disorder Dementia Chronic kidney disease (CKD) Suicide Anesthesia complication Bleeding disorder Lung disease Stroke Social History Smoking and tobacco status: current every day smoker cigarettes Packs smoked per day: 1 Years cigarettes smoked: 33 Quit status (tobacco): has tried quititng Second hand smoke exposure: Yes Alcohol intake: never Substance/Drug Use: never Adopted: No Caregiver/support person: No Lives independently: Yes Housing: Apartment Marital status: Marital status details: 14 years ago Number of children: 5 Number of grandchildren: 12 Highest education level completed: 10th Grade service: No Current occupational status: disabled Current occupational exposures/hazards: No Pets and animals: Yes (4 dogs) Pets & animals: dog(s) Leisure activites: other Leisure activities details: playing with dogs, outside a lot Sexually active: No Do you think of yourself as: Straight/Heterosexual Current gender identity: Female Marisabel/Mandaen: Jainism Special marisabel needs: No Agree to transfusion: Yes Financial difficulty paying for basics: Very Hard Physical Exam HENMT: COMMON NORMALS: normocephalic, atraumatic and hearing grossly normal bilaterally HEAD & SCALP: normocephalic and atraumatic Resp: COMMON NORMALS: No retractions, No use of accessory muscles and clear to auscultation bilaterally AUSCULTATION: clear to auscultation bilaterally Cardio: COMMON NORMALS: regular rate, regular rhythm and No murmurs present (Cardio) RATE: regular rate RHYTHM: regular rhythm GI: COMMON NORMALS: Soft to palpation and No hepatosplenomegaly present AUSCULTATION: Yes normoactive bowel sounds PALPATION: Yes Soft to palpation, No Tenderness to palpation present (GI), No Guarding due to palpation present (GI) and Yes No hepatosplenomegaly present Extremity: COMMON NORMALS: normal to inspection, capillary refill normal, no clubbing, cyanosis or edema, no calf tenderness and no pedal edema Skin: COMMON NORMALS: no rashes or lesions noted GENERAL SKIN EXAM: no rashes or lesions noted Course Vital Signs: Vital signs: Vital Signs Temperature 97.9 F 01/21/23 16:16 Pulse Rate 98 01/21/23 16:46 Respiratory Rate 19 H 01/21/23 16:46 Blood Pressure 103/82 01/21/23 16:46 Pulse Oximetry 96 01/21/23 16:46 Oxygen Delivery Me thod Nasal Cannula 01/21/23 16:46 Oxygen Flow Rate 3.5 01/21/23 16:46 MDM - Head Injury Medcial Decision Making Patient has sonorous respirations on presentation. Medical power of estate attorney is at the bedside and states she is a DO NOT RESUSCITATE and does not want to be intubated. Caregiver also noted that they had recently stopped Keppra because she had not had any seizure activity did not notice any seizure activity recently. Additionally several weeks ago they stopped dexamethasone and they had tapered off of that for a time because she had been on it for an extended period of time prior. Labs and imaging reviewed will admit for cellulitis and left lower lobe pneumonia start on vancomycin and Zosyn discussed with hospitalist orders written patient will be a Do Not Recussitate per the request of the power of estate attorney he states he had previously discussed this with the patient. In their discussions with oncology team nursing at [facility] their treatment options are quite limited at this time she is expressing understanding that and that is why she recently changed to Do Not Recussitate status. Medical Records I reviewed the patient's medical records. Lab Data I reviewed the patient's lab results. 01/21/23 15:54 01/21/23 15:54 Radiology Impressions Chest X-Ray 01/21/23 15:38 IMPRESSION: Small area of infiltrate in the left base. Head CT 01/21/23 15:38 IMPRESSION: No acute intracranial abnormality. Cervical Spine CT 01/21/23 16:06 IMPRESSION: No acute findings. Laboratory Results WBC 11.68 10^3/uL (3.29-11.43) H 01/21/23 15:54 RBC 4.56 10^6/uL (3.85-5.65) 01/21/23 15:54 Hgb 13.30 g/dL (11.27-16.99) 01/21/23 15:54 Hct 41.4 % (36-47) 01/21/23 15:54 MCV 90.8 fl (85-98) 01/21/23 15:54 MCH 29.2 pg (27-33) 01/21/23 15:54 MCHC 32.1 g/dL (30-55) 01/21/23 15:54 RDW 21.4 % (12.1-15.1) H 01/21/23 15:54 Plt Count 252 10^3/cmm (157-399) 01/21/23 15:54 MPV 10.5 fL (7.4-10.4) H 01/21/23 15:54 Neut % (Auto) 82.6 % 01/21/23 15:54 Lymph % (Auto) 6.5 % 01/21/23 15:54 [place] % (Auto) 7.9 % 01/21/23 15:54 Eos % (Auto) 0.2 % 01/21/23 15:54 Baso % (Auto) 0.5 % 01/21/23 15:54 Neut # (Auto) 9.65 10^3/uL (1.8-7.7) H 01/21/23 15:54 Lymph # (Auto) 0.8 10^3/uL (0.8-4.8) 01/21/23 15:54 [place] # (Auto) 0.9 10^3/uL (0.2-0.9) 01/21/23 15:54 Eos # (Auto) 0.0 10^3/uL (0.0-0.8) 01/21/23 15:54 Baso # (Auto) 0.1 10^3/uL (0.0-0.1) 01/21/23 15:54 Nucleated RBC % (auto) 1.2 % 01/21/23 15:54 Nucleated RBCs # 0.1 /100WBC 01/21/23 15:54 Specimen Type Arterial 01/21/23 16:39 Sample Site Radial, right 01/21/23 16:39 ABG pH 7.53 (7.35-7.45) H 01/21/23 16:39 ABG pCO2 39.9 mmHg (35-45) 01/21/23 16:39 ABG pO2 61.7 mmHg (80.0-100.0) L 01/21/23 16:39 ABG HCO3 33.4 mmol/L (22-26) H 01/21/23 16:39 ABG O2 Saturation 91.3 01/21/23 16:39 ABG Base Excess 9.8 mmol/L (-2.0-2.0) H 01/21/23 16:39 Werner Test Pos 01/21/23 16:39 A-a O2 Gradient 13.2 mmHg (5-10) H 01/21/23 16:39 Hematocrit 40.8 % (37-47) 01/21/23 16:39 Hgb O2 Saturation 88.6 % (95-100) L 01/21/23 16:39 Carboxyhemoglobin 2.6 %THgb (0.4-20.1) 01/21/23 16:39 Methemoglobin 0.3 % (0.4-1.5) L 01/21/23 16:39 Total Hemoglobin 13.3 g/dL (12-16) 01/21/23 16:39 Sodium 138.0 mmol/L (131-143) 01/21/23 16:39 Potassium 3.5 mmol/L (3.5-5.0) 01/21/23 16:39 Glucose 149.0 mg/dL (70-115) H 01/21/23 16:39 Ionized Calcium 1.1 mmol/L (1.1-1.4) 01/21/23 16:39 O2 Delivery Device Nc 01/21/23 16:39 O2 Liters/Min 2.5 % 01/21/23 16:39 FiO2 30.0 % 01/21/23 16:39 Youth Manager ID glc 01/21/23 16:39 Sodium 137 mmol/L (136-145) 01/21/23 15:54 Potassium 3.2 mmol/L (3.5-5.1) L 01/21/23 15:54 Chloride 95 mmol/L (98-107) L 01/21/23 15:54 Carbon Dioxide 34 mmol/L (22-29) H 01/21/23 15:54 Anion Gap 11.2 (5-19) 01/21/23 15:54 BUN 11 mg/dL (6-20) 01/21/23 15:54 Creatinine 0.8 mg/dL (0.5-0.9) 01/21/23 15:54 GFR Calculation 76.2 mL/min (90-130) L 01/21/23 15:54 Glucose 151 mg/dL (65-115) H 01/21/23 15:54 Calculated Osmolality 286 mOsm/kg (285-295) 01/21/23 15:54 Lactic Acid 1.9 mmol/L (0.5-2.2) 01/21/23 15:54 Calcium 8.1 mg/dL (8.5-10.5) L 01/21/23 15:54 Total Bilirubin 0.4 mg/dL (0.15-1.2) 01/21/23 15:54 AST 19 U/L (0-32) 01/21/23 15:54 ALT 32 U/L (0-33) 01/21/23 15:54 Alkaline Phosphatase 105 U/L (35-105) 01/21/23 15:54 Total Protein 5.5 g/dL (6.6-8.7) L 01/21/23 15:54 Albumin 3.0 g/dL (3.5-5.2) L 01/21/23 15:54 Globulin 2.5 g/dL (1.3-4.6) 01/21/23 15:54 Urine Color Yellow (Yellow) 01/21/23 15:54 Urine Appearance Clear (CLEAR) 01/21/23 15:54 Urine pH 8 (5-7) H 01/21/23 15:54 Ur Specific [place] 1.005 (1.005-1.030) 01/21/23 15:54 Urine Protein Neg (Negative) 01/21/23 15:54 Urine Glucose (UA) Norm (Normal) 01/21/23 15:54 Urine Ketones Negative (Negative) 01/21/23 15:54 Urine Blood Neg (Negative) 01/21/23 15:54 Urine Nitrate Negative (Negative) 01/21/23 15:54 Urine Bilirubin Neg (Negative) 01/21/23 15:54 Prot Sulfosalicylic Acd Negative (Negative) 01/21/23 15:54 Urine Urobilinogen Norm mg/dL (Negative) 01/21/23 15:54 Ur Leukocyte Esterase Negative (Negative) 01/21/23 15:54 All radiology interpretation(s) finalized by discharge Discharge Plan Discharge Patient Disposition: Admitted As Inpatient Clinical Impression: Cellulitis of both lower extremities, History of radiation therapy, History of chemotherapy, Left lower lobe pneumonia, Lung cancer metastatic to brain Condition: Stable Coding Level of Care Code ED Woodworking Machine Offbearer for James Bruno
--- NOTE | 2023-01-21 16:06 | CTR_ITS ---
PROCEDURE INFORMATION: Exam: CT Cervical Spine Without Contrast Exam date and time: 01/21/2023 4:09 PM Age: 47 years old Clinical indication: Injury or trauma; Fall; Blunt trauma; Prior surgery; Surgery date: 6+ months; Surgery type: Cervical fusion TECHNIQUE: Imaging protocol: Computed tomography of the cervical spine without contrast. Radiation optimization: All CT scans at this facility use at least one of these dose optimization techniques: automated exposure control; mA and/or kV adjustment per patient size (includes targeted exams where dose is matched to clinical indication); or iterative reconstruction. REPORTING DATA: Count of CT and Cardiac NM exams in prior 12 months: This patient has received 13 known CTs and 0 known cardiac nuclear medicine studies in the 12 months prior to the current study. COMPARISON: CR (NECK, ) 10/18/2021 5:46 PM RADIATION DOSE METRICS: Total DLP (mGy-cm): 263.17 FINDINGS: Bones/joints: Anterior fusion C5 through C7. No subluxation. No fracture. Mild diffuse facet arthropathy. Non fused disc spaces are preserved. Lungs: Lung apices are normal. Soft tissues: Unremarkable. CT/CT cervical spin wo con* [id number] IMPRESSION: No acute findings.
--- NOTE | 2023-01-21 16:10 | PC.NURSE ---
pt changed into gown, placed urinary catheter. pt does have hx seizure during last hospital stay per family. pts bilateral lower legs have redness and severe swelling noted.
[2023-01-21 16:19] LABS: Alanine Aminotransferase 32 U/L (0-33); Alkaline Phosphatase 105 U/L (35-105); Anion Gap 11.2 (5-19); Aspartate Amino Transferase 19 U/L (0-32); Blood Urea Nitrogen 11 mg/dL (6-20); Calcium 8.1 mg/dL (8.5-10.5); Carbon Dioxide 34 mmol/L (22-29); Chloride 95 mmol/L (98-107); Globulin 2.5 g/dL (1.3-4.6); Glomerular Filtration Rate 76.2 mL/min (90-130); Glucose 151 mg/dL (65-115); Osmolality Calculated 286 mOsm/kg (285-295); Potassium 3.2 mmol/L (3.5-5.1); Sodium 137 mmol/L (136-145); Total Bilirubin 0.4 mg/dL (0.15-1.2); Total Protein 5.5 g/dL (6.6-8.7)
--- NOTE | 2023-01-21 16:34 | ECG_ITS ---
[facility] Test Date: 2023-01-21 Pat Name: Kristine Kramer Department: Room: Gender: Female Procedure Manager: : 1975 Requested By: Devonte Palomino Order Number: [id number] Jeffery MD: Sebastian Martinez M.D. Measurements Intervals [place] Rate: 99 P: 57 [place]: 134 QRS: 53 QRSD: 81 T: 61 QT: 354 QTc: 456 Interpretive Statements SINUS RHYTHM Compared to ECG 12/10/2022 14:45:26 No significant changes Electronically Signed On 01-22-2023 16:17:25 CDT by Sebastian Martinez M.D. [id number] f
[2023-01-21 16:48] LABS: ABG PCO2 39.9 mmHg (35-45); ABG PH Result 7.53 (7.35-7.45); Alveolar-Arterial Oxygen Gradi 13.2 mmHg (5-10); Arterial Blood Gas Hematocrit 40.8 % (37-47); Base Excess ABG 9.8 mmol/L (-2.0-2.0); Blood Gas Allen Test Pos; Blood Gas LPM 2.5 %; Blood Gas Operator Identificat glc; Blood Gas Sample Site Radial, right; Blood Gas Sample Type Arterial; Carboxyhemoglobin 2.6 %THgb (0.4-20.1); HCO3 ABG 33.4 mmol/L (22-26); HGB O2 Sat 88.6 % (95-100); Ionized Calcium Level - ABG 1.1 mmol/L (1.1-1.4); Methemoglobin 0.3 % (0.4-1.5); Oxygen Device NC; Oxygen Saturation ABG 91.3; PO2 ABG 61.7 mmHg (80.0-100.0); Potassium Level - ABG 3.5 mmol/L (3.5-5.0); Total Hemoglobin 13.3 g/dL (12-16)
[2023-01-21 16:55] LABS: Lactic Sepsis W/Reflex 1.9 mmol/L (0.5-2.2)
[2023-01-21 17:27] LABS: Add Urine Microscopic? NO; Charge for UA Resulting for Rev
[2023-01-21 17:30] LABS: Bilirubin Urine Neg (Negative); Blood Urine Neg (Negative); Glucose Urine UA Norm (Normal); Ketones Urine Negative (Negative); Leukocyte Esterase Urine Negative (Negative); Nitrate Urine Negative (Negative); Protein Urine Neg (Negative); Specific Gravity, Urine 1.005 (1.005-1.030); Sulfosalicylic Acid Urine Negative (Negative); Urine Appearance Clear (CLEAR); Urine Color Yellow (Yellow); Urobilinogen Urine Norm (Negative); pH Urine 8 (5-7)
--- NOTE | 2023-01-21 17:45 | PC.NURSE ---
pts family at bedside. pt does have port L chest, but not accessed at this time.
--- NOTE | 2023-01-21 17:51 | PC.NURSE ---
pts oxygen decreased to 2L NC d/t pts COPD hx and o2 sats in high 90's. pts o2 on 2L NC is currently 93%
[2023-01-21] MEDS: piperacillin-tazobactam 3.375 GM in sodium chloride 0.9% (plus) 50 ML IV (18:04)
[2023-01-21 18:05] LABS: Cortisol Random 19.33 ug/dL (2.47-19.5)
[2023-01-21] MEDS: sodium chloride 0.9% 1,000 ML 100 ML IV (18:05)
--- NOTE | 2023-01-21 18:14 | USR_ITS ---
PROCEDURE INFORMATION: Exam: US Duplex Lower Extremity Veins, Bilateral Exam date and time: 01/21/2023 6:27 PM Age: 47 years old Clinical indication: Pain; Leg, lower; Bilateral; Additional info: Dvt TECHNIQUE: Imaging protocol: Real-time duplex ultrasound of the bilateral extremities with 2-D mccormick scale, color Doppler flow and spectral waveform analysis including responses to compression and other maneuvers (when performed) with image documentation. Complete exam focused on the lower extremity veins. COMPARISON: [place] [id number] 12/10/2022 1:22 PM FINDINGS: Right deep veins: No deep venous thrombosis in the right lower extremity. Left deep veins: Unremarkable. The common femoral, femoral, proximal profunda femoral and popliteal veins are patent without thrombus. Normal Doppler waveforms. Normal compressibility and/or augmentation response. Superficial veins: Bilateral saphenofemoral junctions are patent without thrombus. Soft tissues: subcutaneous edema in the right lower extremity. US/[place] [id number] IMPRESSION: 1. No deep venous thrombosis in the right lower extremity. 2. Subcutaneous edema in the right lower extremity.
--- NOTE | 2023-01-21 18:16 | P.HP_ITS ---
Providers/Chief Complaint Primary Care Provider: Bhavin Abrams MD Chief Complaint: FALL; LOC+ History of Present Illness Kristine Kramer is a 47 year old female obesity, lung cancer with metastasis to the brain, status post covered knife radiation, current smoker, COPD, who presents to [facility] due to acute encephalopathy. Currently patient is not alert to person, place or time, she does withdraw from pain, she is on 3 L, normotensive, afebrile, her GCS score is is 8, patient is healthcare power of assistant corporate secretary who is her patient is neighbor Ynes is at bedside confirms with me with her sister at bedside that patient is DNR/DNI and she would not want to be resuscitated or intubated. According to Ynes, patient has been slowly been weaned off Decadron, and the Keppra has been stopped over the last month, through Dr. Garner's office, as Kristine was suffering complications from seizure medication such as Keppra and Decadron. According to family, according to Ynes, Kristine under no circumstances wanted to be started on Keppra, or Decadron, even if it would save her life, she told Dr. Garner, according to Marshall hubbard even if you prescribed her Decadron or Keppra she would not take it. She has been developing bilateral extremity erythema, swelling, over the last few days, she has not really had any specific complaints. She lives at home, by herself, with the neighbors checking up on her. She is supposed to go back to [facility] in the next few weeks for consideration of further kibe or neck surgery. This morning if family did not hear from her, so the neighbor checked up on her, and found her on the floor, she was incomprehensible, would say a few words, so we got her up into her wheelchair, and then Ynes checked up on her. No reported seizure-like episodes, no reported strokelike symptoms, family tells me that she has been similarly like this when she had a seizure. In the emergency room, she was found to have a bilateral extremity cellulitis, white blood cell count 11.68, she also on x-ray was found to have a small infiltrate in the left lung base. Her head CT showed a rounded partly calcified nodule left posterior temporal cortex with surrounding edema which was noted, but no acute abnormality compared to her MRI of 12/27/2022. Currently she does withdraw from pain, she did she localizes pain, she does not have any spontaneous eye opening, does not open her eyes to her name, she tries to mumble some incomprehensible words, her pupils are dilated, Babinski is upward bilaterally. I asked family members about her medications at home, family did not notice any of her pill bottles, abiodun encarnacion does take alprazolam, she does take oxycodone, she does take Lyrica. I asked him if there is any possibility of overdose, but she never has a history of overdose, and she takes her medications as prescribed. I discussed with family that currently certainly pneumonia and the cellulitis can cause encephalopathy, especially as she is immunocompromise she has been on chemotherapy in September, she has immunocompromise state, I recommended IV antibiotic treatments, and close clinical monitoring. He does have bilateral lower extremity edema, will can consider diuresis based on her clinical progress the last time she was here in the hospital she required aggressive diuresis. However I was upfront and honest with family I am quite worried that patient's encephalopathy could be related to seizures, subclinical seizures, that she is not on Keppra cerebral edema that is not seen on the head CT, as she is not on Decadron. She could also be suffering from adrenal insufficiency, I will check her cortisol levels, as she was weaned off Decadron. But is not sure if she has been appropriately following that weaning instructions. Thus I offered placing her on seizure medication such as Keppra, and placing her back on Decadron, as I clinically feel that it would be reasonable to suspect that she might be having subclinical seizures, seizures, or cerebral edema, as an etiology behind her encephalopathy. As family is telling me that yesterday she was doing normal and now she is not normal tells me that she has had some sort of significant or catastrophic event happened in the last 12 hours. Certainly infections can do that, but they seem to be more gradual, and according to family members she has not had any significant infectious symptoms or complaints. However Ynes tells me that they do not want Kristine to be on Keppra or Decadron. It was Kristine's wish to never be put back on these medications, as she suffered many complications from the Keppra and the Decadron. Ynes told me frankly that Kristine had said that she does not want the quality of life that she had when she was on these medications. I also offered different types of seizure medications, and but Ynes was worried about similar side effects, and said no. 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 I after discussing the risks and benefits, Ynes voiced understanding, all questions answered, she wants to abide by Kristine's wishes and declined seizure medications, and steroid therapy. The other thought is could she be suffering from opiate overdose, or possible polypharmacy, former oxycodone, her Lyrica, alprazolam, but family adamantly denies that she ever uses her medications more than prescribed, certainly Narcan is an option to see if her mentation improves, however she has been in a lot of pain recently family tells me, so it could have an opposite side effect and cause significant withdrawal and pain associated. And its been roughly 8 hours since she is found unresponsive, her respiratory rate is about 20, her O2 sats are in the high 90s on 3.5 L, she does not look like she is in respiratory distress, no nasal flaring, no intercostal retractions, no suprasternal retractions, she is a bit comfortable now, I think be reasonable to watch her closely, instead of risking causing her more pain, and agitation by giving her Narcan. But if there is a decrease in her respirations, her O2 sats, situation is becoming more critical, certainly we could try Narcan to see if that would help her mentation and her respiratory status. I discussed patient's significant hypoxia, her PO2 on ABG is 61.6, on 30% FiO2, hypoxia is associate with significant neurologic injury, neurologic damage, however family and Ynes tell me that patient is a DNR/DNI and she would not want to be intubated. Her Ynes tells me that the last time she was intubated, Ynes told me that she was part of the decision to intubate her Kristine when she can make decisions for herself, Kristine has never forgiven Ynes for intubating her. Discussed morbidity and mortality associate with significant hypoxia, low GCS, they voiced understanding, all questions answered, patient remains a DNR/DNI. Thus I offered to patient's family that if her mentation does not improve with antibiotics, and if she does not want us to try a steroid therapy or seizure therapy, and if her mentation does not get better, hospice would be reasonable option. Family is agreeable, she does not want to suffer Ynes tells me she does not have a good quality of life, she does not want us to do anything that would lead to a poor quality of life, she already has a poor quality of life from cancer, and further complications from the cancer such as from this seizure medications and the Decadron. But I advised family that we will look for other reasons for encephalopathy, ordered EEG, ordered MRI of her brain, follow her electrolytes, order ammonia levels, TSH. Review of Systems General: Reports: ROS unobtainable due to mental status Medications/Allergies Home Medications Medication Instructions Recorded Confirmed Last Taken Type ipratropium 0.5 mg-albuterol 3 mg 3 ml inhalation Q4H PRN wheezing 12/01/21 01/21/23 Unknown History (2.5 mg base)/3 mL nebulization soln albuterol sulfate 90 mcg/actuation 2 inh inhalation QID PRN shortness 07/27/22 01/21/23 12/09/22 History aerosol inhaler (Ventolin HFA) of breath or wheezing fluticasone fur. 100 mcg-umeclid 1 inh inhalation DAILY #60 ea 08/09/22 01/21/23 12/10/22 Rx 62.5 mcg-vilant 25 mcg inhalat.powder (Trelegy Ellipta) alprazolam 1 mg tablet (Xanax) 1 mg PO TID PRN anxiety #90 tabs 10/20/22 01/21/23 12/09/22 Rx melatonin 3 mg capsule 3 mg PO QPM PRN sleep 11/20/22 01/21/23 12/09/22 History fluticasone propionate 50 1 spray intranasal DAILY PRN 12/01/22 01/21/23 12/09/22 History mcg/actuation nasal Allergy Symptoms spray,suspension magnesium oxide 400 mg (241.3 mg 400 mg PO DAILY 12/01/22 01/21/23 12/09/22 History magnesium) tablet furosemide 40 mg tablet (Lasix) 80 mg PO BID #120 tabs 12/19/22 01/21/23 Unknown Rx potassium chloride 20 mEq 20 meq PO QID #120 tabs 12/19/22 01/21/23 Unknown Rx tablet,extended release pregabalin 150 mg capsule 150 mg PO BID #60 caps 12/21/22 01/21/23 Unknown Rx sumatriptan succinate 50 mg tablet See Rx Instructions PO .COMPLEX 01/09/23 01/21/23 Unknown Rx (Imitrex) #10 tabs ondansetron HCl 4 mg tablet 4 mg PO Q8H #30 tabs 01/10/23 01/21/23 Unknown Rx oxycodone 20 mg tablet 10 mg PO Q3H PRN Pain 01/21/23 01/21/23 Unknown History Allergies Allergy/AdvReac Type Severity Reaction Status Date / Time mushroom Allergy ALGY-Swell Verified 01/21/23 16:13 Lip/Tongue/Throat trazodone Allergy Unknown Verified 01/21/23 16:13 PFSH Acute PFSH: Medical History Cigarette nicotine dependence COPD (chronic obstructive pulmonary disease) Fibromyalgia Generalized anxiety disorder with panic attacks Psychiatric care Surgical History H/O spinal fusion H/O tubal ligation S/P bronchoscopy Family History Father Parkinsonism Cancer Skin cancer and stomach cancer Brother Parkinsonism Mother Hyperlipidemia CAD (coronary artery disease) Psychiatric illness Other Diabetes Hypertension Major depressive disorder, recurrent severe without psychotic features Denies family history of Clotting disorder Dementia Chronic kidney disease (CKD) Suicide Anesthesia complication Bleeding disorder Lung disease Stroke Social History Smoking and tobacco status: current every day smoker cigarettes Packs smoked per day: 1 Years cigarettes smoked: 33 Quit status (tobacco): has tried quititng Second hand smoke exposure: Yes Alcohol intake: never Substance/Drug Use: never Adopted: No Caregiver/support person: No Lives independently: Yes Housing: Apartment Marital status: Marital status details: 14 years ago Number of children: 5 Number of grandchildren: 12 Highest education level completed: 10th Grade service: No Current occupational status: disabled Current occupational exposures/hazards: No Pets and animals: Yes (4 dogs) Pets & animals: dog(s) Leisure activites: other Leisure activities details: playing with dogs, outside a lot Sexually active: No Do you think of yourself as: Straight/Heterosexual Current gender identity: Female Marisabel/Yazidism: Denominational Special marisabel needs: No Agree to transfusion: Yes Financial difficulty paying for basics: Very Hard Vitals/I&O/Wt Last Vital Signs Temp 97.9 F 01/21/23 16:16 Pulse 98 01/21/23 16:46 Resp 19 H 01/21/23 16:46 BP 103/82 01/21/23 16:46 Pulse Ox 96 01/21/23 16:46 O2 Del Method Nasal Cannula 01/21/23 16:46 O2 Flow Rate 3.5 01/21/23 16:46 Physical Exam Const: COMMON NORMALS: no acute distress EXAM LIMITATIONS: altered mental status GENERAL APPEARANCE: ill appearing ORIENTATION/CONSCIOUSNESS: Yes awake and Yes confused; not oriented to person, not oriented to place and not oriented to time HENMT: COMMON NORMALS: normocephalic Eye: OTHER: Pupils dilated, responsive to light Neck/C-Spine: COMMON NORMALS: full ROM, no lymphadenopathy and no meningeal signs Lymph: LYMPHATIC: no lymphadenopathy noted Resp: COMMON NORMALS: normal respiratory effort, No retractions and No use of accessory muscles AUSCULTATION: crackles Cardio: COMMON NORMALS: regular rate, regular rhythm, S1 normal heart sound present and S2 normal heart sound present RATE: regular rate RHYTHM: regular rhythm HEART SOUNDS: S1 normal heart sound present and S2 normal heart sound present GI: COMMON NORMALS: Normal to inspection, nondistended, normoactive bowel sounds present, Soft to palpation, non-tender, no masses and no bruits : COMMON NORMALS: Yes no CVA tenderness Extremity: COMMON NORMALS: no pedal edema Neuro: OTHER: Patient does not follow neurologic testing, GCS 8 Urinary Catheter Management: Johnson: Cath Placed During This Visit: yes Reason for Continuing Indwelling Catheter: Other Urinary Catheter Date of Insertion: 01/21/23 Urinary Catheter Time of Insertion: 16:17 Data 01/21/23 15:54 01/21/23 15:54 Micro: Microbiology 01/21/23 17:15 Blood Culture - Preliminary Blood SPECIMEN COLLECTED 01/21/23 15:54 Blood Culture - Preliminary Blood SPECIMEN COLLECTED A&P Assessment and plan (1) Cellulitis of both lower extremities: (2) Left lower lobe pneumonia: (3) Goals of care, counseling/discussion: (4) Diastolic CHF, acute on chronic: (5) Lung cancer metastatic to brain: (6) Cancer related pain: (7) History of chemotherapy: (8) History of radiation therapy: (9) Acute encephalopathy: Plan Acute encephalopathy -Etiology could be multifactorial -Certainly cellulitis could be an etiology given immunocompromise state -Also has a left lower lobe pneumonia could be an etiology given immunocompromise state -My concern is for subclinical seizures, or seizures causing her symptoms however according to patient's healthcare power of assistant corporate secretary, Ynes, patient has declined seizure medications, -My other concern is possible cerebral edema, or adrenal insufficiency, however according to patient's healthcare power of assistant corporate secretary, Ynes, patient has declined steroid therapy -Polypharmacy certainly could be a etiology, given that she is on Lyrica, alprazolam, oxycodone, -Opiate intoxication seems less likely as family is adamant she uses medication as prescribed, Plan -We will monitor on MedSurg -Neurochecks, aspiration precautions, nih stroke scale, n.p.o. -We will avoid fluids given her lower extremity edema -Continue vancomycin -Continue Zosyn -Follow blood cultures -Follow urine cultures -Follow sputum cultures -Ammonia levels, alcohol, drug screen, ESR, CRP, Pro-Chad, lactic acid, TSH,prolactin -Consider neurology evaluation tomorrow -Ynes tells me that frankly that it was Kristine's wish to never be put back on Keppra or any other seizure medication, or steroid therapy, I asked even if it would save her life or improve her mentation back to her baseline, Ynes tells me even if it were to save her life, Kristine would not want to be put back on these medications -If after medical therapy as above her mentation does not improve, Ynes tells me that they are agreeable to consider hospice Cellulitis -Continue antibiotics as above Pneumonia -Continue antibiotics Lung cancer with brain metastasis, status post CyberKnife, status post chemotherapy History of COPD History of smoking Goals of care discussion, extensive goals of care discussion as above, DNR/DNI, no seizure medications, no steroid medications, family and Ynes will consider hospice based on clinical progress -This discussion was made in from nursing staff, patient's sister at bedside, neighbors at bedside, trace at bedside Attestations Medical Necessity Statement*: Patient requires hospitalization for acute encephalopathy, cellulitis, pneumonia, lower extremity edema, history of lung cancer with metastasis to the brain status post CyberKnife, history of seizures, inpatient, greater than 2 midnights Diagnoses Cellulitis of both lower extremities L03.115; L03.116 Left lower lobe pneumonia J18.9 Goals of care, counseling/discussion Z71.89 Diastolic CHF, acute on chronic I50.33 Lung cancer metastatic to brain C34.90; C79.31 Cancer related pain G89.3 History of chemotherapy Z92.21 History of radiation therapy Z92.3 Acute encephalopathy G93.40
[2023-01-21 18:36] LABS: Erythrocyte Sedimentation Rate 11 mm/hr (0-15)
[2023-01-21 18:52] LABS: Procalcitonin 0.59 ng/mL (0-0.5); Thyroid Stimulating Hormone 0.97 uIU/mL (0.27-4.20)
[2023-01-21 19:03] LABS: C Reactive Protein 76.8 mg/L (0.0-4.9)
[2023-01-21 19:04] LABS: Acetaminophen < 5.0 ug/mL (10-30); Alcohol Level < 10 mg/dL (0-10); Salicylate < 0.3 mg/dL (3-10)
[2023-01-21 19:08] LABS: Amphetamines Screen Urine Negative (Negative); Barbiturates Screen Urine Negative (Negative); Benzodiazepines Screen Urine Positive (Negative); Cocaine Screen Urine Negative (Negative); Opiate Screen Urine Negative (Negative); PCP Screen Urine Negative (Negative); THC Screen Urine Negative (Negative)
[2023-01-21] MEDS: vancomycin 1,000 MG in sodium chloride 0.9% 250 ML 250 MG IV (19:52)
[2023-01-21 20:22] LABS: Troponin(5th) Baseline 33 ng/L (0-10)
[2023-01-21 20:23] LABS: Ammonia 35 umol/L (11-51); Lactic Sepsis W/Reflex 2.2 mmol/L (0.5-2.2)
--- NOTE | 2023-01-21 20:27 | PC.NURSE ---
Pt arrived to [facility] floor with patel catheter in place, placed in ER.
[2023-01-21 20:50] LABS: NT Pro B Type Natriuretic Pept 721 pg/mL (0-125); Prolactin 4.97 ng/mL (4.8-23.3)
[2023-01-21] MEDS: ketorolac 30 mg/mL INJ 15 MG IVP (21:04)
[2023-01-21] MEDS: lidocaine 1% 5 ML in potassium chloride premix 100 ML 25 ML IV (21:07)
[2023-01-21] MEDS: pantoprazole 40 mg SDV IVP (21:14)
[2023-01-21] MEDS: enoxaparin 40 mg/0.4 mL Syringe SUBCUT (21:17)
[2023-01-21 21:44] LABS: Reflex Lactate Order REFLEX LACTIC ORDERD
[2023-01-21 22:07] LABS: Lactic Acid level (Lactate) 1.4 mmol/L (0.5-2.2)
--- NOTE | 2023-01-21 22:45 | PC.PHAR ---
Pharmacokinetic dosing service Date: 01/21/23 Time: 2244 Objective: Patient: Kristine Kramer Floor: 253-1 Age: 47 yo Serum creatinine: 0.8 mg/dL Height: 66.0 Inches Weight (kg): 106.322 Diagnosis: Relevant medical/social history: Cultures and sensitivities: Other labs: Assessment: IBW (kg): 59.30 Dosing wt(kg): 106.322 Estimated Creatinine clearance (ml/min): 79.6 CRCL method: Cockcroft and Gault using ibw(default). Drug selected: Vancomycin Loading dose (mg): 0 Vd (liters): 95.7 (factor used: 0.9 L/kg) Nav (hr-1): 0.070 Half life (hrs): 9.90 Recommended dose: 1500 mg Interval: 12 hrs Infusion time (hrs): 1.5 Predicted peak (mcg/mL): 26.2 Predicted trough (mcg/mL): 12.56 Total body weight is being used for vancomycin dosing. Renal function is stable [ ] /unstable [ ] Recommendations: Give Vancomycin 1500 mg q 12 hrs with an expected Cpeak of 26.2 mcg/ml and an expected Ctrough of 12.56 mcg/ml Renal dosing of other antibiotics (review renal dosing of other medications and list guidelines here): Thank you for the consult, will continue to follow. Signature: Rosalia August [facility]
[2023-01-21 22:50] LABS: Cortisol Random 14.63 ug/dL (2.47-19.5)
[2023-01-22] VITALS (20 sets, daily range): BP systolic 98–112; BP diastolic 59–75; PULSE 87–110; RESP 14–24; TEMP 36.7–38.2; O2SAT 89–97
[2023-01-22] MEDS: morphine 4 mg/mL SDV 1 mL 2 MG IVP ×3 (00:24→08:55)
--- NOTE | 2023-01-22 00:34 | ECG_ITS ---
[facility] Test Date: 2023-01-22 Pat Name: Kristine Kramer Department: Room: 253 Gender: Female Electrical Manager: : 1975 Requested By: Ang Lowry Order Number: [id number] Jeffery MD: Sebastian Martinez M.D. Measurements Intervals Knott Rate: 88 P: 43 CT: 223 QRS: 25 QRSD: 92 T: 30 QT: 388 QTc: 471 Interpretive Statements SINUS RHYTHM WITH FIRST DEGREE AV BLOCK Compared to ECG 01/21/2023 15:56:49 First degree AV block now present Electronically Signed On 01-22-2023 16:19:25 CDT by Sebastian Martinez M.D. [id number]
[2023-01-22] MEDS: piperacillin-tazobactam 3.375 GM in sodium chloride 0.9% (plus) 50 ML IV ×3 (03:35→18:06)
[2023-01-22] MEDS: ipratropium-albuterol 3 mL Neb INHALATION ×3 (07:42→19:30)
[2023-01-22] MEDS: vancomycin 1,500 MG/300 ML PIGGYBACK 200 MG IV ×2 (08:08→16:23)
[2023-01-22 08:31] LABS: Basophils % 0.6 %; Eosinophils # 0.1 10^3/uL (0.0-0.8); Eosinophils % 0.7 %; Hematocrit 35.8 % (36-47); Lymphocytes # 0.8 10^3/uL (0.8-4.8); Lymphocytes % 11.5 %; Mean Corpuscular HGB Conc 31.6 g/dL (30-55); Mean Corpuscular Volume 91.8 fl (85-98); Mean Platelet Volume 10.7 fL (7.4-10.4); Monocytes # 0.5 10^3/uL (0.2-0.9); Neutrophils # 5.51 10^3/uL (1.8-7.7); Neutrophils % 78.5 %; Nucleated Red Blood Cells % 0.6 %; Platelet Count 229 10^3/cmm (157-399); Red Cell Distribution Width 21.2 % (12.1-15.1); White Blood Count 7.02 10^3/uL (3.29-11.43)
[2023-01-22 08:53] LABS: Alanine Aminotransferase 29 U/L (0-33); Albumin Level 2.7 g/dL (3.5-5.2); Alkaline Phosphatase 88 U/L (35-105); Anion Gap 10.3 (5-19); Aspartate Amino Transferase 21 U/L (0-32); Blood Urea Nitrogen 11 mg/dL (6-20); Calcium 7.8 mg/dL (8.5-10.5); Carbon Dioxide 29 mmol/L (22-29); Chloride 105 mmol/L (98-107); Globulin 2.2 g/dL (1.3-4.6); Glomerular Filtration Rate 131.1 mL/min (90-130); Glucose 103 mg/dL (65-115); Magnesium 2.2 mg/dL (1.7-2.3); Osmolality Calculated 292 mOsm/kg (285-295); Phosphorus 3.1 mg/dL (2.5-4.5); Potassium 3.3 mmol/L (3.5-5.1); Sodium 141 mmol/L (136-145); Total Bilirubin 0.3 mg/dL (0.15-1.2); Total Protein 4.9 g/dL (6.6-8.7)
--- NOTE | 2023-01-22 09:53 | PC.NURSE ---
Swallow evaluation Bedside swallow evaluation performed. Patient given water, jello, pudding and crackers, with each test pt did not have any difficulty swallowing and did not cough. Order for diet obtained for pt ([facility] soft).
[2023-01-22 10:34] LABS: Troponin T (5th) Once 30 ng/L (0-10)
[2023-01-22] MEDS: pregabalin 150 mg Capsule PO (14:21)
--- NOTE | 2023-01-22 20:00 | PM.PN ---
Subjective Subjective: She has been having some pain in her bilateral lower legs at the site of erythema, as well as some lower back pain which is chronic. The size of her legs has shown some decrease. Vitals/I&O/Wt Last Vital Signs Temp 98.5 F 01/22/23 19:09 Pulse 87 01/22/23 19:30 Resp 16 01/22/23 19:30 BP 103/64 01/22/23 19:09 Pulse Ox 97 01/22/23 19:30 O2 Del Method Nasal Cannula 01/22/23 19:30 O2 Flow Rate 4 01/22/23 19:30 01/22/23 01/22/23 01/22/23 06:59 14:59 22:59 Intake Total 105 / 405 1640 / 1640 300 / 1940 Output Total 750 / 750 550 / 550 275 / 825 Balance -645 / -345 1090 / 1090 25 / 1115 Weight last 48 hrs Weight 106.322 kg Physical Exam Narrative: Her son and her disposal man are accompanying her at bedside. Const: COMMON NORMALS: patient oriented x3 and alert GENERAL APPEARANCE: cooperative ORIENTATION/CONSCIOUSNESS: Yes awake HENMT: COMMON NORMALS: oropharynx normal Neck/C-Spine: COMMON NORMALS: no JVD Resp: COMMON NORMALS: normal respiratory effort and clear to auscultation bilaterally AUSCULTATION: clear to auscultation bilaterally Cardio: COMMON NORMALS: no JVD, regular rhythm, S1 normal heart sound present, S2 normal heart sound present and No murmurs present (Cardio) RHYTHM: regular rhythm HEART SOUNDS: S1 normal heart sound present and S2 normal heart sound present GI: COMMON NORMALS: Normal to inspection, nondistended, normoactive bowel sounds present, Soft to palpation and non-tender PALPATION: Yes Soft to palpation Extremity: COMMON NORMALS: no joint enlargement OTHER: 2+ BL LE edema below knees. Erythema of edematous areas. Neuro: COMMON NORMALS: patient oriented x3 and moves all extremities SENSORIUM/ORIENTATION: Yes alert Skin: COMMON NORMALS: no rashes or lesions noted GENERAL SKIN EXAM: no rashes or lesions noted Urinary Catheter Management: Johnson: Cath Placed During This Visit: yes Reason for Continuing Indwelling Catheter: Accurate Measurement of Urinary Output in Critically Ill Patients Urinary Catheter Date of Insertion: 01/21/23 Urinary Catheter Time of Insertion: 16:17 Data 01/22/23 08:19 01/22/23 08:19 Micro: Microbiology 01/21/23 17:15 Blood Culture - Preliminary Blood NEGATIVE TO DATE 01/22/23 14:55 Gram Stain - Final Ankle - Drainage 01/21/23 15:54 Blood Culture - Preliminary Blood NEGATIVE TO DATE A&P Assessment and plan (1) Cellulitis of both lower extremities: (2) Left lower lobe pneumonia: (3) Goals of care, counseling/discussion: (4) Diastolic CHF, acute on chronic: (5) Lung cancer metastatic to brain: (6) Cancer related pain: (7) History of chemotherapy: (8) History of radiation therapy: (9) Acute encephalopathy: Plan Acute encephalopathy This morning reported not oriented, but later in the day appears to be improving. Oriented x3 during my visit. Later request to restart her Lyrica, as well as that morphine has not been effective. Switched over to oral Dilaudid for now to help with pain control. Continue treatment of cellulitis and possible pneumonia. Continue broad-spectrum antibiotics. Reviewed lactic acid. Reviewed troponin series. Additionally underwent MRI of the brain today with finding of localized edema at the recently area of previously gamma knife treated lesion. Discussed with radiologist. Certainly edema could contribute to seizure, although she has been adamant about no seizure and no resumption of antiepileptic. Continue to revisit goals of care. Maintain seizure precautions. Concern is for subclinical seizures, or seizures causing her symptoms however according to patient's healthcare power of solid waste disposal managerYnes, patient has declined seizure medications, -My other concern is possible cerebral edema, or adrenal insufficiency, however according to patient's healthcare power of solid waste disposal manager, Ynes, patient has declined steroid therapy -Polypharmacy certainly could be a etiology, given that she is on Lyrica, alprazolam, oxycodone, -Opiate intoxication seems less likely as family is adamant she uses medication as prescribed, Lower extremity edema: Bilateral 2-3+ lower extremity edema with superimposed cellulitis. Noted low potassium 2.3 on review. Give additional potassium. Lasix 40 mg IV. Recheck chemistry. Cellulitis -Continue antibiotics as above Pneumonia -Continue antibiotics Lung cancer with brain metastasis, status post CyberKnife, status post chemotherapy History of COPD History of smoking Goals of care discussion, extensive goals of care discussion as above, DNR/DNI, no seizure medications, no steroid medications, family and Ynes will consider hospice based on clinical progress Discussed with case management. Accompanied by her son. Attestations Medical Necessity Statement*: Continue admission for assessment management of acute encephalopathy, treatment of cellulitis, pneumonia, revisiting of goals of care, with noted localized area of edema of previously gamma knife treated metastatic brain lesion. and High MDM includes amount and/or complexity of data reviewed/ordered [ resulted lab(s)/test(s), ordered lab(s)/test(s) and other healthcare professional discussion] as documented Diagnoses Cellulitis of both lower extremities L03.115; L03.116 Left lower lobe pneumonia J18.9 Goals of care, counseling/discussion Z71.89 Diastolic CHF, acute on chronic I50.33 Lung cancer metastatic to brain C34.90; C79.31 Cancer related pain G89.3 History of chemotherapy Z92.21 History of radiation therapy Z92.3 Acute encephalopathy G93.40
--- NOTE | 2023-01-22 20:22 | MR_ITS ---
WS: [id number] MRI HEAD WITHOUT CONTRAST TECHNIQUE: Sagittal T1, T2 axial, T2 axial FLAIR, axial and coronal T1 images, axial susceptibility w eighted imaging, axial diffusion weighted images, and coronal T2 images were obtained. CLINICAL INFORMATION: encephalopathy COMPARISON: MRI 12/27/2022 FINDINGS: No evidence of restricted diffusion to suggest acute ischemia. Ventricular system and basal cisterns are patent. Again seen is the previously described LEFT posterior temporal lesion with prior treatmen t related changes. This is stable in size compared to previous with associated cavitation and hemosid abdias. Surrounding edema has increased compared to 12/27/2022 with mild associated mass effect on the L EFT occipital and temporal horns. No hydrocephalus. Previously described additional tiny enhancing lesions not visualized on this study without contrast . Mild supratentorial white matter changes and mild parenchymal volume loss is stable. Normal posterior fossa. Normal vascular flow voids at the skull base. No extra-axial fluid collections. Paranasal sin uses and mastoid air cells are well aerated. No new foci of hemosiderin. Normal optic chiasm and pitu itary infundibulum. No other significant interval changes. IMPRESSION: 1. Previously described treated LEFT posterior temporal metastatic lesion demonstrates increased jose rounding edema today with mild associated mass effect on the LEFT occipital and temporal horns. No hy drocephalus. 2. No other significant changes. 3. No restricted diffusion to suggest acute ischemia. 4. No other new findings. Notified Dr. Jay MARSHALL at 01/22/2023 4:24 PM.
[2023-01-22] MEDS: enoxaparin 40 mg/0.4 mL Syringe SUBCUT (21:11)
[2023-01-22] MEDS: pantoprazole 40 mg SDV IVP (21:11)
[2023-01-22] MEDS: potassium chloride ER 20 mEq Tablet 40 MEQ PO (21:11)
[2023-01-23] VITALS (17 sets, daily range): BP systolic 101–117; BP diastolic 63–79; PULSE 77–105; RESP 16–24; TEMP 36.4–36.9; O2SAT 92–97
[2023-01-23] MEDS: vancomycin 1,500 MG/300 ML PIGGYBACK 200 MG IV ×2 (00:09→16:28)
[2023-01-23] MEDS: piperacillin-tazobactam 3.375 GM in sodium chloride 0.9% (plus) 50 ML IV ×3 (02:31→18:04)
[2023-01-23 07:01] LABS: Basophils % 0.5 %; Eosinophils # 0.1 10^3/uL (0.0-0.8); Hematocrit 34.2 % (36-47); Lymphocytes # 0.8 10^3/uL (0.8-4.8); Lymphocytes % 9.2 %; Mean Corpuscular HGB Conc 31.9 g/dL (30-55); Mean Corpuscular Hemoglobin 29.1 pg (27-33); Mean Corpuscular Volume 91.4 fl (85-98); Mean Platelet Volume 10.7 fL (7.4-10.4); Monocytes # 0.7 10^3/uL (0.2-0.9); Neutrophils # 6.54 10^3/uL (1.8-7.7); Neutrophils % 79.5 %; Nucleated Red Blood Cells % 0.2 %; Platelet Count 246 10^3/cmm (157-399); Red Blood Count 3.74 10^6/uL (3.85-5.65); Red Cell Distribution Width 20.3 % (12.1-15.1); White Blood Count 8.23 10^3/uL (3.29-11.43)
[2023-01-23 07:14] LABS: Anion Gap 12.8 (5-19); Blood Urea Nitrogen 8 mg/dL (6-20); Carbon Dioxide 25 mmol/L (22-29); Chloride 105 mmol/L (98-107); Glomerular Filtration Rate 131.1 mL/min (90-130); Glucose 116 mg/dL (65-115); Osmolality Calculated 287 mOsm/kg (285-295); Potassium 3.8 mmol/L (3.5-5.1); Sodium 139 mmol/L (136-145)
[2023-01-23 07:17] LABS: Vancomycin Trough 22.5 ug/mL (10-15)
[2023-01-23] MEDS: ipratropium-albuterol 3 mL Neb INHALATION (07:39)
[2023-01-23] MEDS: FUROsemide 10 mg/mL SDV 4mL 40 MG IVP (08:49)
[2023-01-23] MEDS: pregabalin 150 mg Capsule PO ×2 (08:49→18:06)
[2023-01-23] MEDS: lidocaine 5% Patch 1 PATCH TOPICAL (08:54)
[2023-01-23] MEDS: magnesium oxide 400 mg tablet PO (11:32)
--- NOTE | 2023-01-23 18:05 | P.PN_ITS ---
Subjective Subjective: She says she is doing all right today. Having some cough, but cough has been improving. Some improvement in her legs. Discussed with her findings on MRI with some worsening of localized edema around otherwise unchanged lesion in posterior left temporal lobe previously treated with CyberKnife. She understands the risk of possible seizure, declines Decadron or other steroid at this time, declines empiric antiepileptic at this time. States that she will be seeing her physicians on Sunday at [facility] as per prior appointment and will visit with them regarding this issue at that point. In case of recurrent seizure or condition deterioration consideration may be given to resuming these medications, and she states in such a situation agrees she will. Vitals/I&O/Wt Last Vital Signs Temp 98.5 F 01/23/23 16:00 Pulse 77 01/23/23 16:00 Resp 18 01/23/23 16:00 BP 115/72 01/23/23 16:00 Pulse Ox 92 01/23/23 17:00 O2 Del Method Room Air 01/23/23 17:00 O2 Flow Rate 4 01/23/23 08:00 01/23/23 01/23/23 01/23/23 06:59 14:59 22:59 Intake Total 750 / 2860 1010 / 1010 480 / 1490 Output Total 100 / 925 2600 / 2600 600 / 3200 Balance 650 / 1935 -1590 / -1590 -120 / -1710 Weight last 48 hrs Weight 106.322 kg Physical Exam Narrative: Her son is accompanying her at bedside. Const: COMMON NORMALS: patient oriented x3 and alert GENERAL APPEARANCE: cooperative ORIENTATION/CONSCIOUSNESS: Yes awake HENMT: COMMON NORMALS: oropharynx normal Neck/C-Spine: COMMON NORMALS: no JVD Resp: COMMON NORMALS: normal respiratory effort and clear to auscultation bilaterally AUSCULTATION: clear to auscultation bilaterally Cardio: COMMON NORMALS: no JVD, regular rhythm, S1 normal heart sound present, S2 normal heart sound present and No murmurs present (Cardio) RHYTHM: regular rhythm HEART SOUNDS: S1 normal heart sound present and S2 normal heart sound present GI: COMMON NORMALS: Normal to inspection, nondistended, normoactive bowel sounds present, Soft to palpation and non-tender PALPATION: Yes Soft to palpation Extremity: COMMON NORMALS: no joint enlargement OTHER: 2+ BL LE edema below knees. Erythema slightly less intense persistent on edematous areas. Neuro: COMMON NORMALS: patient oriented x3 and moves all extremities SENSORIUM/ORIENTATION: Yes alert Skin: COMMON NORMALS: no rashes or lesions noted GENERAL SKIN EXAM: no rashes or lesions noted Urinary Catheter Management: Johnson: Cath Placed During This Visit: yes, but has since been removed by the nurse Reason for Continuing Indwelling Catheter: Accurate Measurement of Urinary Output in Critically Ill Patients Urinary Catheter Date of Insertion: 01/21/23 Urinary Catheter Time of Insertion: 16:17 Date Urinary Catheter Removed: 01/22/23 Time Urinary Catheter Discontinued: 18:50 Data 01/23/23 06:47 01/23/23 06:47 Micro: Microbiology 01/22/23 14:55 Gram Stain - Final Ankle - Drainage Wound Culture - Preliminary Gram Negative Rods 01/21/23 17:40 Urine Culture - Final Urine Catheterized 01/21/23 17:15 Blood Culture - Preliminary Blood NEGATIVE TO DATE 01/21/23 15:54 Blood Culture - Preliminary Blood NEGATIVE TO DATE A&P Assessment and plan (1) Cellulitis of both lower extremities: (2) Left lower lobe pneumonia: (3) Goals of care, counseling/discussion: (4) Diastolic CHF, acute on chronic: (5) Lung cancer metastatic to brain: (6) Cancer related pain: (7) History of chemotherapy: (8) History of radiation therapy: (9) Acute encephalopathy: Plan Acute encephalopathy Transient encephalopathy had resolved. She remains lucid yesterday and today. Discussed with her findings of MRI and concern for seizure episode, discussed options consideration of restarting steroid, antiepileptic. She declines at this time, understanding risk of further complication, seizure, but states will revisit the issue with her appointment with [facility] on Sunday. Discussed with case management. Discussed with her power of pourer metal who is aware of her wishes, who also confirms Ms. Kramer previously stating that if she had to go through similar experience as she did before with the medications she would rather not and would rather choose the alternative of shorter lifeThen go back on those or similar medications. But she will further visit with her physicians at [facility]. -Polypharmacy certainly could be a etiology, given that she is on Lyrica, alprazolam, oxycodone, -Opiate intoxication seems less likely as family is adamant she uses medication as prescribed, Lower extremity edema: Repeat lasix. Slight improvement. Bilateral 2-3+ lower extremity edema with superimposed cellulitis. Reviewed potassium, today better at 3.8. Reviewed renal function, remains normal. Recheck chemistry. Continue Lasix, reassess volume status. Cellulitis -Continue antibiotics as above Pneumonia -Continue antibiotics Lung cancer with brain metastasis, status post CyberKnife, status post chem otherapy History of COPD History of smoking Goals of care discussion as above. Resumed home medications including Wellbutrin, melatonin. Per discussion with her POA, also asking whether it is a possibility for patient to have a bed that is lower down, a lift chair to assist with care at home. We will discuss with case management. Attestations Medical Necessity Statement*: Continue admission for treatment of conditions that may contribute to encephalopathy, cellulitis, pneumonia, continued goals of care consideration. and High MDM includes amount and/or complexity of data reviewed/ordered [ resulted lab(s)/test(s), ordered lab(s)/test(s), independent historian and other healthcare professional discussion] as documented Diagnoses Cellulitis of both lower extremities L03.115; L03.116 Left lower lobe pneumonia J18.9 Goals of care, counseling/discussion Z71.89 Diastolic CHF, acute on chronic I50.33 Lung cancer metastatic to brain C34.90; C79.31 Cancer related pain G89.3 History of chemotherapy Z92.21 History of radiation therapy Z92.3 Acute encephalopathy G93.40
[2023-01-23] MEDS: NON-FORMULARY MEDICATION (Melatonin 3 mg Tablet) 3 EACH PO (19:41)
[2023-01-23] MEDS: enoxaparin 40 mg/0.4 mL Syringe SUBCUT (19:42)
[2023-01-23] MEDS: pantoprazole 40 mg SDV IVP (19:42)
[2023-01-24] VITALS (8 sets, daily range): BP systolic 104–120; BP diastolic 59–70; PULSE 101–119; RESP 16–20; TEMP 36.4–36.9; O2SAT 90–95
[2023-01-24] MEDS: piperacillin-tazobactam 3.375 GM in sodium chloride 0.9% (plus) 50 ML IV (03:44)
[2023-01-24 05:16] LABS: Basophils # 0.1 10^3/uL (0.0-0.1); Basophils % 0.6 %; Eosinophils # 0.1 10^3/uL (0.0-0.8); Eosinophils % 1.1 %; Hematocrit 35.2 % (36-47); Lymphocytes # 0.8 10^3/uL (0.8-4.8); Lymphocytes % 9.1 %; Mean Corpuscular HGB Conc 31.5 g/dL (30-55); Mean Corpuscular Hemoglobin 29.1 pg (27-33); Mean Corpuscular Volume 92.1 fl (85-98); Mean Platelet Volume 10.8 fL (7.4-10.4); Monocytes # 0.7 10^3/uL (0.2-0.9); Monocytes % 8.5 %; Neutrophils # 6.64 10^3/uL (1.8-7.7); Neutrophils % 78.7 %; Nucleated Red Blood Cells % 0 %; Platelet Count 251 10^3/cmm (157-399); Red Blood Count 3.82 10^6/uL (3.85-5.65); Red Cell Distribution Width 20.7 % (12.1-15.1); White Blood Count 8.44 10^3/uL (3.29-11.43)
[2023-01-24 05:38] LABS: Anion Gap 13.7 (5-19); Blood Urea Nitrogen 9 mg/dL (6-20); Calcium 8.1 mg/dL (8.5-10.5); Carbon Dioxide 23 mmol/L (22-29); Chloride 105 mmol/L (98-107); Glomerular Filtration Rate 106.3 mL/min (90-130); Glucose 118 mg/dL (65-115); Osmolality Calculated 286 mOsm/kg (285-295); Potassium 3.7 mmol/L (3.5-5.1); Sodium 138 mmol/L (136-145)
[2023-01-24] MEDS: magnesium oxide 400 mg tablet PO (08:42)
[2023-01-24] MEDS: NON-FORMULARY MEDICATION (Fluticasone-Umeclidin-Vilanter [Trelegy Ellipta] 100-62.5-25 mcg 1 EACH INHALATION (08:42)
[2023-01-24] MEDS: pregabalin 150 mg Capsule PO (08:42)
[2023-01-24] MEDS: lidocaine 5% Patch 1 PATCH TOPICAL (08:43)
--- NOTE | 2023-01-24 14:05 | PM.DCS ---
Discharge Providers Date of Admission: 01/21/23 17:37 Date of Discharge: January 24, 2023 Attending Provider at Admission: Ang Lowry MD Attending Provider at Discharge: Yash Thompson Primary Care Provider: Bhavin Abrams MD Diagnoses at Discharge Discharge Diagnosis (1) Cellulitis of both lower extremities: Status: Acute (2) Left lower lobe pneumonia: Status: Acute (3) Goals of care, counseling/discussion: Status: Acute (4) Diastolic CHF, acute on chronic: Status: Acute (5) Lung cancer metastatic to brain: Status: Acute (6) Cancer related pain: Status: Acute (7) History of chemotherapy: Status: Acute (8) History of radiation therapy: Status: Acute (9) Acute encephalopathy: Status: Acute Reason for Visit Reason for Visit: FALL; LOC+ Hospital Course Hospital Course Pleasant 47 lady with history of metastatic brain cancer to the brain, history of CyberKnife treatment, previously on Decadron, Keppra was admitted after a fall, concern for possibility of occult seizure, however, as per prior wishes did not want to have Decadron or similar or Keppra or other antiplatelet medication resumed. On presentation also with findings of lower extremity cellulitis superimposed on severe bilateral lower extremity edema, as well as pulmonary imaging suggestive of pneumonia. She was treated for other factors that could contribute to the transient acute encephalopathy, treated with antibiotics with Zosyn, vancomycin for possible pneumonia as well as cellulitis. Acute encephalopathy had resolved, she remained lucid. MRI of the brain obtained, noted posterior left temporal lesion is similar to prior imaging, however, with noted edema which is worse than before. As per discussion with her with consideration of restarting Decadron or other steroid, restarting antiepileptic, she declines at current time understanding risk of complication, seizure, etc., but will discuss further with her cancer team at [facility] [place] where she has an appointment this Sunday. She did agree to resume her Keppra as previously. Further consideration is for additional CyberKnife treatment if it will be an option, continued goals of care discussion, alternative consideration of hospice care depending on what treatments may be possible. She otherwise was also treated with IV diuretic in the hospital with noted improvement in lower extremity edema. Still some erythema is residual. Some wrinkling, some flaking of dry skin is noted with improving edema. Discussed with her to moisturize any dry areas. Her breathing has been improving, she is having some mild cough. Down to room air on oxygen requirement. She will complete antibiotic course after discharge with clindamycin and cefdinir, resume oral diuretic, and follow-up on outpatient side for reassessment as well as to discuss further options with her cancer team. She is asked to also follow-up with wound care clinic with few shallow ulcerations noted in her lower extremities, cultures obtained so far are showing gram-negative rods on stain. Please follow-up final cultures. Additionally given she lives alone discussed with her also regarding obtaining life alert button to allow to easily someone help. Her bed is also quite high, discussed consideration with case management for possibility of hospital bed, chairlift, although discussing with her she states she sleeps on the couch, discussed consideration could lower the mattress to the floor from her bed. Unfortunately lift chair would not be covered by her insurance. Physical Exam Const: COMMON NORMALS: patient oriented x3 and alert GENERAL APPEARANCE: cooperative ORIENTATION/CONSCIOUSNESS: Yes awake HENMT: COMMON NORMALS: oropharynx normal Neck/C-Spine: COMMON NORMALS: no JVD Resp: COMMON NORMALS: normal respiratory effort and clear to auscultation bilaterally AUSCULTATION: clear to auscultation bilaterally Cardio: COMMON NORMALS: no JVD, regular rhythm, S1 normal heart sound present, S2 normal heart sound present and No murmurs present (Cardio) RHYTHM: regular rhythm HEART SOUNDS: S1 normal heart sound present and S2 normal heart sound present GI: COMMON NORMALS: Normal to inspection, nondistended, normoactive bowel sounds present, Soft to palpation and non-tender PALPATION: Yes Soft to palpation Extremity: COMMON NORMALS: no joint enlargement OTHER: 2+ BL LE edema below knees. Improving, some wrinkling, flaking of dry skin. Erythema slightly less intense persistent on edematous areas. Neuro: COMMON NORMALS: patient oriented x3 and moves all extremities SENSORIUM/ORIENTATION: Yes alert Skin: COMMON NORMALS: no rashes or lesions noted GENERAL SKIN EXAM: no rashes or lesions noted Urinary Catheter Management: Johnson: Cath Placed During This Visit: yes, but has since been removed by the nurse Reason for Continuing Indwelling Catheter: Accurate Measurement of Urinary Output in Critically Ill Patients Urinary Catheter Date of Insertion: 01/21/23 Urinary Catheter Time of Insertion: 16:17 Date Urinary Catheter Removed: 01/22/23 Time Urinary Catheter Discontinued: 18:50 Discharge Data Studies Completed and Pending Completed Studies During Hospitalization Category Date Time Status CT cervical spin wo con* [id number] Stat Cat Scan 01/21/23 16:[address] head wo con* [id number] Stat Cat Scan 01/21/23 15:38 Completed XR chest 1V portable [id number] Stat Exams 01/21/23 15:38 Completed MR head wo con* [id number] Routine MRI 01/22/23 20:22 [place] [id number] Stat Ultrasound 01/21/23 18:14 Completed Pending at discharge Category Date Time Status EEG electroencephalogram Stat Exams 01/21/23 18:14 Ordered Basic Metabolic Panel AM LABS Lab 01/25/23 04:00 Ordered Blood Culture Stat Lab 01/21/23 17:15 Results Complete Blood Count w/Auto AM LABS Lab 01/25/23 04:00 Ordered Sputum Culture and Gram Stain Stat Lab 01/21/23 18:46 Uncollected Vancomycin Trough Timed Lab 01/25/23 04:00 Ordered Radiology Impressions Chest X-Ray 01/21/23 15:38 IMPRESSION: Small area of infiltrate in the left base. Head CT 01/21/23 15:38 IMPRESSION: No acute intracranial abnormality. Cervical Spine CT 01/21/23 16:06 IMPRESSION: No acute findings. Venous Duplex 01/21/23 18:14 IMPRESSION: 1. No deep venous thrombosis in the right lower extremity. 2. Subcutaneous edema in the right lower extremity. Laboratory Results WBC 8.44 10^3/uL (3.29-11.43) 01/24/23 04:50 RBC 3.82 10^6/uL (3.85-5.65) L 01/24/23 04:50 Hgb 11.10 g/dL (11.27-16.99) L 01/24/23 04:50 Hct 35.2 % (36-47) L 01/24/23 04:50 MCV 92.1 fl (85-98) 01/24/23 04:50 MCH 29.1 pg (27-33) 01/24/23 04:50 MCHC 31.5 g/dL (30-55) 01/24/23 04:50 RDW 20.7 % (12.1-15.1) H 01/24/23 04:50 Plt Count 251 10^3/cmm (157-399) 01/24/23 04:50 MPV 10.8 fL (7.4-10.4) H 01/24/23 04:50 Neut % (Auto) 78.7 % 01/24/23 04:50 Lymph % (Auto) 9.1 % 01/24/23 04:50 Mcintosh % (Auto) 8.5 % 01/24/23 04:50 Eos % (Auto) 1.1 % 01/24/23 04:50 Baso % (Auto) 0.6 % 01/24/23 04:50 Neut # (Auto) 6.64 10^3/uL (1.8-7.7) 01/24/23 04:50 Lymph # (Auto) 0.8 10^3/uL (0.8-4.8) 01/24/23 04:50 Mcintosh # (Auto) 0.7 10^3/uL (0.2-0.9) 01/24/23 04:50 Eos # (Auto) 0.1 10^3/uL (0.0-0.8) 01/24/23 04:50 Baso # (Auto) 0.1 10^3/uL (0.0-0.1) 01/24/23 04:50 Nucleated RBC % (auto) 0 % 01/24/23 04:50 Nucleated RBCs # 0.0 /100WBC 01/24/23 04:50 ESR 11 mm/hr (0-15) 01/21/23 15:54 Specimen Type Arterial 01/21/23 16:39 Sample Site Radial, right 01/21/23 16:39 ABG pH 7.53 (7.35-7.45) H 01/21/23 16:39 ABG pCO2 39.9 mmHg (35-45) 01/21/23 16:39 ABG pO2 61.7 mmHg (80.0-100.0) L 01/21/23 16:39 ABG HCO3 33.4 mmol/L (22-26) H 01/21/23 16:39 ABG O2 Saturation 91.3 01/21/23 16:39 ABG Base Excess 9.8 mmol/L (-2.0-2.0) H 01/21/23 16:39 Werner Test Pos 01/21/23 16:39 A-a O2 Gradient 13.2 mmHg (5-10) H 01/21/23 16:39 Hematocrit 40.8 % (37-47) 01/21/23 16:39 Hgb O2 Saturation 88.6 % (95-100) L 01/21/23 16:39 Carboxyhemoglobin 2.6 %THgb (0.4-20.1) 01/21/23 16:39 Methemoglobin 0.3 % (0.4-1.5) L 01/21/23 16:39 Total Hemoglobin 13.3 g/dL (12-16) 01/21/23 16:39 Sodium 138.0 mmol/L (131-143) 01/21/23 16:39 Potassium 3.5 mmol/L (3.5-5.0) 01/21/23 16:39 Glucose 149.0 mg/dL (70-115) H 01/21/23 16:39 Ionized Calcium 1.1 mmol/L (1.1-1.4) 01/21/23 16:39 O2 Delivery Device Nc 01/21/23 16:39 O2 Liters/Min 2.5 % 01/21/23 16:39 FiO2 30.0 % 01/21/23 16:39 Director Of Placement ID glc 01/21/23 16:39 Sodium 138 mmol/L (136-145) 01/24/23 04:50 Potassium 3.7 mmol/L (3.5-5.1) 01/24/23 04:50 Chloride 105 mmol/L (98-107) 01/24/23 04:50 Carbon Dioxide 23 mmol/L (22-29) 01/24/23 04:50 Anion Gap 13.7 (5-19) 01/24/23 04:50 BUN 9 mg/dL (6-20) 01/24/23 04:50 Creatinine 0.6 mg/dL (0.5-0.9) 01/24/23 04:50 GFR Calculation 106.3 mL/min (90-130) 01/24/23 04:50 Glucose 118 mg/dL (65-115) H 01/24/23 04:50 Calculated Osmolality 286 mOsm/kg (285-295) 01/24/23 04:50 Lactic Acid 2.2 mmol/L (0.5-2.2) 01/21/23 19:53 Lactic Acid (Sepsis) 1.4 mmol/L (0.5-2.2) 01/21/23 21:41 Calcium 8.1 mg/dL (8.5-10.5) L 01/24/23 04:50 Phosphorus 3.1 mg/dL (2.5-4.5) 01/22/23 08:19 Magnesium 2.2 mg/dL (1.7-2.3) 01/22/23 08:19 Total Bilirubin 0.3 mg/dL (0.15-1.2) 01/22/23 08:19 AST 21 U/L (0-32) 01/22/23 08:19 ALT 29 U/L (0-33) 01/22/23 08:19 Alkaline Phosphatase 88 U/L (35-105) 01/22/23 08:19 Ammonia 35 umol/L (11-51) 01/21/23 19:53 Troponin T Gen 5 ng/L 30 ng/L (0-10) H 01/22/23 08:19 Troponin T Baseline 33 ng/L (0-10) H 01/21/23 19:53 Troponin T 120 Minute 31.10 ng/L (0-10) H 01/21/23 21:41 Delta Troponin T -1.90 ABS# (0-10) L 01/21/23 21:41 Troponin T Hi Sens 6Hr Cancelled 01/22/23 08:19 Troponin T Hi Sens 6Hr Delta Cancelled 01/22/23 08:19 C-Reactive Protein 76.8 mg/L (0.0-4.9) H 01/21/23 15:54 NT-Pro-B Natriuret Pep 721 pg/mL (0-125) H 01/21/23 19:53 Total Protein 4.9 g/dL (6.6-8.7) L 01/22/23 08:19 Albumin 2.7 g/dL (3.5-5.2) L 01/22/23 08:19 Globulin 2.2 g/dL (1.3-4.6) 01/22/23 08:19 Procalcitonin 0.59 ng/mL (0-0.5) H 01/21/23 15:54 TSH 0.97 uIU/mL (0.27-4.20) 01/21/23 15:54 Prolactin 4.97 ng/mL (4.8-23.3) 01/21/23 19:53 Random Cortisol 14.63 ug/dL (2.47-19.5) 01/21/23 19:53 Urine Color Yellow (Yellow) 01/21/23 15:54 Urine Appearance Clear (CLEAR) 01/21/23 15:54 Urine pH 8 (5-7) H 01/21/23 15:54 Ur Specific Enterprise 1.005 (1.005-1.030) 01/21/23 15:54 Urine Protein Neg (Negative) 01/21/23 15:54 Urine Glucose (UA) Norm (Normal) 01/21/23 15:54 Urine Ketones Negative (Negative) 01/21/23 15:54 Urine Blood Neg (Negative) 01/21/23 15:54 Urine Nitrate Negative (Negative) 01/21/23 15:54 Urine Bilirubin Neg (Negative) 01/21/23 15:54 Prot Sulfosalicylic Acd Negative (Negative) 01/21/23 15:54 Urine Urobilinogen Norm mg/dL (Negative) 01/21/23 15:54 Ur Leukocyte Esterase Negative (Negative) 01/21/23 15:54 Vancomycin Trough 22.5 ug/mL (10-15) H 01/23/23 06:47 Salicylates < 0.3 mg/dL (3-10) L 01/21/23 15:54 Urine Opiates Screen Negative ng/mL (Negative) 01/21/23 15:54 Acetaminophen < 5.0 ug/mL (10-30) L 01/21/23 15:54 Ur Barbiturates Screen Negative ng/mL (Negative) 01/21/23 15:54 Ur Phencyclidine Scrn Negative ng/mL (Negative) 01/21/23 15:54 Ur Amphetamines Screen Negative ng/mL (Negative) 01/21/23 15:54 U Benzodiazepines Scrn Positive ng/mL (Negative) H 01/21/23 15:54 Urine Cocaine Screen Negative ng/mL (Negative) 01/21/23 15:54 U Marijuana (THC) Screen Negative ng/mL (Negative) 01/21/23 15:54 Ethyl Alcohol < 10 mg/dL (0-10) 01/21/23 15:54 Vitals Last Vital Signs Temp 98.2 F 01/24/23 14:04 Pulse 101 H 01/24/23 14:04 Resp 17 01/24/23 14:04 BP 120/59 01/24/23 14:04 Pulse Ox 92 01/24/23 14:04 O2 Del Method Room Air 01/24/23 12:00 O2 Flow Rate 4 01/23/23 08:00 Discharge Plan Discharge Patient Disposition: Home Condition: Stable Prescriptions: New clindamycin HCl 300 mg capsule 300 mg PO Q6H 7 Days Qty: 28 0RF cefdinir 300 mg capsule 300 mg PO BID Qty: 14 0RF Keppra 500 mg tablet 500 mg PO BID 14 Days Qty: 28 0RF Continued alprazolam [Xanax] 1 mg tablet 1 mg PO TID PRN (Reason: anxiety) Qty: 90 3RF potassium chloride 20 mEq tablet extended release 20 meq PO QID Qty: 120 2RF Lasix 40 mg tablet 80 mg PO BID Qty: 120 1RF pregabalin 150 mg capsule 150 mg PO BID Qty: 60 5RF ipratropium-albuterol 0.5 mg-3 mg(2.5 mg base)/3 mL solution for nebulization 3 ml inhalation Q4H PRN (Reason: wheezing) albuterol sulfate [Ventolin HFA] 90 mcg/actuation HFA aerosol inhaler 2 inh inhalation QID PRN (Reason: shortness of breath or wheezing) magnesium oxide 400 mg (241.3 mg magnesium) tablet 400 mg PO DAILY fluticasone propionate 50 mcg/actuation spray,suspension 1 spray intranasal DAILY PRN (Reason: Allergy Symptoms) Rx Instructions: administer into each nostril ondansetron HCl 4 mg tablet 4 mg PO Q8H Qty: 30 1RF Trelegy Ellipta 100-62.5-25 mcg blister with device 1 inh inhalation DAILY Qty: 60 3RF Rx Instructions: 340 B sumatriptan succinate 50 mg tablet See Rx Instructions .ROUTE .COMPLEX Qty: 10 1RF Dose Instruction: take ONE tablet AT ONSET of HEADACHE; IF no RELIEF, MAY REPEAT ONE tablet AFTER AT least TWO hours; max=4 tablets in 24 hours Rx Instructions: take ONE tablet AT ONSET of HEADACHE; IF no RELIEF, MAY REPEAT ONE tablet AFTER AT least TWO hours; max=4 tablets in 24 hours melatonin 3 mg capsule 3 mg PO QPM PRN (Reason: sleep) oxycodone 20 mg tablet 10 mg PO Q3H PRN (Reason: Pain) Discharge Orders: Discharge Order (Routine); Ordered 01/24/23 Ordered By: Yash Thompson Referrals: Wound Care [Provider Group] - 01/29/23 8:00 am Bhavin Abrams MD [Primary Care Provider] - 01/29/23 1:45 pm Discharge Diet: Cardiac Patient Instructions: Cellulitis, Clindamycin (By mouth), Cefdinir (By mouth), Levetiracetam (By mouth), Pneumonia (GEN), Opioid Safety, Pneumonia Stoplight Activity Restrictions/Additional Instructions: Follow-up with your cancer team at [facility] [place], discuss again regarding swelling around the lesion in the left temporal lobe which has worsened, putting you at risk of seizure or other complications. Discuss consideration of steroid, in the meantime also please restart your antiseizure medication, Keppra. You do not have to fill the prescription if you still have the medication at home. Complete antibiotic course for pneumonia and lower extremity cellulitis. Follow-up with your primary doctor for reassessment. Continue diuretics to keep decreasing edema in your legs. Elevate legs when you are sitting down. Apply moisturizer to any areas that begin to dry and flake or crack. Follow-up with wound care. Wound culture has been collected and is pending, so far showing gram-negative rods. As discussed, consider setting up for a emergency alert button. Return to the hospital in case of any worsening or new concerning symptoms Discharge Attestations Time Spent in Discharge Care*: greater than 30 min Quality Metrics Clinical Quality Measures [ No reported AMI, CVA or VTE this stay] Coding Level of Care Code 44894 Total time (in minutes) for Discharge: 45 Diagnoses Cellulitis of both lower extremities L03.115; L03.116 Left lower lobe pneumonia J18.9 Goals of care, counseling/discussion Z71.89 Diastolic CHF, acute on chronic I50.33 Lung cancer metastatic to brain C34.90; C79.31 Cancer related pain G89.3 History of chemotherapy Z92.21 History of radiation therapy Z92.3 Acute encephalopathy G93.40
== END 2023-01-24 14:05 | disposition home or self-care (01) | DRG 602 ==
LOC: ER 17:45 → MEDSURG 18:32
PROVIDERS: Admitting Provider Family Medicine; Emergency Provider Family Medicine; PCP Family Medicine; Visit Provider Internal Medicine
DX: L03.116 Cellulitis of left lower limb (principal); I50.33 Acute on chronic diastolic (congestive) heart failure; J18.9 Pneumonia, unspecified organism; C34.90 Malignant neoplasm of unspecified part of unspecified bronchus or lung; C79.31 Secondary malignant neoplasm of brain; G93.40 Encephalopathy, unspecified; D84.821 Immunodeficiency due to drugs; L03.115 Cellulitis of right lower limb; Z92.3 Personal history of irradiation; Z92.21 Personal history of antineoplastic chemotherapy; Z79.51 Long term (current) use of inhaled steroids; Z79.891 Long term (current) use of opiate analgesic; W07.XXXA Fall from chair, initial encounter; F17.210 Nicotine dependence, cigarettes, uncomplicated; J44.9 Chronic obstructive pulmonary disease, unspecified; M79.7 Fibromyalgia; F41.1 Generalized anxiety disorder; F41.0 Panic disorder [episodic paroxysmal anxiety]; Z98.1 Arthrodesis status; G89.3 Neoplasm related pain (acute) (chronic); M54.50 Low back pain, unspecified; Z66 Do not resuscitate
CPT/HCPCS: 36415; 36600; 51702; 70450; 70551; 71045; 72125; 80048; 80051; 80053; 80202; 80306; 80307; 81003; 82140; 82330; 82533; 82805; 83605; 83735; 83880; 84100; 84145; 84146; 84443; 84484; 85025; 85651; 86140; 87040; 87070; 87075; 87077; 87086; 87186; 87205; 93005; 93970; 94640; 96372; 99285; C9113; J1650; J1885; J1940; J2270; J2543; J3370; J3480; J7030; J7050

== ENCOUNTER → 2023-03-08 08:20 | Outpatient (BNVA) | payer MEDICAID, SELFPAY ==
[2023-02-08 16:29] VITALS: BP 120/54; BMI 37.8
== END ==
PROVIDERS: PCP Family Medicine; Visit Provider Nurse Practitioner Family
DX: L97.322 Non-pressure chronic ulcer of left ankle with fat layer exposed (principal); L97.819 Non-pressure chronic ulcer of other part of right lower leg with unspecified severity; L89.620 Pressure ulcer of left heel, unstageable; I96 Gangrene, not elsewhere classified
CPT/HCPCS: 97597; A6210

== ENCOUNTER 2023-03-15 14:15 | Oncology outpatient (recurring) (ONCR) | payer MEDICAID, SELFPAY ==
[2022-02-13 15:03] VITALS: BP 113/76; BMI 24.4
[2023-02-08 16:29] VITALS: BP 120/54; BMI 37.8
== END 2023-03-29 23:59 | disposition home or self-care (01) ==
PROVIDERS: PCP Family Medicine; Visit Provider Internal Medicine
DX: C79.31 Secondary malignant neoplasm of brain (principal); C34.11 Malignant neoplasm of upper lobe, right bronchus or lung; Z92.3 Personal history of irradiation; Z79.52 Long term (current) use of systemic steroids; Z53.9 Procedure and treatment not carried out, unspecified reason; G89.3 Neoplasm related pain (acute) (chronic); Z92.21 Personal history of antineoplastic chemotherapy; Z79.891 Long term (current) use of opiate analgesic; Z95.828 Presence of other vascular implants and grafts; Z51.12 Encounter for antineoplastic immunotherapy; Z79.899 Other long term (current) drug therapy; F17.210 Nicotine dependence, cigarettes, uncomplicated; R94.6 Abnormal results of thyroid function studies; I31.39 Other pericardial effusion (noninflammatory)
CPT/HCPCS: 99215

== ENCOUNTER 2023-04-01 11:06 | Emergency (ER) | payer MEDICAID, SELFPAY ==
[2023-02-08 16:29] VITALS: BP 120/54; BMI 37.8
[2023-04-01 11:26] VITALS: BP 93/62; PULSE 103; RESP 16; TEMP 36.6; O2SAT 95; BMI 36.3
--- NOTE | 2023-04-01 12:54 | ED_ITS ---
HPI - Abdominal Pain 2 General: Chief Complaint: Abdominal Pain Stated Complaint: brusing on stomach, Nausea, can't eat or drink Time Seen by Provider: 04/01/23 12:23 Source: patient History of Present Illness: This lady was brought to the emergency department by her son who is not present at my initial intake. The patient has somewhat of a difficult to follow and convoluted history. 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 She denies any trauma. She states that she is thirsty all the time which she attributes to her Lasix that she takes. She states that she has not had any recent fevers or illness but states that her abdomen feels tender when she touches it. She states her urine has been darker than normal. She denies any vomiting or diarrhea at this time however the initial intake nurse noted some GI symptoms so it is not clear whether she is having these or not. Associated Symptoms: Denies chills, diarrhea, dysuria, fever(s), hematochezia, hematemesis, nausea, syncope and vomiting Review of Systems 2 Const: Denies: fever(s) or chills Eyes: Denies: change in vision ENMT: Denies: throat pain, odynophagia, nasal discharge or nasal congestion Card: Denies: chest pain, palpitations, syncope or pre-syncope Resp: Denies: dyspnea, productive cough or non-productive cough GI: Denies: nausea, vomiting, hematemesis, diarrhea or hematochezia : Denies: flank pain, difficulty voiding, dysuria or urinary frequency Musc: Denies: neck pain, back pain, extremity pain or extremity swelling Skin/Breast: Denies: rash Neuro: Denies: headache(s), numbness in extremities or weakness in extremities Psych: Reports: difficulty concentrating PFSH ED 2 PFSH: Medical History Generalized anxiety disorder with panic attacks Cigarette nicotine dependence Psychiatric care COPD (chronic obstructive pulmonary disease) Fibromyalgia Surgical History S/P bronchoscopy H/O spinal fusion H/O tubal ligation Family History Father Parkinsonism Cancer Skin cancer and stomach cancer Brother Parkinsonism Mother Hyperlipidemia CAD (coronary artery disease) Psychiatric illness Other Diabetes Hypertension Major depressive disorder, recurrent severe without psychotic features Denies family history of Clotting disorder Dementia Chronic kidney disease (CKD) Suicide Anesthesia complication Bleeding disorder Lung disease Stroke Social History Smoking and tobacco/nicotine status: current every day tobacco/nicotine user cigarettes Packs smoked per day: 0.5 Years cigarettes smoked: 34 Quit status (tobacco/nicotine): has tried quititng Second hand smoke exposure: Yes Alcohol intake: never Substance/Drug Use: never Adopted: No Caregiver/support person: No Lives independently: Yes Household members: none Housing: Apartment Marital status: Marital status details: 14 years ago Number of children: 5 Number of grandchildren: 12 Highest education level completed: 10th Grade service: No Current occupational status: disabled Current occupational exposures/hazards: No Pets and animals: Yes (3 dogs) Pets & animals: dog(s) and bird(s) Pets & animal details: [employer] Leisure activites: other Leisure activities details: playing with dogs, watch tv, walks around appartment Sexually active: No Do you think of yourself as: Straight/Heterosexual Current gender identity: Female Marisabel/Samaritan: None Special marisabel needs: No Agree to transfusion: No Physical Exam 2 Narrative: EXAM NARRATIVE: She is alert makes good eye contact and cooperative. Const: COMMON NORMALS: no acute distress GENERAL APPEARANCE: cooperative NUTRITIONAL APPEARANCE: overweight ORIENTATION/CONSCIOUSNESS: Yes awake, Yes oriented to person and Yes oriented to place HENMT: COMMON NORMALS: normocephalic, Normal nasal mucous membranes and turbinates present, moist oral mucous membranes and oropharynx normal HEAD & SCALP: normocephalic NOSE: Normal nasal mucous membranes and turbinates present Eye: COMMON NORMALS: Equal, round and reactive pupils present, EOMs intact bilaterally, conjunctivae normal and no scleral icterus CONJUNCTIVA: Yes conjunctivae normal PUPIL: Yes Equal, round and reactive pupils present Neck/C-Spine: COMMON NORMALS: full ROM, no lymphadenopathy and no JVD Chest: COMMONS NORMALS: normal inspection of the chest Resp: COMMON NORMALS: normal respiratory effort, No retractions, No use of accessory muscles and clear to auscultation bilaterally EFFORT & INSPECTION: Yes able to speak in complete sentences AUSCULTATION: clear to auscultation bilaterally Cardio: COMMON NORMALS: no JVD, regular rate, regular rhythm, No murmurs present (Cardio) and Peripheral pulses 2+ throughout RATE: regular rate R HYTHM: regular rhythm PERIPHERAL PULSES: Peripheral pulses 2+ throughout GI: COMMON NORMALS: Soft to palpation; negative for No hepatosplenomegaly present INSPECTION: Yes central obesity PALPATION: Yes Soft to palpation, No Guarding due to palpation present (GI), No Rigid due to palpation and No No hepatosplenomegaly present OTHER: She has multiple violaceous longitudinal striae that are present in her lower abdomen in a linear fashion superior to inferior. There is no petechiae noted. There is no ecchymosis. The striae do not marivel. Back/Pelvis: COMMON NORMALS: thoracic and lumbar spine normal to inspection, no thoracic nor lumbar tenderness and thoraco-lumbar ROM normal Extremity: COMMON NORMALS: full ROM, capillary refill normal, no calf tenderness and no pedal edema Neuro: COMMON NORMALS: moves all extremities and no focal motor deficits S ENSORIUM/ORIENTATION: Yes oriented to person and Yes oriented to place C RANIAL NERVES: Yes CN normal except as noted Course 2 Reevaluation(s): Reevaluation #1: Patient remains clinically stable. She is drinking fluids and her preliminary laboratories obtained here are very reassuring. She is very comfortable and desires to be discharged. Time: 14:16 Reevaluation #2: Son is now here to provide transportation. Time: 15:02 Vital Signs: Vital signs: Vital Signs Temperature 97.8 F 04/01/23 11:26 Pulse Rate 103 H 04/01/23 11:26 Respiratory Rate 16 04/01/23 11:26 Blood Pressure 93/62 04/01/23 11:26 Pulse Oximetry 95 04/01/23 11:26 Oxygen Delivery Me thod Room Air 04/01/23 11:26 MDM - Abdominal Pain Medical Decision Making This unfortunate lady presented to the emergency department because of concerns about what she construed as new bruising to her abdomen. 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 He was transported here by her son. She is currently followed by oncology and has had 2 CyberKnife treatments as well as being maintained with steroids and furosemide for her brain metastasis and associated fluid retention because of chronic steroid use. There was no history of fevers recent falls or other concerns. Her clinical examination revealed her to be pleasant and not any specific complaints during my interview. Her clinical examination revealed her to be oriented to person and place and generally able to complete her thought pattern. The remainder of her clinical examination was notable only for what appeared to be consistent with stridor a on her lower abdomen is which likely is as result of truncal obesity and potentially exacerbated by her chronic steroid use as well. Screening laboratories were obtained which were also reassuring. She was given both IV and oral fluids which she tolerated well. At the culmination of her evaluation she was reevaluated any new or focal findings and she was very comfortable and satisfied and all her questions answered and was ready to be discharged. At this point in time there is no evidence to suggest a ongoing emergency medical condition. According my review of oncology notes she has not been considered a candidate for hospice but that may need to be revisited and lieu of her prognosis. Medical Records I reviewed the patient's medical records. 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 Lab Data I reviewed the patient's lab results. 04/01/23 13:03 04/01/23 13:03 Labs/Radiology: Laboratory Results WBC 12.92 10^3/uL (3.29-11.43) H 04/01/23 13:03 RBC 5.18 10^6/uL (3.85-5.65) 04/01/23 13:03 Hgb 14.00 g/dL (11.27-16.99) 04/01/23 13:03 Hct 45.1 % (36-47) 04/01/23 13:03 MCV 87.1 fl (85-98) 04/01/23 13:03 MCH 27.0 pg (27-33) 04/01/23 13:03 MCHC 31.0 g/dL (30-55) 04/01/23 13:03 RDW 16.5 % (12.1-15.1) H 04/01/23 13:03 Plt Count 442 10^3/cmm (157-399) H 04/01/23 13:03 MPV 10.1 fL (7.4-10.4) 04/01/23 13:03 Neut % (Auto) 85.7 % 04/01/23 13:03 Lymph % (Auto) 6.0 % 04/01/23 13:03 Mobile % (Auto) 6.3 % 04/01/23 13:03 Eos % (Auto) 0.7 % 04/01/23 13:03 Baso % (Auto) 0.5 % 04/01/23 13:03 Neut # (Auto) 11.07 10^3/uL (1.8-7.7) H 04/01/23 13:03 Lymph # (Auto) 0.8 10^3/uL (0.8-4.8) 04/01/23 13:03 Mobile # (Auto) 0.8 10^3/uL (0.2-0.9) 04/01/23 13:03 Eos # (Auto) 0.1 10^3/uL (0.0-0.8) 04/01/23 13:03 Baso # (Auto) 0.1 10^3/uL (0.0-0.1) 04/01/23 13:03 Nucleated RBC % (auto) 0 % 04/01/23 13:03 Nucleated RBCs # 0.0 /100WBC 04/01/23 13:03 Sodium 139 mmol/L (136-145) 04/01/23 13:03 Potassium 3.7 mmol/L (3.5-5.1) 04/01/23 13:03 Chloride 102 mmol/L (98-107) 04/01/23 13:03 Carbon Dioxide 24 mmol/L (22-29) 04/01/23 13:03 Anion Gap 16.7 (5-19) 04/01/23 13:03 BUN 6 mg/dL (6-20) 04/01/23 13:03 Creatinine 0.7 mg/dL (0.5-0.9) 04/01/23 13:03 GFR Calculation 88.6 mL/min (90-130) L 04/01/23 13:03 Glucose 101 mg/dL (65-115) 04/01/23 13:03 Calculated Osmolality 286 mOsm/kg (285-295) 04/01/23 13:03 Calcium 9.6 mg/dL (8.5-10.5) 04/01/23 13:03 Total Bilirubin 0.4 mg/dL (0.15-1.2) 04/01/23 13:03 AST 23 U/L (0-32) 04/01/23 13:03 ALT 13 U/L (0-33) 04/01/23 13:03 Alkaline Phosphatase 85 U/L (35-105) 04/01/23 13:03 Total Protein 6.8 g/dL (6.6-8.7) 04/01/23 13:03 Albumin 3.7 g/dL (3.5-5.2) 04/01/23 13:03 Globulin 3.1 g/dL (1.3-4.6) 04/01/23 13:03 Lipase 24 U/L (13-60) 04/01/23 13:03 No radiology studies performed this visit Discharge Plan Discharge Patient Disposition: Home 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 Condition: Stable Prescriptions: No Action alprazolam [Xanax] 1 mg tablet 1 mg PO TID PRN (Reason: anxiety) Qty: 90 3RF potassium chloride 20 mEq tablet extended release 20 meq PO QID Qty: 120 2RF pregabalin 150 mg capsule 150 mg PO BID Qty: 60 5RF sulfamethoxazole-trimethoprim [Bactrim DS] 800-160 mg tablet 1 tab PO BID Qty: 20 0RF ipratropium-albuterol 0.5 mg-3 mg(2.5 mg base)/3 mL solution for nebulization 3 ml inhalation Q4H PRN (Reason: wheezing) Qty: 180 1RF albuterol sulfate [Ventolin HFA] 90 mcg/actuation HFA aerosol inhaler 2 inh inhalation QID PRN (Reason: shortness of breath or wheezing) Qty: 8.5 5RF levofloxacin 500 mg tablet 500 mg PO DAILY Qty: 7 0RF oxycodone 20 mg tablet 10 mg PO Q3H PRN (Reason: Pain) 7 Days Qty: 28 0RF promethazine-DM 6.25-15 mg/5 mL syrup 5 ml PO Q6H PRN (Reason: cough) Qty: 240 0RF magnesium oxide 400 mg (241.3 mg magnesium) tablet 400 mg PO DAILY fluticasone propionate 50 mcg/actuation spray,suspension 1 spray intranasal DAILY PRN (Reason: Allergy Symptoms) Rx Instructions: administer into each nostril ondansetron HCl 4 mg tablet 4 mg PO Q8H Qty: 30 1RF Trelegy Ellipta 100-62.5-25 mcg blister with device 1 inh inhalation DAILY Qty: 60 3RF Rx Instructions: 340 B sumatriptan succinate 50 mg tablet See Rx Instructions .ROUTE .COMPLEX Qty: 10 1RF Dose Instruction: take ONE tablet AT ONSET of HEADACHE; IF no RELIEF, MAY REPEAT ONE tablet AFTER AT least TWO hours; max=4 tablets in 24 hours Rx Instructions: take ONE tablet AT ONSET of HEADACHE; IF no RELIEF, MAY REPEAT ONE tablet AFTER AT least TWO hours; max=4 tablets in 24 hours topiramate 100 mg tablet 100 mg .ROUTE TID Qty: 90 3RF Rx Instructions: 100 mg three times daily; Lasix 40 mg tablet 80 mg PO BID Qty: 120 2RF levetiracetam [Keppra] 500 mg tablet 500 mg PO BID Qty: 60 1RF melatonin 3 mg capsule 3 mg PO QPM PRN (Reason: sleep) cefdinir 300 mg capsule 300 mg PO BID Qty: 14 0RF Discharge Orders: Discharge ED (Routine); Ordered 04/01/23 Ordered By: Mark Cook Referrals: Arin Garner MD [Primary Care Provider] - 4-7 days Discharge Diet: Usual diet Discharge Activity: Resume usual activity Patient Instructions: Opioid Safety, Pain Management Activity Restrictions/Additional Instructions: As we discussed while you are in the emergency department today we did not find any serious condition during your evaluation. You should continue your usual medications and other usual activities. Follow-up with your regular doctor and/or oncologist as scheduled although you should follow-up with your primary care doctor in the next 4 to 7 days for reevaluation. If you develop any new or worsening or other concerning symptoms you are welcome to return to the emergency department at any time for reevaluation. Coding Level of Care Code ED [employer] Manager for James Bruno
[2023-04-01 13:09] LABS: Basophils # 0.1 10^3/uL (0.0-0.1); Basophils % 0.5 %; Eosinophils # 0.1 10^3/uL (0.0-0.8); Eosinophils % 0.7 %; Hematocrit 45.1 % (36-47); Lymphocytes # 0.8 10^3/uL (0.8-4.8); Mean Corpuscular Volume 87.1 fl (85-98); Mean Platelet Volume 10.1 fL (7.4-10.4); Monocytes # 0.8 10^3/uL (0.2-0.9); Monocytes % 6.3 %; Neutrophils # 11.07 10^3/uL (1.8-7.7); Neutrophils % 85.7 %; Nucleated Red Blood Cells % 0 %; Platelet Count 442 10^3/cmm (157-399); Red Blood Count 5.18 10^6/uL (3.85-5.65); Red Cell Distribution Width 16.5 % (12.1-15.1); White Blood Count 12.92 10^3/uL (3.29-11.43)
[2023-04-01] MEDS: sodium chloride 0.9% 500 ML IV (13:14)
[2023-04-01 13:44] LABS: Alanine Aminotransferase 13 U/L (0-33); Albumin Level 3.7 g/dL (3.5-5.2); Alkaline Phosphatase 85 U/L (35-105); Anion Gap 16.7 (5-19); Aspartate Amino Transferase 23 U/L (0-32); Blood Urea Nitrogen 6 mg/dL (6-20); Calcium 9.6 mg/dL (8.5-10.5); Carbon Dioxide 24 mmol/L (22-29); Chloride 102 mmol/L (98-107); Globulin 3.1 g/dL (1.3-4.6); Glomerular Filtration Rate 88.6 mL/min (90-130); Glucose 101 mg/dL (65-115); Lipase 24 U/L (13-60); Osmolality Calculated 286 mOsm/kg (285-295); Potassium 3.7 mmol/L (3.5-5.1); Sodium 139 mmol/L (136-145); Total Bilirubin 0.4 mg/dL (0.15-1.2); Total Protein 6.8 g/dL (6.6-8.7)
== END 2023-04-01 15:20 | disposition home or self-care (01) ==
PROVIDERS: Emergency Provider Emergency Medicine; PCP Family Medicine
DX: C34.91 Malignant neoplasm of unspecified part of right bronchus or lung (principal); F17.210 Nicotine dependence, cigarettes, uncomplicated; J44.9 Chronic obstructive pulmonary disease, unspecified
CPT/HCPCS: 80053; 83690; 85025; 96360; 99284; J7040

== ENCOUNTER 2023-04-02 01:25 | Emergency (ER) | payer MEDICAID, SELFPAY ==
[2023-02-08 16:29] VITALS: BP 120/54; BMI 37.8
[2023-04-02 01:37] VITALS: BP 104/68; PULSE 96; RESP 16; TEMP 36.4; O2SAT 94; BMI 32.3
--- NOTE | 2023-04-02 02:09 | XRR_ITS ---
PROCEDURE INFORMATION: Exam: XR Abdomen Exam date and time: 04/02/2023 2:11 AM Age: 48 years old Clinical indication: Abdominal pain; Generalized; Prior surgery; Surgery date: 6+ months; Surgery type: Tubal ligation; Patient HX: Diffuse abd pain with nausea. TECHNIQUE: Imaging protocol: Radiologic exam of the abdomen. Views: Frontal supine view of the abdomen. 1 View. COMPARISON: CT abdomen pelvis con [id number] 12/10/2022 4:35 PM FINDINGS: Gastrointestinal tract: Mild gaseous distention of the transverse colon. No dilated loops of bowel. Bones/joints: No acute osseous abnormality. XR/XR KUB portable [id number] IMPRESSION: No dilated loops of bowel.
[2023-04-02] MEDS: lidocaine 2% viscous 15 ML, aluminum-mag hydrox-simethicon 30 ML, sucralfate oral liq 1 GM PO (02:17)
[2023-04-02 02:21] VITALS: RESP 18; O2SAT 94
[2023-04-02] MEDS: HYDROmorphone 1 mg/mL INJ 1 mL IM (02:21)
[2023-04-02] MEDS: ondansetron 2 mg/ML SDV 2 mL 4 MG IM (02:21)
[2023-04-02 03:57] VITALS: BP 101/77; PULSE 97; RESP 13; O2SAT 94
--- NOTE | 2023-04-02 05:04 | ED_ITS ---
HPI - Nausea/Vomiting/Diarrhea General: Chief complaint: Nausea/Vomiting/Diarrhea Stated complaint: nausea, abd pain Time Seen by Provider: 04/02/23 01:34 History of Present Illness: 48-year-old female with a history of met astatic cancer to the brain. She was in the ER less than 18 hours ago complaining of multiple complaints. She presents again this morning complaining mainly of nausea. She has some abdominal pain that comes and goes that is generalized and diffuse. No vomiting. No fever. She feels that something is not right . Associated nausea: Yes Associated symtoms: Reports anxiety and nausea; Denies change in vision, chest pain, headache(s) or palpitations Review of Systems Const: Denies: fever(s) or chills Eyes: Denies: change in vision ENMT: Denies: throat pain or hoarseness Card: Denies: chest pain or palpitations Resp: Reports: dyspnea GI: Reports: abdominal pain and nausea : Denies: flank pain or difficulty voiding Musc: Denies: neck pain Neuro: Denies: headache(s) Psych: Reports: anxiety PFSH ED PFSH: Medical History Generalized anxiety disorder with panic attacks Cigarette nicotine dependence Psychiatric care COPD (chronic obstructive pulmonary disease) Fibromyalgia Surgical History S/P bronchoscopy H/O spinal fusion H/O tubal ligation Family History Father Parkinsonism Cancer Skin cancer and stomach cancer Brother Parkinsonism Mother Hyperlipidemia CAD (coronary artery disease) Psychiatric illness Other Diabetes Hypertension Major depressive disorder, recurrent severe without psychotic features Denies family history of Clotting disorder Dementia Chronic kidney disease (CKD) Suicide Anesthesia complication Bleeding disorder Lung disease Stroke Social History Smoking and tobacco/nicotine status: current every day tobacco/nicotine user cigarettes Packs smoked per day: 0.5 Years cigarettes smoked: 34 Quit status (tobacco/nicotine): has tried quititng Second hand smoke exposure: Yes Alcohol intake: never Substance/Drug Use: never Adopted: No Caregiver/support person: No Lives independently: Yes Household members: none Housing: Apartment Marital status: Marital status details: 14 years ago Number of children: 5 Number of grandchildren: 12 Highest education level completed: 10th Grade service: No Current occupational status: disabled Current occupational exposures/hazards: No Pets and animals: Yes (3 dogs) Pets & animals: dog(s) and bird(s) Pets & animal details: [employer] Leisure activites: other Leisure activities details: playing with dogs, watch tv, walks around appartment Sexually active: No Do you think of yourself as: Straight/Heterosexual Current gender identity: Female Marisabel/Jew: None Special marisabel needs: No Agree to transfusion: No Physical Exam Const: COMMON NORMALS: no acute distress GENERAL APPEARANCE: cooperative; not ill appearing and not frail appearing HENMT: COMMON NORMALS: normocephalic, atraumatic and Normal external nose present HEAD & SCALP: normocephalic and atraumatic FACE & SINUS: normal facial exam and face symmetric NOSE: Normal external nose present Eye: COMMON NORMALS: Equal, round and reactive pupils present and EOMs intact bilaterally PUPIL: Yes Equal, round and reactive pupils present Neck/C-Spine: GENERAL: Yes trachea midline Chest: CHEST: Yes Symmetrical chest wall rise Resp: COMMON NORMALS: normal respiratory effort, No retractions, No use of accessory muscles and clear to auscultation bilaterally AUSCULTATION: clear to auscultation bilaterally Cardio: COMMON NORMALS: regular rate and regular rhythm RATE: regular rate RHYTHM: regular rhythm GI: COMMON NORMALS: Normal to inspection, nondistended, normoactive bowel sounds present OTHER: Mild diffuse tenderness. No rebound tenderness. Extremity: COMMON NORMALS: no pedal edema Neuro: RODOLFO COMA SCALE: document GCS findings [place] coma scale eye opening: Spontaneous [place] coma scale verbal response: Orientated [place] coma scale motor response: Obey commands Rodolfo coma scale total score: 15 SENSORY EXAM: Yes extremities (intact) Psych: COMMON NORMALS: speech normal SPEECH: Yes normal speech Skin: COMMON NORMALS: no rashes or lesions noted GENERAL SKIN EXAM: no rashes or lesions noted Course Vital Signs: Vital signs: Vital Signs Temperature 97.5 F L 04/02/23 01:37 Pulse Rate 97 04/02/23 03:57 Respiratory Rate 13 04/02/23 03:57 Blood Pressure 101/77 04/02/23 03:57 Pulse Oximetry 94 04/02/23 03:57 Oxygen Delivery Me thod Room Air 04/02/23 01:37 MDM - Nausea/Vomiting/Diarrhea Medical Decision Making KUB shows no obstruction, no increased stool load. She is feeling better after Zofran. She will be prescribed Zofran for home. As she has had laboratory testing less than 18 hours ago, did not feel necessary to repeat laboratory. She will be allowed home for close outpatient follow-up. Lab Data Radiology Impressions KUB X-Ray 04/02/23 02:09 IMPRESSION: No dilated loops of bowel. All radiology interpretation(s) finalized by discharge Discharge Plan Discharge Patient Disposition: Home Clinical Impression: Gastritis Condition: Stable Prescriptions: New Prevacid 30 mg capsule,delayed release(DR/EC) 30 mg PO DAILY Qty: 30 0RF Continued ondansetron HCl 4 mg tablet 4 mg PO Q8H Qty: 30 1RF No Action alprazolam [Xanax] 1 mg tablet 1 mg PO TID PRN (Reason: anxiety) Qty: 90 3RF potassium chloride 20 mEq tablet extended release 20 meq PO QID Qty: 120 2RF pregabalin 150 mg capsule 150 mg PO BID Qty: 60 5RF sulfamethoxazole-trimethoprim [Bactrim DS] 800-160 mg tablet 1 tab PO BID Qty: 20 0RF ipratropium-albuterol 0.5 mg-3 mg(2.5 mg base)/3 mL solution for nebulization 3 ml inhalation Q4H PRN (Reason: wheezing) Qty: 180 1RF albuterol sulfate [Ventolin HFA] 90 mcg/actuation HFA aerosol inhaler 2 inh inhalation QID PRN (Reason: shortness of breath or wheezing) Qty: 8.5 5RF levofloxacin 500 mg tablet 500 mg PO DAILY Qty: 7 0RF oxycodone 20 mg tablet 10 mg PO Q3H PRN (Reason: Pain) 7 Days Qty: 28 0RF promethazine-DM 6.25-15 mg/5 mL syrup 5 ml PO Q6H PRN (Reason: cough) Qty: 240 0RF magnesium oxide 400 mg (241.3 mg magnesium) tablet 400 mg PO DAILY fluticasone propionate 50 mcg/actuation spray,suspension 1 spray intranasal DAILY PRN (Reason: Allergy Symptoms) Rx Instructions: administer into each nostril Trelegy Ellipta 100-62.5-25 mcg blister with device 1 inh inhalation DAILY Qty: 60 3RF Rx Instructions: 340 B sumatriptan succinate 50 mg tablet See Rx Instructions .ROUTE .COMPLEX Qty: 10 1RF Dose Instruction: take ONE tablet AT ONSET of HEADACHE; IF no RELIEF, MAY REPEAT ONE tablet AFTER AT least TWO hours; max=4 tablets in 24 hours Rx Instructions: take ONE tablet AT ONSET of HEADACHE; IF no RELIEF, MAY REPEAT ONE tablet AFTER AT least TWO hours; max=4 tablets in 24 hours topiramate 100 mg tablet 100 mg .ROUTE TID Qty: 90 3RF Rx Instructions: 100 mg three times daily; Lasix 40 mg tablet 80 mg PO BID Qty: 120 2RF levetiracetam [Keppra] 500 mg tablet 500 mg PO BID Qty: 60 1RF melatonin 3 mg capsule 3 mg PO QPM PRN (Reason: sleep) cefdinir 300 mg capsule 300 mg PO BID Qty: 14 0RF Discharge Orders: Discharge ED (Routine); Ordered 04/02/23 Ordered By: Deonte Parkinson Referrals: Arin Garner MD [Primary Care Provider] - 1-3 days Patient Instructions: Gastritis (ED), Opioid Safety, Pain Management Activity Restrictions/Additional Instructions: Return for fever greater than 100, vomiting liquids or medications, blood in the stool, other concerning symptoms. See your doctor this week. Coding Level of Care Code ED Marketing Regional Consultant for James Bruno
== END 2023-04-02 03:34 | disposition home or self-care (01) ==
PROVIDERS: Emergency Provider Emergency Medicine; PCP Family Medicine
DX: K29.70 Gastritis, unspecified, without bleeding (principal); F17.210 Nicotine dependence, cigarettes, uncomplicated; J44.9 Chronic obstructive pulmonary disease, unspecified
CPT/HCPCS: 74018; 96372; 99284; J1170; J2405

== ENCOUNTER → 2023-04-05 15:09 | Outpatient (BNVA) | payer MEDICAID, SELFPAY ==
[2023-02-08 16:29] VITALS: BP 120/54; BMI 37.8
== END ==
PROVIDERS: PCP Family Medicine; Visit Provider Nurse Practitioner Family
DX: Z09 Encounter for follow-up examination after completed treatment for conditions other than malignant neoplasm (principal); Z87.2 Personal history of diseases of the skin and subcutaneous tissue
CPT/HCPCS: 99212

== ENCOUNTER 2023-04-10 09:05 | Outpatient (CLI) | payer MEDICAID, SELFPAY ==
[2023-02-08 16:29] VITALS: BP 120/54; BMI 37.8
--- NOTE | 2023-04-10 09:12 | CT_ITS ---
WS: [id number] CT CHEST, ABDOMEN, AND PELVIS TECHNIQUE: Contrast-enhanced CT of the chest, abdomen, and pelvis with coronal and sagittal reformatt ed images. CLINICAL INFORMATION: lung cancer COMPARISON: CT abdomen pelvis 12/10/2022 and chest abdomen pelvis 10/27/2022 DLP: 2115.[address] scans at [facility] use at least one of these dose optimization techniques: automated e xposure control; mA and/or kV adjustment per patient size (includes targeted exams where dose is matc hed to clinical indication); or iterative reconstruction. CT CHEST: Advanced chronic emphysematous changes. Normal caliber thoracic aorta. No mediastinal or hilar lympha denopathy. No axillary lymphadenopathy. Bibasilar atelectasis. Noncalcified hazy opacity RIGHT middle lobe laterally measuring 7 mm is progressed compared to the prior examinations. Irregular slightly spiculated nodule RIGHT upper lobe posteriorly measuring 11 mm with surrounding gr oundglass attenuation is stable. Dominant nodule is unchanged since 12/10/2022. This was previously PE T/CT positive. A few additional subcentimeter pulmonary nodules in the upper lobes appear stable. CT ABDOMEN AND PELVIS: Mild hepatomegaly. Diffuse fatty infiltration of the liver. Normal portal vein and splenic vein. Panc reas appears normal. Normal spleen. Small esophageal hiatal hernia. Slight bibasal atelectasis. Adren al glands are normal. Normal renal parenchymal enhancement. A few incidental simple renal cyst. No ab dominal or pelvic lymphadenopathy. Normal sigmoid colon. A few diverticuli. Normal appendix in the RIGHT lower quadrant. Tiny fat-contai angelo umbilical hernia. Cholelithiasis. IMPRESSION: 1. Mild hepatomegaly with diffuse fatty infiltration of the liver. 2. Cholelithiasis with mild gallbladder wall enhancement. This could further evaluated with ultrasou nd. No visualized pericholecystic fluid. 3. Stable dominant nodule in RIGHT upper lobe posteriorly measuring 11 mm with surrounding groundgla ss attenuation which may be due to treatment related changes. 4. Small hazy opacity in the RIGHT middle lobe measuring 7 mm progressed compared to the previous ex aminations. Recommend 3-month chest CT follow-up. 5. Additional subcentimeter pulmonary nodules in the upper lobes appear stable. 6. Advanced chronic emphysematous changes.
[2023-04-10] MEDS: iohexol 350 mg/mL 500 mL Btl (per mL) IV (10:55)
[2023-04-10] MEDS: iohexol 350 mg/mL 500 mL Btl (per mL) PO (10:55)
== END 2023-04-10 09:06 | disposition home or self-care (01) ==
LOC: RAD 09:06
PROVIDERS: PCP Family Medicine; Visit Provider Internal Medicine
DX: C34.11 Malignant neoplasm of upper lobe, right bronchus or lung (principal); K76.0 Fatty (change of) liver, not elsewhere classified; R16.0 Hepatomegaly, not elsewhere classified; K80.20 Calculus of gallbladder without cholecystitis without obstruction; R91.8 Other nonspecific abnormal finding of lung field; J43.9 Emphysema, unspecified
CPT/HCPCS: 71260; 74177; Q9967

== ENCOUNTER 2023-04-20 07:54 | Outpatient (CLI) | payer MEDICAID, SELFPAY ==
[2023-02-08 16:29] VITALS: BP 120/54; BMI 37.8
--- NOTE | 2023-04-20 08:00 | MR_ITS ---
WS: [id number] MRI BRAIN WITH AND WITHOUT CONTRAST HISTORY: lung cancer; compare to previous COMPARISON: 01/22/2023 and 12/27/2022 TECHNIQUE: Multiplanar imaging performed through the brain with MultiHance 20 ml's IV. Significant adverse changes since the prior noncontrast examination. Peripherally enhancing mass with nodularity is identified in the posterior LEFT parietal occipital region. Mass measures 2.7 x 2.8 cm and extends over a length of 3.2 cm. There is a large amount of surrounding edema causing mass effec t and loss of the mccormick-white matter differentiation. Mass extends to the LEFT lateral ventricle. Ther e is mass effect upon the occipital horn of the lateral ventricle. Edema extends into the temporal lo be and along the corpus callosum. There is abnormal enhancement and T2 signal in the ependymal lining of the LEFT lateral ventricle. There are also a few areas of enhancement suggesting meningeal extens ion. There are additional new small enhancing nodules within the brain consistent with additional met astatic sites. For the frontal lobe vertex there are bilateral subcentimeter enhancing nodules. There is an additional enhancing 6 mm nodule posterior LEFT parietal lobe. 8 mm nodular enhancement in the posterior LEFT basal ganglia. Approximately 4.4 mm midline shift to the RIGHT. Slight mass effect upon the LEFT lateral ventricle. Hemosiderin deposits along the LEFT tentorium. Paranasal sinuses: Well aerated with no significant disease. Mastoid air cells: Normal. Calvarium and scalp: Normal. IMPRESSION: 1. Significant adverse change in appearance of the brain since the prior study. 2. Enhancing mass centered in the LEFT posterior occipital lobes measures 2.7 x 2.8 x 3.2 cm. Mass i s new since the most recent examination. Significant increase in the amount of surrounding vasogenic edema with extension into the posterior LEFT corpus callosum. With the patient's history this is prob ably recurrent brain metastasis. Glioma may appear similar. 3. Mass effect upon the LEFT lateral ventricle with 4.4 mm of midline shift to the RIGHT. 4. Additional small, subcentimeter bilateral enhancing nodules suspicious for sites of metastatic di sease. Also suspect meningeal extension.
[2023-04-20] MEDS: gadobenate dimeglumine 20 mL vial IV (09:05)
== END 2023-04-20 07:55 | disposition home or self-care (01) ==
LOC: RAD 07:55
PROVIDERS: PCP Family Medicine; Visit Provider Internal Medicine
DX: C34.11 Malignant neoplasm of upper lobe, right bronchus or lung (principal); G93.9 Disorder of brain, unspecified
CPT/HCPCS: 70553; A9577

== ENCOUNTER 2023-07-03 11:31 | Oncology outpatient (recurring) (ONCR) | payer MEDICAID, SELFPAY ==
[2023-02-08 16:29] VITALS: BP 120/54; BMI 37.8
[2023-07-03] MEDS: alteplase 1 mg/mL SDV 2 mL 2 MG INTRACATH (13:08)
[2023-07-03 13:55] LABS: Basophils % 0.3 %; Eosinophils # 0.3 10^3/uL (0.0-0.8); Hematocrit 35.3 % (36-47); Lymphocytes # 1.1 10^3/uL (0.8-4.8); Lymphocytes % 12.2 %; Mean Corpuscular HGB Conc 30.9 g/dL (30-55); Mean Corpuscular Hemoglobin 26.3 pg (27-33); Mean Corpuscular Volume 85.1 fl (85-98); Mean Platelet Volume 11.2 fL (7.4-10.4); Monocytes # 0.7 10^3/uL (0.2-0.9); Monocytes % 8.3 %; Neutrophils # 6.42 10^3/uL (1.8-7.7); Neutrophils % 74.6 %; Nucleated Red Blood Cells % 0 %; Platelet Count 308 10^3/cmm (157-399); Red Blood Count 4.15 10^6/uL (3.85-5.65); Red Cell Distribution Width 21.5 % (12.1-15.1)
[2023-07-03 14:18] LABS: Alanine Aminotransferase 20 U/L (0-33); Albumin Level 3.3 g/dL (3.5-5.2); Alkaline Phosphatase 80 U/L (35-105); Anion Gap 12.6 (5-19); Aspartate Amino Transferase 15 U/L (0-32); Blood Urea Nitrogen 6 mg/dL (6-20); C Reactive Protein 104.1 mg/L (0.0-4.9); Calcium 8.1 mg/dL (8.5-10.5); Carbon Dioxide 23 mmol/L (22-29); Chloride 103 mmol/L (98-107); Creatinine Clr Calc Pharmacy 161.2008; Globulin 2.4 g/dL (1.3-4.6); Glomerular Filtration Rate 130.6 mL/min (90-130); Glucose 158 mg/dL (65-115); Osmolality Calculated 281 mOsm/kg (285-295); Potassium 3.6 mmol/L (3.5-5.1); Sodium 135 mmol/L (136-145); Total Bilirubin 0.2 mg/dL (0.15-1.2); Total Protein 5.7 g/dL (6.6-8.7)
== END 2023-07-29 23:59 | disposition home or self-care (01) ==
PROVIDERS: Internal Medicine Medical Oncology; PCP Family Medicine; Visit Provider Internal Medicine
DX: C79.31 Secondary malignant neoplasm of brain (principal); C34.11 Malignant neoplasm of upper lobe, right bronchus or lung; F17.210 Nicotine dependence, cigarettes, uncomplicated; Z92.21 Personal history of antineoplastic chemotherapy; Z92.3 Personal history of irradiation; L03.116 Cellulitis of left lower limb; L03.115 Cellulitis of right lower limb; Z98.890 Other specified postprocedural states; Z79.899 Other long term (current) drug therapy
CPT/HCPCS: 36593; 80053; 85025; 86140; 99214; J2997

== ENCOUNTER 2023-09-11 09:31 | Oncology outpatient (recurring) (ONCR) | payer MEDICAID, SELFPAY ==
[2023-02-08 16:29] VITALS: BP 120/54; BMI 37.8
[2023-09-11 10:33] LABS: Basophils # 0.1 10^3/uL (0.0-0.1); Basophils % 0.6 %; Eosinophils # 0.2 10^3/uL (0.0-0.8); Eosinophils % 1.5 %; Hematocrit 44.2 % (36-47); Lymphocytes # 1.6 10^3/uL (0.8-4.8); Lymphocytes % 13.6 %; Mean Corpuscular HGB Conc 31.2 g/dL (30-55); Mean Corpuscular Hemoglobin 25.4 pg (27-33); Mean Corpuscular Volume 81.4 fl (85-98); Mean Platelet Volume 11.3 fL (7.4-10.4); Monocytes # 0.8 10^3/uL (0.2-0.9); Neutrophils # 9.07 10^3/uL (1.8-7.7); Nucleated Red Blood Cells % 0 %; Platelet Count 341 10^3/cmm (157-399); Red Blood Count 5.43 10^6/uL (3.85-5.65); Red Cell Distribution Width 17.4 % (12.1-15.1)
[2023-09-11 11:09] LABS: Alanine Aminotransferase 16 U/L (0-33); Albumin Level 3.8 g/dL (3.5-5.2); Alkaline Phosphatase 107 U/L (35-105); Anion Gap 12.9 (5-19); Aspartate Amino Transferase 17 U/L (0-32); Blood Urea Nitrogen 6 mg/dL (6-20); Calcium 9.5 mg/dL (8.5-10.5); Carbon Dioxide 22 mmol/L (22-29); Chloride 107 mmol/L (98-107); Creatinine Clr Calc Pharmacy 128.5505; Globulin 3.2 g/dL (1.3-4.6); Glomerular Filtration Rate 105.8 mL/min (90-130); Glucose 133 mg/dL (65-115); Osmolality Calculated 286 mOsm/kg (285-295); Potassium 3.9 mmol/L (3.5-5.1); Sodium 138 mmol/L (136-145); Total Bilirubin 0.3 mg/dL (0.15-1.2)
== END 2023-09-28 23:59 | disposition home or self-care (01) ==
PROVIDERS: PCP Family Medicine; Visit Provider Nurse Practitioner Family
DX: C34.11 Malignant neoplasm of upper lobe, right bronchus or lung (principal)
CPT/HCPCS: 36591; 80053; 85025

== ENCOUNTER → 2023-10-09 13:38 | Outpatient (BNVA) | payer MEDICAID, SELFPAY ==
[2023-02-08 16:29] VITALS: BP 120/54; BMI 37.8
== END ==
PROVIDERS: PCP Family Medicine; Visit Provider Internal Medicine Pulmonary Disease
DX: J44.9 Chronic obstructive pulmonary disease, unspecified (principal); C34.11 Malignant neoplasm of upper lobe, right bronchus or lung
CPT/HCPCS: 99214

== ENCOUNTER 2023-10-24 17:17 | Outpatient (CLI) | payer MEDICAID, SELFPAY ==
[2023-02-08 16:29] VITALS: BP 120/54; BMI 37.8
--- NOTE | 2023-10-24 17:24 | CTR_ITS ---
PROCEDURE INFORMATION: Exam: CT Chest With Contrast; Diagnostic Exam date and time: 10/24/2023 5:31 PM Age: 48 years old Clinical indication: Condition or disease; Other: Brain and lung cancer; Prior surgery; Surgery date: 6+ months; Surgery type: Port, tubal; Additional info: Surveillance TECHNIQUE: Imaging protocol: Diagnostic computed tomography of the chest with contrast. Radiation optimization: All CT scans at this facility use at least one of these dose optimization techniques: automated exposure control; mA and/or kV adjustment per patient size (includes targeted exams where dose is matched to clinical indication); or iterative reconstruction. Contrast material: OMNI 350; Contrast volume: 100 ml; Contrast route: INTRAVENOUS (IV); COMPARISON: CT chest [facility] w/*[id number] 04/10/2023 10:36 AM RADIATION DOSE METRICS: Total DLP (mGy-cm): 1110.7 FINDINGS: Lungs: Underlying centrilobular emphysematous change. Stable spiculated nodule in the right lung apex measuring 11 mm. Surrounding atelectasis. Stable 7 mm nodule in the right middle lobe. There are few scattered ground-glass nodules throughout both lung hardy. These appear similar in appearance when compared to the prior examination Pleural spaces: Unremarkable. No pneumothorax. No pleural effusion. Heart: Unremarkable. No cardiomegaly. No pericardial effusion. Lymph nodes: Unremarkable. No enlarged lymph nodes. Vasculature: Unremarkable. No aortic aneurysm. Bones/joints: Unremarkable. No acute fracture. Soft tissues: Unremarkable. COMMENTS: The presence of pulmonary emphysema on CT is an independent risk factor for lung cancer. In the absence of a history or active diagnosis of lung cancer, it is recommended that this patient with emphysema be evaluated for enrollment in a low dose CT lung cancer screening program. PROCEDURE INFORMATION: Exam: CT Abdomen And Pelvis With Contrast Exam date and time: 10/24/2023 5:31 PM Age: 48 years old Clinical indication: Condition or disease; Other: Brain and lung cancer; Prior surgery; Surgery date: 6+ months; Surgery type: Port, tubal; Additional info: Surveillance TECHNIQUE: Imaging protocol: Computed tomography of the abdomen and pelvis with contrast. Radiation optimization: All CT scans at this facility use at least one of these dose optimization techniques: automated exposure control; mA and/or kV adjustment per patient size (includes targeted exams where dose is matched to clinical indication); or iterative reconstruction. Contrast material: OMNI 350; Contrast volume: 100 ml; Contrast route: INTRAVENOUS (IV); COMPARISON: CT chest [facility] w/*[id number] 04/10/2023 10:36 AM RADIATION DOSE METRICS: Total DLP (mGy-cm): 1110.7 FINDINGS: Liver: Mild fatty infiltration of the liver. Gallbladder and biliary ducts: Cholelithiasis Pancreas: Normal. No ductal dilation. Spleen: Normal. No splenomegaly. Adrenal glands: Normal. No mass. Kidneys and ureters: Normal. No hydronephrosis. Stomach and bowel: Unremarkable. No obstruction. No mucosal thickening. Appendix: No evidence of appendicitis. Intraperitoneal space: Unremarkable. No free air. No significant fluid collection. Vasculature: Unremarkable. No abdominal aortic aneurysm. Lymph nodes: Unremarkable. No enlarged lymph nodes. Urinary bladder: Unremarkable as visualized. Reproductive: Unremarkable as visualized. Bones/joints: Unremarkable. No acute fracture. Soft tissues: Unremarkable. CT/CT chest [facility] w/*[id number] IMPRESSION: Emphysematous change in the visualized lung apices. Stable spiculated nodule in the right lung apex measuring 11 11 mm. Stable nodule in the right middle lobe measuring 7 mm. Additional small scattered nodules similar in appearance when compared to the prior examination IMPRESSION: Fatty infiltration liver. Cholelithiasis without ductal dilatation
[2023-10-24] MEDS: iohexol 350 mg/mL 500 mL Btl (per mL) IV (17:49)
== END 2023-10-24 17:18 | disposition home or self-care (01) ==
PROVIDERS: PCP Family Medicine; Visit Provider Nurse Practitioner Family
DX: C34.11 Malignant neoplasm of upper lobe, right bronchus or lung (principal); J43.9 Emphysema, unspecified; K80.20 Calculus of gallbladder without cholecystitis without obstruction; R91.8 Other nonspecific abnormal finding of lung field
CPT/HCPCS: 71260; 74177; Q9967

== ENCOUNTER 2023-12-06 21:16 | Emergency (ER) | payer MEDICAID, SELFPAY ==
[2023-02-08 16:29] VITALS: BP 120/54; BMI 37.8
--- NOTE | 2023-12-06 21:29 | ECG_ITS ---
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 Measurements Intervals [place] Rate: 94 P: 59 NH: 138 QRS: 57 QRSD: 81 T: 67 QT: 352 QTc: 441 Interpretive Statements SINUS RHYTHM Compared to ECG 01/22/2023 00:34:47 First degree AV block no longer present Electronically Signed On 12-07-2023 11:55:43 CDT by Sebastian Martinez M.D. [email or web address] Networkbarney children's medical centerPlaid inc/store/NU/[id number] f
[2023-12-06 21:37] VITALS: BP 112/56; PULSE 100; RESP 18; TEMP 36.4; O2SAT 97
--- NOTE | 2023-12-06 22:22 | XRR_ITS ---
PROCEDURE INFORMATION: Exam: XR Chest Exam date and time: 12/06/2023 10:54 PM Age: 48 years old Clinical indication: Pain; Chest pressure; Additional info: Chest pain TECHNIQUE: Imaging protocol: Radiologic exam of the chest. Views: 1 view. COMPARISON: CT chest abdpel w/*[id number] 10/24/2023 5:31 PM FINDINGS: Tubes, catheters and devices: Left-sided chest port overlies the brachiocephalic vein with its tip terminating near the mid SVC. Cervical fusion hardware. Lungs: The lungs are adequately expanded. No focal consolidations or pulmonary edema. Pleural spaces: No pleural effusions or pneumothorax. Heart/Mediastinum: No cardiomegaly. Bones/joints: No acute fractures. XR/XR chest 1V portable [id number] IMPRESSION: No acute pulmonary disease.
--- NOTE | 2023-12-06 22:37 | ED_ITS ---
HPI - Chest Pain 2 General: Chief Complaint: Chest Pain Stated Complaint: chest back pain SOB hands tingling Time Seen by Provider: 12/06/23 22:24 History of Present Illness: Patient presents to the ER with complaints of chest pressure, feels like an elephant is sitting on her chest, this started about 3 hours ago. She says as pressure radiates into her back. This happened while she was watching TV. Patient says she is short of breath and nauseous. She tried using her rescue inhaler but it did not help any. 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 No current treatment patient is currently watching it. Patient is never had any history of heart disease per her. Patient's oxygen saturation on room air is 97%. Review of Systems 2 General: Reports: 10 or more systems reviewed and unremarkable except in HPI and below PFSH ED 2 PFSH: Medical History Generalized anxiety disorder with panic attacks Cigarette nicotine dependence Psychiatric care COPD (chronic obstructive pulmonary disease) Fibromyalgia Surgical History S/P bronchoscopy H/O spinal fusion H/O tubal ligation Family History Father Parkinsonism Cancer Skin cancer and stomach cancer Brother Parkinsonism Mother Hyperlipidemia CAD (coronary artery disease) Psychiatric illness Other Diabetes Hypertension Major depressive disorder, recurrent severe without psychotic features Denies family history of Clotting disorder Dementia Chronic kidney disease (CKD) Suicide Anesthesia complication Bleeding disorder Lung disease Stroke Social History Smoking and tobacco/nicotine status: current every day tobacco/nicotine user (1/2 pack a day) cigarettes Packs smoked per day: 0.5 Years cigarettes smoked: 34 Quit status (tobacco/nicotine): has tried quititng Second hand smoke exposure: Yes Alcohol intake: never Substance/Drug Use: never Adopted: No Caregiver/support person: No Lives independently: Yes Household members: none Housing: Apartment Marital status: Marital status details: 14 years ago Number of children: 5 Number of grandchildren: 12 Highest education level completed: 10th Grade service: No Current occupational status: disabled Current occupational exposures/hazards: No Pets and animals: Yes (3 dogs) Pets & animals: dog(s) and bird(s) Pets & animal details: [facility] Leisure activites: other Leisure activities details: playing with dogs, watch tv, walks around appartment Sexually active: No Do you think of yourself as: Straight/Heterosexual Current gender identity: Female Marisabel/Yazdanism: None Special marisabel needs: No Agree to transfusion: No Physical Exam 2 Const: COMMON NORMALS: no acute distress, average body habitus, patient oriented x3, no limitations, healthy appearing, alert and well nourished HENMT: COMMON NORMALS: normocephalic, atraumatic, hearing grossly normal bilaterally, external ears normal, Normal external nose present and moist oral mucous membranes HEAD & SCALP: normocephalic and atraumatic NOSE: Normal external nose present EXTERNAL EAR: Yes external ears normal Neck/C-Spine: COMMON NORMALS: no JVD Chest: COMMONS NORMALS: normal inspection of the chest and normal palpation of entire chest wall Resp: COMMON NORMALS: normal respiratory effort, No retractions, No use of accessory muscles and clear to auscultation bilaterally AUSCULTATION: clear to auscultation bilaterally Cardio: COMMON NORMALS: no JVD, regular rate, regular rhythm, S1 normal heart sound present, S2 normal heart sound present, No gallops present (Cardio), No clicks present (Cardio), No murmurs present (Cardio) and No rub (Cardio) R ATE: regular rate RHYTHM: regular rhythm HEART SOUNDS: S1 normal heart sound present and S2 normal heart sound present GI: COMMON NORMALS: Normal to inspection, nondistended, normoactive bowel sounds present, Soft to palpation, non-tender, No hepatosplenomegaly present and no masses PALPATION: Yes Soft to palpation and Yes No hepatosplenomegaly present Neuro: COMMON NORMALS: patient oriented x3 SENSORIUM/ORIENTATION: Yes alert Course 2 Vital Signs: Vital signs: Vital Signs Temperature 97.5 F L 12/06/23 21:37 Pulse Rate 99 12/06/23 23:31 Respiratory Rate 18 12/06/23 23:31 Blood Pressure 98/70 12/06/23 23:31 Pulse Oximetry 95 12/06/23 23:31 MDM - Chest Pain Medical Decision Making Lab work was obtained as well as chest x-ray, results were essentially negative for the patient. White count was mildly elevated 15.7 but troponin and insignificant delta, these results was discussed with the patient patient thinks it may be her cancer acting up causing this pressure in her chest. Patient be discharged home. Differential Diagnosis Unlikely acute massive pulmonary embolism, acute respiratory failure, acute myocardial infarction, cardiac arrest or sudden cardiac Medical Records I reviewed the patient's medical records. Lab Data I reviewed the patient's lab results. 12/06/23 22:38 12/06/23 22:38 Radiology Impressions Chest X-Ray 12/06/23 22:22 IMPRESSION: No acute pulmonary disease. Laboratory Results WBC 15.71 10^3/uL (3.29-11.43) H 12/06/23 22:38 RBC 6.33 10^6/uL (3.85-5.65) H 12/06/23 22:38 Hgb 15.40 g/dL (11.27-16.99) 12/06/23 22:38 Hct 48.4 % (36-47) H 12/06/23 22:38 MCV 76.5 fl (85-98) L 12/06/23 22:38 MCH 24.3 pg (27-33) L 12/06/23 22:38 MCHC 31.8 g/dL (30-55) 12/06/23 22:38 RDW 19.4 % (12.1-15.1) H 12/06/23 22:38 Plt Count 357 10^3/cmm (157-399) 12/06/23 22:38 MPV 10.9 fL (7.4-10.4) H 12/06/23 22:38 Neut % (Auto) 80.2 % 12/06/23 22:38 Lymph % (Auto) 11.7 % 12/06/23 22:38 [place] % (Auto) 6.2 % 12/06/23 22:38 Eos % (Auto) 1.0 % 12/06/23 22:38 Baso % (Auto) 0.4 % 12/06/23 22:38 Neut # (Auto) 12.60 10^3/uL (1.8-7.7) H 12/06/23 22:38 Lymph # (Auto) 1.8 10^3/uL (0.8-4.8) 12/06/23 22:38 [place] # (Auto) 1.0 10^3/uL (0.2-0.9) H 12/06/23 22:38 Eos # (Auto) 0.2 10^3/uL (0.0-0.8) 12/06/23 22:38 Baso # (Auto) 0.1 10^3/uL (0.0-0.1) 12/06/23 22:38 Nucleated RBC % (auto) 0 % 12/06/23 22:38 Nucleated RBCs # 0.0 /100WBC 12/06/23 22:38 Sodium 137 mmol/L (136-145) 12/06/23 22:38 Potassium 4.2 mmol/L (3.5-5.1) 12/06/23 22:38 Chloride 101 mmol/L (98-107) 12/06/23 22:38 Carbon Dioxide 21 mmol/L (22-29) L 12/06/23 22:38 Anion Gap 19.2 (5-19) H 12/06/23 22:38 BUN 12 mg/dL (6-20) 12/06/23 22:38 Creatinine 0.8 mg/dL (0.5-0.9) 12/06/23 22:38 GFR Calculation 75.9 mL/min (90-130) L 12/06/23 22:38 Glucose 99 mg/dL (65-115) 12/06/23 22:38 Calculated Osmolality 284 mOsm/kg (285-295) L 12/06/23 22:38 Calcium 9.6 mg/dL (8.5-10.5) 12/06/23 22:38 Magnesium 1.8 mg/dL (1.7-2.3) 12/06/23 22:38 Total Bilirubin 0.2 mg/dL (0.15-1.2) 12/06/23 22:38 AST 15 U/L (0-32) 12/06/23 22:38 ALT 16 U/L (0-33) 12/06/23 22:38 Alkaline Phosphatase 173 U/L (35-105) H 12/06/23 22:38 Troponin T Baseline 11 ng/L (0-10) H 12/06/23 22:38 Troponin T 120 Minute 10.27 ng/L (0-10) H 12/07/23 00:38 Delta Troponin T -0.73 ABS# (0-10) L 12/07/23 00:38 Total Protein 6.9 g/dL (6.6-8.7) 12/06/23 22:38 Albumin 4.3 g/dL (3.5-5.2) 12/06/23 22:38 Globulin 2.6 g/dL (1.3-4.6) 12/06/23 22:38 All radiology interpretation(s) finalized by discharge Discharge Plan Discharge Patient Disposition: Home Clinical Impression: Atypical chest pain COPD (chronic obstructive pulmonary disease) Qualifiers: COPD type: chronic bronchitis Chronic bronchitis type: simple Qualified Code(s): J41.0 - Simple chronic bronchitis Condition: Stable Prescriptions: No Action potassium chloride 20 mEq tablet extended release 20 meq PO QID Qty: 120 2RF furosemide 80 mg tablet 40 mg PO BID Qty: 60 2RF loratadine [Claritin] 10 mg tablet 10 mg PO DAILY PRN (Reason: allergy symptoms) Qty: 30 0RF albuterol sulfate [Ventolin HFA] 90 mcg/actuation HFA aerosol inhaler 2 inh inhalation QID PRN (Reason: shortness of breath or wheezing) Qty: 8.5 5RF Trelegy Ellipta 100-62.5-25 mcg blister with device 1 inh inhalation DAILY Qty: 60 3RF Rx Instructions: 340 B azithromycin 250 mg tablet See Rx Instructions PO .COMPLEX Qty: 6 0RF Rx Instructions: one each day for 6 days guaifenesin 1,200 mg tablet extended release 12hr 1,200 mg PO BID Qty: 20 1RF magnesium oxide 400 mg (241.3 mg magnesium) tablet 400 mg PO DAILY oxycodone 20 mg tablet 10 mg PO Q3H PRN (Reason: Pain) 30 Days Qty: 120 0RF sumatriptan succinate 50 mg tablet See Rx Instructions .ROUTE .COMPLEX Qty: 10 1RF Dose Instruction: take ONE tablet AT ONSET of HEADACHE; IF no RELIEF, MAY REPEAT ONE tablet AFTER AT least TWO hours; max=4 tablets in 24 hours Rx Instructions: take ONE tablet AT ONSET of HEADACHE; IF no RELIEF, MAY REPEAT ONE tablet AFTER AT least TWO hours; max=4 tablets in 24 hours ipratropium-albuterol 0.5 mg-3 mg(2.5 mg base)/3 mL solution for nebulization 3 ml inhalation Q4H PRN (Reason: wheezing) Qty: 180 1RF topiramate 100 mg tablet 100 mg .ROUTE TID Qty: 90 3RF Rx Instructions: 100 mg three times daily; fluticasone propionate 50 mcg/actuation spray,suspension 1 spray intranasal DAILY PRN (Reason: Allergy Symptoms) Qty: 16 3RF Rx Instructions: administer into each nostril alprazolam [Xanax] 1 mg tablet 1 mg PO TID PRN (Reason: anxiety) Qty: 90 4RF Rx Instructions: May take one tablet three times per day as needed for anxiety pregabalin 200 mg capsule 200 mg PO BID Qty: 60 5RF ondansetron HCl 4 mg tablet 4 mg PO Q8H Qty: 30 1RF levetiracetam 500 mg tablet See Rx Instructions .ROUTE .COMPLEX Qty: 180 1RF Dose Instruction: TAKE ONE TABLET BY MOUTH TWICE DAILY Rx Instructions: TAKE ONE TABLET BY MOUTH TWICE DAILY melatonin 3 mg capsule 3 mg PO QPM PRN (Reason: sleep) Prevacid 30 mg capsule,delayed release(DR/EC) 30 mg PO DAILY Qty: 30 0RF Discharge Orders: Discharge ED (Routine); Ordered 12/07/23 Ordered By: Mynor Arrington Referrals: Arin Garner MD [Primary Care Provider] - 1 week Patient Instructions: Chest Pain (ED), COPD (Chronic Obstructive Pulmonary Disease) (ED) Activity Restrictions/Additional Instructions: Thank you for choosing [facility] for your healthcare needs today. Please realize that you were seen in the emergency department and that we are providing you with an emergency medical screening exam and this may not be a complete and all exclusive of all testing and/or medical workup we may need to determine your element or severity of your illness. It is very important that you follow-up as instructed with your primary care provider or specialist for the additional evaluation and to discuss your medical treatment plan. You may return to the emergency department should you have concerns or if your condition changes or worsens in any way. Coding Level of Care Code ED Heat Treatment Technician for James Bruno
[2023-12-06] MEDS: ondansetron 2 mg/ML SDV 2 mL 4 MG IVP (22:44)
[2023-12-06] MEDS: aspirin 81 mg Chew Tablet 324 MG PO (22:45)
[2023-12-06 22:47] LABS: Basophils # 0.1 10^3/uL (0.0-0.1); Basophils % 0.4 %; Eosinophils # 0.2 10^3/uL (0.0-0.8); Hematocrit 48.4 % (36-47); Lymphocytes # 1.8 10^3/uL (0.8-4.8); Lymphocytes % 11.7 %; Mean Corpuscular HGB Conc 31.8 g/dL (30-55); Mean Corpuscular Hemoglobin 24.3 pg (27-33); Mean Corpuscular Volume 76.5 fl (85-98); Mean Platelet Volume 10.9 fL (7.4-10.4); Monocytes % 6.2 %; Neutrophils % 80.2 %; Nucleated Red Blood Cells % 0 %; Platelet Count 357 10^3/cmm (157-399); Red Blood Count 6.33 10^6/uL (3.85-5.65); Red Cell Distribution Width 19.4 % (12.1-15.1); White Blood Count 15.71 10^3/uL (3.29-11.43)
[2023-12-06 23:09] LABS: Troponin(5th) Baseline 11 ng/L (0-10)
[2023-12-06 23:16] LABS: Alanine Aminotransferase 16 U/L (0-33); Albumin Level 4.3 g/dL (3.5-5.2); Alkaline Phosphatase 173 U/L (35-105); Anion Gap 19.2 (5-19); Aspartate Amino Transferase 15 U/L (0-32); Blood Urea Nitrogen 12 mg/dL (6-20); Calcium 9.6 mg/dL (8.5-10.5); Carbon Dioxide 21 mmol/L (22-29); Chloride 101 mmol/L (98-107); Creatinine Clr Calc Pharmacy 80.2676; Globulin 2.6 g/dL (1.3-4.6); Glomerular Filtration Rate 75.9 mL/min (90-130); Glucose 99 mg/dL (65-115); Magnesium 1.8 mg/dL (1.7-2.3); Osmolality Calculated 284 mOsm/kg (285-295); Potassium 4.2 mmol/L (3.5-5.1); Sodium 137 mmol/L (136-145); Total Bilirubin 0.2 mg/dL (0.15-1.2); Total Protein 6.9 g/dL (6.6-8.7)
[2023-12-06 23:31] VITALS: BP 98/70; PULSE 99; RESP 18; O2SAT 95
--- NOTE | 2023-12-07 00:28 | ECG_ITS ---
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 Measurements Intervals [place] Rate: 90 P: 54 MA: 146 QRS: 58 QRSD: 84 T: 69 QT: 366 QTc: 448 Interpretive Statements SINUS RHYTHM Compared to ECG 12/06/2023 21:29:02 No significant changes Electronically Signed On 12-07-2023 11:57:49 CDT by Sebastian Martinez M.D. [id number]
[2023-12-07 01:02] LABS: Troponin 5 2HR 10.27 ng/L (0-10)
[2023-12-07 01:03] LABS: Troponin 5 2HR Delta -0.73 ABS# (0-10)
[2023-12-07 01:12] VITALS: BP 105/78; PULSE 95; RESP 20; O2SAT 94
[2023-12-07 02:03] VITALS: BP 105/78; PULSE 89; RESP 14
== END 2023-12-07 01:32 | disposition home or self-care (01) ==
PROVIDERS: Emergency Provider Emergency Medicine; PCP Family Medicine
DX: R07.89 Other chest pain (principal); J41.0 Simple chronic bronchitis; F17.210 Nicotine dependence, cigarettes, uncomplicated
CPT/HCPCS: 71045; 80053; 83735; 84484; 85025; 93005; 96374; 96375; 99285; J1642; J2405

== ENCOUNTER 2024-02-26 11:09 | Oncology outpatient (recurring) (ONCR) | payer MEDICAID, SELFPAY ==
[2023-02-08 16:29] VITALS: BP 120/54; BMI 37.8
[2024-02-26 12:24] LABS: Basophils # 0.1 10^3/uL (0.0-0.1); Basophils % 0.4 %; Eosinophils # 0.1 10^3/uL (0.0-0.8); Eosinophils % 0.6 %; Hematocrit 45.5 % (36-47); Lymphocytes % 15.9 %; Mean Corpuscular HGB Conc 32.1 g/dL (30-55); Mean Corpuscular Hemoglobin 24.7 pg (27-33); Mean Corpuscular Volume 77.1 fl (85-98); Mean Platelet Volume 10.9 fL (7.4-10.4); Monocytes # 0.7 10^3/uL (0.2-0.9); Monocytes % 5.4 %; Neutrophils # 9.63 10^3/uL (1.8-7.7); Neutrophils % 77.4 %; Nucleated Red Blood Cells % 0 %; Platelet Count 324 10^3/cmm (157-399); Red Cell Distribution Width 17.7 % (12.1-15.1); White Blood Count 12.44 10^3/uL (3.29-11.43)
[2024-02-26 12:48] LABS: Alanine Aminotransferase 16 U/L (0-33); Alkaline Phosphatase 182 U/L (35-105); Aspartate Amino Transferase 11 U/L (0-32); Blood Urea Nitrogen 11 mg/dL (6-20); Calcium 8.9 mg/dL (8.5-10.5); Carbon Dioxide 24 mmol/L (22-29); Chloride 107 mmol/L (98-107); Globulin 2.8 g/dL (1.3-4.6); Glomerular Filtration Rate 105.4 mL/min (90-130); Glucose 83 mg/dL (65-115); Osmolality Calculated 291 mOsm/kg (285-295); Sodium 141 mmol/L (136-145); Total Bilirubin 0.4 mg/dL (0.15-1.2); Total Protein 6.8 g/dL (6.6-8.7)
== END 2024-02-28 23:59 | disposition home or self-care (01) ==
LOC: ONCMED 11:10
PROVIDERS: Internal Medicine Medical Oncology; PCP Family Medicine; Visit Provider Nurse Practitioner Family
DX: C34.90 Malignant neoplasm of unspecified part of unspecified bronchus or lung (principal); C34.91 Malignant neoplasm of unspecified part of right bronchus or lung; R91.1 Solitary pulmonary nodule
CPT/HCPCS: 36591; 80053; 85025

== ENCOUNTER 2024-03-14 09:31 | Oncology outpatient (recurring) (ONCR) | payer MEDICAID, SELFPAY ==
[2023-02-08 16:29] VITALS: BP 120/54; BMI 37.8
--- NOTE | 2024-03-14 09:30 | PETR_ITS ---
PROCEDURE INFORMATION: Exam: PET/CT Skull Base to Mid-thigh Exam date and time: 03/14/2024 10:52 AM Age: 49 years old Clinical indication: Followup of metastatic lung cancer with primary tumor in the right upper lobe and brain metastases. LABS AND CLINICAL REPORTS: Glucose: 83 mg/dl Treatment strategy for malignancy (PET staging): Restaging (PS) TECHNIQUE: Imaging protocol: Following at least four-hour fasting and following the injection of radiopharmaceutical, low dose CT images were obtained. Then, PET images were obtained. Attenuation corrected images were constructed using the CT scan. Fused images of PET and CT were reviewed. The standardized uptake values (SUV) reported below are maximum values within a region of interest, expressed in gm/ml. Exam includes orbital meatal line to mid-thigh. Radiopharmaceutical: 11.78 mCi F-18 FDG (Fluorodeoxyglucose), IV. Time of imaging post radiopharmaceutical administration: 1 hour Injection site: LEFT AC COMPARISON: PT PET Scan 05/14/2021, CT chest abdomen pelvis 10/24/2023, CT chest 04/10/2023, CTA chest 09/02/2021 FINDINGS: Tubes, catheters and devices: Port catheter placed via the left subclavian vein terminates in the superior vena cava. Brain: Status post left occipital craniotomy. Hypometabolic left occipital fluid density area representing resection cavity or encephalomalacia again. Pharynx: No abnormal uptake. Larynx: No abnormal uptake. Lungs, pleura and trachea: No abnormal uptake. Sequela of treated primary malignant tumor in the right upper lobe noted as of 1 cm nodule on series 202, image 266 with low-grade uptake of 2.5 SUV stable in size since 10/24/2023. Mildly increased uptake (3.6 SUV) within bilateral dependent ground-glass opacities is suggestive of benign inflammatory finding. 0.8 x 0.4 cm nodule in the left lower lobe on series 202, image 230 not more FDG avid than the background adjacent ground-glass opacity is stable in size since 10/24/2023, minimally more conspicuous in comparison with 04/10/2023, not present in 2021. No pleural effusion. Heart: Unremarkable. There is no cardiomegaly. There is no pericardial effusion. Mediastinal space: No abnormal uptake. There is a small hiatal hernia. Liver: No abnormal uptake. Maximum uptake is 3.3 SUV. Gallbladder and biliary ducts: No abnormal uptake. There are stable gallstones measuring up to 11 mm. Pancreas: No abnormal uptake. Spleen: No abnormal uptake. No splenomegaly. Adrenal glands: No abnormal uptake. No nodules. Kidneys and ureters: Normal physiologic uptake. No hydronephrosis. Stomach and bowel: No abnormal uptake. Vasculature: No abnormal uptake. No aortic aneurysm. Lymph nodes: No FDG avid lymphadenopathy in the neck, chest, abdomen, pelvis, and extremities. Skeleton: No abnormal uptake in the visualized axial and appendicular skeleton. C5-C7 fusion with anterior internal fixation plate. Soft tissues: No abnormal uptake in the visualized head, neck, chest, abdomen, pelvis, and extremities. PET/PET skull to thigh SUBS [id number] IMPRESSION: Complete metabolic response to treatment with no evidence of FDG avid local recurrence or extracranial metastatic disease. Slightly increased uptake in dependent ground-glass opacities in the lower lobes suggestive of benign inflammatory finding. Postsurgical changes in the left occipital lobe of the brain.
== END 2024-03-29 23:59 | disposition home or self-care (01) ==
LOC: RAD 09:31 → ONCMED 03-17 11:11
PROVIDERS: PCP Family Medicine; Visit Provider Nurse Practitioner Family
DX: Z53.9 Procedure and treatment not carried out, unspecified reason (principal); C34.11 Malignant neoplasm of upper lobe, right bronchus or lung; R91.8 Other nonspecific abnormal finding of lung field; Z98.890 Other specified postprocedural states
CPT/HCPCS: 78815; 99214; A9552

== ENCOUNTER 2024-04-08 11:53 | Oncology outpatient (recurring) (ONCR) | payer MEDICAID, SELFPAY ==
[2023-02-08 16:29] VITALS: BP 120/54; BMI 37.8
[2024-04-08 12:13] LABS: Basophils # 0.1 10^3/uL (0.0-0.1); Basophils % 0.4 %; Eosinophils # 0.2 10^3/uL (0.0-0.8); Eosinophils % 1.3 %; Hematocrit 46.6 % (36-47); Lymphocytes # 2.1 10^3/uL (0.8-4.8); Lymphocytes % 17.3 %; Mean Corpuscular HGB Conc 32.4 g/dL (30-55); Mean Corpuscular Hemoglobin 25.4 pg (27-33); Mean Corpuscular Volume 78.3 fl (85-98); Mean Platelet Volume 10.9 fL (7.4-10.4); Monocytes # 0.7 10^3/uL (0.2-0.9); Monocytes % 5.7 %; Neutrophils # 9.16 10^3/uL (1.8-7.7); Neutrophils % 74.9 %; Nucleated Red Blood Cells % 0 %; Platelet Count 271 10^3/cmm (157-399); Red Blood Count 5.95 10^6/uL (3.85-5.65); Red Cell Distribution Width 18.1 % (12.1-15.1); White Blood Count 12.24 10^3/uL (3.29-11.43)
[2024-04-08 12:47] LABS: Alanine Aminotransferase 14 U/L (0-33); Albumin Level 3.9 g/dL (3.5-5.2); Alkaline Phosphatase 180 U/L (35-105); Anion Gap 15.1 (5-19); Aspartate Amino Transferase 16 U/L (0-32); Blood Urea Nitrogen 5 mg/dL (6-20); Calcium 9.5 mg/dL (8.5-10.5); Carbon Dioxide 23 mmol/L (22-29); Chloride 105 mmol/L (98-107); Creatinine Clr Calc Pharmacy 115.1281; Glomerular Filtration Rate 105.4 mL/min (90-130); Glucose 142 mg/dL (65-115); Lactate Dehydrogenase 172 U/L (135-214); Osmolality Calculated 288 mOsm/kg (285-295); Potassium 4.1 mmol/L (3.5-5.1); Sodium 139 mmol/L (136-145); Thyroid Stimulating Hormone 3.36 uIU/mL (0.27-4.20); Total Bilirubin 0.3 mg/dL (0.15-1.2); Total Protein 6.9 g/dL (6.6-8.7)
== END 2024-04-29 23:59 | disposition home or self-care (01) ==
PROVIDERS: Internal Medicine Hematology & Oncology; PCP Family Medicine; Visit Provider Internal Medicine Medical Oncology
DX: Z08 Encounter for follow-up examination after completed treatment for malignant neoplasm; Z85.118 Personal history of other malignant neoplasm of bronchus and lung; Z85.841 Personal history of malignant neoplasm of brain; Z92.3 Personal history of irradiation; Z98.890 Other specified postprocedural states
CPT/HCPCS: 36591; 80053; 83615; 84443; 85025; 99214

== ENCOUNTER 2024-06-23 09:14 | Oncology outpatient (recurring) (ONCR) | payer MEDICAID, SELFPAY ==
[2023-02-08 16:29] VITALS: BP 120/54; BMI 37.8
[2024-06-23 11:02] LABS: Basophils # 0.1 10^3/uL (0.0-0.1); Basophils % 0.5 %; Eosinophils # 0.2 10^3/uL (0.0-0.8); Eosinophils % 1.3 %; Hematocrit 45.8 % (36-47); Lymphocytes # 2.4 10^3/uL (0.8-4.8); Mean Corpuscular HGB Conc 32.5 g/dL (30-55); Mean Corpuscular Hemoglobin 26.2 pg (27-33); Mean Corpuscular Volume 80.6 fl (85-98); Mean Platelet Volume 11.3 fL (7.4-10.4); Monocytes # 0.8 10^3/uL (0.2-0.9); Neutrophils # 8.41 10^3/uL (1.8-7.7); Neutrophils % 70.9 %; Nucleated Red Blood Cells % 0 %; Platelet Count 253 10^3/cmm (157-399); Red Blood Count 5.68 10^6/uL (3.85-5.65); Red Cell Distribution Width 16.9 % (12.1-15.1); White Blood Count 11.87 10^3/uL (3.29-11.43)
[2024-06-23 11:37] LABS: Alanine Aminotransferase 15 U/L (0-33); Alkaline Phosphatase 173 U/L (35-105); Anion Gap 14.1 (5-19); Aspartate Amino Transferase 13 U/L (0-32); Blood Urea Nitrogen 10 mg/dL (6-20); Calcium 9.3 mg/dL (8.5-10.5); Carbon Dioxide 23 mmol/L (22-29); Chloride 106 mmol/L (98-107); Creatinine Clr Calc Pharmacy 114.4129; Globulin 2.7 g/dL (1.3-4.6); Glomerular Filtration Rate 105.4 mL/min (90-130); Glucose 82 mg/dL (65-115); Osmolality Calculated 286 mOsm/kg (285-295); Potassium 4.1 mmol/L (3.5-5.1); Sodium 139 mmol/L (136-145); Thyroid Stimulating Hormone 4.78 uIU/mL (0.27-4.20); Total Bilirubin 0.4 mg/dL (0.15-1.2); Total Protein 6.7 g/dL (6.6-8.7)
== END 2024-06-27 23:59 | disposition home or self-care (01) ==
PROVIDERS: Nurse Practitioner; PCP Family Medicine; Visit Provider Internal Medicine Medical Oncology
DX: Z08 Encounter for follow-up examination after completed treatment for malignant neoplasm (principal); Z85.118 Personal history of other malignant neoplasm of bronchus and lung; Z85.841 Personal history of malignant neoplasm of brain; R53.83 Other fatigue; Z72.0 Tobacco use; Z92.3 Personal history of irradiation; Z98.890 Other specified postprocedural states; L53.9 Erythematous condition, unspecified; W57.XXXA Bitten or stung by nonvenomous insect and other nonvenomous arthropods, initial encounter
CPT/HCPCS: 36591; 80053; 84443; 85025; 99214

== ENCOUNTER 2024-07-08 13:00 | Oncology outpatient (recurring) (ONCR) | payer MEDICAID, SELFPAY ==
[2023-02-08 16:29] VITALS: BP 120/54; BMI 37.8
--- NOTE | 2024-07-04 14:42 | PETR_ITS ---
PROCEDURE INFORMATION: Exam: PET/CT Skull Base to Mid-thigh Exam date and time: 07/04/2024 12:10 PM Age: 49 years old Clinical indication: Restaging of metastatic lung cancer with primary tumor in the right upper lobe and brain metastases. LABS AND CLINICAL REPORTS: Glucose: 83 mg/dl Treatment strategy for malignancy (PET staging): Restaging (PS) TECHNIQUE: Imaging protocol: Following at least four-hour fasting and following the injection of radiopharmaceutical, low dose CT images were obtained. Then, PET images were obtained. Attenuation corrected images were constructed using the CT scan. Fused images of PET and CT were reviewed. The standardized uptake values (SUV) reported below are maximum values within a region of interest, expressed in gm/ml. Exam includes orbital meatal line to mid-thigh. SUV normalization method: BodyWeight Radiopharmaceutical: 10.83 mCi F-18 FDG (Fluorodeoxyglucose), IV. Time of imaging post radiopharmaceutical administration: 55 minutes Injection site: RIGHT AC COMPARISON: PT PET skull to thigh SUBS [id number] 03/14/2024 FINDINGS: Tubes, catheters and devices: Port catheter placed via the left subclavian vein terminates in the superior vena cava Brain: Normal physiologic uptake. Pharynx: No abnormal uptake. Larynx: No abnormal uptake. Lungs, pleura and trachea: Stable treated primary lung cancer noted as 1 cm nodule posteriorly in the right upper lobe on series 202, image 67 with low-grade uptake of 2 SUV, previously 2.5 SUV. Stable mildly increased uptake of 3.7 SUV (previously 3.6 SUV) within bilateral dependent ground-glass opacities is suggestive of benign inflammatory finding. There are stable small non FDG avid nodules (0.7 cm left lower lobe nodule on series 202, image 103, 0.5 cm nodule in the left upper lobe on image 73, 0.4 cm nodule in the right upper lobe on image 88). There are no new lung nodules. No pleural effusion. Heart: No abnormal uptake.There is no cardiomegaly. There is no pericardial effusion. Mediastinal space: No abnormal uptake. Small hiatal hernia. Liver: No abnormal uptake. Maximum uptake is 3.7 SUV. Gallbladder and biliary ducts: No abnormal uptake. Stable calcified gallstones measuring up to 1 cm. Pancreas: No abnormal uptake. Spleen: No abnormal uptake. No splenomegaly. Adrenal glands: No abnormal uptake. No nodules. Kidneys and ureters: Normal physiologic uptake. No hydronephrosis. Stomach and bowel: There are 2 small discrete foci of intense uptake in the sigmoid colon (9.6 SUV and 11.6 SUV on axial image 229 and 221). Elongated segment measuring up to 9.4 SUV was present in the sigmoid colon on the prior exam Vasculature: No abnormal uptake. No aortic aneurysm. Lymph nodes: No FDG avid lymphadenopathy in the neck, chest, abdomen, pelvis, and extremities. Skeleton: No abnormal uptake in the visualized axial and appendicular skeleton. Stable C5-C7 fusion with anterior internal fixation. Soft tissues: No abnormal uptake in the visualized head, neck, chest, abdomen, pelvis, and extremities. PET/PET skull to thigh SUBS [id number] IMPRESSION: Stable exam with complete metabolic response in the primary lung tumor in the right upper lobe, with no evidence of local recurrence and no evidence of FDG avid extracranial metastatic disease. Persistent mildly FDG avid dependent ground-glass opacities in the lower lobes suggestive of chronic benign inflammatory finding.
[2024-07-08 13:04] LABS: Basophils # 0.1 10^3/uL (0.0-0.1); Basophils % 0.5 %; Eosinophils # 0.1 10^3/uL (0.0-0.8); Eosinophils % 1.1 %; Hematocrit 46.1 % (36-47); Lymphocytes # 2.3 10^3/uL (0.8-4.8); Lymphocytes % 19.6 %; Mean Corpuscular HGB Conc 31.7 g/dL (30-55); Mean Corpuscular Hemoglobin 25.3 pg (27-33); Mean Platelet Volume 10.9 fL (7.4-10.4); Monocytes # 0.8 10^3/uL (0.2-0.9); Monocytes % 6.8 %; Neutrophils % 71.5 %; Nucleated Red Blood Cells % 0 %; Platelet Count 274 10^3/cmm (157-399); Red Blood Count 5.76 10^6/uL (3.85-5.65); Red Cell Distribution Width 17.2 % (12.1-15.1); White Blood Count 11.89 10^3/uL (3.29-11.43)
[2024-07-08 13:22] LABS: Alanine Aminotransferase 12 U/L (0-33); Alkaline Phosphatase 179 U/L (35-105); Anion Gap 16.2 (5-19); Aspartate Amino Transferase 11 U/L (0-32); Blood Urea Nitrogen 9 mg/dL (6-20); Carbon Dioxide 23 mmol/L (22-29); Chloride 106 mmol/L (98-107); Creatinine Clr Calc Pharmacy 115.1281; Glomerular Filtration Rate 105.4 mL/min (90-130); Glucose 75 mg/dL (65-115); Osmolality Calculated 289 mOsm/kg (285-295); Potassium 4.2 mmol/L (3.5-5.1); Sodium 141 mmol/L (136-145); Total Bilirubin 0.2 mg/dL (0.15-1.2)
== END 2024-07-28 23:59 | disposition home or self-care (01) ==
PROVIDERS: Nurse Practitioner; PCP Family Medicine; Visit Provider Internal Medicine Medical Oncology
DX: Z08 Encounter for follow-up examination after completed treatment for malignant neoplasm; Z85.118 Personal history of other malignant neoplasm of bronchus and lung; Z85.841 Personal history of malignant neoplasm of brain; R91.1 Solitary pulmonary nodule; Z72.0 Tobacco use; Z92.3 Personal history of irradiation; Z98.890 Other specified postprocedural states; Z53.9 Procedure and treatment not carried out, unspecified reason
CPT/HCPCS: 36591; 78815; 80053; 85025; 99214; A9552

== ENCOUNTER 2024-09-01 08:48 | Oncology outpatient (recurring) (ONCR) | payer MEDICAID, SELFPAY ==
[2023-02-08 16:29] VITALS: BP 120/54; BMI 37.8
[2024-09-01 09:14] LABS: Basophils # 0.1 10^3/uL (0.0-0.1); Basophils % 0.3 %; Eosinophils # 0.2 10^3/uL (0.0-0.8); Eosinophils % 1.2 %; Lymphocytes # 3.6 10^3/uL (0.8-4.8); Lymphocytes % 21.3 %; Mean Corpuscular Hemoglobin 26.5 pg (27-33); Mean Corpuscular Volume 80.5 fl (85-98); Mean Platelet Volume 10.2 fL (7.4-10.4); Neutrophils # 11.85 10^3/uL (1.8-7.7); Neutrophils % 70.1 %; Nucleated Red Blood Cells % 0 %; Platelet Count 326 10^3/cmm (157-399); Red Blood Count 5.84 10^6/uL (3.85-5.65); Red Cell Distribution Width 17.7 % (12.1-15.1)
[2024-09-01 09:40] LABS: Alanine Aminotransferase 21 U/L (0-33); Albumin Level 3.7 g/dL (3.5-5.2); Alkaline Phosphatase 150 U/L (35-105); Aspartate Amino Transferase 10 U/L (0-32); Blood Urea Nitrogen 14 mg/dL (6-20); Calcium 8.7 mg/dL (8.5-10.5); Carbon Dioxide 22 mmol/L (22-29); Chloride 100 mmol/L (98-107); Creatinine Clr Calc Pharmacy 114.4129; Globulin 2.5 g/dL (1.3-4.6); Glomerular Filtration Rate 105.4 mL/min (90-130); Glucose 79 mg/dL (65-115); Osmolality Calculated 279 mOsm/kg (285-295); Sodium 135 mmol/L (136-145); Thyroid Stimulating Hormone 5.11 uIU/mL (0.27-4.20); Total Bilirubin 0.2 mg/dL (0.15-1.2); Total Protein 6.2 g/dL (6.6-8.7)
[2024-09-01 09:43] LABS: Anion Gap 17.2 (5-19); Potassium 4.2 mmol/L (3.5-5.1)
== END 2024-09-27 23:59 | disposition home or self-care (01) ==
PROVIDERS: PCP Family Medicine; Visit Provider Internal Medicine Medical Oncology
DX: C79.31 Secondary malignant neoplasm of brain (principal); Z85.118 Personal history of other malignant neoplasm of bronchus and lung; Z72.0 Tobacco use; Z71.6 Tobacco abuse counseling; M54.2 Cervicalgia; Z92.3 Personal history of irradiation; Z98.890 Other specified postprocedural states; R22.1 Localized swelling, mass and lump, neck
CPT/HCPCS: 36591; 80053; 84443; 85025; 99214

== ENCOUNTER 2024-09-04 13:48 | Emergency (ER) | payer MEDICAID, SELFPAY ==
[2023-02-08 16:29] VITALS: BP 120/54; BMI 37.8
[2024-09-04 13:52] VITALS: BP 106/63; PULSE 96; RESP 17; TEMP 36.4; O2SAT 94; BMI 26.4
--- NOTE | 2024-09-04 16:23 | MRR_ITS ---
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 06/14/23 craniotomy resection left occipital lobe lesion. ; Additional info: Eval brain mets, diplopia, head/neck swelling reported TECHNIQUE: Imaging protocol: Magnetic resonance imaging of the head without and with contrast. Contrast material: MULTIHANCE; Contrast volume: 15 ml; Contrast route: INTRAVENOUS (IV); COMPARISON: MR head wo/w con [id number] 06/26/2024 2:38 PM FINDINGS: Brain: Cystic postoperative encephalomalacia at the left temporal occipital junction. There is slight interval diminution in size of a previously described left posterior temporal enhancing lesion, now measuring 7.7 mm, compared to 9.0 mm on 06/26/2024, when measured in the same fashion. A 3.3 mm enhancing lesion in the left posterior insula is decreased in size compared to 4.9 mm on 06/26/2024. Enhancing right parietal lobe lesion measures 6 mm on current study, compared to 4 mm on 06/26/2024. A right paramedian posterior frontal lobe lesion is currently measuring 2 mm, decreased from 4 mm since 06/26/2024. No new enhancing lesions are seen. No midline shift. No overt intracranial hemorrhage. There is no acute ischemia. The midbrain and ty are normal. Cerebral ventricles: The ventricles are normal in size and configuration. Bones: Previous left occipital craniotomy. Paranasal sinuses: The visualized sinuses are unremarkable. Mastoid air cells: There is no mastoid effusion detected. Orbital cavities: Unremarkable. Soft tissues: Unremarkable. MR/MR head wo/w con [id number] IMPRESSION: 1. Slight interval increase in right parietal lobe enhancing lesion, measuring 6 mm, compared to 4 mm on 06/26/2024. 2. Interval decrease in size enhancing lesions in the left posterior temporal lobe, left posterior insula, and right paramedian posterior frontal lobe. 3. No new enhancing lesions acute ischemia or overt hemorrhage.
--- NOTE | 2024-09-04 16:23 | MRR_ITS ---
PROCEDURE INFORMATION: Exam: MR Neck Without and With Contrast Exam date and time: 09/04/2024 5:04 PM Age: 49 years old Clinical indication: Prior chemotherapy - chemotherapy for small cell lung CA, squamous cell lung ca- radiation to chest. 06/14/23 craniotomy resection left occipital lobe lesion. Prior radiation therapy - lung and brain. Condition or disease; Other: [place] swelling in neck area- PT has brain mets; Lung CA with brain mets- felt swelling in throat and neck area; Additional info: Eval brain mets, diplopia, head/neck swelling reported TECHNIQUE: Imaging protocol: Magnetic resonance imaging of the neck without and with contrast. Contrast material: MULTIHANCE; Contrast volume: 15 ml; Contrast route: INTRAVENOUS (IV); COMPARISON: PT PET skull to thigh SUBS [id number] 07/04/2024 12:10 PM FINDINGS: Pharynx: Unremarkable. Larynx: Unremarkable. Salivary glands: Unremarkable. Vasculature: Unremarkable. Lymph nodes: No lymphadenopathy. Bones/joints: Previous open reduction internal fixation at C5-C6 and C6-C7. No acute complication is evident. Soft tissues: Unremarkable. MR/MR orbit face neck wo/w* [id number] IMPRESSION: Unremarkable MR Neck.
[2024-09-04 16:41] LABS: Basophils % 0.2 %; Eosinophils % 0.1 %; Hematocrit 46.7 % (36-47); Lymphocytes # 0.9 10^3/uL (0.8-4.8); Lymphocytes % 6.2 %; Mean Corpuscular HGB Conc 32.5 g/dL (30-55); Mean Corpuscular Hemoglobin 26.8 pg (27-33); Mean Corpuscular Volume 82.4 fl (85-98); Mean Platelet Volume 10.1 fL (7.4-10.4); Monocytes # 0.2 10^3/uL (0.2-0.9); Neutrophils # 13.44 10^3/uL (1.8-7.7); Nucleated Red Blood Cells % 0 %; Platelet Count 282 10^3/cmm (157-399); Red Blood Count 5.67 10^6/uL (3.85-5.65); Red Cell Distribution Width 18.1 % (12.1-15.1)
[2024-09-04 16:54] LABS: Alanine Aminotransferase 15 U/L (0-33); Albumin Level 3.8 g/dL (3.5-5.2); Alkaline Phosphatase 136 U/L (35-105); Anion Gap 19.6 (5-19); Aspartate Amino Transferase 9 U/L (0-32); Blood Urea Nitrogen 12 mg/dL (6-20); Carbon Dioxide 20 mmol/L (22-29); Chloride 105 mmol/L (98-107); Creatinine Clr Calc Pharmacy 137.2955; Glomerular Filtration Rate 130.1 mL/min (90-130); Glucose 128 mg/dL (65-115); Osmolality Calculated 291 mOsm/kg (285-295); Potassium 4.6 mmol/L (3.5-5.1); Sodium 140 mmol/L (136-145); Total Bilirubin 0.2 mg/dL (0.15-1.2); Total Protein 6.8 g/dL (6.6-8.7)
--- NOTE | 2024-09-04 17:12 | ED_ITS ---
HPI - Headache 2 General: Chief Complaint: Headache Stated Complaint: Double vision, swelling in neck, Brain Cancer pt Time Seen by Provider: 09/04/24 15:54 History of Present Illness: 49-year-old female with history of non-s mall cell lung cancer with brain metastases presents with new onset double vision and headache. Patient has extensive history of brain metastases treated with multiple rounds of CyberKnife radiation therapy and surgical intervention. She underwent left temporal craniotomy with resection of left occipital lobe lesion in May 2023. Most recent brain MRI from June 2024 revealed two new tumors. Patient reports onset of blurred double vision yesterday, accompanied by headache. Vision symptoms are primarily affecting the right eye, which she describes as 'blurry' and 'smeared.' She also reports persistent swelling in the middle of her head extending down her neck and back, which was evaluated recently by her oncologist. Patient completed CyberKnife treatment 3 months ago and is not currently receiving any chemotherapy or radiation. Her lung cancer is reportedly in remission. Related Data Home Medications ?Medication ?Instructions ?Recorded ?Confirmed alprazolam 1 mg tablet (Xanax) 0.5 mg PO QPM PRN anxie ty 09/04/24 09/04/24 dexamethasone 4 mg tablet See Rx Instructions .Route . COMPLEX 09/04/24 09/04/24 Previous Rx's ?Medication ?Instructions ?Recorded albuterol sulfate 90 mcg/actuation 2 inh inhalation QI D PRN shortness 11/05/23 aerosol inhaler (Ventolin HFA) of breath or wheezing # 8.5 grams levetiracetam 500 mg tablet See Rx Instructions .Route 07/07/24 .COMPLEX #180 tabs oxycodone 20 mg tablet 10 mg (1/2 x 20 mg) PO .q3hr 30 08/07/24 days #120 tabs fluticasone fur. 100 mcg-umeclid See Rx Instructions . Route 08/27/24 62.5 mcg-vilant 25 mcg .COMPLEX #60 blisters inhalat.powder (Trelegy Ellipta) Allergies Allergy/AdvReac Type Severity Reaction Status Date / Time mushroom Allergy ALGY-Swell Verified 09/01/24 09:20 Lip/Tongue/Throat trazodone Allergy Unknown Verified 09/01/24 09:20 PFSH ED 2 PFSH: Medical History Generalized anxiety disorder with panic attacks Cigarette nicotine dependence Psychiatric care COPD (chronic obstructive pulmonary disease) Fibromyalgia Surgical History S/P bronchoscopy H/O spinal fusion H/O tubal ligation Family History Father Parkinsonism Cancer Skin cancer and stomach cancer Brother Parkinsonism Mother Hyperlipidemia CAD (coronary artery disease) Psychiatric illness Other Diabetes Hypertension Major depressive disorder, recurrent severe without psychotic features Denies family history of Clotting disorder Dementia Chronic kidney disease (CKD) Suicide Anesthesia complication Bleeding disorder Lung disease Stroke Social History Smoking and tobacco/nicotine status: light tobacco/nicotine user cigarettes Packs smoked per day: 0.5 Years cigarettes smoked: 34 Quit status (tobacco/nicotine): has tried quititng Second hand smoke exposure: Yes Alcohol intake: never Substance/Drug Use: never Adopted: No Caregiver/support person: No Lives independently: Yes Household members: none Housing: Apartment Marital status: Marital status details: 14 years ago Number of children: 5 Number of grandchildren: 12 Highest education level completed: 10th Grade service: No Current occupational status: disabled Current occupational exposures/hazards: No Pets and animals: Yes (3 dogs) Pets & animals: dog(s) and bird(s) Pets & animal details: [facility] Leisure activites: other Leisure activities details: playing with dogs, watch tv, walks around appartment Sexually active: No Do you think of yourself as: Straight/Heterosexual Current gender identity: Female Marisabel/Sabianist: None Special marisabel needs: No Agree to transfusion: No Physical Exam 2 Const: COMMON NORMALS: no acute distress, average body habitus, alert and well nourished GENERAL APPEARANCE: cooperative ORIENTATION/CONSCIOUSNESS: Yes awake HENMT: COMMON NORMALS: normocephalic and atraumatic HEAD & SCALP: n ormocephalic and atraumatic Eye: COMMON NORMALS: conjunctivae normal CONJUNCTIVA: Yes conjunctivae normal Neck/C-Spine: GENERAL: Yes normal visual inspection Resp: COMMON NORMALS: normal respiratory effort, No retractions and No use of accessory muscles Cardio: COMMON NORMALS: regular rhythm and Peripheral pulses 2+ throughout RHYTHM: regular rhythm PERIPHERAL PULSES: Peripheral pulses 2+ throughout GI: COMMON NORMALS: Soft to palpation and non-tender PALPATION: Yes Soft to palpation Extremity: COMMON NORMALS: full ROM and no pedal edema Neuro: COMMON NORMALS: no focal motor deficits SENSORIUM/ORIENTATION: Yes alert Skin: COMMON NORMALS: no rashes or lesions noted GENERAL SKIN EXAM: no rashes or lesions noted Course 2 Vital Signs: Vital signs: Vital Signs Temperature 97.5 F L 09/04/24 13:52 Pulse Rate 86 09/04/24 18:07 Respiratory Rate 16 09/04/24 18:07 Blood Pressure 126/88 09/04/24 18:07 Pulse Oximetry 94 09/04/24 18:07 Oxygen Delivery Me thod Room Air 09/04/24 18:07 MDM - Headache Medical Decision Making Review of Systems: Constitutional: Denies fever HEENT: Positive for headache, double vision, blurred vision in right eye Neurological: Reports numbness in head, baseline neuropathy Musculoskeletal: Reports swelling in neck and back All other systems reviewed and negative Medications: Current steroid therapy (specific medication not specified in neon electrician) Past Medical History: Non-small cell lung cancer - in remission Brain metastases Neuropathy Past Surgical History: Left temporal craniotomy with resection of left occipital lobe lesion - May 2023 Multiple CyberKnife radiation treatments, most recent 3 months ago Physical Exam: General: Patient is awake, alert, and oriented. No acute distress Neurological: - Speech is fluent - No focal neurologic deficits - Right eye vision reported as blurry - Numbness reported in head region Lab Results: No laboratory studies mentioned in neon electrician Imaging and Other Relevant Results: Prior Brain MRI (01/10/2024): Post-surgical changes in left occipital lobe with scattered metastatic foci throughout bilateral cerebral hemispheres, no new lesions Most recent Brain MRI (June 2024): Revealed two new tumors (specific locations not provided in neon electrician) Medical Decision Making: Summary Statement: 49-year-old female with history of brain metastases from NSCLC presents with new onset double vision, headache, and reported swelling, concerning for progression of intracranial disease or treatment-related complications. Problem List: 1. New onset double vision 2. Headache 3. Known brain metastases 4. Reported swelling of head/neck/back Differential Diagnosis: 1. Progression of brain metastases 2. Post-radiation cerebral edema 3. New metastatic lesions 4. Treatment-related complications 5. Medication side effects ED Course: Patient requires urgent neuroimaging to evaluate for progression of disease or new complications. Plan for CT head and possible MRI if available. Will coordinate with oncology for follow-up care. Assessment and Plan: 1. Neurological symptoms (double vision, headache): - Obtain urgent CT head to evaluate for acute changes - Consider MRI brain if available - Continue current steroid therapy - Neurology consultation if symptoms worsen 2. Brain Metastases: - Coordinate care with treating oncologist - Review most recent imaging studies - Adjust steroid dosing as needed 3. Disposition: - Pending imaging results MRI brain shows minimal interval increase in the right parietal lobe enhancing lesion measuring 6 mm compared to 4 mm previously. It has interval decrease in size enhancing lesions in the left posterior temporal lobe. MRI of the orbits, face, and neck are unremarkable. Patient is eager for discharge and requesting to leave as soon as possible prior to results of her MRI initially. Laboratory workup shows a leukocytosis of 14,000 and is otherwise stable. Patient is felt stable for discharge and recommended to follow-up with ophthalmology for her intermittent blurred vision as well as her oncologist regarding her MRI. Return precautions were provided. Patient declined any pain medication for headache while here. Lab Data I reviewed the patient's lab results. 09/04/24 16:33 09/04/24 16:33 Radiology Impressions Head MRI 09/04/24 16:23 IMPRESSION: 1. Slight interval increase in right parietal lobe enhancing lesion, measuring 6 mm, compared to 4 mm on 06/26/2024. 2. Interval decrease in size enhancing lesions in the left posterior temporal lobe, left posterior insula, and right paramedian posterior frontal lobe. 3. No new enhancing lesions acute ischemia or overt hemorrhage. Orbits/Face/Neck MRI 09/04/24 16:23 IMPRESSION: Unremarkable MR Neck. Laboratory Results WBC 14.60 10^3/uL (3.29-11.43) H 09/04/24 16:33 RBC 5.67 10^6/uL (3.85-5.65) H 09/04/24 16:33 Hgb 15.20 g/dL (11.27-16.99) 09/04/24 16:33 Hct 46.7 % (36-47) 09/04/24 16:33 MCV 82.4 fl (85-98) L 09/04/24 16:33 MCH 26.8 pg (27-33) L 09/04/24 16:33 MCHC 32.5 g/dL (30-55) 09/04/24 16:33 RDW 18.1 % (12.1-15.1) H 09/04/24 16:33 Plt Count 282 10^3/cmm (157-399) 09/04/24 16:33 MPV 10.1 fL (7.4-10.4) 09/04/24 16:33 Neut % (Auto) 92.0 % 09/04/24 16:33 Lymph % (Auto) 6.2 % 09/04/24 16:33 [place] % (Auto) 1.0 % 09/04/24 16:33 Eos % (Auto) 0.1 % 09/04/24 16:33 Baso % (Auto) 0.2 % 09/04/24 16:33 Neut # (Auto) 13.44 10^3/uL (1.8-7.7) H 09/04/24 16:33 Lymph # (Auto) 0.9 10^3/uL (0.8-4.8) 09/04/24 16:33 [place] # (Auto) 0.2 10^3/uL (0.2-0.9) 09/04/24 16:33 Eos # (Auto) 0.0 10^3/uL (0.0-0.8) 09/04/24 16:33 Baso # (Auto) 0.0 10^3/uL (0.0-0.1) 09/04/24 16:33 Nucleated RBC % (auto) 0 % 09/04/24 16: Nucleated RBCs # 0.0 /100WBC 09/04/24 16:33 Sodium 140 mmol/L (136-145) 09/04/24 16:33 Potassium 4.6 mmol/L (3.5-5.1) 09/04/24 16:33 Chloride 105 mmol/L (98-107) 09/04/24 16:33 Carbon Dioxide 20 mmol/L (22-29) L 09/04/24 16:33 Anion Gap 19.6 (5-19) H 09/04/24 16:33 BUN 12 mg/dL (6-20) 09/04/24 16:33 Creatinine 0.5 mg/dL (0.5-0.9) 09/04/24 16:33 GFR Calculation 130.1 mL/min (90-130) H 09/04/24 16:33 Glucose 128 mg/dL (65-115) H 09/04/24 16:33 Calculated Osmolality 291 mOsm/kg (285-295) 09/04/24 16:33 Calcium 9.0 mg/dL (8.5-10.5) 09/04/24 16:33 Total Bilirubin 0.2 mg/dL (0.15-1.2) 09/04/24 16:33 AST 9 U/L (0-32) 09/04/24 16:33 ALT 15 U/L (0-33) 09/04/24 16:33 Alkaline Phosphatase 136 U/L (35-105) H 09/04/24 16:33 Total Protein 6.8 g/dL (6.6-8.7) 09/04/24 16:33 Albumin 3.8 g/dL (3.5-5.2) 09/04/24 16:33 Globulin 3.0 g/dL (1.3-4.6) 09/04/24 16:33 All radiology interpretation(s) finalized by discharge Discharge Plan Discharge Patient Disposition: Home Clinical Impression: Headache, Lung cancer metastatic to brain Condition: Stable Prescriptions: No Action albuterol sulfate [Ventolin HFA] 90 mcg/actuation HFA aerosol inhaler 2 inh inhalation QID PRN (Reason: shortness of breath or wheezing) Qty: 8.5 5RF levetiracetam 500 mg tablet See Rx Instructions .ROUTE .COMPLEX Qty: 180 1RF Dose Instruction: TAKE ONE TABLET BY MOUTH TWICE DAILY Rx Instructions: TAKE ONE TABLET BY MOUTH TWICE DAILY oxycodone 20 mg tablet 10 mg PO .q3hr 30 Days Qty: 120 0RF Trelegy Ellipta 100-62.5-25 mcg blister with device See Rx Instructions .ROUTE .COMPLEX Qty: 60 3RF Dose Instruction: INHALE 1 PUFF BY MOUTH DAILY Rx Instructions: INHALE 1 PUFF BY MOUTH DAILY dexamethasone 4 mg tablet See Rx Instructions .ROUTE .COMPLEX Rx Instructions: take 2 tablets BY MOUTH TWICE DAILY FOR FOUR DAYS, ONE TABLET TWICE DAILY FOR FOUR DAYS, ONE TABLET DAILY FOR FOUR DAYS, THEN ONE-HALF TABLET BY MOUTH DAILY FOR FOUR DAYS THEN STOP alprazolam [Xanax] 1 mg tablet 0.5 mg PO QPM PRN (Reason: anxiety) Rx Instructions: May take one tablet three times per day as needed for anxiety Discharge Orders: Discharge ED (Routine); Ordered 09/04/24 Ordered By: [place] Referrals: Arin Garner MD [Primary Care Provider, [facility]] Discharge Activity: Increase activity as tolerated Patient Instructions: Acute Headache (DC), Opioid Safety, Pain Management Activity Restrictions/Additional Instructions: Continue home medications as previously directed. Follow-up with your oncologist and neurosurgeon as soon as possible for discussion of your MRI results and headache. Follow-up with ophthalmology for further eye exam. Return for any concerns. Print Language: Czech Coding Level of Care Code ED Defect Cutter for James Bruno
[2024-09-04] MEDS: gadobenate dimeglumine 20 mL vial 15 ML IV (17:35)
[2024-09-04 18:07] VITALS: BP 126/88; PULSE 86; RESP 16; O2SAT 94
[2024-09-04 20:12] VITALS: BP 135/74; PULSE 84; O2SAT 95
== END 2024-09-04 19:54 | disposition home or self-care (01) ==
PROVIDERS: Emergency Provider Student in an Organized Health Care Education/Training Program; PCP Family Medicine
DX: R51.9 Headache, unspecified (principal); Z85.118 Personal history of other malignant neoplasm of bronchus and lung; F17.210 Nicotine dependence, cigarettes, uncomplicated; J44.9 Chronic obstructive pulmonary disease, unspecified; C79.31 Secondary malignant neoplasm of brain
CPT/HCPCS: 36415; 70543; 70553; 80053; 85025; 96374; 99284

== ENCOUNTER 2024-10-13 09:30 | Oncology outpatient (recurring) (ONCR) | payer MEDICAID, SELFPAY ==
[2023-02-08 16:29] VITALS: BP 120/54; BMI 37.8
--- NOTE | 2024-10-03 09:00 | PETR_ITS ---
PROCEDURE INFORMATION: Exam: PET/CT Skull Base to Mid-thigh Exam date and time: 10/03/2024 9:45 AM Age: 49 years old Clinical indication: Symptoms: Rul lung cancer; Prior surgery; Surgery date: 6+ months; Surgery type: Port and tubal ligation; Additional info: Malignang neoplasm of upper lobe, Dr abarca would like this done 10/03/24 LABS AND CLINICAL REPORTS: Glucose: 97 mg/dl Treatment strategy for malignancy (PET staging): Restaging (PS) TECHNIQUE: Imaging protocol: Following at least four-hour fasting and following the injection of radiopharmaceutical, low dose CT images were obtained. Then, PET images were obtained. Attenuation corrected images were constructed using the CT scan. Fused images of PET and CT were reviewed. The standardized uptake values (SUV) reported below are maximum values within a region of interest, expressed in gm/ml. Exam includes orbital meatal line to mid-thigh. SUV normalization method: BodyWeight Radiopharmaceutical: 11.82 mCi F-18 FDG (Fluorodeoxyglucose), IV. Time of imaging post radiopharmaceutical administration: 47 minutes Injection site: Left AC COMPARISON: 1. PT PET skull to thigh SUBS [id number] 07/04/2024 12:10 PM 2. MR head wo/w con [id number] 09/04/2024 4:42 PM 3. PT PET skull to thigh SUBS [id number] 03/14/2024 10:52 AM FINDINGS: Tubes, catheters and devices: Stable left chest port terminates at the SVC. Brain: Photopenic postoperative cystic encephalomalacia with overlying craniotomy redemonstrated at the left occipital temporal lobe, see recent comparison brain MRI regarding additional findings to include enhancing lesions not visualized on this exam. Visualized brain has otherwise normal physiologic uptake. Pharynx: No abnormal uptake. Larynx: No abnormal uptake. Lungs, pleura and trachea: More solid-appearing subpleural medial right lower lobe nodular density measuring 1.5 x 1.1 cm on axial image 130 adjacent to spinal osteophyte showing SUV max 3.0, previously 3.2 on 07/04/2024 and 3.3 on 03/14/2024. Stable non FDG avid posterior subpleural right upper lobe nodule measuring 1 cm on axial image 106 in keeping with treated malignancy. Mild upper lung predominant emphysematous change. Mild dependent atelectasis. Heart: Normal physiologic uptake. Mediastinal space: No abnormal uptake. Diaphragm: Small hiatal hernia. Liver: No abnormal uptake. Gallbladder and biliary ducts: No abnormal uptake. Cholelithiasis. Pancreas: No abnormal uptake. Spleen: No abnormal uptake. Adrenal glands: No abnormal uptake. Kidneys and ureters: Normal physiologic uptake. Stomach and bowel: Couple foci of proximal sigmoid colon FDG uptake without discrete underlying CT abnormality similar to June 2024. Vasculature: No abnormal uptake. Mild systemic atherosclerotic calcification without aortic aneurysm. Lymph nodes: No abnormal uptake. No lymphadenopathy in the head, neck, chest, abdomen, pelvis, and extremities. Skeleton: No abnormal uptake in the visualized axial and appendicular skeleton. C5-7 ACDF. Soft tissues: No suspicious abnormal uptake in the visualized head, neck, chest, abdomen, pelvis, and extremities. Linear uptake along the bilateral forearm and hand musculature without underlying CT abnormality is likely benign physiologic activation. METRICS: Mediastinal blood pool: SUV mean 1.7 Liver uptake: SUV mean 2.1 PET/PET skull to thigh SUBS [id number] IMPRESSION: 1. More solid-appearing subpleural medial right lower lobe nodular density with low-level FDG uptake adjacent to spinal osteophyte. Although this is favored inflammatory, neoplastic difficult to entirely exclude. 2. Stable non FDG-avid treated right upper lobe malignant pulmonary nodule. 3. Couple foci of proximal sigmoid colon FDG uptake without discrete underlying CT abnormality similar to June 2024. Consider colonoscopy if not already performed.
[2024-10-13 10:03] LABS: Basophils # 0.1 10^3/uL (0.0-0.1); Basophils % 0.4 %; Eosinophils # 0.1 10^3/uL (0.0-0.8); Eosinophils % 0.5 %; Lymphocytes % 12.1 %; Mean Corpuscular HGB Conc 32.8 g/dL (30-55); Mean Corpuscular Hemoglobin 26.9 pg (27-33); Mean Platelet Volume 11.6 fL (7.4-10.4); Monocytes # 1.1 10^3/uL (0.2-0.9); Monocytes % 6.5 %; Neutrophils # 13.55 10^3/uL (1.8-7.7); Neutrophils % 80.1 %; Nucleated Red Blood Cells % 0 %; Platelet Count 247 10^3/cmm (157-399); Red Blood Count 5.73 10^6/uL (3.85-5.65); Red Cell Distribution Width 17.2 % (12.1-15.1); White Blood Count 16.89 10^3/uL (3.29-11.43)
[2024-10-13 10:20] LABS: Alanine Aminotransferase 9 U/L (0-33); Alkaline Phosphatase 140 U/L (35-105); Anion Gap 18.3 (5-19); Aspartate Amino Transferase 13 U/L (0-32); Blood Urea Nitrogen 6 mg/dL (6-20); Calcium 9.1 mg/dL (8.5-10.5); Carbon Dioxide 22 mmol/L (22-29); Chloride 105 mmol/L (98-107); Creatinine Clr Calc Pharmacy 114.4129; Globulin 2.9 g/dL (1.3-4.6); Glomerular Filtration Rate 105.4 mL/min (90-130); Glucose 84 mg/dL (65-115); Osmolality Calculated 289 mOsm/kg (285-295); Potassium 4.3 mmol/L (3.5-5.1); Sodium 141 mmol/L (136-145); Total Bilirubin 0.2 mg/dL (0.15-1.2); Total Protein 6.9 g/dL (6.6-8.7)
== END 2024-10-27 23:59 | disposition home or self-care (01) ==
PROVIDERS: PCP Family Medicine; Visit Provider Internal Medicine Medical Oncology
DX: Z08 Encounter for follow-up examination after completed treatment for malignant neoplasm; Z85.118 Personal history of other malignant neoplasm of bronchus and lung; Z85.841 Personal history of malignant neoplasm of brain; Z72.0 Tobacco use; Z92.3 Personal history of irradiation; Z90.89 Acquired absence of other organs; Z95.828 Presence of other vascular implants and grafts; Z53.9 Procedure and treatment not carried out, unspecified reason
CPT/HCPCS: 36591; 78815; 80053; 85025; 99214; A9552

== ENCOUNTER 2024-11-24 14:00 | Oncology outpatient (recurring) (ONCR) | payer MEDICAID, SELFPAY ==
[2023-02-08 16:29] VITALS: BP 120/54; BMI 37.8
[2024-11-03 13:08] LABS: Hematocrit 46.0 % (36-47); Hemoglobin 14.90 g/dL (11.27-16.99); Mean Corpuscular HGB Conc 32.4 g/dL (30-55); Mean Corpuscular Hemoglobin 26.6 pg (27-33); Mean Corpuscular Volume 82.1 fl (85-98); Nucleated Red Blood Cells % 0 %; Platelet Count 277 10^3/cmm (157-399); Red Blood Count 5.60 10^6/uL (3.85-5.65); White Blood Count 11.30 10^3/uL (3.29-11.43)
[2024-11-03 13:28] LABS: Alanine Aminotransferase 8 U/L (0-33); Albumin Level 3.9 g/dL (3.5-5.2); Alkaline Phosphatase 126 U/L (35-105); Anion Gap 15.2 (5-19); Aspartate Amino Transferase 10 U/L (0-32); Blood Urea Nitrogen 8 mg/dL (6-20); Calcium 9.3 mg/dL (8.5-10.5); Carbon Dioxide 23 mmol/L (22-29); Chloride 105 mmol/L (98-107); Globulin 3.1 g/dL (1.3-4.6); Glucose 79 mg/dL (65-115); Osmolality Calculated 285 mOsm/kg (285-295); Potassium 4.2 mmol/L (3.5-5.1); Sodium 139 mmol/L (136-145); Total Protein 7.0 g/dL (6.6-8.7)
--- NOTE | 2024-11-12 10:00 | USR_ITS ---
PROCEDURE INFORMATION: Exam: US Bilateral Noninvasive Physiologic Study of the Lower Extremity Arteries, Limited Exam date and time: 11/12/2024 9:41 AM Age: 49 years old Clinical indication: Pain; Leg, lower; Bilateral; Additional info: Peripheral vascular disease TECHNIQUE: Imaging protocol: Bilateral Limited bilateral noninvasive physiologic studies of lower extremity arteries. Waveforms were obtained and evaluated. Images were documented and archived. Exam is limited. COMPARISON: PT PET skull to thigh [id number] [id number] 10/03/2024 9:45 AM FINDINGS: No images were provided. Right brachial pressure: 100 Right ankle pressure at the PT: 107 Right ankle pressure at the DP: 90 Right digital pressure: 101 Right Ankle-Brachial Index at the PT: 1.05 Right Ankle-Brachial Index at the DP: 0.88 Right ankle digital index: 0.99 Left brachial pressure: 102 Left ankle pressure at the PT: 105 Left ankle pressure at the DP: 97 Left digital pressure: 101 Left Ankle-Brachial Index: 1.03 Left Ankle-Brachial Index: 0.95 Left ankle digital index: 0.99 US/CV ankle brachial index 30360 IMPRESSION: Borderline arterial insufficiency on the right, involving the DP and digit. Borderline arterial insufficiency on the left involving the DP and digit.
== END 2024-11-27 23:59 | disposition home or self-care (01) ==
PROVIDERS: PCP Family Medicine; Visit Provider Internal Medicine Medical Oncology
DX: Z53.9 Procedure and treatment not carried out, unspecified reason (principal)
CPT/HCPCS: 36591; 80053; 85025; 93922; 99214

== ENCOUNTER 2025-01-12 12:12 | Oncology outpatient (recurring) (ONCR) | payer MEDICAID, SELFPAY ==
[2023-02-08 16:29] VITALS: BP 120/54; BMI 37.8
[2025-01-12 12:44] LABS: Hematocrit 44.5 % (36-47); Hemoglobin 14.40 g/dL (11.27-16.99); Mean Corpuscular HGB Conc 32.4 g/dL (30-55); Mean Corpuscular Hemoglobin 26.2 pg (27-33); Mean Corpuscular Volume 81.1 fl (85-98); Nucleated Red Blood Cells % 0 %; Platelet Count 263 10^3/cmm (157-399); Red Blood Count 5.49 10^6/uL (3.85-5.65); White Blood Count 11.74 10^3/uL (3.29-11.43)
[2025-01-12 13:11] LABS: Alanine Aminotransferase 10 U/L (0-33); Albumin Level 4.0 g/dL (3.5-5.2); Alkaline Phosphatase 131 U/L (35-105); Anion Gap 14.9 (5-19); Aspartate Amino Transferase 10 U/L (0-32); Blood Urea Nitrogen 10 mg/dL (6-20); Calcium 9.2 mg/dL (8.5-10.5); Carbon Dioxide 23 mmol/L (22-29); Chloride 105 mmol/L (98-107); Creatinine Clr Calc Pharmacy 114.4129; Globulin 2.9 g/dL (1.3-4.6); Glucose 84 mg/dL (65-115); Osmolality Calculated 286 mOsm/kg (285-295); Potassium 3.9 mmol/L (3.5-5.1); Sodium 139 mmol/L (136-145); Thyroid Stimulating Hormone 4.68 uIU/mL (0.27-4.20); Total Protein 6.9 g/dL (6.6-8.7)
== END 2025-01-27 23:59 | disposition home or self-care (01) ==
LOC: ONCMED 12:12
PROVIDERS: PCP Family Medicine; Visit Provider Internal Medicine Medical Oncology
DX: C34.11 Malignant neoplasm of upper lobe, right bronchus or lung (principal); C79.31 Secondary malignant neoplasm of brain; F17.210 Nicotine dependence, cigarettes, uncomplicated; R22.1 Localized swelling, mass and lump, neck; Z92.3 Personal history of irradiation
CPT/HCPCS: 36591; 80053; 84443; 85025; 99214

== ENCOUNTER 2025-01-18 13:52 | Emergency (ER) | payer MEDICAID, SELFPAY ==
[2023-02-08 16:29] VITALS: BP 120/54; BMI 37.8
[2025-01-18 13:56] VITALS: BP 92/57; PULSE 93; RESP 18; TEMP 36.4; O2SAT 96
--- OUTSIDE RECORDS SUMMARY | 2025-01-18 14:00 | XMS_ITS ---
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 Past Treatment and Therapy Plans No past plan information found. Lifetime Dose Tracking * Chemical Lifetime Dose Automatic Entry Manual Entr y Effective Dose 14.1 mSv 14.1 mSv 0 mSv Total DLP 1,004.58 DLP 1,004.58 DLP 0 DLP CTDIvol Max 14.48 mGy 14.48 mGy 0 mGy CTDIvol Min 14.48 mGy 14.48 mGy 0 mGy
--- OUTSIDE RECORDS SUMMARY | 2025-01-18 14:00 | XMS_ITS | Encounter Summary ---
Author Organization [facility] Address [address] [place] [address] Care Team Providers Care Tack Cutter Name Role Phone Unavailable Primary Care Provider Unavailabl e Encounter Details Date Type Department Care Team (Late st Contact Info) Description 12/30/2003 Outpatient Historical [facility] Marcial Cook MD [facility] [address] [address] LOCALIZED ADIPOSITY (Primary Dx) Social History Tobacco Use Types Packs/Day Years Used Date Smoking Tobacco: Never Assessed Comments Unknown Sex and Gender Information Value Date Recorded Sex Assigned at Not on file 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
--- OUTSIDE RECORDS SUMMARY | 2025-01-18 14:00 | XMS_ITS | Clinical Summary ---
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
--- OUTSIDE RECORDS SUMMARY | 2025-01-18 14:00 | XMS_ITS | Clinical Summary ---
Author Organization [facility] Address [address] [place] [address] Phone Care Team Providers Care Stock Feeder Name Role Phone Unavailable Primary Care Provider Unavailabl e Allergies Active Allergy Reactions Criticality Noted Date Comments Mushroom Anaphylaxis High 05/31/2023 Trazodone Anaphylaxis High 05/31/2023 Medications ALPRAZolam (XANAX) 1 mg tablet Take 1 mg by mouth nightly as needed for Anxiety. Active melatonin 3 mg Tablet Take by mouth nightly as needed for Insomnia. Active ipratropium-albu teroL (DUONEB) 0.5 mg-3 mg(2.5 mg base)/3 mL Solution for Nebulization Take 3 mL by inhalation. Active magnesium oxide 250 mg magnesium Tablet Take by mouth. Activ e fluticasone propionate (FLONASE) 50 mcg/spray [place], Suspension nasal inhaler Administer 2 Sprays in each nostril daily. Active loratadine (CLARITIN) 10 mg tablet Take 10 mg by mouth daily. Active albuterol sulfate HFA 90 mcg/actuation aerosol inhaler Take 2 Puffs by inhalation every 6 hours as needed for Shortness of Breath. Active budesonide-formo teroL (SYMBICORT) 160-4.5 mcg/actuation HFA Aerosol Inhaler Take 2 Puffs by inhalation 2 times daily. Active fluticasone-umec lidinium-vilante rol (Trelegy Ellipta) 100-62.5-25 mcg Disk with Device Take 1 Puff by inhalation daily. Active levETIRAcetam (KEPPRA) 500 mg tabletIndication s:Seizure (CMS/HCC),Metast asis to brain (CMS/HCC),Brain mass Take 1 Tablet (500 mg) by mouth 2 times daily. 60 Tablet 3 Active furosemide (LASIX) 80 mg tablet Take 40 mg by mouth 2 times daily. Active ondansetron (ZOFRAN) 4 mg Tablet 4 mg every 8 hours as needed. Active oxyCODONE (ROXICODONE) 20 mg tablet Take 20 mg by mouth. Active pregabalin (LYRICA) 200 mg Capsule Take 200 mg by mouth every 12 hours. 4 Active topiramate (TOPAMAX) 100 mg tablet Take 100 mg by mouth 3 times daily. Active butalbital-aceta minophen-caffein e (FIORICET) 50-325-40 mg tabletIndication s:Other migraine without status migrainosus, not intractable Take 1 Tablet by mouth every 6 hours as needed for Migraine. 30 Tablet 06/16/2023 12:05 PM METALIZER 4 Active naloxone (NARCAN) 4 mg/spray [place], Non-Aerosol EMERGENCY USE ONLY: Administer 1 spray (4 mg) in one nostril one time. May repeat in alternating nostrils every 2-3 min until responsive or EMS arrives. 2 Each 3 06/16/2023 12:05 PM METALIZER 4 Active dexAMETHasone (DECADRON) 4 mg tablet Take 8 mg BID for four days, then 4 mg BID for four days, then 4 mg daily for four days, then 2 mg daily for four days, then stop 50 Tablet 5 Active Active Problems Problem Noted Date Diagnosed Date Metastasis to brain 11/01/2022 Acute metabolic encephalopathy 10/31/2022 Malignant neoplasm of right lung 10/31/2022 Seizure 10/31/2022 Pneumonitis, aspiration 10/31/2022 Acute respiratory failure with hypoxia 3 Intractable headache 10/27/2022 Brain mass 10/27/2022 Encounters Date Type Department Care Team Description 12/30/2024 External Device Data ST[facility] ABSTRACTION Provider, Abstract 12/26/2024 Telephone [facility] [address] [place] [address] Linsey Cisneros, RN Results 12/25/2024 10:51 AM CDT - 12/25/2024 11:59 PM CDT Hospital Encounter [facility] [address] [place] [id number] Mckenzie El PA-C Discharge Disposition: Home or Self Care 12/25/2024 Orders Only [facility] [address] [facility] [address] [place] [address] Mckenzie El PA-C 11/12/2024 External Device Data ST[facility] ABSTRACTION Provider, Abstract 11/11/2024 External Device Data STL ABSTRACTION Provider, Abstract 11/11/2024 Orders Only [facility] [address] [facility] [address] [place] [id number] Mckenzie El PA-C Metastasis to brain (CMS/HCC) (Primary Dx) 10/21/2024 External Device Data STL ABSTRACTION Provider, Abstract from Last 3 Months Social History Tobacco Use Types Packs/Day Years Used Date Smoking Tobacco: Some Days Cigarettes Tobacco Cessation:Ready to Q uit: Not Asked; Counseling Given: Not Answered Alcohol Use Standard Drinks/Week Comments Not Currently 0 (1 standard drink = 0.6 oz pur e alcohol) not in 20yrs Feeling Safe Answer Date Recorded Are you in a relationship wi th someone who hurts you emotionally and/or physically? 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 Gender Identity Not on file Sexual Orientation Not on file Last Filed Vital Signs Vital Sign Reading Time Taken Comments Blood Pressure 115/73 07/24/2024 2:10 PM CDT Pulse 90 07/24/2024 2:10 PM CDT Temperature 36.3 C (97.4 F) 07/24/2024 2:10 PM CDT Respiratory Rate 16 07/24/2024 2:10 PM CDT Oxygen Saturation 97% 07/24/2024 2:10 PM CDT Inhaled Oxygen Concentration - - Weight 73 kg (161 lb) 07/24/2024 2:10 PM CDT Height 167.6 cm (5' 6 ) 07/24/2024 2:10 PM CDT Body Mass Index 25.99 07/24/2024 2:10 PM CDT Plan of Treatment Upcoming Encounters Date Type Department Care Team (Late st Contact Info) Description 01/23/2025 11:00 AM CDT Appointment [facility] [address] [address] Amilcar Colin MD [address] [place] [address] Health Maintenance Due Date Last Done Comments Pre-Diabetes and Diabetes Screening 1973 DTAP/TDAP/TD VACCINES (1 - Tdap) 02/10/1992 HEPATITIS B VACCINES (1 of 3 - 19+ 3-dose series) 01/28 ZOSTER VACCINE (1 of 2) 02/10/1992 HPV/Cotest (21-29) 1994 CERVICAL CANCER SCREENING 2003 HPV/Cotest (30-65) 2003 PAP SMEAR 2003 BREAST CANCER SCREENING 2013 COLORECTAL SCREENING 2018 Colorectal Cancer Screening 2018 FIT-DNA Q 3 years 2018 FIT/FOBT Q 1 year 2018 Flex Sig/CT Colonography Q 5 years 2018 INFLUENZA VACCINE (#1) 2024 Medical Devices Implanted Type Area Sales Enablement Consultant Device Identifier Shelf Expiration Date Model / Serial / Lot Duragen + 3x3in Dp-1033 - [id number] Implanted:Qty: 1 on 06/14/2023 by Jovon García MD at [facility] Graft Left: Brain [employer] [id number] 12/28/2025 [id number] / / [id number] Hemostatic Surgicel 3x4in 1942 - [id number] Implanted:Qty: 1 on 06/14/2023 by Jovon García MD at [facility] Hemostatic Left: Brain J&J- [employer] [id number] 07/29/20271942 / / [id number] Hemostatic Surgifoam Sz100 1973 - [id number] Implanted:Qty: 1 on 06/14/2023 by Jovon García MD at [facility] Hemostatic Left: Brain J&J- [employer] [id number] 03/05/2027 1974 / / [id number] Hemostatic Surgiflo 8ml W/ Thrombin 2994 - [id number] Implanted:Qty: 1 on 06/14/2023 by Jovon García MD at [facility] Hemostatic Left: Brain J&J- [employer] [id number] 06/27/2024 2994 / / [id number] Hemostat Surgicel 2x3in 1952s - [id number] Implanted:Qty: 1 on 06/14/2023 by Jovon García MD at [facility] Hemostatic Left: Brain J&J[employer] [id number] 11/28/20273S / / [id number] Plate Matrxneuro Bur Hl Cvr 503.023 - [id number] Implanted:Qty: 1 on 06/14/2023 by Jovon García MD at [facility] Plate Left: Cranial J&J- DEPUY SYNTHES 503.0 23 / / Plate Matrxneuro Box 503.065 - [id number] Implanted:Qty: 1 on 06/14/2023 by Jovon García MD at [facility] Plate Left: Cranial J&J- DEPUY SYNTHES 04.503.0 65 / / Plate Matrxneuro Box 503.065 - [id number] Implanted:Qty: 1 on 06/14/2023 by Jovon García MD at [facility] Plate Left: Cranial J&J- DEPUY SYNTHES 04.503.0 65 / / Power Port [place] Port [facility] / / [id number] Screw Matrixneuro Sd .503.104.01 - [id number] Implanted:Qty: 1 on 06/14/2023 by Jovon García MD at [facility] Screw Left: Cranial J&J- DEPUY SYNTHES 04.503.1 04.01 / / Screw Matrixneuro Sd 04.503.104.01 - [id number] Implanted:Qty: 1 on 06/14/2023 by Jovon García MD at [facility] Screw Left: Cranial J&J- DEPUY SYNTHES 04.503.1 04.01 / / Screw Matrixneuro Sd 04.503.104.01 - [id number] Implanted:Qty: 1 on 06/14/2023 by Jovon García MD at [facility] Screw Left: Cranial J&J- DEPUY SYNTHES 04.503.1 04.01 / / Screw Matrixneuro Sd 04.503.104.01 - [id number] Implanted:Qty: 1 on 06/14/2023 by Jovon García MD at [facility] Screw Left: Cranial J&J- DEPUY SYNTHES 04.503.1 04.01 / / Screw Matrixneuro Sd 04.503.104.01 - [id number] Implanted:Qty: 1 on 06/14/2023 by Jovon García MD at [facility] Screw Left: Cranial J&J- DEPUY SYNTHES 04.503.1 04.01 / / Screw Matrixneuro Sd 04.503.104.01 - [id number] Implanted:Qty: 1 on 06/14/2023 by Jovon García MD at [facility] Screw Left: Cranial J&J- DEPUY SYNTHES 04.503.1 04.01 / / Screw Matrixneuro Sd 04.503.104.01 - [id number] Implanted:Qty: 1 on 06/14/2023 by Jovon García MD at [facility] Screw Left: Cranial J&J- DEPUY SYNTHES 04.503.1 04.01 / / Screw Matrixneuro Sd 04.503.104.01 - [id number] Implanted:Qty: 1 on 06/14/2023 by Jovon García MD at [facility] Screw Left: Cranial J&J- DEPUY SYNTHES 04.503.1 04.01 / / Screw Matrixneuro Sd 04.503.104.01 - [id number] Implanted:Qty: 1 on 06/14/2023 by Jovon García MD at [facility] Screw Left: Cranial J&J- DEPUY SYNTHES .503.1 04.01 / / Screw Matrixneuro Sd .104. - [id number] Implanted:Qty: 1 on 06/14/2023 by Jovon García MD at [facility] Screw Left: Cranial J&J- DEPUY SYNTHES .503.1 04.01 / / Screw Matrixneuro Sd .104. - [id number] Implanted:Qty: 1 on 06/14/2023 by Jovon García MD at [facility] Screw Left: Cranial J&J- DEPUY SYNTHES .503.1 04.01 / / Screw Matrixneuro Sd .104. - [id number] Implanted:Qty: 1 on 06/14/2023 by Jovon García MD at [facility] Screw Left: Cranial J&J- DEPUY SYNTHES .503.1 04.01 / / Procedures Procedure Name Priority Date/Time Associated Diagnosis Comments MRI BRAIN W WO CONTRAST Routine 12/25/2024 12:09 PM CDT Metastasis to brain (CMS/HCC) from Last 3 Months Results * MRI BRAIN W WO CONTRAST (12/25/2024 12:09 PM CDT) Anatomical Region Laterality Modality Head Magnetic Resonan ce 12/25/2024 12:0 9 PM CDT Impressions 12/25/2024 2:35 PM CDT IMPRESSION: Mixed response to treatment. A few lesions have decreased in size and one appears resolved when compared with 06/26/2024, however there are new bilateral frontal lobe lesions, as detailed in the body of the report. 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 CONTRAST: GADOBENATE DIMEGLUMINE 529 MG/ML(0.1 MMOL/0.2 ML) INTRAVENOUS SOLUTION Given:15 mL FINDINGS: BRAIN PARENCHYMA: Post surgical changes in the left posterior temporal lobe from prior lesion resection. Similar appearance of the resection cavity. No acute infarct. No recent parenchymal hemorrhage. No midline shift. No cerebellar tonsillar herniation. ENHANCEMENT: 1. New right frontal lobe lesion measuring 5 x 4 mm. 2. New left frontal lobe lesion measuring 4 mm. 3. Left posterior frontal lesion measuring 4 x 4 mm, previously 7 x 8 mm. 4. Left posterior basal ganglia lesions seen on the prior study appears resolved. 5. Punctate 1.4 mm right paramedian posterior frontal lobe lesion, previously 3.1 mm. VENTRICLES/EXTRA-AXIAL SPACES: No hydrocephalus. No abnormal extra-axial fluid collection. MAJOR ARTERIAL T2 FLOW VOIDS: Intact. EXTRACRANIAL STRUCTURES: No mastoid effusion. No paranasal sinus fluid level. Orbits are grossly unremarkable, within study sensitivity. 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 CONTRAST: GADOBENATE DIMEGLUMINE 529 MG/ML(0.1 MMOL/0.2 ML) INTRAVENOUS SOLUTION Given:15 mL FINDINGS: BRAIN PARENCHYMA: Post surgical changes in the left posterior temporal lobe from prior lesion resection. Similar appearance of the resection cavity. No acute infarct. No recent parenchymal hemorrhage. No midline shift. No cerebellar tonsillar herniation. ENHANCEMENT: 1. New right frontal lobe lesion measuring 5 x 4 mm. 2. New left frontal lobe lesion measuring 4 mm. 3. Left posterior frontal lesion measuring 4 x 4 mm, previously 7 x 8 mm. 4. Left posterior basal ganglia lesions seen on the prior study appears resolved. 5. Punctate 1.4 mm right paramedian posterior frontal lobe lesion, previously 3.1 mm. VENTRICLES/EXTRA-AXIAL SPACES: No hydrocephalus. No abnormal extra-axial fluid collection. MAJOR ARTERIAL T2 FLOW VOIDS: Intact. EXTRACRANIAL STRUCTURES: No mastoid effusion. No paranasal sinus fluid level. Orbits are grossly unremarkable, within study sensitivity. IMPRESSION: Mixed response to treatment. A few lesions have decreased in size and one appears resolved when compared with 06/26/2024, however there are new bilateral frontal lobe lesions, as detailed in the body of the report. us Mckenzie El PA-C MR ORDERABLES Final Res ult from Last 3 Months Insurance [place] RX INFOCROSSING Medicaid Advance Directives For more information, please contact: [phone] Documents on File Type Date Recorded Patient Truck Bracer Expl anation Advance Directive POA 11/10/2022 2:44 PM A dvance Directive POA-RTX * Full Code (Latest Code Status on File) Date Activated Date Inactivated Comments 06/14/2023 1:07 PM 06/16/2023 2:19 PM * Full Code Date Activated Date Inactivated Comments 10/31/2022 4:08 AM 11/01/2022 12:40 PM * Full Code Date Activated Date Inactivated Comments 10/27/2022 10:26 PM 10/29/2022 5:28 PM
--- OUTSIDE RECORDS SUMMARY | 2025-01-18 14:00 | XMS_ITS | Encounter Summary ---
Author Organization [facility] Address [address] [place] [address] Care Team Providers Care Home Health Aid Name Role Phone Unavailable Primary Care Provider Unavailabl e Encounter Details Date Type Department Care Team (Late Contact Info) Description 05/11/2023 Abstract [facility] [address] [address] Ilda Arevalo Social History Tobacco Use Types Packs/Day Years Used Date Smoking Tobacco: Some Days Cigarettes Alcohol Use Standard Drinks/Week Comments Not Currently 0 (1 standard drink = 0.6 oz pur e alcohol) not in 20yrs Comments No Sex and Gender Information Value Date Recorded Sex Assigned at Not on file 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 Gender Identity Not on file Sexual Orientation Not on file documented as of this encounter Plan of Treatment Upcoming Encounters Date Type Department Care Team ([facility] Contact Info) Description 01/23/2025 11:00 AM CDT Appointment [facility] [address] [facility] [address] [place] [address] Amilcar Colin MD [address] [place] [address] documented as of this encounter Visit Diagnoses Not on filedocumented in this encounter Additional Health Concerns Infection Onset Date Last Indicated Resolved Time MRSA Comment:Sputum culture did not grow MRSA. 10/31/2022 10/31/2022 06/13/2023 2:[address] documented as of this encounter
--- OUTSIDE RECORDS SUMMARY | 2025-01-18 14:00 | XMS_ITS | Patient Health Record ---
Author Organization [facility] Address [address] [place] [address] Care Team Providers Care Plant Utilities Engineer Name Role Phone Mango Yuen Unavailable [phone] Reason For Referral No Information Problems Problem Type SNOMED Code ICD Code Onset Dates Problem Status W/U Status Risk Notes Problem Anemia (944465451) Unspecified anemia (285.9) 05/31/19 18 Problem resolved confirmed [id number]- Problem Fibromyalgia (980891063) Fibromyalgia (729.1) 05/31/19 18 Problem resolved confirmed [id number]- Problem Seasonal allergy (079433628) Seasonal allergies (477.0) 09/11/19 18 Problem resolved confirmed [id number]- Problem Chronic frontal sinusitis (27908872) Chronic sinusitis, frontal (473.1) 05/31/19 18 Problem resolved confirmed [id number]- Problem 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) Other abnormal findings on blood examination (790.99) 07/17/19 18 Problem resolved confirmed [id number]- Problem Chest pain (74825843) Chest pain (786.51) 07/19/19 18 Problem resolved confirmed [id number]- Problem Breast tenderness (18220259) Breast tenderness (611.71) 07/19/19 18 Problem resolved confirmed [id number]- Problem Tobacco user (537127634) Tobacco abuse affecting health (305.1) 05/31/19 18 Problem resolved confirmed [id number]- Problem Chronic low back pain (471580417) Chronic low back pain (724.2) 07/12/19 18 Problem resolved confirmed [id number]- Problem Migraine with aura (1011342) Classic migraine (346.00) 05/31/19 18 Problem resolved confirmed [id number]- Problem Impacted cerumen (63445965) External cerumen impaction (380.4) 09/11/19 18 Problem resolved confirmed [id number] 11- Plan Of Treatment No Information
--- NOTE | 2025-01-18 14:12 | CTR_ITS ---
PROCEDURE INFORMATION: Exam: CT Head Without Contrast Exam date and time: 01/18/2025 2:56 PM Age: 49 years old Clinical indication: Pain; Headache not specified; Prior surgery; Surgery date: 6+ months; Surgery type: Brain tumor; Additional info: HERNANDEZ TECHNIQUE: Imaging protocol: Computed tomography of the head without contrast. Radiation optimization: All CT scans at this facility use at least one of these dose optimization techniques: automated exposure control; mA and/or kV adjustment per patient size (includes targeted exams where dose is matched to clinical indication); or iterative reconstruction. COMPARISON: MR head wo/w con [id number] 12/25/2024 11:30 AM RADIATION DOSE METRICS: Total DLP (mGy-cm): 1135.3 FINDINGS: Brain: Unchanged 3.6 cm round focus of encephalomalacia in the left temporal occipital location. Small cortical calcifications noted in the right frontal lobe. No other parenchymal abnormality. Recently reported enhancing brain lesions are not identified. No mass effect or midline shift. No intracranial hemorrhage. Cerebral ventricles: Unchanged slight enlargement of the atrium of the left lateral ventricle. Ventricle size is otherwise normal. Paranasal sinuses: Visualized sinuses are unremarkable. No fluid levels. Mastoid air cells: Visualized mastoid air cells are well aerated. Bones: Left posterior parietal craniotomy again noted. Soft tissues: Unremarkable. CT/CT head wo con* [id number] IMPRESSION: 1. No acute intracranial abnormality noted. 2. Previously reported brain lesions are best evaluated with contrast-enhanced MRI.
--- NOTE | 2025-01-18 14:13 | CTR_ITS ---
PROCEDURE INFORMATION: Exam: CT Neck With Contrast Exam date and time: 01/18/2025 2:56 PM Age: 49 years old Clinical indication: Mass, lump, or swelling in neck; Left; Prior surgery; Surgery date: 6+ months; Surgery type: C spine fusion; Additional info: Neck swelling TECHNIQUE: Imaging protocol: Computed tomography of the neck with contrast. Radiation optimization: All CT scans at this facility use at least one of these dose optimization techniques: automated exposure control; mA and/or kV adjustment per patient size (includes targeted exams where dose is matched to clinical indication); or iterative reconstruction. Contrast material: OMNIPAQUE 350; Contrast volume: 80 ml; Contrast route: INTRAVENOUS (IV); COMPARISON: 1. PT PET skull to thigh SUBS [id number] 10/03/2024 9:[address] chest abdpel w/*[id number] 10/24/2023 5:31 PM RADIATION DOSE METRICS: Total DLP (mGy-cm): 199.5 FINDINGS: Tubes, catheters and devices: Left subclavian Port-A-Cath with tip in the SVC. Salivary glands: Normal. Glands are normal in size. Pharynx: Unremarkable. No significant tonsillar enlargement. Larynx: Larynx is closed at the time of imaging. Focal laryngeal mass is not identified. Epiglottis is normal. Thyroid: 5 mm right lobe thyroid nodule.No follow-up is recommended. Trachea: Visualized trachea is unremarkable. Lungs: Unchanged 8 mm nodule posteriorly in the right upper lobe. Smaller left upper lobe pulmonary nodules also appear unchanged, but comparison PET-CT is limited. Severe bullous disease and subpleural blebs again noted. Lymph nodes: Several small mediastinal lymph nodes are similar to prior imaging. No cervical daniel enlargement. Bones/joints: Left posterior parietal craniotomy partially imaged. Previous anterior fusion involving C5, C6 and C7. No suspicious osseous lesions. Soft tissues: Neck mass is not identified. CT/CT neck w con* [id number] IMPRESSION: 1. Neck mass is not identified. Continued clinical concern for neck mass can be followed with neck ultrasound. 2. Persistent upper lung pulmonary nodules. COMMENTS: Consistent with the [employer]'s Incidental Findings Committee white paper (J Am Kayleen Radiol 2015): In patients aged 35 years and older with an incidental thyroid nodule equal to or greater than 1.[address], MRI or extrathyroidal US, further evaluation with dedicated thyroid US is recommended for patients with normal life expectancy and without comorbidities. For smaller nodules without suspicious features, no further evaluation or follow up is recommended.
--- NOTE | 2025-01-18 14:13 | ED_ITS ---
HPI - Headache 2 General: Chief Complaint: Headache Stated Complaint: headachs x2days Lightheaded n/v has brain cancer Time Seen by Provider: 01/18/25 14:01 Source: patient Mode of arrival: ambulatory Limitations: no limitations History of Present Illness: 49-year-old female has a history of lung cancer with brain mets. States she recently had an MRI and they found 2 new brain lesions. She is not currently on chemo or radiation states she has an appointment coming up to restart radiation on her brain. States last 2 days she has had a headache that is gradually worsened with nausea states her headaches currently at 9 out of 10 she does have photophobia and phonophobia has a history of migraines. States she has also had some swelling in her neck just finished antibiotic for that. Denies any fevers Associated symptoms: Reports nausea; Deny fever(s) Related Data Home Medications ?Medication ?Instructions ?Recorded ?Confirmed estradiol 0.5 mg tablet 0.5 mg PO DAILY 10/13/24 fluticasone fur. 100 mcg-umeclid 1 inh inhalation QPM 01/18/25 01/18/25 62.5 mcg-vilant 25 mcg inhalat.powder (Trelegy Ellipta) fluticasone propionate 50 1 spray intranasal DAILY PRN 01/18/25 01/18/25 mcg/actuation nasal Allergy Symptoms spray,suspension levetiracetam 500 mg tablet 500 mg PO QPM 01/18/25 melatonin 3 mg tablet 3 mg PO QPM PRN Sleep 01/18/25 oxycodone 20 mg tablet 10 mg PO .q3hr PRN Pain 12/3001/18/25 Previous Rx's ?Medication ?Instructions ?Recorded albuterol sulfate 90 mcg/actuation 2 inh inhalation QI D PRN shortness 10/14/24 aerosol inhaler (Ventolin HFA) of breath or wheezing # 8.5 grams azithromycin 250 mg tablet See Rx Instructions PO .COM PLEX #6 01/12/25 (Zithromax Z-Sav) tabs Allergies Allergy/AdvReac Type Severity Reaction Status Date / Time mushroom Allergy ALGY-Swell Verified 01/18/25 14:03 Lip/Tongue/Throat trazodone Allergy Unknown Verified 01/18/25 14:03 Review of Systems 2 Const: Denies: fever(s) ENMT: Denies: throat pain GI: Reports: nausea Neuro: Reports: headache(s) PFSH ED 2 PFSH: Medical History Generalized anxiety disorder with panic attacks Cigarette nicotine dependence Psychiatric care COPD (chronic obstructive pulmonary disease) Fibromyalgia Surgical History S/P bronchoscopy H/O spinal fusion H/O tubal ligation Family History Father Parkinsonism Cancer Skin cancer and stomach cancer Brother Parkinsonism Mother Hyperlipidemia CAD (coronary artery disease) Psychiatric illness Other Diabetes Hypertension Major depressive disorder, recurrent severe without psychotic features Denies family history of Clotting disorder Dementia Chronic kidney disease (CKD) Suicide Anesthesia complication Bleeding disorder Lung disease Stroke Social History Smoking and tobacco/nicotine status: light tobacco/nicotine user cigarettes Packs smoked per day: 0.5 Years cigarettes smoked: 34 Quit status (tobacco/nicotine): has tried quititng Second hand smoke exposure: Yes Alcohol intake: never Substance/Drug Use: never Adopted: No Caregiver/support person: No Lives independently: Yes Household members: none Housing: Apartment Marital status: Marital status details: 14 years ago Number of children: 5 Number of grandchildren: 12 Highest education level completed: 10th Grade service: No Current occupational status: disabled Current occupational exposures/hazards: No Pets and animals: Yes (3 dogs) Pets & animals: dog(s) and bird(s) Pets & animal details: [facility] Leisure activites: other Leisure activities details: playing with dogs, watch tv, walks around appartment Sexually active: No Do you think of yourself as: Straight/Heterosexual Current gender identity: Female Marisabel/Anabaptism: None Special marisabel needs: No Agree to transfusion: No Physical Exam 2 Const: COMMON NORMALS: no acute distress, patient oriented x3 and healthy appearing HENMT: COMMON NORMALS: normocephalic and atraumatic HEAD & SCALP: n ormocephalic and atraumatic Eye: COMMON NORMALS: Equal, round and reactive pupils present, EOMs intact bilaterally and conjunctivae normal CONJUNCTIVA: Yes conjunctivae normal P UPIL: Yes Equal, round and reactive pupils present Neck/C-Spine: COMMON NORMALS: full ROM and supple Chest: COMMONS NORMALS: normal inspection of the chest Resp: COMMON NORMALS: normal respiratory effort Cardio: COMMON NORMALS: regular rate, regular rhythm and No murmurs present (Cardio) RATE: regular rate RHYTHM: regular rhythm GI: COMMON NORMALS: Normal to inspection, nondistended, normoactive bowel sounds present, Soft to palpation, non-tender and no masses PALPATION: Yes Soft to palpation Extremity: COMMON NORMALS: normal to inspection and full ROM Neuro: COMMON NORMALS: patient oriented x3, moves all extremities and no focal motor deficits Psych: COMMON NORMALS: mental status grossly normal, Normal thought process present and cooperative THOUGHT PROCESS: Normal thought process present Skin: COMMON NORMALS: no rashes or lesions noted and no wounds GENERAL SKIN EXAM: no rashes or lesions noted Course 2 Vital Signs: Vital signs: Vital Signs Temperature 97.6 F 01/18/25 13:56 Pulse Rate 88 01/18/25 14:54 Respiratory Rate 18 01/18/25 13:56 Blood Pressure 99/67 01/18/25 14:54 Pulse Oximetry 93 01/18/25 14:54 Oxygen Delivery Me thod Room Air 01/18/25 13:56 MDM - Headache Medical Decision Making Patient presents here with headache likely migraine headache she feels improved here head CT showed no signs of hemorrhage she has no signs of meningitis. Blood work here has been normal. She is stable for discharge at this time I did go over her head CT findings she is to follow-up with her oncologist she is to return if worsening she understands agrees to plan. Medical Records I reviewed the patient's medical records. Lab Data I reviewed the patient's lab results. 01/18/25 14:14 01/18/25 14:[address] 01/18/25 14:12 IMPRESSION: 1. No acute intracranial abnormality noted. 2. Previously reported brain lesions are best evaluated with contrast-enhanced MRI. Neck CT 01/18/25 14:13 IMPRESSION: 1. Neck mass is not identified. Continued clinical concern for neck mass can be followed with neck ultrasound. 2. Persistent upper lung pulmonary nodules. COMMENTS: Consistent with the [place]'s Incidental Findings Committee white paper (J Am Kayleen Radiol 2015): In patients aged 35 years and older with an incidental thyroid nodule equal to or greater than 1.[address], MRI or extrathyroidal US, further evaluation with dedicated thyroid US is recommended for patients with normal life expectancy and without comorbidities. For smaller nodules without suspicious features, no further evaluation or follow up is recommended. Laboratory Results WBC 11.11 10^3/uL (3.29-11.43) 01/18/25 14:14 RBC 5.80 10^6/uL (3.85-5.65) H 01/18/25 14:14 Hgb 15.30 g/dL (11.27-16.99) 01/18/25 14:14 Hct 47.3 % (36-47) H 01/18/25 14:14 MCV 81.6 fl (85-98) L 01/18/25 14:14 MCH 26.4 pg (27-33) L 01/18/25 14:14 MCHC 32.3 g/dL (30-55) 01/18/25 14:14 RDW 15.6 % (12.1-15.1) H 01/18/25 14:14 Plt Count 248 10^3/cmm (157-399) 01/18/25 14:14 MPV 10.8 fL (7.4-10.4) H 01/18/25 14:14 Neut % (Auto) 78.0 % 01/18/25 14:14 Lymph % (Auto) 16.1 % 01/18/25 14:14 [place] % (Auto) 4.6 % 01/18/25 14:14 Eos % (Auto) 0.5 % 01/18/25 14:14 Baso % (Auto) 0.4 % 01/18/25 14:14 Neut # (Auto) 8.67 10^3/uL (1.8-7.7) H 01/18/25 14:14 Lymph # (Auto) 1.8 10^3/uL (0.8-4.8) 01/18/25 14:14 [place] # (Auto) 0.5 10^3/uL (0.2-0.9) 01/18/25 14:14 Eos # (Auto) 0.1 10^3/uL (0.0-0.8) 01/18/25 14:14 Baso # (Auto) 0.0 10^3/uL (0.0-0.1) 01/18/25 14:14 Nucleated RBC % (auto) 0 % 01/18/25 14:14 Nucleated RBCs # 0.0 /100WBC 01/18/25 14:14 Sodium 140 mmol/L (136-145) 01/18/25 14:14 Potassium 3.9 mmol/L (3.5-5.1) 01/18/25 14:14 Chloride 105 mmol/L (98-107) 01/18/25 14:14 Carbon Dioxide 22 mmol/L (22-29) 01/18/25 14:14 Anion Gap 16.9 (5-19) 01/18/25 14:14 BUN 7 mg/dL (6-20) 01/18/25 14:14 Creatinine 0.7 mg/dL (0.5-0.9) 01/18/25 14:14 GFR Calculation 88.2 mL/min (90-130) L 01/18/25 14:14 Glucose 125 mg/dL (65-115) H 01/18/25 14:14 Calculated Osmolality 289 mOsm/kg (285-295) 01/18/25 14:14 Calcium 9.4 mg/dL (8.5-10.5) 01/18/25 14:14 Total Bilirubin 0.2 mg/dL (0.15-1.2) 01/18/25 14:14 AST 11 U/L (0-32) 01/18/25 14:14 ALT 13 U/L (0-33) 01/18/25 14:14 Alkaline Phosphatase 140 U/L (35-105) H 01/18/25 14:14 Total Protein 7.0 g/dL (6.6-8.7) 01/18/25 14:14 Albumin 4.0 g/dL (3.5-5.2) 01/18/25 14:14 Globulin 3.0 g/dL (1.3-4.6) 01/18/25 14:14 All radiology interpretation(s) finalized by discharge Discharge Plan Discharge Patient Disposition: Home Clinical Impression: Headache Condition: Stable Prescriptions: No Action estradiol 0.5 mg tablet 0.5 mg PO DAILY azithromycin [Zithromax Z-Sav] 250 mg tablet See Rx Instructions PO .COMPLEX Qty: 6 0RF Rx Instructions: For 250 mg dose pack: take 500 mg today (day 1), then 250 mg for 4 days (days 2-5) PO albuterol sulfate [Ventolin HFA] 90 mcg/actuation HFA aerosol inhaler 2 inh inhalation QID PRN (Reason: shortness of breath or wheezing) Qty: 8.5 5RF melatonin 3 mg Tablet 3 mg PO QPM PRN (Reason: Sleep) levetiracetam 500 mg tablet 500 mg PO QPM fluticasone propionate 50 mcg/actuation spray,suspension 1 spray intranasal DAILY PRN (Reason: Allergy Symptoms) oxycodone 20 mg tablet 10 mg PO .q3hr PRN (Reason: Pain) Trelegy Ellipta 100-62.5-25 mcg blister with device 1 inh inhalation QPM Discharge Orders: Discharge ED (Routine); Ordered 01/18/25 Ordered By: Ewelina Mims Referrals: Arin Garner MD [Primary Care Provider, [facility]] Discharge Diet: Advance as tolerated Discharge Activity: Resume usual activity Patient Instructions: Migraine Headache (ED) Print Language: [place] Coding Level of Care Code ED Machine Farmworker for James Bruno
[2025-01-18 14:19] LABS: Hematocrit 47.3 % (36-47); Hemoglobin 15.30 g/dL (11.27-16.99); Mean Corpuscular HGB Conc 32.3 g/dL (30-55); Mean Corpuscular Hemoglobin 26.4 pg (27-33); Mean Corpuscular Volume 81.6 fl (85-98); Nucleated Red Blood Cells % 0 %; Platelet Count 248 10^3/cmm (157-399); Red Blood Count 5.80 10^6/uL (3.85-5.65); White Blood Count 11.11 10^3/uL (3.29-11.43)
[2025-01-18 14:24] VITALS: BP 108/74; PULSE 91; O2SAT 93
[2025-01-18 14:36] LABS: Alanine Aminotransferase 13 U/L (0-33); Albumin Level 4.0 g/dL (3.5-5.2); Alkaline Phosphatase 140 U/L (35-105); Anion Gap 16.9 (5-19); Aspartate Amino Transferase 11 U/L (0-32); Blood Urea Nitrogen 7 mg/dL (6-20); Calcium 9.4 mg/dL (8.5-10.5); Carbon Dioxide 22 mmol/L (22-29); Chloride 105 mmol/L (98-107); Globulin 3.0 g/dL (1.3-4.6); Glucose 125 mg/dL (65-115); Osmolality Calculated 289 mOsm/kg (285-295); Potassium 3.9 mmol/L (3.5-5.1); Sodium 140 mmol/L (136-145); Total Protein 7.0 g/dL (6.6-8.7)
[2025-01-18] MEDS: metoclopramide 5 mg/mL SDV 2 mL 10 MG IVP (14:46)
[2025-01-18] MEDS: diphenhydrAMINE 50 mg/mL SDV 1mL IVP (14:49)
[2025-01-18 14:54] VITALS: BP 99/67; PULSE 88; O2SAT 93
[2025-01-18] MEDS: iohexol 350 mg/mL 500 mL Btl (per mL) IV (15:03)
[2025-01-18 16:00] VITALS: BP 94/64; PULSE 74; O2SAT 98
[2025-01-18 16:53] VITALS: RESP 16; O2SAT 96
[2025-01-18] MEDS: morphine 4 mg/mL SDV 1 mL IVP (16:53)
[2025-01-18 17:14] VITALS: BP 97/58; PULSE 81; O2SAT 96
== END 2025-01-18 17:15 | disposition home or self-care (01) ==
PROVIDERS: Emergency Provider Emergency Medicine; PCP Family Medicine
DX: R51.9 Headache, unspecified (principal); Z85.118 Personal history of other malignant neoplasm of bronchus and lung; C79.31 Secondary malignant neoplasm of brain; J44.9 Chronic obstructive pulmonary disease, unspecified; Z72.0 Tobacco use
CPT/HCPCS: 70450; 70491; 80053; 85025; 96374; 96375; 99285; J1200; J1885; J2270; J2765; J7030

== ENCOUNTER 2025-01-30 14:14 | Oncology outpatient (recurring) (ONCR) | payer MEDICAID, SELFPAY ==
[2023-02-08 16:29] VITALS: BP 120/54; BMI 37.8
--- NOTE | 2025-01-30 14:30 | PETR_ITS ---
PROCEDURE INFORMATION: Exam: PET/CT Skull Base to Mid-thigh Exam date and time: 01/30/2025 3:10 PM Age: 49 years old Clinical indication: Restaging of metastatic lung cancer with the primary tumor in the right upper lobe, history of brain metastases. Prior surgery; Surgery date: 6+ months; Surgery type: Brain, neck LABS AND CLINICAL REPORTS: Glucose: 105 mg/dl Treatment strategy for malignancy (PET staging): Restaging (PS) TECHNIQUE: Imaging protocol: Following at least four-hour fasting and following the injection of radiopharmaceutical, low dose CT images were obtained. Then, PET images were obtained. Attenuation corrected images were constructed using the CT scan. Fused images of PET and CT were reviewed. The standardized uptake values (SUV) reported below are maximum values within a region of interest, expressed in gm/ml. Exam includes orbital meatal line to mid-thigh. SUV normalization method: BodyWeight Radiopharmaceutical: 10.89 mCi F-18 FDG (Fluorodeoxyglucose), IV. Time of imaging post radiopharmaceutical administration: 44 minutes Injection site: left ac COMPARISON: PT PET skull to thigh SUBS [id number] 10/03/2024, MRI brain 12/25/2024 FINDINGS: Port catheter placed via the left subclavian vein terminates in the superior vena cava. Brain: No abnormal increased FDG uptake. Stable hypometabolism within a fluid-filled resection cavity in the left occipital lobe. Pharynx: Normal distribution of the radiotracer in nasopharyngeal, and oropharyngeal structures. Larynx: Normal distribution of the radiotracer in laryngeal structures. Lungs, pleura and trachea: Slightly increased uptake of 2.3 SUV within dependent ground-glass opacities in the lower lobes is suggestive of benign inflammatory or atelectatic finding. No discrete solid FDG avid nodules or masses. No abnormal uptake within 0.9 cm solid nodule in the right upper lobe on axial image 77 representing a sequela of treated primary malignancy. No pleural effusion. Heart: Normal physiologic uptake. There is no cardiomegaly. There is no pericardial effusion. Mediastinal space: See below in lymph nodes . Liver: Normal size without abnormal radiotracer uptake. Gallbladder and biliary ducts: No abnormal uptake. Stable partially calcified gallstones measuring up to 12 mm with no signs of acute cholecystitis. No biliary dilatation. Pancreas: Normal distribution of radiotracer. Spleen: Normal size without abnormal radiotracer uptake. Adrenal glands: No abnormal uptake. No nodules. Kidneys and ureters: Normal physiologic uptake. No hydronephrosis. Stable 1.8 cm simple cyst laterally in the lower pole of the right kidney. Stomach and bowel: Long segments of increased uptake in the small bowel with no focal masslike finding are likely benign. Vasculature: No abnormal uptake. No aortic aneurysm. Lymph nodes: New/progressive about 2 x 1.7 x 3 cm right posterior hilar/paravertebral mass measuring 10.6 SUV (previously 3 SUV) is suggestive of recurrent malignancy. No FDG-avid lymphadenopathy in the head, neck, abdomen, pelvis, and extremities. Skeleton: 2 new FDG avid foci in the bones are suggestive of metastases. This includes small focus in the left scapula on axial image 85 measuring 0.8 cm/4.2 SUV, and focus in the left ischial tuberosity measuring 0.8 cm/9.7 SUV. There is stable C5-C7 fusion with anterior internal fixation plate. Soft tissues: No abnormal uptake in the visualized head, neck, chest, abdomen, pelvis, and extremities. METRICS: Mediastinal blood pool maximal uptake is 2.6 SUV. Liver maximal uptake is 3.2 SUV. PET/PET skull to thigh SUBS [id number] IMPRESSION: In comparison with 10/03/2024 there is progressive disease with new findings as follows: 1. About 3 cm right posterior hilar/paravertebral mass with uptake of 10.6 SUV suggestive of metastatic lymphadenopathy. 2. Two small bone metastases in the left scapula and the left ischial tuberosity measuring 4.2 SUV and 9.7 SUV respectively.
== END 2025-02-27 23:59 | disposition home or self-care (01) ==
LOC: ONCMED 14:14
PROVIDERS: PCP Family Medicine; Visit Provider Internal Medicine Medical Oncology
DX: C34.11 Malignant neoplasm of upper lobe, right bronchus or lung (principal); C79.31 Secondary malignant neoplasm of brain; C34.90 Malignant neoplasm of unspecified part of unspecified bronchus or lung; R93.89 Abnormal findings on diagnostic imaging of other specified body structures; Z95.828 Presence of other vascular implants and grafts; R93.0 Abnormal findings on diagnostic imaging of skull and head, not elsewhere classified; R91.8 Other nonspecific abnormal finding of lung field; K80.20 Calculus of gallbladder without cholecystitis without obstruction; N28.1 Cyst of kidney, acquired; R93.3 Abnormal findings on diagnostic imaging of other parts of digestive tract; M89.8X8 Other specified disorders of bone, other site; Z98.890 Other specified postprocedural states
CPT/HCPCS: 78815; A9552

== ENCOUNTER 2025-03-24 07:30 | Oncology outpatient (recurring) (ONCR) | payer MEDICAID, SELFPAY ==
[2023-02-08 16:29] VITALS: BP 120/54; BMI 37.8
[2025-03-24 08:01] LABS: Hematocrit 46.0 % (36-47); Hemoglobin 15.10 g/dL (11.27-16.99); Mean Corpuscular HGB Conc 32.8 g/dL (30-55); Mean Corpuscular Hemoglobin 26.5 pg (27-33); Mean Corpuscular Volume 80.8 fl (85-98); Nucleated Red Blood Cells % 0 %; Platelet Count 327 10^3/cmm (157-399); Red Blood Count 5.69 10^6/uL (3.85-5.65); White Blood Count 10.71 10^3/uL (3.29-11.43)
[2025-03-24 08:35] LABS: Alanine Aminotransferase 13 U/L (0-33); Albumin Level 4.2 g/dL (3.5-5.2); Alkaline Phosphatase 123 U/L (35-105); Anion Gap 20.5 (5-19); Aspartate Amino Transferase 11 U/L (0-32); Blood Urea Nitrogen 15 mg/dL (6-20); Calcium 9.9 mg/dL (8.5-10.5); Carbon Dioxide 19 mmol/L (22-29); Chloride 105 mmol/L (98-107); Globulin 3.1 g/dL (1.3-4.6); Glucose 196 mg/dL (65-115); Osmolality Calculated 296 mOsm/kg (285-295); Potassium 4.5 mmol/L (3.5-5.1); Sodium 140 mmol/L (136-145); Thyroid Stimulating Hormone 0.69 uIU/mL (0.27-4.20); Total Protein 7.3 g/dL (6.6-8.7)
[2025-03-24 09:36] VITALS: BP 103/60; PULSE 86; RESP 16; TEMP 36.4; O2SAT 95
[2025-03-24] MEDS: methylPREDNISolone sod succ 125 mg/2 mL INJ 60 MG IVP (10:41)
[2025-03-24] MEDS: diphenhydrAMINE 50 mg/mL SDV 1mL 25 MG IVP (10:43)
[2025-03-24] MEDS: pembrolizumab 200 MG in sodium chloride 0.9% 250 ML 516 MG IV (11:38)
[2025-03-24] MEDS: [UNRECOGNIZED DRUG - REMARK] 186.67 MG IV (12:18)
[2025-03-24] MEDS: CARBOplatin 510 MG in sodium chloride 0.9% 500 ML 551 MG IV (15:45)
[2025-03-24] MEDS: pegfilgrastim 6 mg/0.6 mL Kit (onpro) SUBCUT (16:52)
[2025-03-24 16:58] VITALS: BP 104/69; PULSE 88; RESP 16; TEMP 36.2; O2SAT 94
== END 2025-03-29 23:59 | disposition home or self-care (01) ==
PROVIDERS: PCP Family Medicine; Visit Provider Internal Medicine Medical Oncology
DX: Z53.9 Procedure and treatment not carried out, unspecified reason; Z51.11 Encounter for antineoplastic chemotherapy; Z51.12 Encounter for antineoplastic immunotherapy; C34.11 Malignant neoplasm of upper lobe, right bronchus or lung; F17.210 Nicotine dependence, cigarettes, uncomplicated; Z98.890 Other specified postprocedural states; Z92.3 Personal history of irradiation; Z95.828 Presence of other vascular implants and grafts; G62.9 Polyneuropathy, unspecified
CPT/HCPCS: 80053; 84443; 85025; 96367; 96375; 96377; 96413; 96415; 96417; 99214; 99215; A4222; J1200; J1453; J2469; J2506; J2919; J3490; J7030; J7040; J7050; J9045; J9267; J9271; J9999

== ENCOUNTER 2025-04-14 08:30 | Oncology outpatient (recurring) (ONCR) | payer MEDICAID, SELFPAY ==
[2023-02-08 16:29] VITALS: BP 120/54; BMI 37.8
[2025-03-31 12:31] LABS: Hematocrit 40.3 % (36-47); Hemoglobin 13.10 g/dL (11.27-16.99); Mean Corpuscular HGB Conc 32.5 g/dL (30-55); Mean Corpuscular Hemoglobin 26.5 pg (27-33); Mean Corpuscular Volume 81.6 fl (85-98); Nucleated Red Blood Cells % 0 %; Platelet Count 182 10^3/cmm (157-399); Red Blood Count 4.94 10^6/uL (3.85-5.65); White Blood Count 8.30 10^3/uL (3.29-11.43)
[2025-03-31 13:05] LABS: Alanine Aminotransferase 15 U/L (0-33); Albumin Level 3.8 g/dL (3.5-5.2); Alkaline Phosphatase 108 U/L (35-105); Anion Gap 16.2 (5-19); Aspartate Amino Transferase 14 U/L (0-32); Blood Urea Nitrogen 13 mg/dL (6-20); Calcium 8.9 mg/dL (8.5-10.5); Carbon Dioxide 24 mmol/L (22-29); Chloride 104 mmol/L (98-107); Globulin 2.8 g/dL (1.3-4.6); Glucose 86 mg/dL (65-115); Osmolality Calculated 289 mOsm/kg (285-295); Potassium 4.2 mmol/L (3.5-5.1); Sodium 140 mmol/L (136-145); Thyroid Stimulating Hormone 1.84 uIU/mL (0.27-4.20); Total Protein 6.6 g/dL (6.6-8.7)
[2025-03-31 13:11] LABS: Slide Review Slide Review Perform
[2025-04-07 13:09] LABS: Hematocrit 42.6 % (36-47); Hemoglobin 14.00 g/dL (11.27-16.99); Mean Corpuscular HGB Conc 32.9 g/dL (30-55); Mean Corpuscular Hemoglobin 26.5 pg (27-33); Mean Corpuscular Volume 80.7 fl (85-98); Nucleated Red Blood Cells % 0 %; Platelet Count 258 10^3/cmm (157-399); Red Blood Count 5.28 10^6/uL (3.85-5.65); White Blood Count 6.82 10^3/uL (3.29-11.43)
[2025-04-07 13:38] LABS: Alanine Aminotransferase 11 U/L (0-33); Albumin Level 3.9 g/dL (3.5-5.2); Alkaline Phosphatase 141 U/L (35-105); Anion Gap 14.7 (5-19); Aspartate Amino Transferase 13 U/L (0-32); Blood Urea Nitrogen 10 mg/dL (6-20); Calcium 9.3 mg/dL (8.5-10.5); Carbon Dioxide 26 mmol/L (22-29); Chloride 103 mmol/L (98-107); Globulin 2.9 g/dL (1.3-4.6); Glucose 90 mg/dL (65-115); Osmolality Calculated 287 mOsm/kg (285-295); Potassium 4.7 mmol/L (3.5-5.1); Sodium 139 mmol/L (136-145); Thyroid Stimulating Hormone 1.10 uIU/mL (0.27-4.20); Total Protein 6.8 g/dL (6.6-8.7)
[2025-04-07 13:51] LABS: Slide Review Slide Review Perform
[2025-04-14 08:46] LABS: Hematocrit 42.8 % (36-47); Hemoglobin 14.20 g/dL (11.27-16.99); Mean Corpuscular HGB Conc 33.2 g/dL (30-55); Mean Corpuscular Hemoglobin 27.1 pg (27-33); Mean Corpuscular Volume 81.7 fl (85-98); Nucleated Red Blood Cells % 0 %; Platelet Count 319 10^3/cmm (157-399); Red Blood Count 5.24 10^6/uL (3.85-5.65); White Blood Count 13.24 10^3/uL (3.29-11.43)
[2025-04-14 09:24] LABS: Alanine Aminotransferase 16 U/L (0-33); Albumin Level 3.9 g/dL (3.5-5.2); Alkaline Phosphatase 140 U/L (35-105); Anion Gap 15.0 (5-19); Aspartate Amino Transferase 15 U/L (0-32); Blood Urea Nitrogen 7 mg/dL (6-20); Calcium 9.0 mg/dL (8.5-10.5); Carbon Dioxide 24 mmol/L (22-29); Chloride 104 mmol/L (98-107); Creatinine Clr Calc Pharmacy 110.6140; Globulin 2.8 g/dL (1.3-4.6); Glucose 107 mg/dL (65-115); Osmolality Calculated 286 mOsm/kg (285-295); Potassium 4.0 mmol/L (3.5-5.1); Sodium 139 mmol/L (136-145); Thyroid Stimulating Hormone 2.02 uIU/mL (0.27-4.20); Total Protein 6.7 g/dL (6.6-8.7)
[2025-04-14 09:37] VITALS: BP 95/63; PULSE 88; RESP 17; TEMP 37; O2SAT 98
[2025-04-14] MEDS: alteplase 1 mg/mL SDV 2 mL 2 MG INTRACATH (10:10)
[2025-04-14] MEDS: methylPREDNISolone sod succ 125 mg/2 mL INJ 60 MG IVP (10:40)
[2025-04-14] MEDS: diphenhydrAMINE 50 mg/mL SDV 1mL 25 MG IVP (10:45)
[2025-04-14] MEDS: pembrolizumab 200 MG in sodium chloride 0.9% 250 ML 516 MG IV (11:23)
[2025-04-14] MEDS: CARBOplatin 510 MG in sodium chloride 0.9% 500 ML 551 MG IV (15:09)
[2025-04-14] MEDS: pegfilgrastim 6 mg/0.6 mL Kit (onpro) SUBCUT (16:17)
[2025-04-14 16:19] VITALS: BP 91/64; PULSE 87; RESP 16; TEMP 36.4; O2SAT 92
== END 2025-04-14 23:59 | disposition home or self-care (01) ==
PROVIDERS: Internal Medicine Medical Oncology; PCP Family Medicine; Visit Provider Nurse Practitioner
DX: Z51.11 Encounter for antineoplastic chemotherapy; Z51.12 Encounter for antineoplastic immunotherapy; C34.11 Malignant neoplasm of upper lobe, right bronchus or lung; C79.31 Secondary malignant neoplasm of brain; R53.83 Other fatigue; F17.210 Nicotine dependence, cigarettes, uncomplicated; R03.0 Elevated blood-pressure reading, without diagnosis of hypertension; G89.29 Other chronic pain; Z95.828 Presence of other vascular implants and grafts; Z79.52 Long term (current) use of systemic steroids; Z79.899 Other long term (current) drug therapy; Z92.3 Personal history of irradiation; Z98.890 Other specified postprocedural states; Z53.9 Procedure and treatment not carried out, unspecified reason
CPT/HCPCS: 36591; 36593; 80053; 84443; 85025; 96367; 96375; 96377; 96413; 96415; 96417; 99214; 99215; A4222; J1100; J1200; J1453; J2469; J2506; J2919; J2997; J3490; J7030; J7040; J7050; J9045; J9267; J9271; J9999